=== PATIENT | male | born 1970 | race Caucasian/White ===

== ENCOUNTER 2023-12-02 21:22 | Emergency (ER) | payer SELFPAY ==
[2023-12-02 21:25] VITALS: BP 128/89; PULSE 85; TEMP 36.9; O2SAT 94; BMI 29.8
--- NOTE | 2023-12-02 21:54 | CT_ITS ---
The [address] [address] Patient Name: FARTUN BLOOM MRN: [id number] date: 1970 Sex: M Assigned Patient Location: ER Current Patient Location: ER Accession/Order Number: [id number] Exam Date: 12/02/2023 22:28 Report Date: 12/02/2023 23:52 At the request of: ALBERTO MARKER Procedure: CT abdomen pelvis w con EXAM: CT abdomen pelvis w con HISTORY: left inguinal abscess R/O fourniers gangrene COMPARISON: CT ABD/PELV W CON Date 11/24/2021 TECHNIQUE: Multiple axial images of the abdomen and pelvis are obtained following administration of IV contrast material. Coronal and sagittal reformatted sequences are submitted for review. FINDINGS: The lung bases appear clear. Heart size is normal. Mild diffuse low-attenuation of the liver is seen, which is a nonspecific finding, but which can be seen with mild diffuse fatty infiltration. Contracted but otherwise unremarkable gallbladder is seen. The spleen, pancreas and bilateral adrenal glands appear unremarkable. Bilateral kidneys demonstrate normal size, contrast enhancement. There is no evidence for hydronephrosis bilaterally. Distended but otherwise unremarkable urinary bladder is seen. Nonobstructive bowel pattern is seen. Normal-appearing appendix is visualized. No significant bowel wall thickening is seen. No significant free fluid or abnormal fluid collection is seen in the abdomen and pelvis. The vascular structures and should normal caliber and contrast enhancement. Very small fat-containing bilateral inguinal hernia is seen. No significant soft tissue gas is seen in the bilateral inguinal region.The abdominal wall and visualized soft tissues otherwise appear unremarkable. No destructive osseous lesion is seen. CT/CT abdomen pelvis w con IMPRESSION: No evidence for acute abnormality. Very small fat-containing bilateral inguinal hernia is seen. No significant soft tissue gas is seen in the bilateral inguinal region. Likely mild diffuse fatty infiltration of the liver. Normal-appearing appendix is visualized. Electronically authenticated by: ZULMA ANDERSON Date: 12/02/2023 23:52
[2023-12-02 22:21] LABS: Basophils Percent Auto 0.4 % (0.2-2.0); Eosinophils Absolute Auto 0.2 10^3/uL (0.0-0.7); Eosinophils Percent Auto 1.6 % (0.9-7.0); Hematocrit 43.9 % (42.0-54.0); Hemoglobin 14.9 g/dL (14.0-18.0); Immature Granulocytes Abs Auto 0.02 10^3/uL (0.00-0.03); Immature Granulocytes Pct Auto 0.2 % (0.0-0.5); Lymphocytes Absolute Auto 2.9 10^3/uL (1.2-3.8); Lymphocytes Percent Auto 29.1 % (20.5-60.0); Mean Corpuscular HGB Conc 33.9 g/dL (29.9-35.2); Mean Corpuscular Hemoglobin 32.7 pg (25.9-34.0); Mean Corpuscular Volume 96.3 fL (80.0-94.0); Mean Platelet Volume 9.6 fL (9.5-13.5); Monocytes Absolute Auto 0.6 10^3/uL (0.3-0.8); Monocytes Percent Auto 6.3 % (1.7-12.0); Neutrophils Absolute Auto 6.2 10^3/uL (1.4-6.5); Neutrophils Percent Auto 62.4 % (43.0-75.0); Platelet Count 262 10^3/uL (150-450); Red Blood Count 4.56 10^6/uL (4.70-6.10); Red Cell Distribution Width 12.8 % (11.0-15.0); White Blood Count 9.9 10^3/uL (4.0-11.0)
--- NOTE | 2023-12-02 22:22 | ED_ITS ---
HPI - Skin/Abscess/Foreign Bdy General Chief complaint: Skin/Abscess/Foreign Body Stated complaint: ABCESS -INNER THIGH Time Seen by Provider: 12/02/23 21:37 Source: patient Mode of arrival: walk-in Limitations: no limitations History of Present Illness HPI narrative: This 53-year-old male presents for evaluation of a draining abscess in the left inguinal area. The patient states he was sent to [facility] a year ago because he had an abscess in this area. He had surgery and since then he has not had any problems until approximately 2 days ago when he felt some discomfort in that area and thought he was chafed because he was at work and was sweating. He then smelled some foul-smelling substance and felt drainage down his left leg and realized that it was an abscess that had opened up in this area. He is not diabetic. He has not had a fever. He denies any pain at this time but did have pain earlier this week when the area was swollen before it opened up and drained. Related Data Home Medications ?Medication ?Instructions ?Recorded ?Confirmed No Known Home Medications 12/02/23 12/02/23 Allergies Allergy/AdvReac Type Severity Reaction Status Date / Time No Known Drug Allergies Allergy Verified 12/02/23 21:25 Review of Systems ROS Status of ROS 10 or more systems reviewed and unremark able except as noted in history and below Exam Narrative Exam Narrative: Vital signs and Nursing Notes reviewed: Patient is afebrile with normal pulse, normal blood pressure, he is not hypoxic with pulse ox of 94% on room air General: Awake, alert, oriented, nontoxic male, no acute distress, lying comfortably on the stretcher HEENT: Normocephalic atraumatic, mucous membranes are moist and pink, eyes are clear, normal conjunctiva, vision is grossly intact Chest: Lungs are clear to auscultation with good air entry, there is no wheezing rhonchi or rales appreciated no accessory muscle use, patient is speaking in complete sentences-no chest wall tenderness to palpation CVS: Regular rate and rhythm S1-S2, no murmurs rubs or gallops, pulses are brisk and equal bilaterally ABD: Soft, nondistended, nontender, no rebound guarding or rigidity, bowel sounds are normal, no pulsatile masses appreciated : There is an open area, approximately 1 cm, in the left inguinal area with an approx 3 cm area of induration at the lower portion of the area, no drainage was expressed with pressure appled. Extremities: Moving all extremities, no lower extremity tenderness or swelling noted, negative Homans' sign, pulses are brisk and equal bilaterally Skin: Normal in appearance without rash,pallor, petechiae or purpura Neuro: No focal deficits Constitutional Vital Signs, click to edit/add: Last Vital Signs Temp 98.4 F 12/02/23 21:25 Pulse 85 12/02/23 21:25 Resp 18 12/02/23 21:25 BP 128/89 12/02/23 21:25 Pulse Ox 94 L 12/02/23 21:25 O2 Del Method Room Air 12/02/23 21:25 Course Vital Signs Vital signs: Vital Signs Temperature 98.4 F 12/02/23 21:25 Pulse Rate 85 12/02/23 21:25 Respiratory Rate 18 12/02/23 21:25 Blood Pressure 128/89 12/02/23 21:25 Pulse Oximetry 94 L 12/02/23 21:25 Oxygen Delivery Method Room Air 12/02/23 21:25 Temperature 98.4 F 12/02/23 21:25 Pulse Rate 85 12/02/23 21:25 Respiratory Rate 18 12/02/23 21:25 Blood Pressure 128/89 12/02/23 21:25 Pulse Oximetry 94 L 12/02/23 21:25 Oxygen Delivery Method Room Air 12/02/23 21:25 MDM - Skin/Abscess/Foreign Bdy MDM Narrative Medical decision making narrative: This 53-year-old male who is otherwise healthy and had an I&D of a left inguinal abscess in [place] approximately 1 year ago presents for evaluation of recurrent abscess in the left inguinal canal area. The patient states the symptoms started several days ago. He thought he was chafing because he had some discomfort in his left inguinal area and then smelled something foul and realized that it was from the area where he formally had his incision and drainage of the abscess. He apparently had an abscess that recurred and was draining. He has not had a fever. He is not diabetic. There is no appreciable involvement of the perineum, scrotum or rectum. He has an approximately 3 cm area of induration just below an open area that is not currently draining however he states when it is draining now it is clear. I did not probe this area or irritated. He denies the need for anything for pain. He was medicated with 3 g of IV Unasyn and routine labs were ordered. He has a normal white count hemoglobin. Lactic acid is normal. Electrolytes are normal. CT scan of the abdomen and pelvis was reviewed by radiology I does not show any sign of necrotizing fasciitis or active abscess in this area. It does show bilateral inguinal hernias. The results of the CT scan was discussed with the patient he was given a copy. He will be discharged home with prescription for Augmentin to use for the next 10 days. I encouraged him to use warm compresses to keep the open area open and to help the area organize and drain. He is in agreement with this plan. He declined the need for any pain medication. He will be referred to outpatient general surgery as needed for the inguinal hernias and if the abscess should reaccumulate for further evaluation and treatment. Medical Records Medical records narrative: [place] [address] CT Scan Report Signed Patient: FARTUN BLOOM MR#: [id number] : 1970 Acct:[id number] Age/Sex: 53 / M ADM Date: 12/02/23 Loc: ER Attending Dr: Ordering Physician: Rocio Adrian Date of Service: 12/02/23 Procedure(s): CT abdomen pelvis w con Accession Number(s): [id number] cc: SAHRANATALI [facility] [place] [id number] Patient Name: FARTUN BLOOM MRN: [id number] date: 1970 Sex: M Assigned Patient Location: ER Current Patient Location: ER Accession/Order Number: [id number] Exam Date: 12/02/2023 22:28 Report Date: 12/02/2023 23:52 At the request of: ROCIO ADRIAN Procedure: CT abdomen pelvis w con EXAM: CT abdomen pelvis w con HISTORY: left inguinal abscess R/O fourniers gangrene COMPARISON: CT ABD/PELV W CON Date 11/24/2021 TECHNIQUE: Multiple axial images of the abdomen and pelvis are obtained following administration of IV contrast material. Coronal and sagittal reformatted sequences are submitted for review. FINDINGS: The lung bases appear clear. Heart size is normal. Mild diffuse low-attenuation of the liver is seen, which is a nonspecific finding, but which can be seen with mild diffuse fatty infiltration. Contracted but otherwise unremarkable gallbladder is seen. The spleen, pancreas and bilateral adrenal glands appear unremarkable. Bilateral kidneys demonstrate normal size, contrast enhancement. There is no evidence for hydronephrosis bilaterally. Distended but otherwise unremarkable urinary bladder is seen. Nonobstructive bowel pattern is seen. Normal-appearing appendix is visualized. No significant bowel wall thickening is seen. No significant free fluid or abnormal fluid collection is seen in the abdomen and pelvis. The vascular structures and should normal caliber and contrast enhancement. Very small fat-containing bilateral inguinal hernia is seen. No significant soft tissue gas is seen in the bilateral inguinal region.The abdominal wall and visualized soft tissues otherwise appear unremarkable. No destructive osseous lesion is seen. CT/CT abdomen pelvis w con IMPRESSION: No evidence for acute abnormality. Very small fat-containing bilateral inguinal hernia is seen. No significant soft tissue gas is seen in the bilateral inguinal region. Likely mild diffuse fatty infiltration of the liver. Normal-appearing appendix is visualized. Electronically authenticated by: ZULMA ANDERSON Date: 12/02/2023 23:52 Lab Data Labs: Lab Results 12/02/23 Range/Units 22:10 WBC 9.9 (4.0-11.0) 10^3/uL RBC 4.56 L (4.70-6.10) 10^6/uL Hgb 14.9 (14.0-18.0) g/dL Hct 43.9 (42.0-54.0) % MCV 96.3 H (80.0-94.0) fL MCH 32.7 (25.9-34.0) pg MCHC 33.9 (29.9-35.2) g/dL RDW 12.8 (11.0-15.0) % Plt Count 262 (150-450) 10^3/uL MPV 9.6 (9.5-13.5) fL Neut % (Auto) 62.4 (43.0-75.0) % Lymph % (Auto) 29.1 (20.5-60.0) % [place] % (Auto) 6.3 (1.7-12.0) % Eos % (Auto) 1.6 (0.9-7.0) % Baso % (Auto) 0.4 (0.2-2.0) % Neut # (Auto) 6.2 (1.4-6.5) 10^3/uL Lymph # (Auto) 2.9 (1.2-3.8) 10^3/uL [place] # (Auto) 0.6 (0.3-0.8) 10^3/uL Eos # (Auto) 0.2 (0.0-0.7) 10^3/uL Baso # (Auto) 0.0 (0.0-0.1) 10^3/uL Abs Immat Gran (auto) 0.02 (0.00-0.03) 10^3/uL Imm/Tot Granulo (auto) 0.2 (0.0-0.5) % Sodium 137 (136-145) mmol/L Potassium 3.3 L (3.5-5.1) mmol/L Chloride 102 (98-107) mmol/L Carbon Dioxide 27.8 (21.0-32.0) mmol/L Anion Gap 10.5 BUN 10.0 (7.0-18.0) mg/dL Creatinine 1.10 (0.70-1.30) mg/dL Est GFR ( Amer) >60 (>=60) Est GFR (Non-Af Amer) >60 (>=60) BUN/Creatinine Ratio 9.1 Glucose 97 (74-106) mg/dL Lactate 1.5 (0.4-2.0) mmol/L Calcium 8.4 L (8.5-10.1) mg/dL Total Bilirubin 0.5 (0.2-1.0) mg/dL AST 18 (15-37) U/L ALT 20 (16-63) U/L Alkaline Phosphatase 82 (46-116) U/L Total Protein 7.3 (6.4-8.2) g/dL Albumin 3.0 L (3.4-5.0) g/dL Globulin 4.3 g/dL Albumin/Globulin Ratio 0.7 Discharge Plan Discharge Stand Alone Forms: Portal Instructions Chief Complaint: Skin/Abscess/Foreign Body Clinical Impression: Abscess of groin, left Patient Disposition: Home, Self-Care Time of Disposition Decision: 00:15 Condition: Good Prescriptions / Home Meds: No Action No Known Home Medications Print Language: Tanzanian Instructions: Abscess (ED), Abscess Follow-up (ED) Additional Instructions: Use antibiotics as directed and warm compresses to the area to help the abscess continue to drain. Return to the emergency department for worsening symptoms, fever or any concerns. Referrals: NATALI BOCANEGRA [Primary Care Provider] - 1 week Zachariah Navas MD [Physician] - 1 week
[2023-12-02 22:38] LABS: Alanine Aminotransferase 20 U/L (16-63); Albumin Globulin Ratio 0.7; Alkaline Phosphatase 82 U/L (46-116); Anion Gap 10.5; Aspartate Amino Transferase 18 U/L (15-37); BUN Creatinine Ratio 9.1; Bilirubin Total 0.5 mg/dL (0.2-1.0); Calcium 8.4 mg/dL (8.5-10.1); Carbon Dioxide 27.8 mmol/L (21.0-32.0); Chloride 102 mmol/L (98-107); Estimated GFR (African America >60 (>=60); Estimated GFR (Non-African Ame >60 (>=60); Globulin 4.3 g/dL; Glucose 97 mg/dL (74-106); Potassium 3.3 mmol/L (3.5-5.1); Sodium 137 mmol/L (136-145); Total Protein 7.3 g/dL (6.4-8.2)
[2023-12-02 22:40] LABS: Lactate/Lactic Acid 1.5 mmol/L (0.4-2.0)
[2023-12-02] MEDS: 0.9 % SODIUM CHLORIDE 1,000 ML 1000 ML IV (22:55)
[2023-12-02] MEDS: AMPICILLIN SODIUM/SULBACTAM NA 3 GM in 0.9 % SODIUM CHLORIDE 100 ML IV (22:55)
== END 2023-12-03 00:38 | disposition home or self-care (01) ==
PROVIDERS: Emergency Provider Emergency Medicine; PCP Family Medicine
DX: L02.214 Cutaneous abscess of groin (principal)
CPT/HCPCS: 36415; 74177; 80053; 83605; 85025; 87040; 96374; 99285; J0295; Q9967

== ENCOUNTER 2024-01-20 11:29 | Observation (INO) | payer SELFPAY ==
[2024-01-20] VITALS (14 sets, daily range): BP systolic 139–164; BP diastolic 91–99; PULSE 87–100; TEMP 37.2–37.8; O2SAT 93–99; BMI 29.8; BMI 31.4
--- NOTE | 2024-01-20 11:43 | CT_ITS ---
[address] [address] Patient Name: FARTUN BLOOM MRN: [id number] date: 1970 Sex: M Assigned Patient Location: ER Current Patient Location: Accession/Order Number: [id number] Exam Date: 01/20/2024 12:20 Report Date: 01/20/2024 12:56 At the request of: DAR GUTIERREZ Procedure: CT abdomen pelvis w con EXAMINATION: CT abdomen pelvis w con HISTORY: Pain, hematemesis, fever COMPARISON: CT abdomen pelvis 12/02/2023, 11/24/2021, 11/17/2021 TECHNIQUE: Axial, Coronal, and Sagittal images were obtained without and/or with IV contrast as indicated by examination type. Dose reduction techniques were achieved by using automated exposure control and/or adjustment of mA and/or kV according to patient size and/or use of iterative reconstruction technique. FINDINGS: LUNG BASES: No visible pulmonary or pleural disease. 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 No enlargement, atrophy, suspicious density, or significant focal lesion. BILIARY: No dilatation or calcification. PANCREAS: Edema/inflammatory changes within the fat inferior and anterior to the distal tail of the pancreas. No lesion, fluid collection, or abnormal duct dilatation. SPLEEN: No enlargement or focal lesion. ADRENALS: No mass or enlargement. KIDNEYS: No mass, obstruction, or calcification. BOWEL/MESENTERY: Mild inflammatory changes within the fat adjacent to and medial to the splenic flexure of the colon. Nondistended colon within this region without convincing inflammatory wall thickening. Unremarkable small bowel and stomach. AORTA/VASCULAR: No aneurysm or dissection. RETROPERITONEUM: No mass or adenopathy. LYMPH NODES: No adenopathy. URINARY BLADDER: No visible focal wall thickening, lesion, or calculus. PELVIC ORGANS: No visible mass. Pelvic organs appropriate for patient age. ABDOMINAL WALL: No mass or hernia. BONES: No bony lesion or fracture. OTHER: Negative. CT/CT abdomen pelvis w con IMPRESSION: 1. Suspect mild acute pancreatitis involving the tail the pancreas. Colitis involving the splenic flexure of the colon is felt less likely. Electronically authenticated by: PASCUAL TRISTAN Date: 01/20/2024 12:56
--- NOTE | 2024-01-20 11:44 | ED_ITS ---
HPI HPI - General Adult General Chief complaint: Nausea/Vomiting/Diarrhea Stated complaint: VOMITING BLOOD, WEAK Time Seen by Provider: 01/20/24 11:38 Source: patient Mode of arrival: walk-in Limitations: no limitations History of Present Illness HPI narrative: 53-year-old male presents to the emergency department for vomiting blood. He states beginning yesterday he was nauseous and he vomited. He did not see any blood yesterday but when he vomited today he saw dark red blood. No blood in his stools or black tarry color. He complains of some upper abdominal pain and he was noted to have a temperature of 100 degrees at triage. He smokes he drinks bourbon every day. Related Data Home Medications ?Medication ?Instructions ?Recorded ?Confirmed No Known Home Medications 12/02/23 12/02/23 Allergies Allergy/AdvReac Type Severity Reaction Status Date / Time No Known Drug Allergies Allergy Verified 12/02/23 21:25 Opioid HPI Opioid Management Most Recent Opioid Data: No Data to Display Review of Systems ROS Narrative A ten point review of systems is negative except as noted above. PFSH PFSH Social History Little interest or pleasure in doing things: not at all Feeling down, depressed, or hopeless: not at all Exam Narrative Exam Narrative: Nurses note and vital signs reviewed and patient is not hypoxic. General: The patient appears well and in no apparent distress. Patient is resting comfortably on cart. Skin: Warm, dry, no pallor noted. There is no rash noted. Head: Normocephalic, atraumatic Eye: Normal conjunctiva, no drainage Ears, Nose, Mouth, and Throat: oral mucosa is moist. Nares patent. Cardiovascular: Regular Rate and Rhythm Respiratory: Patient is in no distress, no accessory muscle use, lungs are clear to auscultation, no wheezing, rales or rhonchi GI: Normal bowel sounds, minimal tenderness to palpation only in the epigastric area, no masses appreciated. No rebound, guarding, or rigidity noted. Musculoskeletal: The patient has no evidence of calf tenderness, no pitting edema, symmetrical pulses noted bilaterally Neurological: A&O, normal speech Psychiatric: Cooperative Constitutional Vital Signs, click to edit/add: Last Vital Signs Temp 100.0 F 01/20/24 11:35 Pulse 100 H 01/20/24 11:35 Resp 18 01/20/24 11:35 BP 164/99 H 01/20/24 11:35 Pulse Ox 99 01/20/24 11:58 O2 Del Method Room Air 01/20/24 11:58 Course Vital Signs Vital signs: Vital Signs Temperature 100.0 F 01/20/24 11:35 Pulse Rate 100 H 01/20/24 11:35 Respiratory Rate 18 01/20/24 11:35 Blood Pressure 164/99 H 01/20/24 11:35 Pulse Oximetry 96 01/20/24 11:35 Oxygen Delivery Method Room Air 01/20/24 11:35 Temperature 100.0 F 01/20/24 11:35 Pulse Rate 100 H 01/20/24 11:35 Respiratory Rate 18 01/20/24 11:35 Blood Pressure 164/99 H 01/20/24 11:35 Pulse Oximetry 99 01/20/24 11:58 Oxygen Delivery Method Room Air 01/20/24 11:58 Medical Decision Making MDM Narrative Medical decision making narrative: WBC is 15,000 and he has a temperature of [address] scan per radiologist suggested the possibility pancreatitis but his amylase is normal and his lipase is just above the upper limit of normal. Colitis is also suggested on the CAT scan and this better fits the clinical picture at this point. He was given IV Protonix and IV Cipro and Flagyl and he is being admitted. Hemoglobin is 17.2. Findings are discussed thoroughly with the patient and his family. Differential Diagnosis Differential Diagnosis: Pancreatitis, duodenitis, colitis, gastric ulcer Lab Data Lab results reviewed: Yes I reviewed the patient's lab results Labs: Lab Results 01/20/24 Range/Units 11:41 WBC 15.8 H (4.0-11.0) 10^3/uL RBC 5.11 (4.70-6.10) 10^6/uL Hgb 17.2 (14.0-18.0) g/dL Hct 47.4 (42.0-54.0) % MCV 92.8 (80.0-94.0) fL MCH 33.7 (25.9-34.0) pg MCHC 36.3 H (29.9-35.2) g/dL RDW 13.1 (11.0-15.0) % Plt Count 187 (150-450) 10^3/uL MPV 9.9 (9.5-13.5) fL Neut % (Auto) 76.3 H (43.0-75.0) % Lymph % (Auto) 16.8 L (20.5-60.0) % [place] % (Auto) 5.8 (1.7-12.0) % Eos % (Auto) 0.3 L (0.9-7.0) % Baso % (Auto) 0.4 (0.2-2.0) % Neut # (Auto) 12.1 H (1.4-6.5) 10^3/uL Lymph # (Auto) 2.7 (1.2-3.8) 10^3/uL [place] # (Auto) 0.9 H (0.3-0.8) 10^3/uL Eos # (Auto) 0.0 (0.0-0.7) 10^3/uL Baso # (Auto) 0.1 (0.0-0.1) 10^3/uL Abs Immat Gran (auto) 0.06 H (0.00-0.03) 10^3/uL Imm/Tot Granulo (auto) 0.4 (0.0-0.5) % PT 12.7 H (9.0-11.6) sec INR 1.22 APTT 28.8 (22.3-36.2) sec Sodium 131 L (136-145) mmol/L Potassium 3.7 (3.5-5.1) mmol/L Chloride 96 L (98-107) mmol/L Carbon Dioxide 25.9 (21.0-32.0) mmol/L Anion Gap 12.8 BUN 12.0 (7.0-18.0) mg/dL Creatinine 1.01 (0.70-1.30) mg/dL Est GFR ( Amer) >60 (>=60) Est GFR (Non-Af Amer) >60 (>=60) BUN/Creatinine Ratio 11.9 Glucose 136 H (74-106) mg/dL Calcium 8.3 L (8.5-10.1) mg/dL Total Bilirubin 1.6 H (0.2-1.0) mg/dL Direct Bilirubin 0.4 H (0.0-0.2) mg/dL AST 71 H (15-37) U/L ALT 87 H (16-63) U/L Alkaline Phosphatase 106 (46-116) U/L Total Protein 7.8 (6.4-8.2) g/dL Albumin 2.9 L (3.4-5.0) g/dL Globulin 4.9 g/dL Albumin/Globulin Ratio 0.6 Amylase 40 (25-115) U/L Lipase 90.0 H (16.0-77.0) U/L Imaging Data CT scan - abdomen: Radiologist's impression: ITS Impressions Abdomen/Pelvis CT 01/20/24 11:43 IMPRESSION: 1. Suspect mild acute pancreatitis involving the tail the pancreas. Colitis involving the splenic flexure of the colon is felt less likely. Electronically authenticated by: PASCUAL TRISTAN Date: 01/20/2024 12:56 Discharge Plan Discharge Chief Complaint: Nausea/Vomiting/Diarrhea Clinical Impression: Colitis, Abdominal pain, Leukocytosis Patient Disposition: Admitted As Inpatient Time of Disposition Decision: 14:04 Condition: Fair
[2024-01-20 11:51] LABS: Basophils Absolute Auto 0.1 10^3/uL (0.0-0.1); Basophils Percent Auto 0.4 % (0.2-2.0); Eosinophils Percent Auto 0.3 % (0.9-7.0); Hematocrit 47.4 % (42.0-54.0); Hemoglobin 17.2 g/dL (14.0-18.0); Immature Granulocytes Abs Auto 0.06 10^3/uL (0.00-0.03); Immature Granulocytes Pct Auto 0.4 % (0.0-0.5); Lymphocytes Absolute Auto 2.7 10^3/uL (1.2-3.8); Lymphocytes Percent Auto 16.8 % (20.5-60.0); Mean Corpuscular HGB Conc 36.3 g/dL (29.9-35.2); Mean Corpuscular Hemoglobin 33.7 pg (25.9-34.0); Mean Corpuscular Volume 92.8 fL (80.0-94.0); Mean Platelet Volume 9.9 fL (9.5-13.5); Monocytes Absolute Auto 0.9 10^3/uL (0.3-0.8); Monocytes Percent Auto 5.8 % (1.7-12.0); Neutrophils Absolute Auto 12.1 10^3/uL (1.4-6.5); Neutrophils Percent Auto 76.3 % (43.0-75.0); Platelet Count 187 10^3/uL (150-450); Red Blood Count 5.11 10^6/uL (4.70-6.10); Red Cell Distribution Width 13.1 % (11.0-15.0); White Blood Count 15.8 10^3/uL (4.0-11.0)
[2024-01-20] MEDS: 0.9 % SODIUM CHLORIDE 1,000 ML 200 ML IV (11:52)
--- OUTSIDE RECORDS SUMMARY | 2024-01-20 11:59 | XMS_ITS | CCD ---
Author Organization [facility] Inform ion Partnership [facility] Care Team Providers Care Negative Retoucher Name Role Phone Provider, None Unavailable Unavailable Hunter, Chris R. Unavailable Unavailable Sanders, Chris R. Unavailable Unavailable Provider, None Unavailable Unavailable Hunter, Chris R. Unavailable Unavailable Hunter, Chris R. Unavailable Unavailable Unavailable Primary Care Provider UnavailDO Sandro Fraser Primary Care Provider [phone] DO Marce Roblero Emergency Provider MD Amrit Orozco Admit Provider MD Amrit Orozco Attending Provider [phone] DO Bruno Bocanegra Primary Care Provider [phone] PIYUSH Golden Other Provider Unavailable PIYUSH Mathews Other Provider Unavailable PIYUSH Aguilera Other Provider Unavailable PIYUSH Hauser Other Provider Unavailable PIYUSH Rolon Other Provider Unavailable PIYUSH Saenz Other Provider Unavailable MD Reza Calderon Other Provider MD Gen Johnson Other Provider KARMEN Christy Other Provider [phone] DO Shikha Ramirez Other Provider MD Moshe Tello Other Provider DO Aubrey Adams Other Provider MD Jonathan Rosado Other Provider MD Cristina Thurman Other Provider Desean ANP-BC Tanisha Other Provider MD Wiley Mathur Other Provider MD Randal Ballesteros Other Provider MD Monisha Mcgregor Other Provider MD Carlos Vilchis Other Provider DO Chin Downing Other Provider [phone] MD Vince Jauregui Other Provider MD Cornel Villanueva Other Provider MD Chi Bernabe Other Provider MAKENZIE Young Other Provider [phone] MD Timothy Monreal Other Provider MD Devyn Arreola Other Provider MD Jyothi Dowling Other Provider MD Lacho Taveras Other Provider DO Saige Desir Other Provider Al MD Bipin Pickering Other Provider DO Nagi Schmitz Other Provider DO Hema Gastelum Other Provider KARMEN Yan Other Provider DO Gonzalo Vanessa Other Provider [phone] MD Jarett Jurado Other Provider KARMEN Duarte Other Provider PIYUSH Dumont Other Provider Unavailable CORINNE OGDEN Attending Unavailable KUN, DR PASCUAL Ramos Consulting Unavailable HOUSE, DR HURST Primary Care Unavailable PAY, DR JONES Admitting Unavailable PAY, DR JONES Attending Unavailable PAY, DR JONES Consulting Unavailable SNEHA, JOSE J Attending Unavailable SNEHA, JOSE J Consulting Unavailable SNEHA, JOSE J Admitting Unavailable HOUSE, DR HURST Primary Care Unavailable ISABELLE LEÓN Consulting Unavailable HOUSE, DR HURST Primary Care Unavailable DIAB, YOLY Admitting Unavailable SAID, BINOR Consulting Unavailable DIAB, YOLY Attending Unavailable YADI GOLDMAN Consulting Unavailable KAT, YOLY Consulting Unavailable LITZY POST Consulting Unavailable SAHRA, DR HURST Primary Care Unavailable LITZY POST Admitting Unavailable LITZY POST Attending Unavailable PAY, DR JONES Admitting Unavailable HOUSE, DR HURST Primary Care Unavailable KUN, DR PASCUAL Ramos Consulting Unavailable PAY, DR JONES Attending Unavailable PAY, DR JONES Consulting Unavailable JOO HUGHES Consulting Unavailable Sahra, Bruno Primary Care Unavailable Ernesto, Amrit Admitting Unavailable Areli Golden Consulting Unavailable Mak Orozcomi Attending Unavailable Effie Mathews Consulting Unavailable Nakita Aguilera Consulting Unavailable Candi Hauser Consulting Unavailable Donna Rolon Consulting Unavailable Ashlee Saenz Consulting Unavailable Reza Calderon Consulting Unavailable Gen Johnson Consulting Unavailable Roselyn Christy Consulting Unavailable Shikha Ramirez Consulting Unavailable Moshe Tello Consulting Unavailable Aubrey Adams Consulting UnavailJonathan Mejia Consulting Unavailable Cristina Thurman Consulting Unavailable Tanisha Anton Consulting Unavailable Wiley Mathur Consulting Unavailable Randal Ballesteros Consulting Unavailable Monisha Mcgregor Consulting Unavailable Carlos Vilchis Consulting Unavailable Chin Downing Consulting Unavailable Vince Jauregui Consulting Unavailable Cornel Villanueva Consulting Unavailable Chi Bernabe Consulting Unavailable Marce Young Consulting Unavailable DoTimothy newsome Consulting Unavailab Devyn Jacobs Consulting Unavailable JoseyJyothi min Consulting Unavailable Lacho Taveras Consulting Unavailable Saige Desir Consulting Unavailable Bipin Hernandez Consulting Unavailab Nagi Rogers Consulting Unavailable Hema Gastelum Consulting Unavailable Obika Tricia Consulting Unavailable Gonzalo Vanessa Consulting Unavailable DaromaAlessandro ramosayivone Monique Consulting Unavailable Leatha Duarte Consulting Unavailable Tita Dumont Consulting Unavailable Marce Roblero Attending Unavailable Marce Roblero Admitting Unavailable Sandro Mckeon Primary Care Unavailable Allergies Allergy Classification Reported Allergen(s) Allergy Type Date of Onset Reaction(s) Facility (1 source) No Known Medication Allergies; Translations: [No Known Medication Allergies] Propensity to adverse reactions to drug (disorder) [facility] Repository Medications Current Medications Medication Drug Class(es) Dates Sig (Normalized) Sig (Original) amLODIPine 10 mg oral tablet (1 source) Dihydropyridine Calcium Channel Holden Start: 03-08-2022 take 10 mg by mouth once daily Amlodipine Active 10 MG PO Daily March 08, 2022 12:00am cholecalciferol 0.125 mg oral capsule (1 source) Vitamin D Start: 03-08-2022 take 125 ug by mouth once daily Cholecalciferol (Vitamin D3) Active 125 MCG PO Daily March 08, 2022 12:00am citalopram 10 mg oral tablet (1 source) Serotonin Reuptake Inhibitor Start: 03-09-2022 take 10 mg by mouth once daily in the morning Citalopram Active 10 MG PO Every morning March 09, 2022 12:00am 24 hr nicotine 0.875 mg/hr transdermal system (1 source) Cholinergic Nicotinic Agonist Start: 03-09-2022 Nicotine Active 1 EACH TRANSDERML Daily March 09, 2022 12:00am propranolol hydrochloride 10 mg oral tablet (1 source) beta-Adrenergic Holden Start: 03-09-2022 take 10 mg by mouth twice daily Propranolol Active 10 MG PO Twice daily 60 March 09, 2022 12:00am Problems Active Problems Problem Classification Problem Date Documented Da te Episodic/Chronic Alcohol-related disorders (1 source) Alcohol dependence, uncomplicated; Translations: [ALCOHOL DEPENDENCE UNCOMPLICATED] Onset: 03-10-2022 Chronic Anxiety disorders (4 sources) Mixed anxiety and depressive disorder; Translations: [Anxiety disorder, unspecified] Onset: 03-06-2022 03-07-2022 Chronic Essential hypertension (4 sources) Hypertensive disorder; Translations: [Essential (primary) hypertension] Onset: 03-06-2022 03-08-2022 Chronic Mood disorders (1 source) Major depressive disorder, single episode, unspecified; Translations: [Major depressive disorder, single episode, unspecified] Onset: 03-06-2022 Chronic Mood disorders (1 source) Mood disorders; Translations: [Depression, unspecified] Onset: 03-06-2022 Nausea and vomiting (4 sources) Nausea with vomiting, unspecified; Translations: [Vomiting, unspecified] Onset: 11-24-2021 Episodic Nonspecific chest pain (4 sources) Chest pain, unspecified; Translations: [Other chest pain] Onset: 05-21-2022 Episodic Nutritional deficiencies (3 sources) Vitamin D deficiency; Translations: [Vitamin D deficiency, unspecified] Onset: 03-06-2022 03-08-2022 Chronic Other aftercare (1 source) Other 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 (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; 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] Onset: 05-25-2022 Episodic Other lower respiratory disease (1 source) Shortness of breath; Translations: [SHORTNESS OF BREATH] Onset: 03-10-2022 Episodic Other screening for suspected conditions (not mental disorders or infectious disease) (2 sources) Patient encounter status; Translations: [Encounter for screening for other disorder] Onset: 03-10-2022 Episodic Residual codes; unclassified (1 source) Restlessness and agitation; Translations: [RESTLESSNESS AND AGITATION] Onset: 03-10-2022 Chronic Spondylosis; intervertebral disc disorders; other back problems (1 source) Dorsalgia, unspecified; Translations: [DORSALGIA UNSPECIFIED] Onset: 05-25-2022 Episodic Substance-related disorders (1 source) Nicotine dependence, cigarettes, uncomplicated; Translations: [NICOTINE DEPEND CIGARETTES UNCOMP] Onset: 05-25-2022 Chronic Unclassified (1 source) CONTACT W/AND (SUSP) EXPOS COVID-19; Translations: [CONTACT W/AND (SUSP) EXPOS COVID-19] Onset: 03-10-2022 Past or Other Problems Problem Classification Problem Date Documented Da te Episodic/Chronic Inflammatory conditions of male genital organs (2 sources) Inflammatory disorders of scrotum; Translations: [Scrotal wall abscess] Onset: 11-18-2021 Episodic Intestinal infection (1 source) Viral intestinal infection, unspecified; Translations: [VIRAL INTESTINAL INFECTION UNSPEC] Onset: 11-26-2021 Episodic Other connective tissue disease (3 sources) Pain in left lower leg; Translations: [PAIN IN LEFT LOWER LEG] Onset: 07-26-2021 Episodic Other male genital disorders (5 sources) Scrotal pain; Translations: [Scrotal pain] Onset: 11-17-2021 Episodic Other male genital disorders (1 source) Torsion of testis, unspecified; Translations: [TORSION OF TESTIS UNSPECIFIED] Onset: 11-24-2021 Episodic Other nervous system disorders (1 source) Paresthesia of skin; Translations: [Paresthesia of skin] Onset: 03-02-2022 Episodic Other skin disorders (1 source) Personal history of diseases of the skin and subcutaneous tissue; Translations: [History of abscess of skin and subcutaneous tissue] Onset: 11-18-2021 Episodic Skin and subcutaneous tissue infections (1 source) Local infection of the skin and subcutaneous tissue, unspecified; Translations: [LOCAL INFECT SKIN SUBQ TISSUE UNS] Onset: 08-04-2021 Episodic Results Test Name Value Interpretation Reference Range Facility CARDIAC SHEA ADMITon 023 CK [Catalytic activity/Vol] 104 U/L Normal 39-308 [facility] Comment on above: Performed By: #### B NOISE ABATEMENT ENGINEER, LIPA, HSTROPN, CMP #### [facility] [address] [place] [address] Dr. Alesia Argueta CK.MB [Mass/Vol] ng/mL Normal <=3.60 [facility] Comment on above: Performed By: #### B NOISE ABATEMENT ENGINEER, LIPA, HSTROPN, CMP #### [facility] [address] [place] [address] Dr. Alesia Argueta HSTROP 5.8 pg/mL Normal 4.0-76.1 [facility] Comment on above: Result Comment: CUT- OFF POINTS HAVE BEEN ESTABLISHED BASED ON THE FOURTH UNIVERSAL DEFINITIONS OF MYOCARDIAL INFARCTION. THE UPPER REFERENCE LIMIT (URL) OF TROPONIN, DEFINED THE 99TH PERCENTILE OF cTnI DISTRIBUTION IN A REFERENCE POPULATION, HAS BEEN CONFIRMED THE DECISION THRESHOLD FOR AR DIAGNOSIS. Performed By: #### B NOISE ABATEMENT ENGINEER, LIPA, HSTROPN, CMP #### [facility] [address] [place] [address] Dr. Alesia Argueta HAWK 43 ng/mL Normal 16-96 [facility] Comment on above: Performed By: #### B NOISE ABATEMENT ENGINEER, LIPA, HSTROPN, CMP #### [facility] [address] [place] [address] Dr. Alesia Argueta CBC AUTO DIFFon 05-21-2022 BASO # 0.1 103/ul Normal 0.0-0.1 [facility] Comment on above: Performed By: #### B NOISE ABATEMENT ENGINEER, LIPA, HSTROPN, CMP #### [facility] [address] [place] [address] Dr. Alesia Argueta Basophils/100 WBC (Bld) 0.6 % Normal 0.2-2.0 [facility] Comment on above: Performed By: #### B NOISE ABATEMENT ENGINEER, LIPA, HSTROPN, CMP #### [facility] [address] [place] [address] Dr. Alesia Argueta EO # 0.2 103/ul Normal 0.0-0.7 [facility] Comment on above: Performed By: #### B NOISE ABATEMENT ENGINEER, LIPA, HSTROPN, CMP #### [facility] [address] [place] [address] Dr. Alesia Argueta Eosinophils/100 WBC (Bld) 2.8 % Normal 0.9-7.0 [facility] Comment on above: Performed By: #### B NOISE ABATEMENT ENGINEER, LIPA, HSTROPN, CMP #### [facility] [address] [place] [address] Dr. Alesia Argueta Erythrocyte distribution width (RBC) [Ratio] 13.2 % Normal 11.0-15.0 [facility] Comment on above: Performed By: #### B NOISE ABATEMENT ENGINEER, LIPA, HSTROPN, CMP #### [facility] [address] [place] [address] Dr. Alesia Argueta Hematocrit (Bld) [Volume fraction] 53.6 % Normal 42.0-54.0 [facility] Comment on above: Performed By: #### B NOISE ABATEMENT ENGINEER, LIPA, HSTROPN, CMP #### [facility] [address] [place] [address] Dr. Alesia Argueta Hemoglobin (Bld) [Mass/Vol] 16.7 g/dL Normal 14.0-18.0 [facility] Comment on above: Performed By: #### B NOISE ABATEMENT ENGINEER, LIPA, HSTROPN, CMP #### [facility] [address] [place] [address] Dr. Alesia Argueta IG # 0.02 10e3/ul Normal 0.00-0.03 [facility] Comment on above: Performed By: #### B NOISE ABATEMENT ENGINEER, LIPA, HSTROPN, CMP #### [facility] [address] [place] [address] Dr. Alesia Argueta IG % 0.3 % Normal 0.0-0.5 [facility] Comment on above: Performed By: #### B NOISE ABATEMENT ENGINEER, LIPA, HSTROPN, CMP #### [facility] [address] [place] [address] Dr. Alesia Argueta LYMPH # 3.4 103/ul Normal 1.2-3.8 [facility] Comment on above: Performed By: #### B NOISE ABATEMENT ENGINEER, LIPA, HSTROPN, CMP #### [facility] [address] [place] [address] Dr. Alesia Argueta Lymphocytes/100 WBC (Bld) 44.5 % Normal 20.5-60.0 [facility] Comment on above: Performed By: #### B NOISE ABATEMENT ENGINEER, LIPA, HSTROPN, CMP #### [facility] [address] [place] [address] Dr. Alesia Argueta MANUAL DIFF REQ NO Normal [facility] Comment on above: Performed By: #### B NOISE ABATEMENT ENGINEER, LIPA, HSTROPN, CMP #### [facility] [address] [place] [address] Dr. Alesia Argueta MCH (RBC) [Entitic mass] 30.8 pg Normal 25.9-34.0 [facility] Comment on above: Performed By: #### B NOISE ABATEMENT ENGINEER, LIPA, HSTROPN, CMP #### [facility] [address] [place] [address] Dr. Alesia Argueta MCHC (RBC) [Mass/Vol] 31.2 g/dL Normal 29.9-35.2 [facility] Comment on above: Performed By: #### B NOISE ABATEMENT ENGINEER, LIPA, HSTROPN, CMP #### [facility] [address] [place] [address] Dr. Alesia Argueta MCV (RBC) [Entitic vol] 98.9 fL Critically high 80.0-94.0 [facility] Comment on above: Performed By: #### B NOISE ABATEMENT ENGINEER, LIPA, HSTROPN, CMP #### [facility] [address] [place] [address] Dr. Alesia Argueta MONO # 0.6 103/ul Normal 0.3-0.8 [facility] Comment on above: Performed By: #### B NOISE ABATEMENT ENGINEER, LIPA, HSTROPN, CMP #### [facility] [address] [place] [address] Dr. Alesia Argueta Monocytes/100 WBC (Bld) 7.2 % Normal 1.7-12.0 [facility] Comment on above: Performed By: #### B NOISE ABATEMENT ENGINEER, LIPA, HSTROPN, CMP #### [facility] [address] [place] [address] Dr. Alesia Argueta NEUT # 3.4 103/ul Normal 1.4-6.5 [facility] Comment on above: Performed By: #### B NOISE ABATEMENT ENGINEER, LIPA, HSTROPN, CMP #### [facility] [address] [place] [address] Dr. Alesia Argueta Neutrophils/100 WBC (Bld) 44.6 % Normal 43.0-75.0 [facility] Comment on above: Performed By: #### B NOISE ABATEMENT ENGINEER, LIPA, HSTROPN, CMP #### [facility] [address] [place] [address] Dr. Alesia Argueta Platelet mean volume (Bld) [Entitic vol] 9.8 fL Normal 9.5-13.5 [facility] Comment on above: Performed By: #### B NOISE ABATEMENT ENGINEER, LIPA, HSTROPN, CMP #### [facility] [address] [place] [address] Dr. Alesia Argueta PLT 297 103/ul Normal 150-450 [facility] Comment on above: Performed By: #### B NOISE ABATEMENT ENGINEER, LIPA, HSTROPN, CMP #### [facility] [address] [place] [address] Dr. Alesia Argueta RBC 5.42 106/ul Normal 4.70-6.10 [facility] Comment on above: Performed By: #### B NOISE ABATEMENT ENGINEER, LIPA, HSTROPN, CMP #### [facility] [address] [place] [address] Dr. Alesia Argueta WBC 7.7 103/ul Normal 4.0-11.0 [facility] Comment on above: Performed By: #### B NOISE ABATEMENT ENGINEER, LIPA, HSTROPN, CMP #### [facility] [address] [place] [address] Dr. Alesia Argueta PROF 14(COMP METB)on 023 Albumin [Mass/Vol] 3.6 g/dL Normal 3.4-5.0 [facility] Comment on above: Performed By: #### B NOISE ABATEMENT ENGINEER, LIPA, HSTROPN, CMP #### [facility] [address] [place] [address] Dr. Alesia Argueta Albumin/Globulin [Mass ratio] 0.9 {ratio} Normal [facility] Comment on above: Performed By: #### B NOISE ABATEMENT ENGINEER, LIPA, HSTROPN, CMP #### [facility] [address] [place] [address] Dr. Alesia Argueta ALP [Catalytic activity/Vol] 78 U/L Normal 46-116 [facility] Comment on above: Performed By: #### B NOISE ABATEMENT ENGINEER, LIPA, HSTROPN, CMP #### [facility] [address] [place] [address] Dr. Alesia Argueta ALT [Catalytic activity/Vol] 28 U/L Normal 16-63 [facility] Comment on above: Performed By: #### B NOISE ABATEMENT ENGINEER, LIPA, HSTROPN, CMP #### [facility] [address] [place] [address] Dr. Alesia Argueta Anion gap [Moles/Vol] 11.8 mmol/L Normal [facility] Comment on above: Performed By: #### B NOISE ABATEMENT ENGINEER, LIPA, HSTROPN, CMP #### [facility] [address] [place] [address] Dr. Alesia Argueta AST [Catalytic activity/Vol] 19 U/L Normal 15-37 [facility] Comment on above: Performed By: #### B NOISE ABATEMENT ENGINEER, LIPA, HSTROPN, CMP #### [facility] [address] [place] [address] Dr. Alesia Argueta Bilirubin [Mass/Vol] 0.2 mg/dL Normal 0.2-1.0 [facility] Comment on above: Performed By: #### B NOISE ABATEMENT ENGINEER, LIPA, HSTROPN, CMP #### [facility] [address] [address] [address] Alesia Argueta Calcium [Mass/Vol] 8.9 mg/dL Normal 8.5-10.1 [facility] Comment on above: Performed By: #### B NOISE ABATEMENT ENGINEER, LIPA, HSTROPN, CMP #### [facility] [address] [place] [address] Dr. Alesia Argueta Chloride [Moles/Vol] 103 mmol/L Normal 98-107 [facility] Comment on above: Performed By: #### B NOISE ABATEMENT ENGINEER, LIPA, HSTROPN, CMP #### [facility] [address] [place] [address] Dr. Alesia Argueta CO2 [Moles/Vol] 29.1 mmol/L Normal 21.0-32.0 [facility] Comment on above: Performed By: #### B NOISE ABATEMENT ENGINEER, LIPA, HSTROPN, CMP #### [facility] [address] [address] [address] Alesia Argueta Creatinine [Mass/Vol] 0.87 mg/dL Normal 0.70-1.30 [facility] Comment on above: Performed By: #### B NOISE ABATEMENT ENGINEER, LIPA, HSTROPN, CMP #### [facility] [address] [place] [address] Dr. Alesia Argueta EGFR-AF SPANISH >60 Normal >=60 [facility] Comment on above: Performed By: #### B NOISE ABATEMENT ENGINEER, LIPA, HSTROPN, CMP #### [facility] [address] [address] [address] Alesia Argueta EGFR-NON AF SPANISH >60 Normal >=60 [facility] Comment on above: Performed By: #### B NOISE ABATEMENT ENGINEER, LIPA, HSTROPN, CMP #### [facility] [address] [address] [address] Alesia Argueta Globulin (S) [Mass/Vol] 4.2 g/dL Normal [facility] Comment on above: Performed By: #### B NOISE ABATEMENT ENGINEER, LIPA, HSTROPN, CMP #### [facility] [address] [place] [address] Dr. Alesia Argueta Glucose [Mass/Vol] 103 mg/dL Normal 74-106 [facility] Comment on above: Performed By: #### B NOISE ABATEMENT ENGINEER, LIPA, HSTROPN, CMP #### [facility] [address] [place] [address] Dr. Alesia Argueta Potassium [Moles/Vol] 3.9 mmol/L Normal 3.5-5.1 [facility] Comment on above: Performed By: #### B NOISE ABATEMENT ENGINEER, LIPA, HSTROPN, CMP #### [facility] [address] [place] [address] Dr. Alesia Argueta Protein [Mass/Vol] 7.8 g/dL Normal 6.4-8.2 [facility] Comment on above: Performed By: #### B NOISE ABATEMENT ENGINEER, LIPA, HSTROPN, CMP #### [facility] [address] [place] [address] Dr. Alesia Argueta Sodium [Moles/Vol] 140 mmol/L Normal 136-145 [facility] Comment on above: Performed By: #### B NOISE ABATEMENT ENGINEER, LIPA, HSTROPN, CMP #### [facility] [address] [place] [address] Dr. Alesia Argueta Urea nitrogen [Mass/Vol] 10.0 mg/dL Normal 7.0-18.0 [facility] Comment on above: Performed By: #### B NOISE ABATEMENT ENGINEER, LIPA, HSTROPN, CMP #### [facility] [address] [place] [address] Dr. Alesia Argueta Urea nitrogen/Creatinine [Mass ratio] 11.5 mg/mg Normal [facility] Comment on above: Performed By: #### B NOISE ABATEMENT ENGINEER, LIPA, HSTROPN, CMP #### [facility] [address] [place] [address] Dr. Alesia Argueta TROPONIN, HIGH SENSITIVITYon 05-21-2022 HSTROP 6.9 pg/mL Normal 4.0-76.1 [facility] Comment on above: Result Comment: CUT- OFF POINTS HAVE BEEN ESTABLISHED BASED ON THE FOURTH UNIVERSAL DEFINITIONS OF MYOCARDIAL INFARCTION. THE UPPER REFERENCE LIMIT (URL) OF TROPONIN, DEFINED THE 99TH PERCENTILE OF cTnI DISTRIBUTION IN A REFERENCE POPULATION, HAS BEEN CONFIRMED THE DECISION THRESHOLD FOR AR DIAGNOSIS. Performed By: #### B NOISE ABATEMENT ENGINEER, LIPA, HSTROPN, CMP #### [facility] [address] [place], [place] [address] Dr. Alesia Argueta XR CHEST 1 Von 05-21-2022 XR CHEST 1 V EXAM: XR CHEST 1 V 3:47 AM EST [id number] CLINICAL STATEMENT: CHEST PAIN, UNSPECIFIED COMPARISON: 07/02/2011 TECHNIQUE: Single AP radiograph of the chest is submitted. FINDINGS: There is no acute airspace disease. The cardiac silhouette is normal. The costophrenic recesses are sharp. No pneumothorax. The bony elements are unremarkable. IMPRESSION: No acute cardiopulmonary process. FOLLOW-UP: Follow-up as clinically indicated. Electronically authenticated by: JAMARI CLARK Date: 2022-05-21 04:[address] [facility] XR TSPINE 2 VIEWSon 05-21-19 23 XR TSPINE 2 VIEWS EXAM: XR TSPINE 2 EWS HISTORY: Backache COMPARISON: Chest x-ray performed 07/06/2017. TECHNIQUE: AP, lateral and swimmer's views of the thoracic spine are obtained. FINDINGS: The thoracic vertebral body heights are normally maintained as well as alignment. No acute fracture or dislocation. No significant scoliotic curvature. Pedicles are normally preserved. Intervertebral disc spaces are normally preserved. No anterior spurring of the thoracic spine is present. Remaining visualized osseous structures appear grossly intact. IMPRESSION: No acute fracture or dislocation. Electronically authenticated by: YADI GOLDMAN Date: 2022-05-21 06:[address] [facility] Cholesterol [Mass/volume] in Serum or PlasmaOrdered By: Amrit Orozco on 03-07-2022 Cholesterol [Mass/Vol] 160 mg/dL 140-200 [facility] Comment on above: Chol less than 200 m g/dl low riskChol 201-239 mg/dl borderline riskChol 240 mg/dl and greater high risk Cholesterol in LDL Calc [Mas s/Vol]Ordered By: Amrit Orozco on 03-07-2022 Cholesterol in LDL [Mass/Vol] 77 mg/dL 0-100 [facility] Comment on above: LDL ATP III CLASSIFI CATIONLDL less than 100 mg/dL OptimalLDL 100-129 mg/dL Near or above optimalLDL 130-159 mg/dL Borderline highLDL 160-189 mg/dL HighLDL greater than 189 mg/dL Very high Cholesterol in VLDL Calc [Ma ss/Vol]Ordered By: Amrit Ernesto on 03-07-2022 Cholesterol in VLDL [Mass/Vol] 29 mg/dL [facility] Lipid Panelon 03-07-2022 Cholesterol [Mass/Vol] 160 mg/dL Normal 140-200 [facility] Comment on above: Result Comment: Chol less than 200 mg/dl low risk Chol 201-239 mg/dl borderline risk Chol 240 mg/dl and greater high risk Performed By: #### V [id number], TSH3 wRFLX, LIPID #### [facility] [address] [place] [address] [place] Cholesterol in HDL [Mass/Vol] 53 mg/dL Normal 29-71 [facility] Comment on above: Result Comment: HDL CHOL ATP-III CLASSIFICATION Cardiovascular Risk HDL > or equal to 60 mg/dL LOW HDL < 40 mg/dL HIGH Performed By: #### V [id number], TSH3 wRFLX, LIPID #### [facility] [address] [place] [address] [place] Cholesterol.total/Ch olesterol in HDL [Mass ratio] 3.0 {ratio} Normal <5.0 [facility] Comment on above: Performed By: #### V [id number], TSH3 wRFLX, LIPID #### [facility] [address] [place] [address] [place] LDL Cholesterol,Calculat ed 77 mg/dL Normal 0-100 [facility] Comment on above: Result Comment: LDL ATP III CLASSIFICATION LDL less than 100 mg/dL Optimal LDL 100-129 mg/dL Near or above optimal LDL 130-159 mg/dL Borderline high LDL 160-189 mg/dL High LDL greater than 189 mg/dL Very high Performed By: #### V [id number], TSH3 wRFLX, LIPID #### [facility] [address] [place] [address] [place] Triglyceride w/Reflex 148 mg/dL Normal 35-149 [facility] Comment on above: Result Comment: TRIG ATP III CLASSIFICATION TRIG less than 150 mg/dL Normal TRIG 150-199 mg/dL Borderline high TRIG 200-500 mg/dL High TRIG greater than 500 mg/dL Very high Standard traceable to the Center for Disease Conrtrol and Prevention (CDC) test method. Performed By: #### V [id number], TSH3 wRFLX, LIPID #### [facility] [address] [place] [id number] [place] VLDL CHOLESTEROL 29 mg/dL Normal [facility] Comment on above: Performed By: #### V [id number], TSH3 wRFLX, LIPID #### [facility] [address] No Panel InformationOrdered By: Amrit Orozco on 03-07-2022 25-Hydroxy Vitamin D Total 12.6 ng/mL 30-100 [facility] Comment on above: VITAMIN D STATUS 25( [place])VITAMIN D RANGE (ng/mL) Deficient <20 Insufficient 20 to <30Sufficient 30 to 100Reference: Marcus MF,Juan NC, Dagmar FALL, et al. Evaluation,treatment, and prevention of vitamin D deficiency; an Endocrine Society clinical practice guideline. JCEM. 2010; 96(7):1911-30. Serum or plasma high density lipoprotein (HDL) cholesterol measurementOrdered By: Amrit Orozco on 03-07-2022 Cholesterol in HDL [Mass/Vol] 53 mg/dL 29-71 [facility] Comment on above: HDL CHOL ATP-III CLA SSIFICATION Cardiovascular RiskHDL > or equal to 60 mg/dL LOWHDL < 40 mg/dL HIGH Serum or plasma total choles terol/high density lipoprotein (HDL) cholesterol mass ratOrdered By: Amrit Orozco on 03-07-2022 Cholesterol.total/Ch olesterol in HDL [Mass ratio] 3.0 {ratio} <5.0 [facility] TSH DL <= 0.005 mIU/L QnOrde red By: Amrit Orozco on 03-07-2022 TSH Qn 1.05 m[IU]/L 0.45-5.33 [facility] Thyroid Stim Hormone w/Rflxo n 03-07-2022 Thyroid Stim Hormone w/Rflx 1.05 u[iU]/mL Normal 0.45-5.33 [facility] Comment on above: Performed By: #### V [id number], TSH3 wRFLX, LIPID #### [facility] [address] [place] [id number] [facility] Triglyceride [Mass/volume] i n Serum or PlasmaOrdered By: Amrit Orozco on 03-07-2022 Triglyceride [Mass/Vol] 148 mg/dL 35-149 [facility] Comment on above: TRIG ATP III CLASSIF ICATIONTRIG less than 150 mg/dL NormalTRIG 150-199 mg/dL Borderline highTRIG 200-500 mg/dL High TRIG greater than 500 mg/dL Very highStandard traceable to the Center for Disease Conrtrol and Prevention (CDC) test method. Vitamin D 25 Hydroxy Totalon 03-07-2022 Vitamin D 25 Hydroxy Total 12.6 ng/mL Low 30-100 [facility] Comment on above: Result Comment: DILEEP MIN D STATUS 25([place])VITAMIN D RANGE (ng/mL) Deficient <20 Insufficient 20 to <30 Sufficient 30 to 100 Reference: Marcus MF,Juan NC, Dagmar FALL, et al. Evaluation,treatment, and prevention of vitamin D deficiency; an Endocrine Society clinical practice guideline. JCEM. 2010; 96(7):1911-30. PERFORMED BY: [facility] [address] [place] [address] PATHOLOGIST PHTHALIC ACID PURIFIER TOM VALDES M.D. Performed By: #### V [id number], TSH3 wRFLX, LIPID #### [facility] [address] [place] [id number] [facility] ACETAMINOPHENon 03-06-2022 Acetaminophen [Mass/Vol] ug/mL Critically low 10.0-30.0 [facility] Comment on above: Performed By: #### B NOISE ABATEMENT ENGINEER, LIPA, HSTROPN, CMP #### [facility] [address] [place] [address] Dr. Alesia Argueta BNPon 03-06-2022 Natriuretic peptide B (Bld) [Mass/Vol] 37.0 pg/mL Normal <=900.0 [facility] Comment on above: Performed By: #### B NOISE ABATEMENT ENGINEER, LIPA, HSTROPN, CMP #### [facility] [address] [place] [address] Dr. Alesia Argueta CBC AUTO DIFFon 03-06-2022 BASO # 0.0 103/ul Normal 0.0-0.1 [facility] Comment on above: Performed By: #### B NOISE ABATEMENT ENGINEER, LIPA, HSTROPN, CMP #### [facility] [address] [place] [address] Dr. Alesia Argueta Basophils/100 WBC (Bld) 0.3 % Normal 0.2-2.0 [facility] Comment on above: Performed By: #### B NOISE ABATEMENT ENGINEER, LIPA, HSTROPN, CMP #### [facility] [address] [place] [address] Dr. Alesia Argueta EO # 0.1 103/ul Normal 0.0-0.7 [facility] Comment on above: Performed By: #### B NOISE ABATEMENT ENGINEER, LIPA, HSTROPN, CMP #### [facility] [address] [place] [address] Dr. Alesia Argueta Eosinophils/100 WBC (Bld) 1.2 % Normal 0.9-7.0 [facility] Comment on above: Performed By: #### B NOISE ABATEMENT ENGINEER, LIPA, HSTROPN, CMP #### [facility] [address] [place] [address] Dr. Alesia Argueta Erythrocyte distribution width (RBC) [Ratio] 12.9 % Normal 11.0-15.0 [facility] Comment on above: Performed By: #### B NOISE ABATEMENT ENGINEER, LIPA, HSTROPN, CMP #### [facility] [address] [place] [address] Dr. Alesia Argueta Hematocrit (Bld) [Volume fraction] 48.9 % Normal 42.0-54.0 [facility] Comment on above: Performed By: #### B NOISE ABATEMENT ENGINEER, LIPA, HSTROPN, CMP #### [facility] [address] [place] [address] Dr. Alesia Argueta Hemoglobin (Bld) [Mass/Vol] 17.0 g/dL Normal 14.0-18.0 [facility] Comment on above: Performed By: #### B NOISE ABATEMENT ENGINEER, LIPA, HSTROPN, CMP #### [facility] [address] [place] [address] Dr. Alesia Argueta IG # 0.02 10e3/ul Normal 0.00-0.03 [facility] Comment on above: Performed By: #### B NOISE ABATEMENT ENGINEER, LIPA, HSTROPN, CMP #### [facility] [address] [place] [address] Dr. Alesia Argueta IG % 0.2 % Normal 0.0-0.5 [facility] Comment on above: Performed By: #### B NOISE ABATEMENT ENGINEER, LIPA, HSTROPN, CMP #### [facility] [address] [place] [address] Dr. Alesia Argueta LYMPH # 2.0 103/ul Normal 1.2-3.8 [facility] Comment on above: Performed By: #### B NOISE ABATEMENT ENGINEER, LIPA, HSTROPN, CMP #### [facility] [address] [place] [address] Dr. Alesia Argueta Lymphocytes/100 WBC (Bld) 22.0 % Normal 20.5-60.0 [facility] Comment on above: Performed By: #### B NOISE ABATEMENT ENGINEER, LIPA, HSTROPN, CMP #### [facility] [address] [place] [address] Dr. Alesia Argueta MANUAL DIFF REQ NO Normal [facility] Comment on above: Performed By: #### B NOISE ABATEMENT ENGINEER, LIPA, HSTROPN, CMP #### [facility] [address] [place] [address] Dr. Alesia Argueta MCH (RBC) [Entitic mass] 31.8 pg Normal 25.9-34.0 [facility] Comment on above: Performed By: #### B NOISE ABATEMENT ENGINEER, LIPA, HSTROPN, CMP #### [facility] [address] [place] [address] Dr. Alesia Argueta MCHC (RBC) [Mass/Vol] 34.8 g/dL Normal 29.9-35.2 [facility] Comment on above: Performed By: #### B NOISE ABATEMENT ENGINEER, LIPA, HSTROPN, CMP #### [facility] [address] [place] [address] Dr. Alesia Argueta MCV (RBC) [Entitic vol] 91.6 fL Normal 80.0-94.0 [facility] Comment on above: Performed By: #### B NOISE ABATEMENT ENGINEER, LIPA, HSTROPN, CMP #### [facility] [address] [place] [address] Dr. Alesia Argueta MONO # 0.5 103/ul Normal 0.3-0.8 [facility] Comment on above: Performed By: #### B NOISE ABATEMENT ENGINEER, LIPA, HSTROPN, CMP #### [facility] [address] [place] [address] Dr. Alesia Argueta Monocytes/100 WBC (Bld) 5.9 % Normal 1.7-12.0 [facility] Comment on above: Performed By: #### B NOISE ABATEMENT ENGINEER, LIPA, HSTROPN, CMP #### [facility] [address] [place] [address] Dr. Alesia Argueta NEUT # 6.3 103/ul Normal 1.4-6.5 [facility] Comment on above: Performed By: #### B NOISE ABATEMENT ENGINEER, LIPA, HSTROPN, CMP #### [facility] [address] [place] [address] Dr. Alesia Argueta Neutrophils/100 WBC (Bld) 70.4 % Normal 43.0-75.0 [facility] Comment on above: Performed By: #### B NOISE ABATEMENT ENGINEER, LIPA, HSTROPN, CMP #### [facility] [address] [place] [address] Dr. Alesia Argueta Platelet mean volume (Bld) [Entitic vol] 10.0 fL Normal 9.5-13.5 [facility] Comment on above: Performed By: #### B NOISE ABATEMENT ENGINEER, LIPA, HSTROPN, CMP #### [facility] [address] [place], [place] [address] Dr. Alesia Argueta PLT 268 103/ul Normal 150-450 [facility] Comment on above: Performed By: #### B NOISE ABATEMENT ENGINEER, LIPA, HSTROPN, CMP #### [facility] [address] [place] [address] [address] Alesia Argueta RBC 5.34 106/ul Normal 4.70-6.10 [facility] Comment on above: Performed By: #### B NOISE ABATEMENT ENGINEER, LIPA, HSTROPN, CMP #### [facility] [address] [place], [place] [address] Dr. Alesia Argueta WBC 9.0 103/ul Normal 4.0-11.0 [facility] Comment on above: Performed By: #### B NOISE ABATEMENT ENGINEER, LIPA, HSTROPN, CMP #### [facility] [address] [place] [address] [address] Alesia Argueta CTA CHEST WO W CONon 022 CTA CHEST WO W CON EXAMINATION: CTA JOHN ST WO W CON HISTORY: CHEST PAIN, UNSPECIFIED ; acute chest pain, cough, dyspnea, elevated d-dimer COMPARISON: No relevant comparison available. TECHNIQUE: Multi-planar CT images were created with IV contrast. Axial, Coronal, and Sagittal images. Dose reduction techniques were achieved by using automated exposure control and/or adjustment of mA and/or kV according to patient size and/or use of iterative reconstruction technique. 3-D reconstruction was performed on a separate workstation. FINDINGS: VASCULATURE: No pulmonary embolism or abnormal opacity. LUNGS: No visible pulmonary disease. PLEURA: No mass, effusion, or pneumothorax. TAMIKA: No mass or adenopathy. MEDIASTINUM: No mass or adenopathy. CARDIAC: No enlargement, pericardial effusion, or pericardial thickening. AORTA: No aneurysm or dissection. CHEST WALL: No mass or axillary adenopathy. BONES: No bone lesion or fracture. LIMITED ABDOMEN: Fatty infiltration of liver. Limited images of the upper abdomen. OTHER: Negative. IMPRESSION: 1. No pulmonary embolism. 2. No pulmonary infiltrates or suspicious findings to account for patient's symptoms. Electronically authenticated by: PASCUAL TRISTAN Date: 2022-03-06 14:38 Normal [facility] Covid-19 PCR (CVDTBH)on 02-24 SARS-CoV-2 (COVID-19) RNA RICKI+probe Ql (Unsp spec) Not detected Normal NOT DETECTED [facility] Comment on above: Result Comment: When diagnostic testing is negative, the possibility of a false negative should be considered in the context of a patient's recent exposures and the presence of clinical signs and symptoms consistent with SARS-CoV-2. This test is not yet approved or cleared by the [place] FDA. When there are no FDA-approved or cleared tests available, and other criteria are met, FDA can make tests available under an emergency access mechanism called an Emergency Use Authorization (EUA). The EUA for this test is supported by the Design Editor of Health and Human Service's declaration that circumstances exist to justify the emergency use of in vitro diagnostics for the detection and/or diagnosis of the virus that causes COVID-19. This EUA will remain in effect for the duration of the COVID-19 declaration justifying emergency of IVDs, unless it is terminated or revoked by the FDA (after which the test may no longer be used). Performed By: #### C VDTBH #### [facility] [address] [place] [address] Dr. Alesia Argueta D-DIMERon 03-06-2022 D-DIMER 0.69 mg/L FEU Critically high <=0.59 [facility] Comment on above: Performed By: #### D DIM #### [facility] [address] [place] [address] Dr. Alesia Argueta D-DIMER COMMENTS SEE BELOW Normal [facility] Comment on above: Result Comment: Incr eases in D-Dimer concentration observed with thromboembolic events can be variable due to localization, size, and age of the thrombus. Therefore, a thromboembolic event cannot be diagnosed with certainty on the basis of the reference range. D-Dimers may also be elevated for a variety of disorders including: advanced age, , coronary disease, cancer, liver disease, infection, inflammation, hematoma, DIC, trauma, post-surgery, diabetes, thrombolytic or anticoagulant therapy, stress, and generalized hospitalization. Performed By: #### D DIM #### [facility] [address] [place] [address] Dr. Alesia Argueta DRUG SCREEN RAPID (URINE)on 03-06-2022 AMP Negative Normal NEGATIVE [facility] Comment on above: Performed By: #### E RUR, DRUGRPD #### [facility] [address] [place] [address] Dr. Alesia Argueta BAR Negative Normal NEGATIVE [facility] Comment on above: Performed By: #### E RUR, DRUGRPD #### [facility] [address] [place] [address] Dr. Alesia Argueta BUP Negative Normal NEGATIVE [facility] Comment on above: Performed By: #### E RUR, DRUGRPD #### [facility] [address] [place] [address] Dr. Alesia Argueta BZO Negative Normal NEGATIVE [facility] Comment on above: Performed By: #### E RUR, DRUGRPD #### [facility] [address] [place] [address] Dr. Alesia Argueta LILIANA Negative Normal NEGATIVE [facility] Comment on above: Performed By: #### E RUR, DRUGRPD #### [facility] [address] [place] [address] Dr. Alesia Argueta CUT-OFFS SEE BELOW Normal [facility] Comment on above: Result Comment: AMP (Amphetamine): 500ng/mL, BAR (Barbituates): 200 ng/mL, BZO (Benzodiazepines): 150 ng/mL, BUP (Buprenorphine): 10 ng/mL, LILIANA (Cocaine): 150 ng/mL, mAMP (Methamphetamine): 500 ng/mL, MTD (Methadone): 200 ng/mL, OPI (Opiates): 100 ng/mL, OXY (Oxycodone): 100 ng/mL, PCP (Phencyclidine): 25 ng/mL, PPX (Propoxyphene): 300 ng/mL, THC (Cannabinoids): 50 ng/mL, TCA (Trycyclic Antidepressants): 300 ng/mL Performed By: #### E RUR, DRUGRPD #### [facility] [address] [place] [address] Dr. Alesia Argueta DRUG CUT HEADER DRUG CLASS TEST SYST EM CUT-OFF CONCENTRATIONS ARE FOLLOWS: Normal [facility] Comment on above: Performed By: #### E RUR, DRUGRPD #### [facility] [address] [place] [address] Dr. Alesia Argueta mAMP Negative Normal NEGATIVE [facility] Comment on above: Performed By: #### E RUR, DRUGRPD #### [facility] [address] [place] [address] Dr. Alesia Argueta MTD Negative Normal NEGATIVE [facility] Comment on above: Performed By: #### E RUR, DRUGRPD #### [facility] [address] [place] [address] Dr. Alesia Argueta OPI Negative Normal NEGATIVE [facility] Comment on above: Performed By: #### E RUR, DRUGRPD #### [facility] [address] [place] [address] Dr. Alesia Argueta OXY Negative Normal NEGATIVE [facility] Comment on above: Performed By: #### E RUR, DRUGRPD #### [facility] [address] [place] [address] Dr. Alesia Argueta PCP Negative Normal NEGATIVE [facility] Comment on above: Performed By: #### E RUR, DRUGRPD #### [facility] [address] [place] [address] Dr. Alesia Argueta PPX Negative Normal NEGATIVE [facility] Comment on above: Performed By: #### E RUR, DRUGRPD #### [facility] [address] [place] [address] Dr. Alesia Argueta TCA Negative Normal NEGATIVE [facility] Comment on above: Performed By: #### E RUR, DRUGRPD #### [facility] [address] [place] [address] Dr. Alesia Argueta THC Negative Normal NEGATIVE [facility] Comment on above: Performed By: #### E RUR, DRUGRPD #### [facility] [address] [place] [address] Dr. Alesia Argueta ER URINE PROFILEon 2 Bilirubin Ql (U) Negative Normal NEGATIVE [facility] Comment on above: Performed By: #### E RUR, DRUGRPD #### [facility] [address] [place] [address] Dr. Alesia Argueta Clarity (U) CLEAR Normal CLEAR [facility] Comment on above: Performed By: #### E RUR, DRUGRPD #### [facility] [address] [place] [address] Dr. Alesia Argueta Color (U) LT. YELLOW Normal YELLOW [facility] Comment on above: Performed By: #### E RUR, DRUGRPD #### [facility] [address] [place] [address] Dr. Alesia Argueta ERUAHD A micrscopic examina tion will be performed if indicated. Normal [facility] Comment on above: Performed By: #### E RUR, DRUGRPD #### [facility] [address] [place] [address] Dr. Alesia Argueta Glucose Ql (U) Negative Normal NEGATIVE [facility] Comment on above: Performed By: #### E RUR, DRUGRPD #### [facility] [address] [place] [address] Dr. Alesia Argueta Hemoglobin Ql (U) Negative Normal NEGATIVE [facility] Comment on above: Performed By: #### E RUR, DRUGRPD #### [facility] [address] [place] [address] Dr. Alesia Argueta Ketones Ql (U) Negative Normal NEGATIVE [facility] Comment on above: Performed By: #### E RUR, DRUGRPD #### [facility] [address] [place] [address] Dr. Alesia Argueta LEUKOCYTES Negative Normal NEGATIVE [facility] Comment on above: Performed By: #### E RUR, DRUGRPD #### [facility] [address] [place] [address] Dr. lAesia Argueta Nitrite Ql (U) Negative Normal NEGATIVE [facility] Comment on above: Performed By: #### E RUR, DRUGRPD #### [facility] [address] [place] [address] Dr. Alesia Argueta pH (U) 7.0 [pH] Normal 5-9 [facility] Comment on above: Performed By: #### Prudence MCDONALD DRUGRPD #### [facility] [address] [place] [address] Dr. Alesia Argueta SPEC GRAVITY 1.010 Normal 1.005-<=1. 025 [facility] Comment on above: Performed By: #### Prudence MCDONALD DRUGRPD #### [facility] [address] [place] [address] Dr. Alesia Argueta UA PROTEIN Negative Normal NEGATIVE/ TRACE [facility] Comment on above: Performed By: #### Prudence MCDONALD DRUGRPD #### [facility] [address] [place] [address] Dr. Alesia Argueta UR MICRO IND NOT INDICATED Normal [facility] Comment on above: Performed By: #### Prudence MCDONALD DRUGRPD #### [facility] [address] [place] [address] Dr. Alesia Argueta Urobilinogen Qn (U) 0.2 {Cole'U}/dL Normal 0.2 - 1. 0 [facility] Comment on above: Performed By: #### Prudence MCDONALD DRUGRPD #### [facility] [address] [place] [address] Dr. Alesia Argueta ETHANOL (BLD ALC)on 03-06-20 22 ALC NOTE NOTE: 80 mg/dl is th e legal limit for a blood alcohol level Normal [facility] Comment on above: Performed By: #### E TH #### [facility] [address] [place] [address] Dr. Alesia Argueta Ethanol [Mass/Vol] mg/dL Normal [facility] Comment on above: Performed By: #### E TH #### [facility] [address] [place] [address] Dr. Alesia Argueta LIPASEon 03-06-2022 Lipase [Catalytic activity/Vol] 210.0 U/L Normal 73.0-393.0 [facility] Comment on above: Performed By: #### B NOISE ABATEMENT ENGINEER, LIPA, HSTROPN, CMP #### [facility] [address] [place] [address] Dr. Alesia Argueta PROF 14(COMP METB)on 022 Albumin [Mass/Vol] 3.6 g/dL Normal 3.4-5.0 [facility] Comment on above: Performed By: #### B NOISE ABATEMENT ENGINEER, LIPA, HSTROPN, CMP #### [facility] [address] [place] [address] Dr. Alesia Argueta Albumin/Globulin [Mass ratio] 0.8 {ratio} Normal [facility] Comment on above: Performed By: #### B NOISE ABATEMENT ENGINEER, LIPA, HSTROPN, CMP #### [facility] [address] [place] [address] Dr. Alesia Argueta ALP [Catalytic activity/Vol] 87 U/L Normal 46-116 [facility] Comment on above: Performed By: #### B NOISE ABATEMENT ENGINEER, LIPA, HSTROPN, CMP #### [facility] [address] [place] [address] Dr. Alesia Argueta ALT [Catalytic activity/Vol] 19 U/L Normal 16-63 [facility] Comment on above: Performed By: #### B NOISE ABATEMENT ENGINEER, LIPA, HSTROPN, CMP #### [facility] [address] [place] [address] Dr. Alesia Argueta Anion gap [Moles/Vol] 8.6 mmol/L Normal [facility] Comment on above: Performed By: #### B NOISE ABATEMENT ENGINEER, LIPA, HSTROPN, CMP #### [facility] [address] [place] [address] Dr. Alesia Argueta AST [Catalytic activity/Vol] 19 U/L Normal 15-37 [facility] Comment on above: Performed By: #### B NOISE ABATEMENT ENGINEER, LIPA, HSTROPN, CMP #### [facility] [address] [place] [address] Dr. Alesia Argueta Bilirubin [Mass/Vol] 0.8 mg/dL Normal 0.2-1.0 [facility] Comment on above: Performed By: #### B NOISE ABATEMENT ENGINEER, LIPA, HSTROPN, CMP #### [facility] [address] [place] [address] Dr. Alesia Argueta Calcium [Mass/Vol] 9.0 mg/dL Normal 8.5-10.1 [facility] Comment on above: Performed By: #### B NOISE ABATEMENT ENGINEER, LIPA, HSTROPN, CMP #### [facility] [address] [place] [address] Dr. Alesia Argueta Chloride [Moles/Vol] 100 mmol/L Normal 98-107 [facility] Comment on above: Performed By: #### B NOISE ABATEMENT ENGINEER, LIPA, HSTROPN, CMP #### [facility] [address] [place] [address] Dr. Alesia Argueta CO2 [Moles/Vol] 29.9 mmol/L Normal 21.0-32.0 [facility] Comment on above: Performed By: #### B NOISE ABATEMENT ENGINEER, LIPA, HSTROPN, CMP #### [facility] [address] [place] [address] Dr. Alesia Argueta Creatinine [Mass/Vol] 1.00 mg/dL Normal 0.70-1.30 [facility] Comment on above: Performed By: #### B NOISE ABATEMENT ENGINEER, LIPA, HSTROPN, CMP #### [facility] [address] [place] [address] Dr. Alesia Argueta EGFR-AF SPANISH >60 Normal >=60 [facility] Comment on above: Performed By: #### B NOISE ABATEMENT ENGINEER, LIPA, HSTROPN, CMP #### [facility] [address] [place] [address] Dr. Alesia Argueta EGFR-NON AF SPANISH >60 Normal >=60 [facility] Comment on above: Performed By: #### B NOISE ABATEMENT ENGINEER, LIPA, HSTROPN, CMP #### [facility] [address] [place] [address] Dr. Alesia Argueta Globulin (S) [Mass/Vol] 4.3 g/dL Normal [facility] Comment on above: Performed By: #### B NOISE ABATEMENT ENGINEER, LIPA, HSTROPN, CMP #### [facility] [address] [place] [address] Dr. Alesia Argueta Glucose [Mass/Vol] 116 mg/dL Critically high 74-106 [facility] Comment on above: Performed By: #### B NOISE ABATEMENT ENGINEER, LIPA, HSTROPN, CMP #### [facility] [address] [place] [address] Dr. Alesia Argueta Potassium [Moles/Vol] 3.5 mmol/L Normal 3.5-5.1 [facility] Comment on above: Performed By: #### B NOISE ABATEMENT ENGINEER, LIPA, HSTROPN, CMP #### [facility] [address] [place] [address] Dr. Alesia Argueta Protein [Mass/Vol] 7.9 g/dL Normal 6.4-8.2 [facility] Comment on above: Performed By: #### B NOISE ABATEMENT ENGINEER, LIPA, HSTROPN, CMP #### [facility] [address] [place] [address] Dr. Alesia Argueta Sodium [Moles/Vol] 135 mmol/L Critically low 136-145 [facility] Comment on above: Performed By: #### B NOISE ABATEMENT ENGINEER, LIPA, HSTROPN, CMP #### [facility] [address] [place] [address] Dr. Alesia Argueta Urea nitrogen [Mass/Vol] 9.0 mg/dL Normal 7.0-18.0 [facility] Comment on above: Performed By: #### B NOISE ABATEMENT ENGINEER, LIPA, HSTROPN, CMP #### [facility] [address] [place] [address] Dr. Alesia Argueta Urea nitrogen/Creatinine [Mass ratio] 9.0 mg/mg Normal [facility] Comment on above: Performed By: #### B NOISE ABATEMENT ENGINEER, LIPA, HSTROPN, CMP #### [facility] [address] [place] [address] Dr. Alesia Argueta SALICYLATEon 03-06-2022 SALICYLATE <2.8 Normal <=19.9 [facility] Comment on above: Performed By: #### B NOISE ABATEMENT ENGINEER, LIPA, HSTROPN, CMP #### [facility] [address] [place] [address] Dr. Alesia Argueta TROPONIN, HIGH SENSITIVITYon 03-06-2022 HSTROP 8.4 pg/mL Normal 4.0-76.1 [facility] Comment on above: Result Comment: CUT- OFF POINTS HAVE BEEN ESTABLISHED BASED ON THE FOURTH UNIVERSAL DEFINITIONS OF MYOCARDIAL INFARCTION. THE UPPER REFERENCE LIMIT (URL) OF TROPONIN, DEFINED THE 99TH PERCENTILE OF cTnI DISTRIBUTION IN A REFERENCE POPULATION, HAS BEEN CONFIRMED THE DECISION THRESHOLD FOR AR DIAGNOSIS. Performed By: #### B NOISE ABATEMENT ENGINEER, LIPA, HSTROPN, CMP #### [facility] [address] [place] [address] [address] Alesia Argueta ECG 12 lead ECGon 03-02-2022 ECG 12 [place] [address] Electrocardiograph Report Signed Patient: Fartun Elliott JR MR#: [id number] : 1970 Acct:[id number] Age/Sex: 52 / M ADM Date: 03/02/22 Loc: ER Room: Type: [facility] ER Attending Dr: Ordering Provider: MAREK JEFFRIES Date of Service: 03/02/2211/14/1232 ECG/ECG 12 lead ECG: Chest Pain Copies to: Test Reason : Blood Pressure : 157/102 mmHG Vent. Rate : 081 BPM Atrial Rate : 081 BPM P-R Int : 138 ms QRS Dur : 088 ms QT Int : 394 ms P-R-T Axes : 037 024 000 degrees QTc Int : 457 ms Normal sinus rhythm Cannot rule out Anterior infarct , age undetermined Abnormal ECG No previous ECGs available Confirmed by MARCE ROBLERO DO ([id number]) on 03/03/2022 12:08:24 AM Referred By: Electronically Signed By:MARCE ROBLERO DO Transcribed By: MUS Signed By Marce Roblero DO 000 Normal [facility] XR chest 2V*on 03-02-2022 XR chest 2V* [place] [id number] XRay Report Signed Patient: Fartun Elliott JR MR#: [id number] : 1970 Acct:[id number] Age/Sex: 52 / M ADM Date: 03/02/22 Loc: ER Room: Type: PRE ER Attending Dr: Copies to: MAREK JEFFRIES Ordering Provider: MAREK JEFFRIES Date of Service: 03/02/22 XR/XR chest 2V*: Chest Pain PA AND LATERAL CHEST: CLINICAL HISTORY: Chest heaviness, hand numbness and tingling and anxiety. COMPARISON: 10/18/2011 There is no focal parenchymal consolidation, effusion or pneumothorax. The cardiac, hilar and mediastinal silhouettes are within normal limits. There is no vascular congestion. The visualized bony thorax is intact. Mild endplate spurring is seen. XR/XR chest 2V* IMPRESSION: NO ACUTE CARDIOPULMONARY ABNORMALITY. Impression dictated by: Mony Rolon M.D.03/02/2022 12:50 PM Dictation Location: [place] [address] Transcribed By: [facility] 03/02/22 1250 Dictated By: Mony Rolon MD 03/02/22 1242 Signed By: 03/02/[address] [facility] [address] ABD/PELV W CONon 11-26-19 CT ABD/PELV W CON EXAMINATION: CT ABD/ PELV W CON HISTORY: NAUSEA WITH VOMITING, UNSPECIFIED COMPARISON: The patient had previous abdominal and pelvic CT performed 7 days ago TECHNIQUE: Images of the abdomen and pelvis obtained with IV contrast. Dose reduction techniques were achieved by using automated exposure control and/or adjustment of mA and/or kV according to patient size and/or use of iterative reconstruction technique. FINDINGS: Lung bases are clear. No pleural or pericardial fluid. There is no evidence of adrenal mass or adenopathy. No obstructive uropathy. Liver is severely fatty infiltrated. Portal vein is patent. Aortic atherosclerosis without aneurysm. There is no bowel obstruction or inflammation. No evidence of pneumatosis or pneumoperitoneum. Normal appendix. No pelvic adenopathy or ascites. No significant inguinal hernia. The fluid collection documented on last weeks study is not identified on today's exam although the scan does not extend through the scrotum. IMPRESSION: 1. No acute abnormality. 2. Please note that the fluid collection documented in the scrotum on last weeks study is not covered on today's imaging. There is no inguinal adenopathy. 3. Severe fatty liver. Electronically authenticated by: ISABELLE LEÓN Date: 2021-11-25 00:10 Normal [facility] AMYLASEon 11-24-2021 Amylase [Catalytic activity/Vol] 38 U/L Normal 25-115 [facility] Comment on above: Performed By: #### B NOISE ABATEMENT ENGINEER, LIPA, HSTROPN, CMP #### [facility] [address] [place] [address] Dr. Alesia Argueta CARDIAC SHEA ADMITon 022 CK [Catalytic activity/Vol] 141 U/L Normal 39-308 [facility] Comment on above: Performed By: #### B NOISE ABATEMENT ENGINEER, LIPA, HSTROPN, CMP #### [facility] [address] [place] [address] Dr. Alesia Argueta CK.MB [Mass/Vol] 0.50 ng/mL Normal <=3.60 [facility] Comment on above: Performed By: #### B NOISE ABATEMENT ENGINEER, LIPA, HSTROPN, CMP #### [facility] [address] [place] [address] Dr. Alesia Argueta HSTROP 6.4 pg/mL Normal 4.0-76.1 [facility] Comment on above: Result Comment: CUT- OFF POINTS HAVE BEEN ESTABLISHED BASED ON THE FOURTH UNIVERSAL DEFINITIONS OF MYOCARDIAL INFARCTION. THE UPPER REFERENCE LIMIT (URL) OF TROPONIN, DEFINED THE 99TH PERCENTILE OF cTnI DISTRIBUTION IN A REFERENCE POPULATION, HAS BEEN CONFIRMED THE DECISION THRESHOLD FOR AR DIAGNOSIS. Performed By: #### B NOISE ABATEMENT ENGINEER, LIPA, HSTROPN, CMP #### [facility] [address] [place] [address] Dr. Alesia Argueta HAWK 56 ng/mL Normal 16-96 [facility] Comment on above: Performed By: #### B NOISE ABATEMENT ENGINEER, LIPA, HSTROPN, CMP #### [facility] [address] [place] [address] Dr. Alesia Argueta CBC W MANUAL DIFFon 11-25-19 22 ATYPICAL LYMPH # Normal [facility] Comment on above: Performed By: #### C BCMAN #### [facility] [address] [place] [address] Dr. Alesia Argueta ATYPICAL LYMPH % Normal [facility] Comment on above: Performed By: #### C BCMAN #### [facility] [address] [place] [address] Dr. Alesia Argueta BAND # Normal 0.0-0.3 [facility] Comment on above: Performed By: #### C BCMAN #### [facility] [address] [place] [address] Dr. Alesia Argueta BAND % Normal 0-5 [facility] Comment on above: Performed By: #### C BCMAN #### [facility] [address] [place] [address] Dr. Alesia Argueta BASOM # 0.00 103/ul Normal 0.00-0.10 [facility] Comment on above: Performed By: #### C BCMAN #### [facility] [address] [place] [address] Dr. Alesia Argueta BASOM % 0.0 % Critically low 0.2-2.0 [facility] Comment on above: Performed By: #### C BCRANJITH #### [facility] [address] [place] [address] Dr. Alesia Argueta BLAST # Normal [facility] Comment on above: Performed By: #### C BCMAN #### [facility] [address] [place] [address] Dr. Alesia Argueta BLAST % Normal [facility] Comment on above: Performed By: #### C BCRANJITH #### [facility] [address] [place] [address] Dr. Alesia Argueta CORRECTED WBC Normal 4.0-11.0 [facility] Comment on above: Performed By: #### C BCMAN #### [facility] [address] [place] [address] Dr. Alesia Argueta EOS # 0.13 103/ul Normal 0.00-0.70 [facility] Comment on above: Performed By: #### C BCMAN #### [facility] [address] [place] [address] Dr. Alesia Argueta EOS% 1.0 % Normal 0.9-7.0 [facility] Comment on above: Performed By: #### C KT #### [facility] [address] [address] [address] Alesia Argueta HCT 52.7 % Normal 42.0-54.0 [facility] Comment on above: Performed By: #### C KT #### [facility] [address] [address] [address] Alesia Argueta HGB 18.0 g/dl Normal 14.0-18.0 [facility] Comment on above: Performed By: #### C KT #### [facility] [address] [address] [address] Alesia Argueta LYMPHM # 0.38 103/ul Critically low 1.20-3.80 [facility] Comment on above: Performed By: #### C KT #### [facility] [address] [place] [address] Dr. Alesia Argueta LYMPHM% 3.0 % Critically low 20.5-60.0 [facility] Comment on above: Performed By: #### C KT #### [facility] [address] [place] [address] Dr. Alesia Argueta MCH 31.5 pg Normal 25.9-34.0 [facility] Comment on above: Performed By: #### C KT #### [facility] [address] [place] [address] Dr. Alesia Argueta MCHC 34.2 g/dl Normal 29.9-35.2 [facility] Comment on above: Performed By: #### C KT #### [facility] [address] [place] [address] Dr. Alesia Argueta MCV 92.1 fL Normal 80.0-94.0 [facility] Comment on above: Performed By: #### C BCRANJITH #### [facility] [address] [place] [address] Dr. Alesia Argueta METAMYELOCYTE # Normal [facility] Comment on above: Performed By: #### C KT #### [facility] [address] [place] [address] Dr. Alesia Argueta METAMYELOCYTE % Normal [facility] Comment on above: Performed By: #### C BCMAN #### [facility] [address] [address] [address] Alesia Argueta MONOM# 0.38 103/ul Normal 0.30-0.80 [facility] Comment on above: Performed By: #### C BCMAN #### [facility] [address] [address] [address] Alesia Argueta MONOM% 3.0 % Normal 1.7-12.0 [facility] Comment on above: Performed By: #### C BCMAN #### [facility] [address] [address] [address] Alesia Argueta MPV 9.1 fL Critically low 9.5-13.5 [facility] Comment on above: Performed By: #### C BCMAN #### [facility] [address] [place] [address] Dr. Alesia Argueta MYELOCYTE # Normal [facility] Comment on above: Performed By: #### C BCRANJITH #### [facility] [address] [place] [address] Dr. Alesia Argueta MYELOCYTE % Normal [facility] Comment on above: Performed By: #### C BCMAN #### [facility] [address] [place] [address] Dr. Alesia Argueta NRBC Normal [facility] Comment on above: Performed By: #### C BCRANJITH #### [facility] [address] [place] [address] Dr. Alesia Argueta PLT 290 103/ul Normal 150-450 [facility] Comment on above: Performed By: #### C BCMAN #### [facility] [address] [address] [address] Alesia Argueta RBC 5.72 106/ul Normal 4.70-6.10 [facility] Comment on above: Performed By: #### C BCMAN #### [facility] [address] [address] [address] Alesia Argueta RDW 14.5 % Normal 11.0-15.0 [facility] Comment on above: Performed By: #### C KT #### [facility] [address] [address] [address] Alesia Argueta SEG # 11.72 103/ul Critically high 1.40-6.50 [facility] Comment on above: Performed By: #### C KT #### [facility] [address] [place] [address] Dr. Alesia Argueta SEG % 93.0 % Critically high 43.0-75.0 [facility] Comment on above: Performed By: #### C KT #### [facility] [address] [place] [address] Dr. Alesia Argueta WBC 12.6 103/ul Critically high 4.0-11.0 [facility] Comment on above: Performed By: #### C KT #### [facility] [address] [place] [address] Dr. Alesia Argueta LIPASEon 11-24-2021 Lipase [Catalytic activity/Vol] 160.0 U/L Normal 73.0-393.0 [facility] Comment on above: Performed By: #### B NOISE ABATEMENT ENGINEER, LIPA, HSTROPN, CMP #### [facility] [address] [place] [address] Dr. Alesia Argueta PROF 14(COMP METB)on 022 Albumin [Mass/Vol] 3.3 g/dL Critically low 3.4-5.0 [facility] Comment on above: Performed By: #### B NOISE ABATEMENT ENGINEER, LIPA, HSTROPN, CMP #### [facility] [address] [place] [address] Dr. Alesia Argueta Albumin/Globulin [Mass ratio] 0.8 {ratio} Normal [facility] Comment on above: Performed By: #### B NOISE ABATEMENT ENGINEER, LIPA, HSTROPN, CMP #### [facility] [address] [place] [address] Dr. Alesia Argueta ALP [Catalytic activity/Vol] 85 U/L Normal 46-116 [facility] Comment on above: Performed By: #### B NOISE ABATEMENT ENGINEER, LIPA, HSTROPN, CMP #### [facility] [address] [place] [address] Dr. Alesia Argueta ALT [Catalytic activity/Vol] 24 U/L Normal 16-63 [facility] Comment on above: Performed By: #### B NOISE ABATEMENT ENGINEER, LIPA, HSTROPN, CMP #### [facility] [address] [place] [address] Dr. Alesia Argueta Anion gap [Moles/Vol] 13.8 mmol/L Normal [facility] Comment on above: Performed By: #### B NOISE ABATEMENT ENGINEER, LIPA, HSTROPN, CMP #### [facility] [address] [place] [address] Dr. Alesia Argueta AST [Catalytic activity/Vol] 29 U/L Normal 15-37 [facility] Comment on above: Performed By: #### B NOISE ABATEMENT ENGINEER, LIPA, HSTROPN, CMP #### [facility] [address] [place] [address] Dr. Alesia Argueta Bilirubin [Mass/Vol] 0.9 mg/dL Normal 0.2-1.0 [facility] Comment on above: Performed By: #### B NOISE ABATEMENT ENGINEER, LIPA, HSTROPN, CMP #### [facility] [address] [place] [address] Dr. Alesia Argueta Calcium [Mass/Vol] 8.6 mg/dL Normal 8.5-10.1 [facility] Comment on above: Performed By: #### B NOISE ABATEMENT ENGINEER, LIPA, HSTROPN, CMP #### [facility] [address] [place] [address] Dr. Alesia Argueta Chloride [Moles/Vol] 103 mmol/L Normal 98-107 [facility] Comment on above: Performed By: #### B NOISE ABATEMENT ENGINEER, LIPA, HSTROPN, CMP #### [facility] [address] [place] [address] Dr. Alesia Argueta CO2 [Moles/Vol] 28.1 mmol/L Normal 21.0-32.0 [facility] Comment on above: Performed By: #### B NOISE ABATEMENT ENGINEER, LIPA, HSTROPN, CMP #### [facility] [address] [place] [address] Dr. Alesia Argueta Creatinine [Mass/Vol] 0.96 mg/dL Normal 0.70-1.30 [facility] Comment on above: Performed By: #### B NOISE ABATEMENT ENGINEER, LIPA, HSTROPN, CMP #### [facility] [address] [place] [address] Dr. Alesia Argueta EGFR-AF SPANISH >60 Normal >=60 [facility] Comment on above: Performed By: #### B NOISE ABATEMENT ENGINEER, LIPA, HSTROPN, CMP #### [facility] [address] [place] [address] Dr. Alesia Argueta EGFR-NON AF SPANISH >60 Normal >=60 [facility] Comment on above: Performed By: #### B NOISE ABATEMENT ENGINEER, LIPA, HSTROPN, CMP #### [facility] [address] [place] [address] Dr. Alesia Argueta Globulin (S) [Mass/Vol] 4.1 g/dL Normal [facility] Comment on above: Performed By: #### B NOISE ABATEMENT ENGINEER, LIPA, HSTROPN, CMP #### [facility] [address] [place] [address] Dr. Alesia Argueta Glucose [Mass/Vol] 115 mg/dL Critically high 74-106 [facility] Comment on above: Performed By: #### B NOISE ABATEMENT ENGINEER, LIPA, HSTROPN, CMP #### [facility] [address] [place] [address] Dr. Alesia Argueta Potassium [Moles/Vol] 3.9 mmol/L Normal 3.5-5.1 [facility] Comment on above: Performed By: #### B NOISE ABATEMENT ENGINEER, LIPA, HSTROPN, CMP #### [facility] [address] [place] [address] Dr. Alesia Argueta Protein [Mass/Vol] 7.4 g/dL Normal 6.4-8.2 [facility] Comment on above: Performed By: #### B NOISE ABATEMENT ENGINEER, LIPA, HSTROPN, CMP #### [facility] [address] [place] [address] Dr. Alesia Argueta Sodium [Moles/Vol] 141 mmol/L Normal 136-145 [facility] Comment on above: Performed By: #### B NOISE ABATEMENT ENGINEER, AMMY MARQUEZTROPN, CMP #### [facility] [address] [place] [address] Dr. Alesia rAgueta Urea nitrogen [Mass/Vol] 11.0 mg/dL Normal 7.0-18.0 [facility] Comment on above: Performed By: #### B NOISE ABATEMENT ENGINEER, LIPA HSTROPN, CMP #### [facility] [address] [address] [address] Alesia Argueta Urea nitrogen/Creatinine [Mass ratio] 11.5 mg/mg Normal [facility] Comment on above: Performed By: #### B NOISE ABATEMENT ENGINEER, DEWEYA HSTROPN, CMP #### [facility] [address] [place] [address] Dr. Alesia Arugeta Bacteria Wnd Culton 11-19-19 22 Bacteria identified Cx Nom (Wound) ORGANISM ID: 1 One colony Corynebacterium species No further workup GRAM STAIN: Moderate Gram positive cocci Few Gram negative bacilli Few Polymorphonuclear leukocytes Abnormal [facility] Comment on above: Performed By: #### 6 [id number] #### [facility] CLIA [id number] [address] [place] [address] [place] CONSULTon 11-18-2021 CONSULT HNO ID: [id number] Author: Chin Benedict MD Service: Urology Author Type: Resident Type: Consults Filed: 11/18/2021 8:00 AM Note Text: UROLOGY SERVICE CONSULT NOTE PATIENT NAME: Fartun Elliott JR ASSESSMENT AND PLAN 51 M with no significant past medical history presents with history physical and imaging consistent with scrotal abscess. ? We will proceed with incision and drainage of scrotal abscess ? Okay for discharge home following incision and drainage 7-day course of Augmentin Discussed with chief resident on-call and Dr. Ar CHAPARRO Fartun Elliott JR is a 51 year old male with no significant past medical history presents with 4-day history of scrotal/perineal pain. He reports pain is steadily increased over this period. He denies dysuria, urgency, frequency, fever, chills. He reports he had a similar set of symptoms around a week ago which spontaneously ruptured and drained. No such drainage has occurred now. He was evaluated in outside hospital where CT was performed which did not demonstrate any gas in the perineum but did show a 4 cm abscess. WBC 14.4. Glucose 99. No fevers. He remained hemodynamically stable and was transported ED to ED in order to facilitate evaluation by urology. Currently he is resting comfortably, feels symptomatically improved after the dose of IV antibiotics given at the other hospital. He continues with pain in the perineum without additional symptoms. No personal history of diabetes. Labs reportedly normal at the outside hospital. No past medical history on file. No past surgical history on file. No family history on file. Social History Tobacco Use - Smoking status: Not on file - Smokeless tobacco: Not on file Substance Use Topics - Alcohol use: Not on file - Drug use: Not on file MEDICATIONS: Prior to Admission Medications: No prescriptions on file. No current facility-administered medications for this encounter. ALLERGIES: Patient has no known allergies. REVIEW OF SYSTEMS: GEN: (-)Fevers, weight loss CV: No chest pain PULM: No cough or difficulty breathing GI: (-)diarrhea or constipation : See HPI PHYSICAL EXAM: BP 173/98 Pulse 64 Temp 36.6 ?C (97.8 ?F) (Oral) Resp 16 SpO2 95% Gen: No apparent distress, well-nourished Pulmonary: Clear to auscultation bilaterally, symmetric and equal chest rise, unlabored breathing on room air. Cardiac: Regular rate and rhythm Abdomen: Soft, non-distended, non-tender in all quadrants. : MALE EXAM: No scrotal lesions, cysts, rashes. Epididymis AND testes: normal size, position, 4cm centimeter area of palpable fluctuance in the left inferior scrotum/superior perineum without crepitus. Sinus in left groin without edema or active drainage Urethra AND meatus: normal size AND position w/o lesion or discharge Penis: circumcised, w/o plaques, lesions, masses, or deformities. Extremities: no lower extremity edema IMAGING: Ultrasound 11/18/2021 11/18/2021 ?4:06 AM - Radiology, Oru In Impression IMPRESSION: 4.8 cm left scrotal abscess, stable from 11/17/2021 ultrasound. Normal sonographic appearance of the testes. ?Normal arterial and venous flow within both testes. Chin Benedict MD Urology PGY 3 [phone] Normal [facility] ED NOTEon 11-18-2021 ED NOTE HNO ID: [id number] Author: Daja Sabillon RN Service: Emergency Medicine Author Type: Registered Nurse Type: ED Notes Filed: 11/18/2021 4:09 AM Note Text: Holding off on labwork d/t pt having same labs drawn earlier today, MD Hyde notified of results Normal [facility] ED PROV NOTEon 11-18-2021 ED PROV NOTE HNO ID: [id number] Author: Sharath Samayoa MD Service: Emergency Medicine Author Type: Physician Type: ED Provider Notes Filed: 11/20/2021 12:51 AM Note Text: ED Provider Note Patient Name: Fartun Elliott JR : 1970 SERVICE DATE: 11/17/21 History Patient presents with: Abscess: Pt with L groin abscess. Seen at OSH and worked up. Sent here for specialty consult d/t extensive abscess. IV ATB given at OSH HPI Patient is a 51 year old Male with no reported past medical history presenting with left sided scrotal pain, swelling, and redness that started 2 days ago. Patient states he was seen at outside hospital where he underwent an ultrasound that showed evidence of a possible scrotal abscess. States there is small wound at the site of the abscess that has been draining purulent fluid. Denies history of scrotal abscesses in the past. Endorses mild dull scrotal pain. Denies recent fevers, chills, chest pain, shortness of breath, nausea, vomiting, diarrhea, dysuria, hematuria, or leg swelling. Denies past medical or surgical history Denies significant alcohol or illicit drug use ALLERGIES No Known Allergies Review of Systems Constitutional: Negative for chills and fever. HENT: Negative for ear pain, rhinorrhea and sore throat. Eyes: Negative for pain and visual disturbance. Respiratory: Negative for cough, chest tightness and shortness of breath. Cardiovascular: Negative for chest pain, palpitations and leg swelling. Gastrointestinal: Negative for abdominal pain, blood in stool, constipation, diarrhea, nausea and vomiting. Genitourinary: Positive for scrotal swelling and testicular pain. Negative for dysuria and hematuria. Musculoskeletal: Negative for arthralgias and myalgias. Skin: Negative for rash. Neurological: Negative for dizziness, weakness, light-headedness, numbness and headaches. Psychiatric/Behavioral: Negative for confusion. Physical Exam Vitals [11/17/21 2352] BP Pulse Temp Temp src Resp SpO2 Weight Height 148/95 68 36.7 ?C (98 ?F) Oral 14 97 % -- -- Physical Exam Vitals and nursing note reviewed. Constitutional: General: He is not in acute distress. Appearance: Normal appearance. He is not ill-appearing. HENT: Head: Normocephalic and atraumatic. Nose: Nose normal. No rhinorrhea. Mouth/Throat: Mouth: Mucous membranes are moist. Pharynx: Oropharynx is clear. No oropharyngeal exudate or posterior oropharyngeal erythema. Eyes: General: No scleral icterus. Right eye: No discharge. Left eye: No discharge. Extraocular Movements: Extraocular movements intact. Conjunctiva/sclera: Conjunctivae normal. Pupils: Pupils are equal, round, and reactive to light. Cardiovascular: Rate and Rhythm: Normal rate and regular rhythm. Pulses: Normal pulses. Heart sounds: Normal heart sounds. No murmur heard. No friction rub. No gallop. Pulmonary: Effort: Pulmonary effort is normal. No respiratory distress. Breath sounds: Normal breath sounds. No stridor. No wheezing, rhonchi or rales. Chest: Chest wall: No tenderness. Abdominal: General: Abdomen is flat. There is no distension. Palpations: Abdomen is soft. There is no mass. Tenderness: There is no abdominal tenderness. There is no guarding or rebound. Genitourinary: Penis: Normal. Comments: 4 x 4 cm area of fluctuance and erythema left perineal region involving scrotum, TTP present Musculoskeletal: Cervical back: Normal range of motion and neck supple. Right lower leg: No edema. Left lower leg: No edema. Skin: General: Skin is warm and dry. Capillary Refill: Capillary refill takes less than 2 seconds. Findings: No erythema, lesion or rash. Neurological: General: No focal deficit present. Mental Status: He is alert and oriented to person, place, and time. Mental status is at baseline. Diagnostic Testing ED Labs Ordered and Reviewed - No data to display Procedures ED Course / Clinical Impression ED Course as of 11/18/21 0835 Jean Hyde's Documentation Tue Nov 18, 2021 0414 US SCROTUM AND CONTENTS 4.8 cm left scrotal abscess, stable from 11/17/2021 ultrasound. Normal sonographic appearance of the testes. ?Normal arterial and venous flow within both testes. Clinical Impressions as of 11/18/21 0835 Scrotal wall abscess Scrotal pain History of abscess of skin and subcutaneous tissue - States had prior scrotal abscesses MDM / Disposition / Plan MDM Patient is a 51 year old Male with PMHx per above presenting with concern for scrotal abscess. Per chart review, patient seen at [facility] where he underwent an ultrasound that showed evidence of a scrotal abscess yesterday. Labs including CBC and BMP obtained at outside hospital notable for leukocytosis with white blood cell count of 14, otherwise unremarkable. In the ED today, vitals were within normal limits. Ultrasound here showed a 4.8 cm left sc (more content not included)... Normal [facility] US DOPPLER COMPLETEon 2021 US DOPPLER COMPLETE * * *Final Report* * * DATE OF EXAM: Nov 18 2021 3:39AM [facility]33 - US DOPPLER COMPLETE / PROCEDURE REASON: Scrotal mass or lump (Ped 0-18y) * * * * Physician Interpretation * * * * EXAMINATION: SCROTAL ULTRASOUND WITH DOPPLER IMAGING CLINICAL HISTORY: Left scrotal abscess TECHNIQUE: Sonography of the scrotal contents with color flow and spectral Doppler imaging of the testicular vasculature was performed. Images were obtained and stored in a permanent archive. M: US_2 COMPARISON: Outside CT abdomen/pelvis and scrotal ultrasound 11/17/2021 RESULT: RIGHT SCROTUM: Right testis: 4.6 x 4.6 x 3.3 cm. Homogeneous with no calcifications or mass. Normal intratesticular arterial and venous flow with normal spectral waveforms. Epididymis: Normal. Vascular flow on Color Doppler is symmetric to the contralateral side. Hydrocele: physiologic fluid present Varicocele: absent LEFT SCROTUM: Left testis: 3.9 x 2.5 x 3.5 cm. Homogeneous with no calcifications or mass. Normal intratesticular arterial and venous flow with normal spectral waveforms. Epididymis: Normal. Vascular flow on Color Doppler is symmetric to the contralateral side. Hydrocele: small present Varicocele: absent Other: In the left lateral scrotum, there is a 4.8 x 2.5 x 4.5 cm collection with internal debris. No internal Doppler flow. Mild surrounding vascularity. Generalized scrotal edema. IMPRESSION: 4.8 cm left scrotal abscess, stable from 11/17/2021 ultrasound. Normal sonographic appearance of the testes. Normal arterial and venous flow within both testes. M[employer]: [employer] Transcribe Date/Time: Nov 18 2021 3:40A Dictated by : DARLING JOSE, DO This examination was interpreted and the report reviewed and electronically signed by: VICKIE ISRAEL MD on Nov 18 2021 4:04AM EST [id number] Normal [facility] US SCROTUM AND CONTENTSon US SCROTUM AND CONTENTS * * *Final Report* * * DATE OF EXAM: Nov 18 2021 3:39AM [facility] [place] [facility] [place] SCROTUM AND CONTENTS / PROCEDURE REASON: Scrotal mass or lump * * * * Physician Interpretation * * * * EXAMINATION: SCROTAL ULTRASOUND WITH DOPPLER IMAGING CLINICAL HISTORY: Left scrotal abscess TECHNIQUE: Sonography of the scrotal contents with color flow and spectral Doppler imaging of the testicular vasculature was performed. Images were obtained and stored in a permanent archive. M: US_2 COMPARISON: Outside CT abdomen/pelvis and scrotal ultrasound 11/17/2021 RESULT: RIGHT SCROTUM: Right testis: 4.6 x 4.6 x 3.3 cm. Homogeneous with no calcifications or mass. Normal intratesticular arterial and venous flow with normal spectral waveforms. Epididymis: Normal. Vascular flow on Color Doppler is symmetric to the contralateral side. Hydrocele: physiologic fluid present Varicocele: absent LEFT SCROTUM: Left testis: 3.9 x 2.5 x 3.5 cm. Homogeneous with no calcifications or mass. Normal intratesticular arterial and venous flow with normal spectral waveforms. Epididymis: Normal. Vascular flow on Color Doppler is symmetric to the contralateral side. Hydrocele: small present Varicocele: absent Other: In the left lateral scrotum, there is a 4.8 x 2.5 x 4.5 cm collection with internal debris. No internal Doppler flow. Mild surrounding vascularity. Generalized scrotal edema. IMPRESSION: 4.8 cm left scrotal abscess, stable from 11/17/2021 ultrasound. Normal sonographic appearance of the testes. Normal arterial and venous flow within both testes. [employer]: RAS Transcribe Date/Time: Nov 18 2021 3:40A Dictated by : DARLING JOSE DO This examination was interpreted and the report reviewed and electronically signed by: VICKIE ISRAEL MD on Nov 18 2021 4:04AM EST [id number] Normal [facility] CBC AUTO DIFFon 11-17-2021 BASO # 0.0 103/ul Normal 0.0-0.1 [facility] Comment on above: Performed By: #### B NOISE ABATEMENT ENGINEER, LIPA, HSTROPN, CMP #### [facility] [address] [place] [address] Dr. Alesia Argueta Basophils/100 WBC (Bld) 0.3 % Normal 0.2-2.0 [facility] Comment on above: Performed By: #### B NOISE ABATEMENT ENGINEER, LIPA, HSTROPN, CMP #### [facility] [address] [place] [address] Dr. Alesia Argueta EO # 0.1 103/ul Normal 0.0-0.7 [facility] Comment on above: Performed By: #### B NOISE ABATEMENT ENGINEER, LIPA, HSTROPN, CMP #### [facility] [address] [address] [address] Alesia Argueta Eosinophils/100 WBC (Bld) 1.0 % Normal 0.9-7.0 [facility] Comment on above: Performed By: #### B NOISE ABATEMENT ENGINEER, LIPA, HSTROPN, CMP #### [facility] [address] [place] [address] Dr. Alesia Argueta Erythrocyte distribution width (RBC) [Ratio] 13.3 % Normal 11.0-15.0 [facility] Comment on above: Performed By: #### B NOISE ABATEMENT ENGINEER, LIPA, HSTROPN, CMP #### [facility] [address] [place] [address] Dr. Alesia Argueta Hematocrit (Bld) [Volume fraction] 48.4 % Normal 42.0-54.0 [facility] Comment on above: Performed By: #### B NOISE ABATEMENT ENGINEER, LIPA, HSTROPN, CMP #### [facility] [address] [place] [address] Dr. Alesia Argueta Hemoglobin (Bld) [Mass/Vol] 16.8 g/dL Normal 14.0-18.0 [facility] Comment on above: Performed By: #### B NOISE ABATEMENT ENGINEER, LIPA, HSTROPN, CMP #### [facility] [address] [place] [address] Dr. Alesia Argueta IG # 0.04 10e3/ul Critically high 0.00-0.03 [facility] Comment on above: Performed By: #### B NOISE ABATEMENT ENGINEER, LIPA, HSTROPN, CMP #### [facility] [address] [place] [address] Dr. Alesia Argueta IG % 0.3 % Normal 0.0-0.5 [facility] Comment on above: Performed By: #### B NOISE ABATEMENT ENGINEER, LIPA, HSTROPN, CMP #### [facility] [address] [place] [address] Dr. Alesia Argueta LYMPH # 2.5 103/ul Normal 1.2-3.8 [facility] Comment on above: Performed By: #### B NOISE ABATEMENT ENGINEER, LIPA, HSTROPN, CMP #### [facility] [address] [place] [address] Dr. Alesia Argueta Lymphocytes/100 WBC (Bld) 17.7 % Critically low 20.5-60.0 [facility] Comment on above: Performed By: #### B NOISE ABATEMENT ENGINEER, LIPA, HSTROPN, CMP #### [facility] [address] [place] [address] Dr. Alesia Argueta MANUAL DIFF REQ NO Normal [facility] Comment on above: Performed By: #### B NOISE ABATEMENT ENGINEER, LIPA, HSTROPN, CMP #### [facility] [address] [place] [address] Dr. Alesia Argueta MCH (RBC) [Entitic mass] 31.2 pg Normal 25.9-34.0 [facility] Comment on above: Performed By: #### B NOISE ABATEMENT ENGINEER, LIPA, HSTROPN, CMP #### [facility] [address] [place] [address] Dr. Alesia Argueta MCHC (RBC) [Mass/Vol] 34.7 g/dL Normal 29.9-35.2 [facility] Comment on above: Performed By: #### B NOISE ABATEMENT ENGINEER, LIPA, HSTROPN, CMP #### [facility] [address] [place] [address] Dr. Alesia Argueta MCV (RBC) [Entitic vol] 90.0 fL Normal 80.0-94.0 [facility] Comment on above: Performed By: #### B NOISE ABATEMENT ENGINEER, LIPA, HSTROPN, CMP #### [facility] [address] [place] [address] Dr. Alesia Argueta MONO # 0.9 103/ul Critically high 0.3-0.8 [facility] Comment on above: Performed By: #### B NOISE ABATEMENT ENGINEER, LIPA, HSTROPN, CMP #### [facility] [address] [place] [address] Dr. Alesia Argueta Monocytes/100 WBC (Bld) 6.5 % Normal 1.7-12.0 [facility] Comment on above: Performed By: #### B NOISE ABATEMENT ENGINEER, LIPA, HSTROPN, CMP #### [facility] [address] [place] [address] Dr. Alesia Argueta NEUT # 10.7 103/ul Critically high 1.4-6.5 [facility] Comment on above: Performed By: #### B NOISE ABATEMENT ENGINEER, LIPA, HSTROPN, CMP #### [facility] [address] [place] [address] Dr. Alesia Argueta Neutrophils/100 WBC (Bld) 74.2 % Normal 43.0-75.0 [facility] Comment on above: Performed By: #### B NOISE ABATEMENT ENGINEER, LIPA, HSTROPN, CMP #### [facility] [address] [address] [address] Alesia Argueta Platelet mean volume (Bld) [Entitic vol] 10.0 fL Normal 9.5-13.5 [facility] Comment on above: Performed By: #### B NOISE ABATEMENT ENGINEER, LIPA, HSTROPN, CMP #### [facility] [address] [place] [address] Dr. Alesia Argueta PLT 261 103/ul Normal 150-450 [facility] Comment on above: Performed By: #### B NOISE ABATEMENT ENGINEER, LIPA, HSTROPN, CMP #### [facility] [address] [place] [address] Dr. Alesia Argueta RBC 5.38 106/ul Normal 4.70-6.10 [facility] Comment on above: Performed By: #### B NOISE ABATEMENT ENGINEER, LIPA, HSTROPN, CMP #### [facility] [address] [place] [address] Dr. Alesia Argueta WBC 14.4 103/ul Critically high 4.0-11.0 [facility] Comment on above: Performed By: #### B NOISE ABATEMENT ENGINEER, LIPA, HSTROPN, CMP #### [facility] [address] [place] [address] ABD/PELV W CONon 11-18-19 CT ABD/PELV W CON EXAMINATION: CT ABD/ PELV W CON HISTORY: UNSPECIFIED ABDOMINAL PAIN ; left groin abscess COMPARISON: Ultrasound scrotum 11/17/2021 TECHNIQUE: Axial, Coronal, and Sagittal images were created with IV contrast. Dose reduction techniques were achieved by using automated exposure control and/or adjustment of mA and/or kV according to patient size and/or use of iterative reconstruction technique. FINDINGS: LUNG BASES: No visible pulmonary or pleural disease. LIVER: Fatty infiltration. No enlargement, atrophy, suspicious density, or significant focal lesion. BILIARY: No dilatation or calcification. PANCREAS: No lesion, fluid collection, or abnormal duct dilatation. SPLEEN: No enlargement or focal lesion. ADRENALS: No mass or enlargement. KIDNEYS: No mass, obstruction, or calcification. BOWEL/MESENTERY: No visible mass, obstruction, or bowel wall thickening. AORTA/VASCULAR: No aneurysm or dissection. RETROPERITONEUM: No mass or adenopathy. LYMPH NODES: Asymmetric slightly prominent left pelvic lymph node, 1.9 cm. URINARY BLADDER: No visible focal wall thickening, lesion, or calculus. PELVIC ORGANS: No visible mass. Pelvic organs appropriate for patient age. ABDOMINAL WALL: Oval slightly thick-walled heterogeneous 6.2 x 4.4 x 2.8 cm fluid collection within the subcutaneous fat of the left perineum posterior to the left hemiscrotum with surrounding inflammatory changes. No free air or extension into the deeper fat or musculature. Marked thickening of the skin of the visible portion of the left hemiscrotum. BONES: No bony lesion or fracture. OTHER: Negative. IMPRESSION: 1. Asymmetric, slightly prominent left pelvic lymph node, likely reactive secondary to the scrotal findings. 2. Prominent fluid collection with surrounding inflammatory changes within the left perineum posterior to the scrotum suspected to represent an abscess. No extension into the deeper fat or adjacent musculature. Inflammatory changes extend into the left scrotal sac. Electronically authenticated by: PASCUAL TRISTAN Date: 2021-11-17 18:14 Normal [facility] CULTURE BLOODon 11-17-2021 Microscopic examination of blood, culture Culture Observations: NO GROWTH AT [address] [facility] Comment on above: Performed By: #### B NOISE ABATEMENT ENGINEER, LIPA, HSTROPN, CMP #### [facility] [address] [address] [address] Alesia Argueta Microscopic examination of blood, culture Culture Observations: NO GROWTH AT 5 DAYS. Normal [facility] Comment on above: Performed By: #### B NOISE ABATEMENT ENGINEER, LIPA, HSTROPN, CMP #### [facility] [address] [address] [address] Alesia Argueta Covid-19 PCR ([facility])on 10-25 SARS-CoV-2 (COVID-19) RNA RICKI+probe Ql (Unsp spec) Not detected Normal NOT DETECTED [facility] Comment on above: Result Comment: When diagnostic testing is negative, the possibility of a false negative should be considered in the context of a patient's recent exposures and the presence of clinical signs and symptoms consistent with SARS-CoV-2. This test is not yet approved or cleared by the [place] FDA. When there are no FDA-approved or cleared tests available, and other criteria are met, FDA can make tests available under an emergency access mechanism called an Emergency Use Authorization (EUA). The EUA for this test is supported by the [place] of Health and Human Service's declaration that circumstances exist to justify the emergency use of in vitro diagnostics for the detection and/or diagnosis of the virus that causes COVID-19. This EUA will remain in effect for the duration of the COVID-19 declaration justifying emergency of IVDs, unless it is terminated or revoked by the FDA (after which the test may no longer be used). Performed By: #### B NOISE ABATEMENT ENGINEER, LIPA, HSTROPN, CMP #### [facility] [address] [place] [address] Dr. Alesia Argueta LACTATE/LACTIC ACIDon 2021 Lactate [Moles/Vol] 1.0 mmol/L Normal 0.4-1.9 [facility] Comment on above: Performed By: #### B NOISE ABATEMENT ENGINEER, LIPA, HSTROPN, CMP #### [facility] [address] [place] [address] Dr. Alesia Argueta PROF 14(COMP METB)on 022 Albumin [Mass/Vol] 3.4 g/dL Normal 3.4-5.0 [facility] Comment on above: Performed By: #### B NOISE ABATEMENT ENGINEER, LIPA, HSTROPN, CMP #### [facility] [address] [place] [address] Dr. Alesia Argueta Albumin/Globulin [Mass ratio] 0.7 {ratio} Normal [facility] Comment on above: Performed By: #### B NOISE ABATEMENT ENGINEER, LIPA, HSTROPN, CMP #### [facility] [address] [place] [address] Dr. Alesia Argueta ALP [Catalytic activity/Vol] 86 U/L Normal 46-116 [facility] Comment on above: Performed By: #### B NOISE ABATEMENT ENGINEER, LIPA, HSTROPN, CMP #### [facility] [address] [place] [address] Dr. Alesia Argueta ALT [Catalytic activity/Vol] 17 U/L Normal 16-63 [facility] Comment on above: Performed By: #### B NOISE ABATEMENT ENGINEER, LIPA, HSTROPN, CMP #### [facility] [address] [place] [address] Dr. Alesia Argueta Anion gap [Moles/Vol] 10.1 mmol/L Normal [facility] Comment on above: Performed By: #### B NOISE ABATEMENT ENGINEER, LIPA, HSTROPN, CMP #### [facility] [address] [place] [address] Dr. Alesia Argueta AST [Catalytic activity/Vol] 18 U/L Normal 15-37 [facility] Comment on above: Performed By: #### B NOISE ABATEMENT ENGINEER, LIPA, HSTROPN, CMP #### [facility] [address] [place] [address] Dr. Alesia Argueta Bilirubin [Mass/Vol] 1.3 mg/dL Critically high 0.2-1.0 [facility] Comment on above: Performed By: #### B NOISE ABATEMENT ENGINEER, LIPA, HSTROPN, CMP #### [facility] [address] [place] [address] Dr. Alesia Argueta Calcium [Mass/Vol] 9.2 mg/dL Normal 8.5-10.1 [facility] Comment on above: Performed By: #### B NOISE ABATEMENT ENGINEER, LIPA, HSTROPN, CMP #### [facility] [address] [place] [address] Dr. Alesia Argueta Chloride [Moles/Vol] 99 mmol/L Normal 98-107 [facility] Comment on above: Performed By: #### B NOISE ABATEMENT ENGINEER, LIPA, HSTROPN, CMP #### [facility] [address] [place] [address] Dr. Alesia Argueta CO2 [Moles/Vol] 29.0 mmol/L Normal 21.0-32.0 [facility] [facility] Comment on above: Performed By: #### B NOISE ABATEMENT ENGINEER, LIPA, HSTROPN, CMP #### [facility] [address] [place] [address] Dr. Alesia Argueta Creatinine [Mass/Vol] 1.07 mg/dL Normal 0.70-1.30 [facility] Comment on above: Performed By: #### B NOISE ABATEMENT ENGINEER, LIPA, HSTROPN, CMP #### [facility] [address] [address] [address] Alesia Argueta EGFR-AF SPANISH >60 Normal >=60 [facility] Comment on above: Performed By: #### B NOISE ABATEMENT ENGINEER, LIPA, HSTROPN, CMP #### [facility] [address] [address] [address] Alesia Argueta EGFR-NON AF SPANISH >60 Normal >=60 [facility] Comment on above: Performed By: #### B NOISE ABATEMENT ENGINEER, LIPA, HSTROPN, CMP #### [facility] [address] [place] [address] Dr. Alesia Argueta Globulin (S) [Mass/Vol] 4.8 g/dL Normal [facility] Comment on above: Performed By: #### B NOISE ABATEMENT ENGINEER, LIPA, HSTROPN, CMP #### [facility] [address] [address] [address] Alesia Argueta Glucose [Mass/Vol] 99 mg/dL Normal 74-106 [facility] Comment on above: Performed By: #### B NOISE ABATEMENT ENGINEER, LIPA, HSTROPN, CMP #### [facility] [address] [place] [address] Dr. Alesia Argueta Potassium [Moles/Vol] 3.1 mmol/L Critically low 3.5-5.1 [facility] Comment on above: Performed By: #### B NOISE ABATEMENT ENGINEER, LIPA, HSTROPN, CMP #### [facility] [address] [place] [address] Dr. Alesia Argueta Protein [Mass/Vol] 8.2 g/dL Normal 6.4-8.2 [facility] Comment on above: Performed By: #### B NOISE ABATEMENT ENGINEER, LIPA, HSTROPN, CMP #### [facility] [address] [place] [address] Dr. Alesia Argueta Sodium [Moles/Vol] 135 mmol/L Critically low 136-145 [facility] Comment on above: Performed By: #### B NOISE ABATEMENT ENGINEER, LIPA, HSTROPN, CMP #### [facility] [address] [address] [address] Alesia Argueta Urea nitrogen [Mass/Vol] 7.0 mg/dL Normal 7.0-18.0 [facility] Comment on above: Performed By: #### B NOISE ABATEMENT ENGINEER, LIPA, HSTROPN, CMP #### [facility] [address] [address] [address] Alesia Argueta Urea nitrogen/Creatinine [Mass ratio] 6.5 mg/mg Normal [facility] Comment on above: Performed By: #### B NOISE ABATEMENT ENGINEER, LIPA, HSTROPN, CMP #### [facility] [address] [address] [address] Alesia Argueta US SCROTUM W VASCULAR ORGANo n 11-17-2021 US SCROTUM W VASCULAR ORGAN EXAMINATION: US SCROTUM W VASCULAR ORGAN HISTORY: UNSPECIFIED ABDOMINAL PAIN ; left scrotal pain and swelling COMPARISON: No relevant comparison available. TECHNIQUE: High-resolution sonographic imaging of the scrotum and contents was performed. FINDINGS: RIGHT TESTICLE: Homogeneous echotexture. No visible mass. Color Doppler flow is present. Spectral Doppler demonstrates normal arterial waveform and flow, 4/2 cm/s (PSV/EDV), and normal venous wave flow averaging 1 cm/s. LEFT TESTICLE: Markedly heterogeneous soft tissue within the left hemiscrotum with no normal-shaped testicle or definable margins of the testicle. No appreciable blood flow within the soft tissue. RIGHT EPIDIDYMIS: Normal size and echogenicity. LEFT EPIDIDYMIS: Normal size and echogenicity. OTHER: Bilateral scrotal skin thickening, 7 mm. IMPRESSION: 1. Left hemiscrotum is filled with markedly heterogeneous avascular soft tissue with no definable testicle; possible subacute chronic torsion or remote trauma. The lack of significant surrounding hypervascularity weighs against active infection and torsion, but cannot be completely excluded. Lack of internal blood flow weighs against tumor. 2. Normal appearance of the right scrotal contents. 3. Bilateral scrotal skin thickening without significant hypervascularity to suggest infection. Electronically authenticated by: PASCUAL TRISTAN Date: 2021-11-17 17:[address] 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 However, the narrative phrase printed from the coding software may appear abbreviated, or result in slightly different terminology. 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 However, the narrative phrase printed from the coding software may appear abbreviated, or result in slightly different terminology. Coded By: Candi Pineda Date Saved: 07/07/2017 02:39 pm [facility] .Auto Diff 1on 07-06-2017 Auto Baso % 0.2 % Normal 0.2-2.0 [facility] Comment on above: Performed By: #### 7 [id number], [id number], [id number] ####[facility] (DEFAULT)[address] [place] [address] Auto [place] % 7 % Normal 1-12 [facility] Comment on above: Performed By: #### 7 [id number], [id number], [id number] ####[facility] (DEFAULT)[address] [place] [address] Auto Neut % 55 % Normal 44-88 [facility] Comment on above: Performed By: #### 7 839597, [id number], [id number] ####[facility] (DEFAULT)[address] [place] [address] Baso Abs# 0.0 x10 Normal 0.0-0.2 [facility] Comment on above: Performed By: #### 7 029319, [id number], [id number] ####[facility] (DEFAULT)[address] [place] [address] Eos Abs# 0.2 x10 Normal 0.0-0.4 [facility] Comment on above: Performed By: #### 7 [id number], [id number], [id number] ####[facility] (DEFAULT)[address] [place] [address] Eosinophils/100 leukocytes 2.3 % Normal 0.9-4.0 [facility] Comment on above: Performed By: #### 7 495675, [id number], [id number] ####[facility] (DEFAULT)[address] [place] [address] Lymphocytes 3.0 x10 High 1.3-2.9 [facility] Comment on above: Performed By: #### 7 732415, [id number], [id number] ####[facility] (DEFAULT)[address] [place] [address] Lymphocytes/100 leukocytes 36 % Normal 14-48 [facility] Comment on above: Performed By: #### 7 663191, [id number], [id number] ####[facility] (DEFAULT)[address] [place] [address] [place] Abs# 0.6 x10 Normal 0.0-0.8 [facility] Comment on above: Performed By: #### 7 910595, [id number], [id number] ####[facility] (DEFAULT)[address] [place] [address] Neut Abs# 4.6 x10 Normal 1.5-9.2 [facility] Comment on above: Performed By: #### 7 653105, [id number], [id number] ####[facility] (DEFAULT)[address] [place] [address] CBC w/ Auto Diffon 8 Erythrocyte distribution width Auto Ratio (RBC) 13.3 % Normal 11.5-15.0 [facility] Comment on above: Performed By: #### 7 400572, [id number], [id number] ####[facility] (DEFAULT)[address] [place] [address] Erythrocytes (RBC) 5.36 x10 High 3.70-5.30 [facility] Comment on above: Performed By: #### 7 870255, [id number], [id number] ####[facility] (DEFAULT)[address] [place] [address] Hematocrit (HCT) 48.9 % Normal 34.8-51.9 [facility] Comment on above: Performed By: #### 7 007312, 05395470, [id number] ####[facility] (DEFAULT)[address] [place] [address] Hemoglobin mass conc (Bld) 16.9 g/dL Normal 11.8-17.7 [facility] Comment on above: Performed By: #### 7 921820, [id number], [id number] ####[facility] (DEFAULT)[address] [place] [address] Man Diff? Auto Normal [facility] Comment on above: Performed By: #### 7 317528, [id number], [id number] ####[facility] (DEFAULT)[address] [place] [address] MCH 32 pg Normal 24-34 [facility] Comment on above: Performed By: #### 7 596904, 60163507, [id number] ####[facility] (DEFAULT)[address] [place] [address] MCHC mass conc (RBC) 35 g/dL Normal 26-37 [facility] Comment on above: Performed By: #### 7 930700, 92982325, [id number] ####[facility] (DEFAULT)[address] [place] [address] MCV 91 fL Normal 81-100 [facility] Comment on above: Performed By: #### 7 317586, 89707752, [id number] ####[facility] (DEFAULT)[address] [place] [address] Platelet mean volume (PMV) 9.7 fL Normal 6.3-10.2 [facility] Comment on above: Performed By: #### 7 016231, 58404296, [id number] ####[facility] (DEFAULT)[address] [place] [address] Platelets 248 x10 Normal 138-427 [facility] Comment on above: Performed By: #### 7 729116, 64821427, [id number] ####[facility] (DEFAULT)[address] [place] [address] WBC (Leukocytes) 8.4 x10 Invalid Interpretation Code [facility] Comment on above: Performed By: #### 7 230537, [id number], [id number] ####[facility] (DEFAULT)[address] [place] [address] CMP Standardon 07-06-2017 eGFR (non-black) mL/min/{1.73_m2} Invalid Interpretation Code [facility] Comment on above: Performed By: #### 7 725651, 11500031, [id number] ####[facility] (DEFAULT)[address] [place] [address] Result Comment: Solid Plasterer sierra Kidney disease could be indicated at eGFRs of less than 60 ml/min/1.73m2. Kidney Failure is indicated at less than 15 ml/min/1.73m2 Albumin 4.0 g/dL Normal 3.5-5.0 [facility] Comment on above: Performed By: #### 7 246629, 50816665, [id number] ####[facility] (DEFAULT)[address] [place] [address] Albumin/Globulin Ratio 1.1 {ratio} Low 1.4-2.6 [facility] Comment on above: Performed By: #### 7 751531, 98481235, [id number] ####[facility] (DEFAULT)[address] [place] [address] Alk Phos 68 IU/L Normal 32-91 [facility] Comment on above: Performed By: #### 7 744114, [id number], [id number] ####[facility] (DEFAULT)[address] [place] [address] ALT/SGPT 34.0 IU/L Normal 17.0-63.0 [facility] Comment on above: Performed By: #### 7 424538, 12300315, [id number] ####[facility] (DEFAULT)[address] [place] [address] Anion gap 10.0 mmol/L Normal 5.0-19.0 [facility] Comment on above: Performed By: #### 7 272194, 66592001, [id number] ####[facility] (DEFAULT)[address] [place] [address] AST/SGOT 24 IU/L Normal 15-41 [facility] Comment on above: Performed By: #### 7 797901, [id number], [id number] ####[facility] (DEFAULT)[address] [place] [address] Bili Total 0.8 mg/dL Normal 0.3-1.2 [facility] Comment on above: Performed By: #### 7 451540, 98030089, [id number] ####[facility] (DEFAULT)[address] [place] [address] BUN/Creatinine Ratio 13.0 mg/mg Normal 4.6-16.2 [facility] Comment on above: Performed By: #### 7 556612, 25838968, [id number] ####[facility] (DEFAULT)[address] [place] [address] Calcium 9.3 mg/dL Normal 8.9-10.3 [facility] Comment on above: Performed By: #### 7 677781, 53789858, [id number] ####[facility] (DEFAULT)[address] [place] [address] Chloride 101 mmol/L Normal 101-111 [facility] Comment on above: Performed By: #### 7 360961, 42654256, [id number] ####[facility] (DEFAULT)[address] [place] [address] CO2 29 mmol/L Normal 21-32 [facility] Comment on above: Performed By: #### 7 283240, 77382382, [id number] ####[facility] (DEFAULT)[address] [place] [address] Creatinine 0.97 mg/dL Normal 0.90-1.30 [facility] Comment on above: Performed By: #### 7 056488, 65090137, [id number] ####[facility] (DEFAULT)[address] [place] [address] Globulin 3.8 g/dL Normal 1.5-4.3 [facility] Comment on above: Performed By: #### 7 772701, 08375328, [id number] ####[facility] (DEFAULT)[address] [place] [address] Glucose mass conc 90.0 mg/dL Normal 74.0-118.0 [facility] Comment on above: Performed By: #### 7 367408, 49336571, [id number] ####[facility] (DEFAULT)[address] [place] [address] Osmolality 272 mOsm/L Invalid Interpretation Code [facility] Comment on above: Performed By: #### 7 941653, 03239753, [id number] ####[facility] (DEFAULT)[address] [place] [address] Potassium molar conc 4.2 mmol/L Normal 3.6-5.1 [facility] Comment on above: Performed By: #### 7 648572, 99505067, [id number] ####[facility] (DEFAULT)[address] [place] [address] Protein 7.8 g/dL Normal 6.5-8.1 [facility] Comment on above: Performed By: #### 7 709183, 49197788, [id number] ####[facility] (DEFAULT)[address] [place] [address] Sodium 136.0 mmol/L Normal 136.0-144. 0 [facility] Comment on above: Performed By: #### 7 223119, 58941534, [id number] ####[facility] (DEFAULT)[address] [place] [address] Urea nitrogen 13 mg/dL Normal 12-19 [facility] Comment on above: Performed By: #### 7 282052, 53656366, [id number] ####[facility] (DEFAULT)[address] [place] [address] CT Spine Lumbar w/o Contrast on 07-06-2017 CT Spine Lumbar w/o Contrast CT SPINE LUMBAR WITHOUT CONTRASTCLINICAL DATA: Lifted heavy objects yesterday, low back pain beginning thismorning. Dose reduction technique was utilized for this study.CT lumbar spine study was performed without the use of intravenous contrast.Multiple axial images were obtained. Reformatted coronal and sagittal imageswere obtained and reviewed. Vertebral body heights are grossly wellmaintained. There is mild disc space narrowing at T11-T12 and T12-L1.Minimal anterior spurring is noted at multiple levels. No definite acutefracture or dislocation is seen.At the partially visualized T10-T11 level there is no obvious focalabnormality.At T11-T12 there is no obvious focal abnormality.At T12-L1 there is diffuse disc bulging with area of asymmetric disc densityon the right compatible with disc protrusion or herniation impressing uponthe right anterior aspect of the thecal sac. There is mild spinal stenosis.At L1-L2 there is diffuse disc bulging. There is mild spinal stenosis.At L2-L3 there is generalized disc bulging. Spinal canal is within lowerlimits of normal for size.At L3-L4 there is generalized disc bulging. There are mild degenerative facetchanges bilaterally. Spinal canal is within lower limits of normal for size.There is mild neural foraminal narrowing bilaterally.At L4-L5 there is diffuse disc bulging with asymmetric bulging in the rightneural foramen. There are mild degenerative facet changes bilaterally.There is mild to moderate spinal stenosis. There is neural foraminalnarrowing bilaterally, moderate on the right and mild on the left.At L5-S1 there is generalized disc bulging. There are mild degenerativefacet changes bilaterally.No obvious focal soft tissue abnormalities seen within the bony spinal canal.Muscle and fascial planes are grossly intact. There is focal area of wallthickening and luminal narrowing seen in the sigmoid colon likely related tospasm, other possibility would be less likely. Follow-up as needed.IMPRESSION:1. CT LUMBAR SPINE STUDY FAILS TO DEMONSTRATE DEFINITE ACUTE FRACTURE ORDISLOCATION.2. DEGENERATIVE CHANGES AND DISC BULGING DESCRIBED. DISC PROTRUSION ORHERNIATION SUGGESTED AT T12-L1 ON THE RIGHT. SPINAL STENOSIS AND NEURALFORAMINAL NARROWING DESCRIBED.3. FOCAL AREA OF WALL THICKENING AND LUMINAL NARROWING SEEN IN THE SIGMOIDCOLON LIKELY RELATED TO SPASM, OTHER POSSIBILITY WOULD BE LESS LIKELY.FOLLOW-UP NEEDED.STEPHANIE Bowen #: [id number]: 07/06/2017T: 07/06/2017 Final Dictated by: Chidi Ray MD SDictated DT/TM: 07/06/17 12:38Signed (Electronic Signature): Chidi Ray MD 07/06/17 2:12 pmTechnologist: NATASHA ALEXANDRA [facility] ED Clinical Summaryon 2017 ED Clinical Summary [facility] - Emergency [address] [place], [place] [id number] ed Clinical SummaryPERSON INFORMATIONName: FARTUN ELLIOTT Jr Age: 47 Years Sex: MALEDOB: [birth year] MRN: Acct#:Visit Reason: Back pain; LOW BACK PAIN Arrival:07/06/17 09:54:00 Discharge: 07/06/17 12:20:00LOS: 000 02:26 Check In: 07/06/17 09:54:00 Checkout:07/06/17 12:20:00Address:[address] [address]QYB: Provider, NonePROVIDER INFORMATIONProvider Role Assigned UnassignedChris Carrizales ED PA 07/06/17 09:55:34Eden Gonzalez CERTIFIED MEDICAL AIDE Nurse 07/06/17 10:06:17VITALS INFORMATIONVital Sign Triage LatestTemperature TympanicTemperature Temporal ArteryPulse Rate 73 bpm 73 bpmO2 Sat 97 % 97 %Respiratory Rate 18 br/min 18 br/minBlood Pressure 148 mmHg/97 mmHg 148 mmHg/97 mmHgMEDICAL INFORMATIONMedications Given:Medication Dose Routeketorolac 30 mg IMAllergy Information:No Known Medication AllergiesPHYSICIAN DOCUMENTATIONDISCHARGE INFORMATION:Discharge Disposition: HomeDischarge Location: HomePATIENT EDUCATION INFORMATIONInstructions: Spinal Stenosis; Herniated Disk; Back Pain, AdultFollow-Up:With: Address: When:Steve Martínez [address] [facility], [address] [place], [phone] Business (2) Within 3 to 5 daysWith: Address: When:[address], [address] [place], [place] [id number] Business (1) Within 3 to 5 daysComments:Diagnosis is low back pain. Report having pain over the last 24 hours, with no history of injury, fevers or chills, her laboratory workup is overall negative for acute process, CT scan of the lower part of the thoracic spine and lumbar spine show evidence of spinal stenosis or severe arthritis, multilevel disc bulging, and suspect disc protrusion or herniation in the area of T12, and L1 more right sided. We treated you with medication to help with pain relief and your symptoms improved, start oral course of steroids today. We are giving you a prescription for pain medication and muscle relaxant, take this as prescribed, do not drink alcohol or drive while taking this medication. May want to take stool softener to prevent constipation while taking pain medication. May take mhrb-[id number] ibuprofen or Tylenol to supplement, may use tiger balm patches for topical pain relief. Follow-up with your primary care provider in the next 3-5 days for evaluation. Return to the emergency department for worsening symptoms or concerns, intractable nausea or vomiting, spiking fevers, any loss of bowel or bladder control, inability to ambulate any questions. On this discharge paperwork, also listed is an orthopedic surgeon who does do back surgery and evaluate for back pain, and disc protrusion. Follow-up with him in 3-5 days, if unable to get into your primary care provider.With: Address: When:None Provider Within 3 to 5 daysDIAGNOSIS:Acute lumbar back pain; Acute thoracic back pain; Herniation of intervertebral disc of lumbar spine; Herniation of intervertebral disc of thoracic spine without radiculopathy; Lumbar spinal stenosisComment: Normal [facility] ED Note - Otheron 07-06-2017 ED Note - Other [id number] [facility] ED Note - Physicianon 2017 ED Note - Physician Patient: JORDAN ELLIOTT : 47 years Sex: MALE : 70Associated Diagnoses: Lumbar spinal stenosis; Herniation of intervertebral disc of thoracic spine without radiculopathy; Herniation of intervertebral disc of lumbar spine; Acute thoracic back pain; Acute lumbar back painAuthor: Chris CarrizalesBasic InformationTime seen: Date & time 07/06/17 10:05:00.History source: Patient.Arrival mode: Private vehicle.History limitation: None.History of Present IllnessPatient is a 47-year-old male, with a history of anxiety, who presents to the emergency department with less than 24-hour history of severe lower back pain, seen in room 7. 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 He denies any history of trauma or fall, denies any history of fever or chills, hematuria dysuria, shortness breath, chest pain, nausea or vomiting, patient complains of pain with deep breathing. But is not short of breath. Denies any numbness tingling or weakness in upper or lower extremities, denies headache, denies any difficulty with bowel movements, or blood in his stool last bowel was yesterday.Review of SystemsConstitutional symptoms: No fever, no chills.Skin symptoms: No rash, no abrasions.Eye symptoms: No discharge, no diplopia, no blurred vision.Respiratory symptoms: No shortness of breath,Cardiovascular symptoms: No chest pain,Gastrointestinal symptoms: No abdominal pain, no nausea, no vomiting.Genitourinary symptoms: No dysuria, no hematuria.Musculoskeletal symptoms: Negative except as documented in HPI.Health StatusAllergies:Allergic Reactions (All)No Known Medication Allergies.Past Medical/ Family/ Social HistoryMedical history:No active or resolved past medical history items have been selected or recorded..Surgical history:No active procedure history items have been selected or recorded..Family history:No family history items have been selected or recorded..Social history:Social & Psychosocial HabitsNo Data Available.Problem list:Active Problems (1)Kidney stones.Physical Examination Vital SignsVital Signs07/06/17 09:58 EDT Temperature Temporal 36.8 DegC Peripheral Pulse Rate 73 bpm Respiratory Rate 18 br/min Systolic Blood Pressure 148 mmHg HI Diastolic Blood Pressure 97 mmHg HI SpO2 97 % Oxygen Therapy Room air.General: Alert, no acute distress.Skin: Warm, dry.Head: Normocephalic, atraumatic.Neck: Supple, trachea midline, Patient has no pain with palpation of the C-spine, pelvis range of motion.Eye: Extraocular movements are intact, normal conjunctiva.Cardiovascular: +S1, S2 Regular.Respiratory: Lungs are clear to auscultation, respirations are non-labored, breath sounds are equal.Gastrointestinal: Soft, Nontender, Non distended, Normal bowel sounds.Back: There is no pain with upper aspects of the thoracic spine, no pain in that rib area, there is no subcutaneous emphysema palpated throughout anterior posterior chest wall, there is pain that starts around T11-T12 region all the way to L5, pain seems out of proportion, any touching of the back in that area causes exquisite pain, patient has 5 out of 5 muscle strength, he has 1+ patellar, and 1+ ankle reflexes while having patient class fingers and countertraction hands.Neurological: Alert and oriented to person, place, time, and situation, No focal neurological deficit observed, normal sensory observed, normal motor observed, normal speech observed, normal coordination observed.Psychiatric: Cooperative.Medical Decision MakingDifferential Diagnosis: Back pain, lumbar strain, disc herniation, urinary tract infection, thoracic strain.Orders Launch OrdersLaboratory:Urinalysis with Culture, if indicated Standard (Order): Urine, Routine collect, 07/06/17 10:22 EDT, Nurse collectCMP Standard (Order): Blood, Stat collect, 07/06/17 10:22 EDT, Lab CollectCBC w/ Auto Diff (Order): Blood, Stat collect, 07/06/17 10:22 EDT, Lab CollectPharmacy:Toradol (Order): 30 mg, IM, OnceRadiology:CT Spine Lumbar w/o Contrast (Order): 07/06/17 10:22 EDT Stat, Low back pain, Allow Modification Per Radiologist, Transport Mode: Patient Bed, Patient with low back pain, from T11-L5, pain out of proportion, can barely touch patient's back, does not appear to be a malingerer, discitis?, Compression fracture?XR Chest 2 Views (Order): 07/06/17 10:22 EDT Stat, Pain with deep breathing, Allow Modification Per Radiologist, Transport Mode: Wheelchair, Launch OrdersPharmacy:potassium bicarbonate (Order): 25 mEq, PO, Once, Launch OrdersPharmacy:potassium bicarbonate (Discontinue): 25 mEq, 1 tab(s), PO, Once.Results review: Lab results : Lab Gyqhrtcpc45/13/18 10:27 EDT Sodium Level 136.0 mmol/L Potassium Level 4.2 mmol/L Chloride Level 101 mmol/L CO2 29 mmol/L Anion Gap 10.0 mmol/L Glucose Level 90.0 mg/dL BUN 13 mg/dL Creatinine Level 0.97 mg/dL BUN/Creat Ratio 13.0 eGFR AA >60 mL/min/1.73m2 NA eGFR Non AA >60 mL/min/1.73m2 NA Calcium Level 9.3 mg/dL Bili Total 0.8 mg/dL Alk Phos 68 IU/L AST/SGOT 24 IU/L ALT/SGPT 34.0 IU/L Protein Total 7.8 gm/dL Albumin Level 4.0 gm/dL Globulin 3.8 gm/dL A/G Ratio 1.1 LOW Osmolality 272 mOsm/L NA WBC 8.4 x103/mcL RBC 5.36 x106/mcL HI Hgb 16.9 gm/dL Hct 48.9 % MCV 91 fL MCH 32 pg MCHC 35 gm/dL RDW 13.3 % Platelet 248 x103/mcL MPV 9.7 fL Auto Neut % 55 % Auto Lymph % 36 % Auto [place] % 7 % Auto Eos % 2.3 % Auto Baso % 0.2 % Neut Abs# 4.6 x103/mcL Lymph Abs# 3.0 x103/mcL HI [place] Abs# 0.6 x103/mcL Eos Abs# 0.2 x103/mcL Baso Abs# 0.0 x103/mcL.Reexamination/ ReevaluationPatient 47-year-old male who presents to emergency department for evaluation of thoracic and lumbar pain without history of trauma or fall. 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 He has no history of recent illness, coughs or colds, he is not short of breath but states it hurts to take a deep breath in. More in the lower aspects of the thoracic and complete lumbar spine. Patient does not want any type of pain medication oral medication, however I did talk to about a injection of Toradol, and he agreed to that. With his history, we'll obtain some basic blood work and urinalysis, we'll also obtain a CT scan of the lumbar spine and a chest x-ray.Patient's blood work returned showing no evidence of acute process, his CT scan comes back showing no evidence of fracture dislocation of the lumbar spine, but there is multilevel disc bulging, and spinal stenosis, with suspected disc protrusion, or herniation T12-L1 on the right side, no evidence of discitis. 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 In regards to infectious etiology does not appear to have any correlation, normal laboratory workup, patient having no urinary symptoms, and at this time declined urinalysis. I reviewed CT scan information with him, I discussed about contacting neurosurgery for follow-up, patient states he rather see his primary care provider. The patient does not like to take medication but with the findings, we discussed utilizing opiate-based pain medication, muscle relaxant, and a course of steroids, patient declined Solu-Medrol injection at this time we'll provide him with a course of prednisone. We discussed about reasons return he did give verbal understanding agreement.OARRS report, last prescription 03/30/16, her lorazepam 0.5 mg, #30, no prescription since then.Impression and PlanDiagnosisLumbar spinal stenosis ([id number] M48.061, Discharge, Medical)Herniation of intervertebral disc of thoracic spine without radiculopathy ([id number]-UH M51.24, Discharge, Medical)Herniation of intervertebral disc of lumbar spine ([id number]-HZ M51.26, Discharge, Medical)Acute thoracic back pain ([id number]-[id number] M54.6, Discharge, Medical)Acute lumbar back pain ([id number]-QR M54.5, Discharge, Medical)PlanCondition: Improved, Stable.Disposition: Discharged: Time 07/06/17 12:03:00, to home.Prescriptions: Launch prescriptionsPharmacy:predniS ONE 20 mg oral tablet (Prescribe): 40 mg, 2 tab(s), PO, Daily, for 5 day(s), 10 tab(s), 0 Refill(s)[place] 5 mg-325 mg oral tablet (Prescribe): 1 tab(s), PO, TID, for 5 day(s), PRN: pain, 15 tab(s), 0 Refill(s)cyclobenzaprine 10 mg oral tablet (Prescribe): 10 mg, 1 tab(s), PO, TID, for 5 day(s), PRN: pain, 15 tab(s), 0 Refill(s).Patient was given the following educational materials: Back Pain, Adult, Herniated Disk, Spinal Stenosis, Spinal Stenosis, Herniated Disk, Back Pain, Adult, Spinal Stenosis, Herniated Disk, Back Pain, Adult.Follow up with: BRUNO BOCANEGRA Within 3 to 5 days Diagnosis is low back pain. Report having pain over the last 24 hours, with no history of injury, fevers or chills, her laboratory workup is overall negative for acute process, CT scan of the lower part of the thoracic spine and lumbar spine show evidence of spinal stenosis or severe arthritis, multilevel disc bulging, and suspect disc protrusion or herniation in the area of T12, and L1 more right sided. We treated you with medication to help with pain relief and your symptoms improved, start oral course of steroids today. We are giving you a prescription for pain medication and muscle relaxant, take this as prescribed, do not drink alcohol or drive while taking this medication. May want to take stool softener to prevent constipation while taking pain medication. May take kpey-wlw-aruqeqe ibuprofen or Tylenol to supplement, may use tiger balm patches for topical pain relief. Follow-up with your primary care provider in the next 3-5 days for evaluation. Return to the emergency department for worsening symptoms or concerns, intractable nausea or vomiting, spiking fevers, any loss of bowel or bladder control, inability to ambulate any questions. On this discharge paperwork, also listed is an orthopedic surgeon who does do back surgery and evaluate for back pain, and disc protrusion. Follow-up with him in 3-5 days, if unable to get into your primary care provider.; None Provider Within 3 to 5 days; Steve Martínez Within 3 to 5 days.Counseled: Patient, Friend, Regarding diagnosis, Regarding diagnostic results, Regarding treatment plan, Regarding prescription, Patient indicated understanding of instructions.AddendImelda contacted the patient at 1:18 PM, as there is no addendum to a CT scan, focal area of wall thickening and luminal narrowing in the sigmoid colon, likely spasm, other possibility not excluded, I discussed them there is always concern for malignancy, and that standard of care is colonoscopy at age 50, but with issues they may consider doing one earlier. Patient reports he does have a difficult time with bowel movements, years sometimes takes Motrin hour have a bowel movement, there is no blood there is no pain just seems that's how it is with him. I discussed them the importance of following up he agreed and thanked me for calling him.[Electronically Signed on: 07/06/2017 13:20 EDT] Chris Carrizales[Verified on: 07/06/2017 13:20 EDT] Chris Carrizales [facility] ED Patient Education Noteon 07-06-2017 ED Patient Education Note Education MaterialsOrthopedicsSpinal StenosisSpinal stenosis is an abnormal narrowing of the canals of your spine (vertebrae). CAUSESSpinal stenosis is caused by areas of bone pushing into the central canals of your vertebrae. This condition can be present at (congenital). It also may be caused by arthritic deterioration of your vertebrae (spinal degeneration).SYMPTOMS? Pain that is generally worse with activities, particularly standing and walking.? Numbness, tingling, hot or cold sensations, weakness, or weariness in your legs.? Frequent episodes of falling.? A foot-slapping gait that leads to muscle weakness.DIAGNOSISSpinal stenosis is diagnosed with the use of magnetic resonance imaging (MRI) or computed tomography (CT).TREATMENTInitial therapy for spinal stenosis focuses on the management of the pain and other symptoms associated with the condition. These therapies include:? Practicing postural changes to lessen pressure on your nerves.? Exercises to strengthen the core of your body.? Loss of excess body weight.? The use of nonsteroidal anti-inflammatory medicines to reduce swelling and inflammation in your nerves.When therapies to manage pain are not successful, surgery to treat spinal stenosis may be recommended. This surgery involves removing excess bone, which puts pressure on your nerve roots. During this surgery (laminectomy), the posterior ninoska arch (lamina) and excess bone around the facet joints are removed.This information is not intended to replace advice given to you by your health care provider. Make sure you discuss any questions you have with your health care provider.Document Released: 07/02/2004 Document Revised: 05/03/2015 Document Reviewed: 07/21/2013Elsevier Interactive Patient Education ? 2017 [employer].Herniated DiskA herniated disk, also called a ruptured disk or slipped disk, occurs when a disk in the spine bulges out too far. Between the bones in the spine (vertebrae), there are oval disks that are made of a soft, spongy center that is surrounded by a tough outer ring. The disks connect your vertebrae, help your spine move, and absorb shocks from your movement.When you have a herniated disk, the spongy center of the disk bulges out or breaks through the outer ring. It can press on a nerve between the vertebrae and cause pain. This can occur anywhere in the back or neck area, but the lower back is most commonly affected. What are the causes?This condition may be caused by:? Age-related wear and tear. The spongy centers of spinal disks tend to shrink and dry out with age, which makes them more likely to herniate.? Sudden injury, such as a strain or sprain.What increases the risk?Aging is the main risk factor for a herniated disk. Other risk factors include:? Being a man who is 30?50 years old.? Frequently doing activities that involve heavy lifting, bending, or twisting.? Frequently driving for long hours at a time.? Not getting enough exercise.? Being overweight.? Smoking.? Having a family history of back problems or herniated disks.? Being or giving .? Having poor nutrition.? Being tall.What are the signs or symptoms?Symptoms may vary depending on where your herniated disk is located.? A herniated disk in the lower back may cause sharp pain in:? Part of the arm, leg, hip, or buttocks.? The back of the lower leg (calf).? The lower back, spreading down through the leg into the foot (sciatica).? A herniated disk in the neck may cause dizziness and vertigo. It may also cause pain or weakness in:? The neck.? The shoulder blades.? Upper arm, forearm, or fingers.? You may also have muscle weakness. It may be difficult to:? Lift your leg or arm.? Stand on your toes.? Squeeze tightly with one of your hands.? Other symptoms may include:? Numbness or tingling in the affected areas of the hands, arms, feet, or legs.? Inability to control when you urinate or when you have bowel movements. This is a rare but serious sign of a severe herniated disk in the lower back.How is this diagnosed?This condition may be diagnosed based on:? Your symptoms.? Your medical history.? A physical exam. The exam may include:? Straight-leg test. You will lie on your back while your health care provider lifts your leg, keeping your knee straight. If you feel pain, you likely have a herniated disk.? Neurological tests. This includes checking for numbness, reflexes, muscle strength, and posture.? Imaging tests, such as:? X-rays.? MRI.? CT scan.? Electromyogram (EMG) to check the nerves that control muscles. This test may be used to determine which nerves are affected by your herniated disk.How is this treated?Treatment for this condition may include:? A short period of rest. This is usually the first treatment.? You may be on bed rest for up to 2 days, or you may be instructed to stay home and avoid physical activity.? If you have a herniated disk in your lower back, avoid sitting as much as possible. Sitting increases pressure on the disk.? Medicines. These may include:? NSAIDs to help reduce pain and swelling.? Muscle relaxants to prevent sudden tightening of the back muscles (back spasms).? Prescription pain medicines, if you have severe pain.? Steroid injections in the area of the herniated disk. This can help reduce pain and swelling.? Physical therapy to strengthen your back muscles.In many cases, symptoms go away with treatment over a period of days or weeks. You will most likely be free of symptoms after 3?4 months. If other treatments do not help to relieve your symptoms, you may need surgery.Follow these instructions at home:Medicines? Take wicr-cvb-czjflgo and prescription medicines only as told by your health care provider.? Do notdrive or use heavy machinery while taking prescription pain medicine.Activity? Rest as directed.? After your rest period:? Return to your normal activities and gradually begin exercising as told by your health care provider. Ask your health care provider what activities and exercises are safe for you.? Use good posture.? Avoid movements that cause pain.? Do notlift anything that is heavier than 10 lb (4.5 kg) until your health care provider says this is safe.? Do not sit or stand for long periods of time without changing positions.? Do notsit for long periods of time without getting up and moving around.? If physical therapy was prescribed, do exercises as instructed.? Aim to strengthen muscles in your back and abdomen with exercises like crunches, swimming, or walking.General instructions? Do notuse any products that contain nicotine or tobacco, such as cigarettes and e-cigarettes. These products can delay healing. If you need help quitting, ask your health care provider.? Do notwear high-heeled shoes.? Do notsleep on your belly.? If you are overweight, work with your health care provider to lose weight safely.? To prevent or treat constipation while you are taking prescription pain medicine, your health care provider may recommend that you:? Drink enough fluid to keep your urine clear or pale yellow.? Take hbfm-mnu-pbbjkjf or prescription medicines.? Eat foods that are high in fiber, such as fresh fruits and vegetables, whole grains, and beans.? Limit foods that are high in fat and processed sugars, such as fried and sweet foods.? Keep all follow-up visits as told by your health care provider. This is important.How is this prevented?? Maintain a healthy weight.? Try to avoid stressful situations.? Maintain physical fitness. Do at least 150 minutes of moderate-intensity exercise each week, such as brisk walking or water aerobics.? When lifting objects: ? Keep your feet at least shoulder-width apart and tighten your abdominal muscles.? Keep your spine neutral as you bend your knees and hips. It is important to lift using the strength of your legs, not your back. Do not lock your knees straight out.? Always ask for help to lift heavy or awkward objects.Contact a health care provider if:? You have back pain or neck pain that does not get better after 6 weeks.? You have severe pain in your back, neck, legs, or arms.? You develop numbness, tingling, or weakness in any part of your body.Get help right away if:? You cannot move your arms or legs.? You cannot control when you urinate or have bowel movements.? You feel dizzy or you faint.? You have shortness of breath.This information is not intended to replace advice given to you by your health care provider. Make sure you discuss any questions you have with your health care provider.Document Released: 04/09/2001 Document Revised: 12/07/2016 Document Reviewed: 12/07/2016[employer] Interactive Patient Education ? 2017 [employer].Back Pain, AdultBack pain is very common in adults.?The cause of back pain is rarely dangerous and the pain often gets better over time.?The cause of your back pain may not be known. Some common causes of back pain include: ? Strain of the muscles or ligaments supporting the spine.? Wear and tear (degeneration) of the spinal disks.? Arthritis.? Direct injury to the back.For many people, back pain may return. Since back pain is rarely dangerous, most people can learn to manage this condition on their own.Follow these instructions at home:Watch your back pain for any changes. The following actions may help to lessen any discomfort you are feeling:? Remain active. It is stressful on your back to sit or robotic machine tender production one place for long periods of time. Do not sit, drive, or robotic machine tender production one place for more than 30 minutes at a time. Take short walks on even surfaces as soon as you are able.?Try to increase the length of time you walk each day.? Exercise regularly as directed by your health care provider. Exercise helps your back heal faster. It also helps avoid future injury by keeping your muscles strong and flexible.? Do notstay in bed.?Resting more than 1?2 days can delay your recovery.? Pay attention to your body when you bend and lift. The most comfortable positions are those that put less stress on your recovering back. Always use proper lifting techniques, including:? Bending your knees.? Keeping the load close to your body.? Avoiding twisting.? Find a comfortable position to sleep. Use a firm mattress and lie on your side with your knees slightly bent. If you lie on your back, put a pillow under your knees.? Avoid feeling anxious or stressed.?Stress increases muscle tension and can worsen back pain.?It is important to recognize when you are anxious or stressed and learn ways to manage it, such as with exercise.? Take medicines only as directed by your health care provider. Cako-pun-irtuidd medicines to reduce pain and inflammation are often the most helpful.?Your health care provider may prescribe muscle relaxant drugs.?These medicines help dull your pain so you can more quickly return to your normal activities and healthy exercise.? Apply ice to the injured area:? Put ice in a plastic bag.? Place a towel between your skin and the bag.? Leave the ice on for 20 minutes, 2?3 times a day for the first 2?3 days. After that, ice and heat may be alternated to reduce pain and spasms.? Maintain a healthy weight. Excess weight puts extra stress on your back and makes it difficult to maintain good posture.Contact a health care provider if:? You have pain that is not relieved with rest or medicine.? You have increasing pain going down into the legs or buttocks.? You have pain that does not improve in one week.? You have night pain.? You lose weight.? You have a fever or chills.Get help right away if:? You develop new bowel or bladder control problems.? You have unusual weakness or numbness in your arms or legs.? You develop nausea or vomiting.? You develop abdominal pain.? You feel faint.This information is not intended to replace advice given to you by your health care provider. Make sure you discuss any questions you have with your health care provider.Document Released: 04/12/2006 Document Revised: 08/20/2016 Document Reviewed: 08/14/2014[employer] Interactive Patient Education ? 2017 [employer] Normal [facility] ED Patient Summaryon 018 ED Patient Summary [facility] - Emergency [id number] [place] [address] pATIENT DISCHARGE INSTRUCTIONSPatient InformationName: FARTUN ELLIOTT Jr Age: 47 YearsDate of : [birth year]MRN: [id number] For Visit: Back pain; LOW BACK PAINArrival Time: 07/06/17 09:54:00Phone: Primary Care Physician: Provider, NoneAttending Physician: Zoran Salazar MDComment:Visit Diagnosis:Diagnoses This Visit Acute lumbar back pain (M54.5) Acute thoracic back pain (M54.6) Back pain ([id number]) 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 Do not drive a car.? Do not operate machinery such as power tools, lawn mowers, drills, sewing machines, or stoves? Avoid alcoholic beverages and drugs for allergies, nerves, or sleep? Do not make important personal or business decisions or sign any legal documentsWith: Address: When:Steve Martínez [address] [place] [address], [address] [place], [phone] Business (2) Within 3 to 5 daysWith: Address: When:BRUNO [address], [facility] [address] [place], [place] [id number] Business (1) Within 3 to 5 daysComments:Diagnosis is low back pain. Report having pain over the last 24 hours, with no history of injury, fevers or chills, her laboratory workup is overall negative for acute process, CT scan of the lower part of the thoracic spine and lumbar spine show evidence of spinal stenosis or severe arthritis, multilevel disc bulging, and suspect disc protrusion or herniation in the area of T12, and L1 more right sided. We treated you with medication to help with pain relief and your symptoms improved, start oral course of steroids today. We are giving you a prescription for pain medication and muscle relaxant, take this as prescribed, do not drink alcohol or drive while taking this medication. May want to take stool softener to prevent constipation while taking pain medication. May take srke-bpr-dynplgz ibuprofen or Tylenol to supplement, may use tiger balm patches for topical pain relief. Follow-up with your primary care provider in the next 3-5 days for evaluation. Return to the emergency department for worsening symptoms or concerns, intractable nausea or vomiting, spiking fevers, any loss of bowel or bladder control, inability to ambulate any questions. On this discharge paperwork, also listed is an orthopedic surgeon who does do back surgery and evaluate for back pain, and disc protrusion. Follow-up with him in 3-5 days, if unable to get into your primary care provider.With: Address: When:None Provider Within 3 to 5 daysMedication Information:The exam and treatment you received today in the [facility] Emergency Department were for an urgent problem and are not intended as complete care. It is important for you to follow up with a doctor, nurse practitioner, or physician?s rehab assistant for ongoing care. If your symptoms become worse or you do not improve as expected and you are unable to reach your usual health care provider, you should return to the Emergency Department, we are available 24 hours a day.For those patients who have received Radiology results, the interpretation of your X-ray as given to you by our Emergency Department physician is only a preliminary report. The Radiologist will review your films and if there is a change in the diagnosis you will be notified by phone. Please make sure you have provided a working phone number so we can reach you if necessary.In the event that you had a lab culture while you were a patient in the Emergency Department, you will be notified by phone if there is a need to change your antibiotic. Please make sure you have provided a working phone number so we can reach you if necessary.[facility] Emergency Department has provided you with a complete list of medications post discharge. Please inform your forging machine operator/provider of your visit and for further instruction on these medications. Any specific questions regarding your chronic medications and dosages should be discussed with your primary care physician(s) and/or pharmacist. New MedicationsPrinted Prescriptionsacetaminophen-hy drocodone ([place] 5 mg-325 mg oral tablet) 1 tab(s) Oral 3 times a day as needed pain for 5 Days. Refills: 0.cyclobenzaprine (cyclobenzaprine 10 mg oral tablet) 1 tab(s) Oral 3 times a day as needed pain for 5 Days. Refills: 0.predniSONE (predniSONE 20 mg oral tablet) 2 tab(s) Oral every day for 5 Days. Refills: 0.Visit InformationAllergies:Substanc e Reaction Symptoms Type CommentsNo Known Medication Allergies DrugVital Signs: Vitals and Measurements this Visit (last charted value for your 07/06/2017 visit) Vital Signs This Visit Temperature Temporal: 36.8 DegC Peripheral Pulse Rate: 73 bpm Respiratory Rate: 18 br/min Systolic Blood Pressure: 148 mmHg Diastolic Blood Pressure: 97 mmHg SpO2: 97 % Oxygen Therapy: Room air Measurements This Visit Height/Length Dosin.880 cm Height/Length Estimated: 182.880 cm Weight Dosin.330 kg Weight Estimated: 104.330 kgProblems List:Problem Onset CommentsKidney stonesPatient EducationSpinal StenosisSpinal stenosis is an abnormal narrowing of the canals of your spine (vertebrae). CAUSESSpinal stenosis is caused by areas of bone pushing into the central canals of your vertebrae. This condition can be present at (congenital). It also may be caused by arthritic deterioration of your vertebrae (spinal degeneration).SYMPTOMS? Pain that is generally worse with activities, particularly standing and walking.? Numbness, tingling, hot or cold sensations, weakness, or weariness in your legs.? Frequent episodes of falling.? A foot-slapping gait that leads to muscle weakness.DIAGNOSISSpinal stenosis is diagnosed with the use of magnetic resonance imaging (MRI) or computed tomography (CT).TREATMENTInitial therapy for spinal stenosis focuses on the management of the pain and other symptoms associated with the condition. These therapies include:? Practicing postural changes to lessen pressure on your nerves.? Exercises to strengthen the core of your body.? Loss of excess body weight.? The use of nonsteroidal anti-inflammatory medicines to reduce swelling and inflammation in your nerves.When therapies to manage pain are not successful, surgery to treat spinal stenosis may be recommended. This surgery involves removing excess bone, which puts pressure on your nerve roots. During this surgery (laminectomy), the posterior ninoska arch (lamina) and excess bone around the facet joints are removed.This information is not intended to replace advice given to you by your health care provider. Make sure you discuss any questions you have with your health care provider.Document Released: 07/02/2004 Document Revised: 05/03/2015 Document Reviewed: 07/21/2013[employer] Interactive Patient Education ? 2017 [employer].Herniated DiskA herniated disk, also called a ruptured disk or slipped disk, occurs when a disk in the spine bulges out too far. Between the bones in the spine (vertebrae), there are oval disks that are made of a soft, spongy center that is surrounded by a tough outer ring. The disks connect your vertebrae, help your spine move, and absorb shocks from your movement.When you have a herniated disk, the spongy center of the disk bulges out or breaks through the outer ring. It can press on a nerve between the vertebrae and cause pain. This can occur anywhere in the back or neck area, but the lower back is most commonly affected. What are the causes?This condition may be caused by:? Age-related wear and tear. The spongy centers of spinal disks tend to shrink and dry out with age, which makes them more likely to herniate.? Sudden injury, such as a strain or sprain.What increases the risk?Aging is the main risk factor for a herniated disk. Other risk factors include:? Being a man who is 30?50 years old.? Frequently doing activities that involve heavy lifting, bending, or twisting.? Frequently driving for long hours at a time.? Not getting enough exercise.? Being overweight.? Smoking.? Having a family history of back problems or herniated disks.? Being or giving .? Having poor nutrition.? Being tall.What are the signs or symptoms?Symptoms may vary depending on where your herniated disk is located.? A herniated disk in the lower back may cause sharp pain in:? Part of the arm, leg, hip, or buttocks.? The back of the lower leg (calf).? The lower back, spreading down through the leg into the foot (sciatica).? A herniated disk in the neck may cause dizziness and vertigo. It may also cause pain or weakness in:? The neck.? The shoulder blades.? Upper arm, forearm, or fingers.? You may also have muscle weakness. It may be difficult to:? Lift your leg or arm.? Stand on your toes.? Squeeze tightly with one of your hands.? Other symptoms may include:? Numbness or tingling in the affected areas of the hands, arms, feet, or legs.? Inability to control when you urinate or when you have bowel movements. This is a rare but serious sign of a severe herniated disk in the lower back.How is this diagnosed?This condition may be diagnosed based on:? Your symptoms.? Your medical history.? A physical exam. The exam may include:? Straight-leg test. You will lie on your back while your health care provider lifts your leg, keeping your knee straight. If you feel pain, you likely have a herniated disk.? Neurological tests. This includes checking for numbness, reflexes, muscle strength, and posture.? Imaging tests, such as:? X-rays.? MRI.? CT scan.? Electromyogram (EMG) to check the nerves that control muscles. This test may be used to determine which nerves are affected by your herniated disk.How is this treated?Treatment for this condition may include:? A short period of rest. This is usually the first treatment.? You may be on bed rest for up to 2 days, or you may be instructed to stay home and avoid physical activity.? If you have a herniated disk in your lower back, avoid sitting as much as possible. Sitting increases pressure on the disk.? Medicines. These may include:? NSAIDs to help reduce pain and swelling.? Muscle relaxants to prevent sudden tightening of the back muscles (back spasms).? Prescription pain medicines, if you have severe pain.? Steroid injections in the area of the herniated disk. This can help reduce pain and swelling.? Physical therapy to strengthen your back muscles.In many cases, symptoms go away with treatment over a period of days or weeks. You will most likely be free of symptoms after 3?4 months. If other treatments do not help to relieve your symptoms, you may need surgery.Follow these instructions at home:Medicines? Take ultr-oma-xlhuyte and prescription medicines only as told by your health care provider.? Do notdrive or use heavy machinery while taking prescription pain medicine.Activity? Rest as directed.? After your rest period:? Return to your normal activities and gradually begin exercising as told by your health care provider. Ask your health care provider what activities and exercises are safe for you.? Use good posture.? Avoid movements that cause pain.? Do notlift anything that is heavier than 10 lb (4.5 kg) until your health care provider says this is safe.? Do not sit or stand for long periods of time without changing positions.? Do notsit for long periods of time without getting up and moving around.? If physical therapy was prescribed, do exercises as instructed.? Aim to strengthen muscles in your back and abdomen with exercises like crunches, swimming, or walking.General instructions? Do notuse any products that contain nicotine or tobacco, such as cigarettes and e-cigarettes. These products can delay healing. If you need help quitting, ask your health care provider.? Do notwear high-heeled shoes.? Do notsleep on your belly.? If you are overweight, work with your health care provider to lose weight safely.? To prevent or treat constipation while you are taking prescription pain medicine, your health care provider may recommend that you:? Drink enough fluid to keep your urine clear or pale yellow.? Take lzle-cxv-yzqzszh or prescription medicines.? Eat foods that are high in fiber, such as fresh fruits and vegetables, whole grains, and beans.? Limit foods that are high in fat and processed sugars, such as fried and sweet foods.? Keep all follow-up visits as told by your health care provider. This is important.How is this prevented?? Maintain a healthy weight.? Try to avoid stressful situations.? Maintain physical fitness. Do at least 150 minutes of moderate-intensity exercise each week, such as brisk walking or water aerobics.? When lifting objects: ? Keep your feet at least shoulder-width apart and tighten your abdominal muscles.? Keep your spine neutral as you bend your knees and hips. It is important to lift using the strength of your legs, not your back. Do not lock your knees straight out.? Always ask for help to lift heavy or awkward objects.Contact a health care provider if:? You have back pain or neck pain that does not get better after 6 weeks.? You have severe pain in your back, neck, legs, or arms.? You develop numbness, tingling, or weakness in any part of your body.Get help right away if:? You cannot move your arms or legs.? You cannot control when you urinate or have bowel movements.? You feel dizzy or you faint.? You have shortness of breath.This information is not intended to replace advice given to you by your health care provider. Make sure you discuss any questions you have with your health care provider.Document Released: 04/09/2001 Document Revised: 12/07/2016 Document Reviewed: 12/07/2016[employer] Interactive Patient Education ? 2017 [employer]Back Pain, AdultBack pain is very common in adults.?The cause of back pain is rarely dangerous and the pain often gets better over time.?The cause of your back pain may not be known. Some common causes of back pain include: ? Strain of the muscles or ligaments supporting the spine.? Wear and tear (degeneration) of the spinal disks.? Arthritis.? Direct injury to the back.For many people, back pain may return. Since back pain is rarely dangerous, most people can learn to manage this condition on their own.Follow these instructions at home:Watch your back pain for any changes. The following actions may help to lessen any discomfort you are feeling:? Remain active. It is stressful on your back to sit or robotic machine tender production one place for long periods of time. Do not sit, drive, or robotic machine tender production one place for more than 30 minutes at a time. Take short walks on even surfaces as soon as you are able.?Try to increase the length of time you walk each day.? Exercise regularly as directed by your health care provider. Exercise helps your back heal faster. It also helps avoid future injury by keeping your muscles strong and flexible.? Do notstay in bed.?Resting more than 1?2 days can delay your recovery.? Pay attention to your body when you bend and lift. The most comfortable positions are those that put less stress on your recovering back. Always use proper lifting techniques, including:? Bending your knees.? Keeping the load close to your body.? Avoiding twisting.? Find a comfortable position to sleep. Use a firm mattress and lie on your side with your knees slightly bent. If you lie on your back, put a pillow under your knees.? Avoid feeling anxious or stressed.?Stress increases muscle tension and can worsen back pain.?It is important to recognize when you are anxious or stressed and learn ways to manage it, such as with exercise.? Take medicines only as directed by your health care provider. Wakn-xbk-ieamuzg medicines to reduce pain and inflammation are often the most helpful.?Your health care provider may prescribe muscle relaxant drugs.?These medicines help dull your pain so you can more quickly return to your normal activities and healthy exercise.? Apply ice to the injured area:? Put ice in a plastic bag.? Place a towel between your skin and the bag.? Leave the ice on for 20 minutes, 2?3 times a day for the first 2?3 days. After that, ice and heat may be alternated to reduce pain and spasms.? Maintain a healthy weight. Excess weight puts extra stress on your back and makes it difficult to maintain good posture.Contact a health care provider if:? You have pain that is not relieved with rest or medicine.? You have increasing pain going down into the legs or buttocks.? You have pain that does not improve in one week.? You have night pain.? You lose weight.? You have a fever or chills.Get help right away if:? You develop new bowel or bladder control problems.? You have unusual weakness or numbness in your arms or legs.? You develop nausea or vomiting.? You develop abdominal pain.? You feel faint.This information is not intended to replace advice given to you by your health care provider. Make sure you discuss any questions you have with your health care provider.Document Released: 04/12/2006 Document Revised: 08/20/2016 Document Reviewed: 08/14/2014N[employer] Interactive Patient Education ? 2017 [employer]. Viruses or BacteriaWhat?s got you sick?Antibiotics only treat bacterial infections. Viral illnesses cannot be treated with antibiotics. When an antibiotic is not prescribed, ask your healthcare professional for tips on how to relieve symptoms and feel better. Usual CauseIllnessVirusesBacteria Antibiotic NeededCold/Runny Nose NOBronchitis/Chest Cold (in otherwise healthy children and adults) NOWhooping Cough YesFlu NOStrep Throat YesSore Throat (except strep) NOFluid in the middle ear (otitis media with effusion) NOUrinary Tract Infection YesAntibiotics Aren?t Always the Answerwww.cdc.gov/getsmart GET SMART Know When Antibiotics [place] Department of Health and Human ServicesSelect Medical [facility]health Rehabilitation Hospitalers for Disease Control and Prevention December 2013 [facility] Rad - Other Radiology Report on 07-06-2017 Rad - Other Radiology Report [id number] [facility] XR Chest 2 Viewson 8 XR Chest 2 Views CHEST TWO VIEWSCLINI MARYLU DATA: Difficulty breathing, chest pain, chronic smoking history.PA and lateral views of the chest were obtained. Heart and mediastinalcontours are unremarkable in appearance. No acute infiltrate orconsolidations are seen. Bony structures are grossly intact.IMPRESSION: NO ACUTE PROCESS SEEN IN THE CHEST.STEPHANIE Bowen #: [id number]: 07/06/2017T: 07/06/2017 Final Dictated by: Chidi Ray MD SDictated DT/TM: 07/06/17 12:42Signed (Electronic Signature): Chidi Ray MD 07/06/17 2:12 pmTechnologist: NATASHA ALEXANDRA [facility] Vital Signs Date Time Vital Sign Value Performing Clinician Faci lity 03-09-2022 14:41-0500 Body height 182.88 cm DO Sandro Mckeon Work Phone: [facility] 03-09-2022 09:00-0500 Body weight 105.6 kg DO Sandro Mckeon Work Phone: [facility] 03-09-2022 07:30-0500 Body temperature 97.8 [degF] DO Sandro Mckeon Work Phone: [facility] 03-09-2022 07:30-0500 Diastolic blood pressure 101 mm[Hg] DO Sandro Mckeon Work Phone: [facility] 03-09-2022 07:30-0500 Heart rate 51 /min DO Sandro Vaschak Work Phone: [facility] 03-09-2022 07:30-0500 Respiratory rate 18 /min DO Sandro Vaschak Work Phone: [facility] 03-09-2022 07:30-0500 SaO2% (BldA) [Mass fraction] 97 % DO Sandro Vaschak Work Phone: [facility] 03-09-2022 07:30-0500 Systolic blood pressure 143 mm[Hg] DO Sandro Vaschak Work Phone: [facility] 03-02-2022 12:16-0500 Heart rate 81 /min DO Sandro Vaschak Work Phone: [facility] 03-02-2022 12:13-0500 Body height 182.88 cm DO Sandro Vaschak Work Phone: [facility] 03-02-2022 12:13-0500 Body temperature 97.7 [degF] DO Sandro Vaschak Work Phone: [facility] 03-02-2022 12:13-0500 Body weight 107 kg DO Sandro Vaschak Work Phone: [facility] 03-02-2022 12:13-0500 Diastolic blood pressure 102 mm[Hg] DO Sandro Vaschak Work Phone: [facility] 03-02-2022 12:13-0500 Respiratory rate 20 /min DO Sandro Vaschak Work Phone: [facility] 03-02-2022 12:13-0500 SaO2% (BldA) [Mass fraction] 97 % DO Sandro Vaschak Work Phone: [facility] 03-02-2022 12:13-0500 Systolic blood pressure 157 mm[Hg] DO Sandro Vaschak Work Phone: [facility] Encounters Encounter Date Encounter Type Care Provider Facility Start: 05-21-2022 End: 05-21-[address] BRUNO BOCANEGRA Facility:[facility] Start: 03-06-2022 End: 03-09-2022 Evaluation and management of inpatient Bruno Bocanegra Facility:[facility] Start: 03-06-2022 End: 03-09-2022 Evaluation and management of inpatient DO Sandro Mckeon Work Phone: [facility] Start: 03-06-2022 End: 03-06-[address] PASCUAL TRISTAN Facility:[facility] Start: 03-02-2022 End: 03-02-2022 Emergency department patient visit Marce Monique Elliott Facility:[facility] Start: 03-02-2022 End: 03-02-2022 Emergency department patient visit DO Sandro Mckeon Work Phone: [facility] Start: 11-28-2021 ambulatory Juan R Briseno MD Work Phone: Urology Start: 11-24-2021 End: 11-25-2021 ambulatory JOSE J HOOVER Facility:[facility] Start: 11-18-2021 End: 11-18-2021 Emergency department patient visit CORINNE OGDEN Facility:[facility] Start: 11-17-2021 End: 11-17-[address] KAREN HOOD Facility:[facility] Start: 07-26-2021 End: 07-26-2021 ambulatory LITZY POST Facility:[facility] Start: 07-07-2017 End: 07-07-2017 Ambulatory None Provider Facility:[facility] Start: 07-06-2017 End: 07-07-2017 Emergency department patient visit None Provider Facility:[facility] Procedures Date Procedure Procedure Detail Performing Clinician Start: 03-02-2022 Plain chest X-ray DO Ange Mckeon Work Phone: Plan of Treatment Date Care Activity Detail Author Start: 03-09-2022 [facility] Start: 03-08-2022 Referral to clinical rewinder operator [facility] Start: 03-06-2022 Hospital admission [facility] Start: 03-02-2022 Blood chemistry [facility] Start: 03-02-2022 Brain natriuretic peptide measurement [facility] Start: 03-02-2022 [facility] Start: 12-25-2021 Influenza vaccination INFLUENZA (#1) [facility] Start: 02-03-2020 SHINGRIX VACCINE (1 of 2) SHINGRIX VACCINE (1 of 2) [facility] Start: 2015 COLOGUARD (FIT-DNA) COLOGUARD (FIT-DNA) [facility] Start: 2015 Colonoscopy COLONOSCOPY [facility] Start: 2015 COLORECTAL CANCER SCREENING COLORECTAL CANCER SCREENING [facility] Start: [address] COLONOGRAPHY [facility] Start: 2015 DIABETES SCREEN DIABETES SCREEN [facility] Start: 2015 FECAL OCCULT BLOOD FECAL OCCULT BLOOD [facility] Start: 2015 SIGMOIDOSCOPY SIGMOIDOSCOPY [facility] Start: 2005 LIPID SCREEN LIPID SCREEN [facility] Start: 1989 Urine microalbumin profile DTAP,TDAP,TD (1 - Tdap) [facility] Start: 02-03-1988 HEPATITIS C SCREENING HEPATITIS C SCREENING [facility] Start: 02-03-1988 HIV SCREENING HIV SCREENING [facility] Start: 1982 Adult depression screening assessment DEPRESSION SCREENING [facility] Start: 1970 COVID-19 VACCINE (#1) COVID-19 VACCINE (#1) [facility] Patient Education Depression, Ad ult (DC) High Blood Pressure (DC) [facility] DC Instructions [facility] Work Phone: Patient referral [facility] Work Phone: Payers Date Payer Category Payer Unknown [id number] 1970 Unknown [id number] 2.16.84 [id number] 1970 Unknown [id number] 2.16.84 [id number] 1970 Unknown [id number] 2.16.84 [id number] 1970 Unknown [id number] 2.16.84 [id number] 1970 Unknown [id number] 2.16.84 [id number] 1959 Self-pay 1959 Unknown [id number] Unknown [id number] 2.16.8 [id number] Unknown [id number] 2.16.8 [id number] Social History Date Type Detail Facility Tobacco smoking status [facility] Tobacco smoking consumption unknown [facility] Start: 1970 Sex Assigned At Not on file [facility] Start: 11-07-2021 End: 11-18-2021 Exposure to SARS-CoV-2 (event) Not sure [facility] Start: 03-02-2022 End: 03-08-2022 Tobacco smoking status ILIS Smoker (finding) [facility] Start: 1970 Sex Assigned At Male [facility] Goals Date Patient Goal Desired Activity /State Functional Status Date Assessment Result Facility 03-09-2022 Functional status [facility] Work Phone: Mental Status Date Assessment Result Facility 03-09-2022 Cognitive function Cognitive Sta tus Patient at [facility] Work Phone: Discharge summary 03-09-2022 Note Date & Type Note Facility 03-09-2022 Discharge summary Note Date/Time March 09, 2022 11:50am [facility] [address] [place] [address] Discharge Summary Signed Patient: Fartun Elliott JR MR# : [id number] : 1970 Acct:[id number] Age/Sex: 52 / M Adm Date: 2 Loc: 1S Room: [address] [place] [address]: Amrit Orozco MD Copies to: MD Bruno Crawley, DO~ Providers Date of Discharge: 03/09/22 Discharging Provider: Amrit Orozco Primary Care Provider: Bruno Bocanegra Consults: 03/08/22 07:24 Consult to Adult Hospitalist Routine Discharge Diagnosis (1) Anxiety and depression: Final Diagnosis Final Discharge Diagnosis: Generalized anxiety disorder Summary Hospital Course Hospital course: According to admission note: Mr. Elliott is a 52 year old male who presented forcrippling anxiety and daily panic attacks.? Patient reports that he was drinkingdouble shots of whiskey multiple times a week to self medicate .? Patient reports that he began to feel helpless and was unable to keep going like he was.? Patient stated that he was having a hard time working, difficulty sleeping, and low self-esteem.? Patient reports that his PCP Dr. Cho started Celexa a couple weeks ago but he has not noticed a difference in his anxiety.? Patient notes that he was previously on Wellbutrin, and Ativan.? Patient states that he was recently and is caring for his 16-year-old daughter.? Patient states that when he has a panic attack he feels as though he is having a stroke .? Patient reports he has had a DUI in the past.? Patient reports he hopes to have his medications adjusted so that he can get back to a more stablelife . Past psych history: Denies Past hospitalizations: Denies Past suicide attempts: Denies Family psych history: Unknown Previous medications: Ativan, Wellbutrin ? Alcohol and drug use: Alcohol, several times per week ? Living: Own home, with daughter Employment: Employed, but struggles maintaining employment Patient was continued on Celexa. Propanolol was added to help with his blood pressure and anxiety. He tolerated the medication without any problems and did not report any side effects. He had gradual improvement in his anxiety. Did not have any anxiety attacks during his hospitalization. He was linear and organized. Did not appear manic, depressed or psychotic. On the day of discharge he reported he was doing good. He felt comfortable discharge plan home and stated that he would follow-up with outpatient services. He is lookingforward and taking care of his daughter. Time spent discussing smoking cessation with patient: 3 to 10 minutes Condition Condition at Discharge: Stable Status at Discharge Cognitive/behavioral status at discharge: Mental Status Exam: Appearance: grossly normal Mental Status: mental status grossly normal Mood: Euthymic mood Affect: Normal affect Speech and Movement: speech and movement normal and speech clear Attitude: cooperative Thought Process: normal Thought Content: Denied hallucinations, no homicidality and no suicidality Insight: Good Judgment: Good Functional status at discharge: independent ambulation Overall status at discharge: patient is back to baseline Time Spent with Patient Time spent providing/coordinating discharge services (# min): 30 Exam Physical Exam Vital Signs: Temp Pulse Resp BP Pulse Ox O2 Del Method 97.8 F 51 L 18 143/101 H 97 Room Air 03/09/22 07:30 03/09/22 07:30 03/09/22 07:30 03/09/22 07:30 03/09/22 07:30 03/09/22 07:30 Discharge Plan Discharge Plan Patient Disposition: Home Activity: No Activity Restriction Diet: Regular Additional Instructions: Regular diet No activity restrictions Instructions: Depression, Adult (DC), High Blood Pressure (DC), [facility] [place] Instructions Stand Alone Forms: Work/School Release Form Prescriptions: New amlodipine 10 mg Tablet 10 mg PO DAILY Qty: 30 0RF cholecalciferol (vitamin D3) 125 mcg (5,000 unit) Capsule 125 mcg PO DAILY Qty: 30 0RF citalopram 10 mg Tablet 10 mg PO QAM Qty: 0 0RF propranolol 10 mg Tablet 10 mg PO BID 30 Days Qty: 60 0RF nicotine 21 mg/24 hr Patch 24 Hour 1 ea transdermal DAILY Qty: 30 0RF Follow Up: Replaced By [facility] [Outside] [facility] [Outside] - 03/10/22 8:00 am ( sales team manager: Wednesday03/10/22 a employment evaluator/case manager will call you between 8am-12pm. Intake: Wednesday03/17/22 at 10:30am. Please bring a copy of your photo ID, insurance card, and proof of household income.? Psychiatry: Wednesday03/24/22 at 8:20am with TRICE Bauman. ) Bruno Bocanegra, [Primary Care Provider] - (An attempt was made to contact your provider to schedule an appt but the office is closed today. Please call your provider as soon as possible to set up a follow up appt for high blood pressure. ) Documented By: Amrit Orozco MD 03/09/22 1150 Signed By: <Electronically signed by Amrit Orozco MD> 03/09/22 3421 [facility] Work Phone: History and physical note 03-08-2022 Note Date & Type Note Facility 03-08-2022 History and physical note Note Date/Time March 07, 2022 10:18am [facility] [address] [place] [address] Psychiatry H&P Signed Patient: Fartun Elliott JR MR# : [id number] : 1970 Acct:[id number] Age/Sex: 52 / M Adm Date: 2 Loc: Room: 3H9835-7 Type: ADM IN Attending Dr: Amrit Orozco MD Copies to: MD Bruno Crawley SpringbrookDO Jayleen, MECHANICAL DOOR REPAIRER~ Date of Service: 03/07/2022 HPI History of Present Illness History of present illness: Mr. Elliott is a 52 year old male who presented for crippling anxiety and daily panic attacks. Patient reports that he was drinking double shots of whiskey multiple times a week to self medicate . Patient reports that he began to feelhelpless and was unable to keep going like he was. Patient stated that he was having a hard time working, difficulty sleeping, and low self-esteem. Patient reports that his PCP Dr. Cho started Celexa a couple weeks ago but he has notnoticed a difference in his anxiety. Patient notes that he was previously on Wellbutrin, and Ativan. Patient states that he was recently and is caring for his 16-year-old daughter. Patient states that when he has a panic attack he feels as though he is having a stroke . Patient reports he has had aDUI in the past. Patient reports he hopes to have his medications adjusted so that he can get back to a more stable life . Past psych history: Denies Past hospitalizations: Denies Past suicide attempts: Denies Family psych history: Unknown Previous medications: Ativan, Wellbutrin Alcohol and drug use: Alcohol, several times per week Living: Own home, with daughter Employment: Employed, but struggles maintaining employment Constitutional: Denies chills and Denies fever(s) Eyes: Denies change in vision ENT: Denies abnormal hearing Cardiovascular: Denies chest pain Respiratory: Denies chest congestion and Denies cough Gastrointestinal: Denies change in bowel habits Genitourinary: Denies dysuria Musculoskeletal: Denies atrophy and Denies myalgias Integumentary/Breasts: Denies dry skin Neurologic: Denies abnormal gait and Denies abnormal movements Psychiatric: Reports depression Const: cooperative Nutritional Appearance: average body habitus Orientation: alert, awake and oriented x3 HEENT: Head normal to inspection, hearing grossly normal bilaterally, external nose normal, face symmetric Eyes: appearance normal, both eyes and all related structures, sclerae normal Neck: normal visual inspection and full ROM Resp: normal respiratory effort, able to speak in complete sentences and symmetric chest movement Cardio: regular rate GI: normal to inspection and non-distended : deferred Skin: no rashes or lesions noted Neuro: CNII: Visual foley intact, CNIII,IV,: EOM intact, no nystagmus. Pupilsequal, round, reactive to light and accommodation, CNV: Sensation intact to light touch, CNVII: Raises eyebrows, smile/frown, puff out cheeks symmetrically, CNVIII: Hearing intact bilaterally, CNIX,X: Voice normal, soft palate elevation normal, symmetrical, CNXI: Shoulder shrug strong, equal bilaterally, CNXII: Tongue protrusion midline, movement symmetrical. Extrem: normal to inspection and full ROM Mental Status Exam: Appearance: grossly normal Mental Status: mental status grossly normal Mood: dysthymic mood Affect: Full affect Speech and Movement: speech and movement normal and speech clear Attitude: cooperative Thought Process: normal Thought Content: Denies hallucinations, no homicidality and suicidality Insight: fair Judgment: fair PMFSH Vaccinated for COVID-19?: No Medical History No pertinent past medical history Surgical History No pertinent past surgical history Family History Other No significant family history Social History Smoking Status: Current every day smoker Tobacco Type: cigarettes Substance Use Type: Alcohol Meds Medications and Allergies Allergies No Known Allergies Allergy (Verified 03/02/22 12:17) Home Medications amlodipine 10 mg tablet 10 mg PO DAILY #30 tabs 03/08/22 [Rx] cholecalciferol (vitamin D3) 125 mcg (5,000 unit) capsule 125 mcg PO DAILY #30 caps 03/08/22 [Rx] Exam Physical Exam Vital Signs: Temp Pulse Resp BP Pulse Ox O2 Del Method 97.6 F 68 16 159/102 H 97 Room Air 03/07/22 07:30 03/07/22 07:30 03/07/22 07:30 03/07/22 07:30 03/07/22 07:30 03/07/22 07:30 Assessment/Plan (1) Anxiety and depression: Code(s): F41.9 - Anxiety disorder, unspecified; F32.A - Depression, unspecified Status: Acute Plan Patient reports crippling anxiety Continue citalopram 10 mg daily for depression and anxiety Start hydroxyzine 50 mg p.o. every 6 hours as needed anxiety Continue to monitor mental status Encourage group participation and medication compliance Risk benefits alternatives explained I reviewed the relevant history and was available to discuss the plan of care with the Nurse Practitioner. I confirm the Nurse Practitioner's documentation as written. Documented By: Jayleen Novoa APRN 03/07/22 10 12 Signed By: <Electronically signed by KARMEN Novoa> 03/07/22 1018 <Electronically signed by Amrit Orozco MD> 03/08/22 6789 [facility] Work Phone: Progress note 03-08-2022 Note Date & Type Note Facility 03-08-2022 Progress note Note Date/Time March 08, 2022 11:23am [facility] [address] [place] [address] Psychiatry Progress Note Signed Patient: Fartun Elliott JR MR# : [id number] : 1970 Acct:[id number] Age/Sex: 52 / M Adm Date: 2 Loc: Room: [address] [place] [address] Type : ADM IN Attending Dr: Amrit Orozco MD Copies to: ~ Date of Service: 03/08/2022 Subjective Subjective Narrative: Mr. Elliott reports that he is doing okay today. Patient states that he does have increased anxiety but believes that is from his hypertension. Patient states that he is not experiencing suicidal ideation or homicidal ideation. Patient states that most of his symptoms are caused from his hypertension. Patient states that he would like help with his anxiety and high blood pressure. Mental Status Exam: Appearance: grossly normal Mental Status: mental status grossly normal Mood: dysthymic mood Affect: Dysphoric affect Speech and Movement: speech and movement normal and speech clear Attitude: cooperative Thought Process: normal Thought Content: Denies hallucinations, no homicidality and suicidality Insight: fair Judgment: fair Exam Physical Exam Vital Signs: Temp Pulse Resp BP Pulse Ox O2 Del Method 97.8 F 50 L 16 149/93 H 94 L Room Air 03/08/22 07:30 03/08/22 07:30 03/08/22 07:30 03/08/22 07:30 03/08/22 07:30 03/08/22 07:30 Objective Labs Labs: Abnormal Labs 03/07/22 06:10 25-OH Vitamin D Total 12.6 L Assessment/Plan Assessment/Plan (1) Anxiety and depression: Code(s): F41.9 - Anxiety disorder, unspecified; F32.A - Depression, unspecified Status: Acute Plan Consult hospitalist for hypertension Start propranolol 10 mg twice daily for anxiety Continue Celexa 10 mg daily for depression and anxiety Once hypertension and anxiety under control may consider discharge Continue to monitor mental status Encourage group participation and medication compliance Risk benefits alternatives explained I reviewed the relevant history and was available to discuss the plan of care with the Nurse Practitioner. I confirm the Nurse Practitioner's documentation aswritten. Documented By: Jayleen Novoa APRN 03/08/22 11 20 Signed By: <Electronically signed by KARMEN Novoa> 03/08/22 1123 <Electronically signed by Amrit Orozco MD> 03/08/22 1929 [facility] Work Phone: Clinical Note 11-28-2021 Note Date & Type Note Facility 11-28-2021 Note Patient Outreach (UR OLMN) FARTUN ELLIOTT JR ([id number]) 1970 M Date Time Provider Department 11/28/21 JUAN R BRISENO During your visit today, we recorded the following information about you: Allergies As of Date: 11/28/2021 (No Known Allergies) Date Reviewed: 11/17/2021 Reviewed by: Rocio Sotelo RN - Fully Assessed Visit Diagnosis:Screening for genitourinary condition [Z13.89] Problem List As Of Date: 11/28/2021 (None) Encounter Status:Closed by [employer], [employer] on 12/01/21 [facility] Progress note 11-28-2021 Note Date & Type Note Facility 11-28-2021 Note HNO ID: [id number] Author: Juan R Briseno MD Service: ? Author Type: Fellow Type: Progress Notes Filed: 04/21/2022 9:41 AM Note Text: [facility] PATIENT INFO: Fartun Elliott JR REFERRING M.D.: CHIN BENEDICT PCP: No primary care provider on file. Chief Complaint: scrotal abscess HPI: The pt is a 51 year old male with scrotal abscess s/p IANDD on 11/18/2021. US of scrotum Nov 18 2021 4.8 cm left scrotal abscess, stable from 11/17/2021 ultrasound. Normal sonographic appearance of the testes. Normal arterial and venous flow within both testes. Past Medical History: No past medical history on file. Past Surgical History: No past surgical history on file. Allergies: ALLERGIES No Known Allergies Medications: No current outpatient medications on file. No current facility-administered medications for this visit. Family History: No family history on file. Social History: Social History Occupational History Not on file Tobacco Use Smoking status: Not on file Smokeless tobacco: Not on file Substance and Sexual Activity Alcohol use: Not on file Drug use: Not on file Sexual activity: Not on file Review of Systems GENERAL:No weight loss, malaise or fevers SKIN:Negative for lesions, rash, and itching. NEUROLOGIC:Negative for focal numbness or weakness CARDIOVASCULAR: Negative for chest pain, leg swelling or palpitations. RESPIRATORY: Negative for cough, wheezing or shortness of breath. GASTROINTESTINAL: Negative for abdominal discomfort, blood in stools or black stools or change in bowel habits GENITOURINARY: No history of dysuria, frequency or incontinence MUSCULOSKELETAL: Negative for joint pain or swelling, back pain or muscle pain. ENDOCRINE: Negative for cold or heat intolerance, goiter, polyuria, polydipsia. Physical Exam There were no vitals taken for this visit. Temperature Max: @TMAXREFRESH(24)@ Intake/Output None General appearance: Well appearing, alert, in no acute distress. Skin: Skin with no suspicious rashes or lesions HEENT:Sclera anicteric. Cardiac: Regular rate AND rhythm , with no murmurs Respiratory: Nonlabored respirations on room air. Lungs clear to auscultation bilaterally GI: Abdomen soft, nontender, nondistended. : Musculoskeletal: Muscular strength grossly intact Neuro: Sensation grossly intact. No focal neurological deficits. Extremities: Extremities normal. No deformities, edema, or skin discoloration. Peripheral pulses: Normal Labs: No results found for: CREAT No results found for: HB, HCT, WBC, PLT No results found for: PSA URINE POC No results found for this basename: uglucpoc,ubilipoc,uketonpoc,usgpoc,uhbpoc ,uphpoc,upropoc,uuropoc,unitpoc,uw bcpoc,ucolpoc,uclarpoc No results found for: UPH, SPGR, UGLUC, UBILI, UKET, UHB, UPROT, UROBILINOGEN, NITRITES, UWBC Imaging: Assessment: Recommendation: Time spent for patient: I spent a total of ____ minutes on the date of the service which included . The impression as well as the plan, as outlined, were extensively discussed with the patient who voiced understanding. All questions were answered to their stated satisfaction. My final recommendations will be communicated back to the requesting physician by way of shared Medical record or letter to requesting physician via [place] mail. SIGNATURE: Juan R Briseno MD PATIENT NAME: Fartun Elliott JR DATE: November 28, 2021 TIME: 9:01 AM This note is incomplete and was administratively closed. [facility] Procedure note 11-18-2021 Note Date & Type Note Facility 11-18-2021 Note HNO ID: [id number] Author: Madeline Joyner MD Service: Urology Author Type: Physician Type: Procedures Filed: 11/18/2021 6:32 PM Note Text: BEDSIDE PROCEDURE NOTE INCISION AND DRAINAGE Date/Start Time: 11/18/2021 5:03 AM Performed by: Chin Benedict MD Authorized by: Madeline Joyner MD This procedure has been performed in part by a resident/fellow under attending's direction Informed Consent Consent Obtained: Written [place] Protocol A moment to CARE was completed. SIGN IN Personnel directly involved with the procedure wore the appropriate PPE. Special Equipment: N/A Patient/Surrogate Stated/Verified: Patient name, Date of , Relevant allergies and Intended procedure TIME OUT Intended patient and procedure match the source document(s). Consent documented and matches the intended procedure. Relevant labs, photos, and/or imaging studies have been reviewed. Correct side/site marked and visible. Medications required for procedure verified. Fire risk assessed and interventions discussed. No implant(s) inserted. Pre-procedure Details: The area was prepped with povidone Iodine (Betadine) and allowed to dry. A sterile partial body drape was applied following the usual aseptic technique. Medications: Local Anesthesia (see MAR): Lidocaine 1% Anxiolysis (see MAR): Midazolam Procedure Details: Number of Locations: 1 Location 1: Indication: Abscess Approach: Open Body area: Anogenital Location Details: Scrotal wall Scalpel Size: 11 Incision Type: Single straight Incision Depth: Dermal Complexity: Simple Drainage: Purulent, green and lopez Drainage Amount: Moderate Drainage Device: None Packin/2 in iodoform gauze Post-procedure Details: Patient tolerated the procedure well with no immediate complications Estimated Blood Loss: Scant Specimens Sent: bacterial culture SIGN OUT All specimen containers correctly labeled. All instruments, equipment, possible retained foreign bodies accounted for. SIGNATURE: Chin Benedict MD PATIENT NAME: Fartun Elliott JR DATE: November 18, 2021 TIME: 8:03 AM [facility] STAFF PHYSICIAN NOTE OF PERSONAL INVOLVEMENT IN CARE I have reviewed the procedure note obtained and documented by the resident. I was not present for the procedure but did direct the resident to perform the procedure based on the provided history and exam. Discharged with wound packing, teaching for wound packing and will follow up with department. Empiric abx and to follow wound culture for directed abx. Madeline Joyner MD Associate Staff - Urology November 18, 2021 [facility] Evaluation note Note Date & Type Note Facility Evaluation note Diagnosis Screening for genitourinary condition Screening for other and unspecified genitourinary condition documented in this encounter [facility] Evaluation note Note Date & Type Note Facility Evaluation note No assessment information availa ble [facility] Work Phone: Evaluation note Note Date & Type Note Facility Evaluation note Diagnosis Onset Date Anxiety and depression acute Hypertension acute Vitamin D deficiency acute [facility] Work Phone: Hospital Discharge instructions Note Date & Type Note Facility Hospital Discharge instructions Additional Instructions Regular diet No activity restrictions [facility] Work Phone: Summary Purpose Family History No Family History Records Found Relationship Condition Age at Onset Recorded Date/T jamila Not Specified No pertinent family history Unknown Advance Directives No Advanced Directives Records Found Advance Directive Response Recorded Date/ Time Advance Directives No March 02, 2022 2:09pm Chief Complaint and Reason for Visit Chief Complaint tingle in hands Chief Complaint tingle in hands Major depressive disorder Reason for Visit Anxiety and depressi on Hypertension Vitamin D deficiency Additional Source Comments (unrecognized sect ion and content) No Status Records FoundNo Status Records FoundNo Status Records FoundNo Status Records Found INFORMATION SOURCE (unrecogn ized section and content) DATE CREATED AUTHOR 10/15/2017 [facility] DATE CREATED AUTHOR AUTHOR'S ORGANIZ ATION 04/21/2022 [facility] DATE CREATED AUTHOR AUTHOR'S ORGANIZ ATION 05/25/2022 [facility] DATE CREATED AUTHOR AUTHOR'S ORGANIZ ATION 01/12/2023 [facility] Source Comments (unrecognize d section and content) In the event this informatio n is protected by the Federal Confidentiality of Alcohol and Drug Abuse Patient Records regulations: The Federal rules restrict any use of the information to criminally investigate or prosecute any alcohol or drug abuse patient.[facility] Care Teams (unrecognized sec tion and content) Team Status: Inactive Member Role Status Dates Sandro Mckeon , DO Primary Care Provider Active Marce Roblero , DO Emergency Provider Active Team Status: Active Member Role Status Dates Sandro Mckeon , DO Primary Care Provider Active Team Status: Inactive Member Role Status Dates Amrit Orozco MD Admit Provider, Attending Provider Active Bruno Bocanegra , DO Primary Care Provider Active Areli Golden , [place] Other Provider Active Effie Mathews , [place] Other Provider Active Nakita Aguilera , [place] Other Provider Active Candi Hauser , [place] Other Provider Active Donna Rolon RN Other Provider Active Ashlee Saenz RN Other Provider Active Reza Calderon MD Other Provider Active Gen Johnson MD Other Provider Active Roselyn Christy MECHANICAL DOOR REPAIRER Other Provider Active Shikha Ramirez , DO Other Provider Active Moshe Tello MD Other Provider Active Aubrey Adams , DO Other Provider Active Jonathan Rosado MD Other Provider Active Cristina Thurman MD Other Provider Active Tanisha Anton , ANP-BC Other Provider Active Wiley Mathur MD Other Provider Active Randal Ballesteros MD Other Provider Active Monisha Mcgregor MD Other Provider Active Carlos Vilchis MD Other Provider Active Chin Downing , DO Other Provider Active Vince Jauregui MD Other Provider Active Cornel Villanueva MD Other Provider Active Chi Bernabe MD Other Provider Active Marce Young , NOISE ABATEMENT ENGINEER-C Other Provider Active Timothy Monrael MD Other Provider Active Devyn Arreola MD Other Provider Active Jyothi Dowling MD Other Provider Active Lacho Taveras MD Other Provider Active Saige Desir , DO Other Provider Active Bipin Nava MD Other Provider Active Nagi Schmitz , DO Other Provider Active Hema Gastelum , DO Other Provider Active Tricia Yan MECHANICAL DOOR REPAIRER Other Provider Active Gonzalo Vanessa , DO Other Provider Active Jarett Jurado MD Other Provider Active Leatha Duarte APRN Other Provider Active Tita Dumont RN Other Provider Active Team Status: Active Member Role Status Dates Bruno Springbrook , DO Primary Care Provider Active Goals (unrecognized section and content) Goals may be documented in a n alternate section FOR RECORDS PERTAINING TO PATIENTS WHO ARE OR HAVE BEEN ENROLLED IN A CHEMICAL DEPENDENCY/SUBSTANCEABUSE PROGRAM, SOME INFORMATION MAY BE OMITTED. This clinical summary was aggregated from multiple sources. Caution should be exercised in using it in the provision of clinical care. This summary normalizes information from multiple sources, and as a consequence, information in this document may materially change the coding, format and clinical context of patient data. In addition, data may be omitted in some cases. CLINICAL DECISIONS SHOULD BE BASED ON THE PRIMARY CLINICAL RECORDS. [employer] [facility]. provides no warranty or guarantee of the accuracy or completeness of information in this document.
[2024-01-20] MEDS: ONDANSETRON PF 4 MG/2 ML VIAL IV (12:05)
[2024-01-20 12:07] LABS: Anion Gap 12.8; BUN Creatinine Ratio 11.9; Calcium 8.3 mg/dL (8.5-10.1); Carbon Dioxide 25.9 mmol/L (21.0-32.0); Chloride 96 mmol/L (98-107); Estimated GFR (African America >60 (>=60); Estimated GFR (Non-African Ame >60 (>=60); Sodium 131 mmol/L (136-145)
[2024-01-20 12:08] LABS: INR 1.22; Partial Thromboplastin Time 28.8 sec (22.3-36.2); Prothrombin Time 12.7 sec (9.0-11.6)
[2024-01-20 12:10] LABS: Albumin Globulin Ratio 0.6; Albumin Level 2.9 g/dL (3.4-5.0); Alkaline Phosphatase 106 U/L (46-116); Amylase 40 U/L (25-115); Bilirubin Direct 0.4 mg/dL (0.0-0.2); Bilirubin Total 1.6 mg/dL (0.2-1.0); Globulin 4.9 g/dL
[2024-01-20 12:21] LABS: Glucose 136 mg/dL (74-106); Potassium 3.7 mmol/L (3.5-5.1)
[2024-01-20 12:23] LABS: Alanine Aminotransferase 87 U/L (16-63); Aspartate Amino Transferase 71 U/L (15-37); Total Protein 7.8 g/dL (6.4-8.2)
[2024-01-20] MEDS: PANTOPRAZOLE SODIUM 40 MG VIAL IV ×2 (14:00→21:15)
[2024-01-20] MEDS: METRONIDAZOLE/SODIUM CHLORIDE 500 MG/100 ML PREMIX 100 MG IV (14:09)
[2024-01-20] MEDS: CIPROFLOXACIN IN 5 % DEXTROSE 400 MG/200 ML PREMIX 200 MG IV (15:09)
--- OUTSIDE RECORDS SUMMARY | 2024-01-20 15:41 | XMS_ITS | CCD ---
Author Organization [facility] Inform ion Partnership [facility] Care Team Providers Care Tractor Operator Helper Name Role Phone Provider, None Unavailable Unavailable Hunter, Chris R. Unavailable Unavailable [place], Chris R. Unavailable Unavailable Provider, None Unavailable Unavailable Hunter, Chris R. Unavailable Unavailable Hunter, Chris R. Unavailable Unavailable Unavailable Primary Care Provider UnavailDO Sandro Fraser Primary Care Provider [phone] DO Marce Roblero Emergency Provider MD Amrit Orozco Admit Provider MD Amrit Orozco Attending Provider DO Bruno Bocanegra Primary Care Provider [phone] PIYUSH Golden Other Provider Unavailable PIYUSH Mathews Other Provider Unavailable PIYUSH Aguilera Other Provider Unavailable PIYUSH Hauser Other Provider Unavailable PIYUSH Rolon Other Provider Unavailable PIYUSH Saenz Other Provider Unavailable MD Reza Calderon Other Provider MD Gen Johnson Other Provider KARMEN Christy Other Provider DO Shikha Ramirez Other Provider MD Moshe Tello Other Provider DO Aubrey Adams Other Provider MD Jonathan Rosado Other Provider MD Cristina Thurman Other Provider Desean ANP-BC Tanisha Other Provider MD Wiley Mathur Other Provider MD Randal Ballesteros Other Provider MD Monisha Mcgregor Other Provider MD Carlos Vilchis Other Provider DO Chin Downing Other Provider MD Vince Jauregui Other Provider MD Cornel Villanueva Other Provider MD Chi Bernabe Other Provider MAKENZIE Young Other Provider MD Timothy Monreal Other Provider MD Devyn Arreola Other Provider MD Jyothi Dowling Other Provider MD Lacho Taveras Other Provider DO Saige Desir Other Provider Al MD Bipin Pickering Other Provider DO Nagi Schmitz Other Provider DO Hema Gastelum Other Provider KARMEN Yan Other Provider DO Gonzalo Vanessa Other Provider MD Jarett Jurado Other Provider [phone] KARMEN Duarte Other Provider [phone] PIYUSH Dumont Other Provider Unavailable CORINNE OGDEN [...] Consulting Unavailable Roselyn Christy Consulting Unavailable Shikha Rmairez Consulting Unavailable Moshe Tello Consulting Unavailable Aubrey [...] Propensity to adverse reactions to drug (disorder) [facility] Medications Current Medications Medication Drug Class(es) [...] 03-08-2022 Chronic Other aftercare (1 source) Other senior care (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; Translations: [OTH SUPERINTENDENT QUARRY CURRENT DRUG THERAPY] Onset: 05-25-2022 Episodic Other [...] CK [Catalytic activity/Vol] 104 U/L Normal 39-308 [facility] Comment on above: Performed By: #### B TALENT ACQUISITION OPERATIONS MANAGER, LIPA, HSTROPN, CMP #### [facility] [address] [place] [address] Dr. Aelsia Argueta CK.MB [Mass/Vol] ng/mL Normal <=3.60 [facility] Comment on above: Performed By: #### B TALENT ACQUISITION OPERATIONS MANAGER, LIPA, HSTROPN, CMP #### [facility] [address] [place] [address] Dr. Alesia Argueta HSTROP 5.8 pg/mL Normal 4.0-76.1 [facility] Comment on above: Result Comment: CUT- OFF POINTS HAVE BEEN ESTABLISHED BASED ON THE FOURTH UNIVERSAL DEFINITIONS OF MYOCARDIAL INFARCTION. THE UPPER REFERENCE LIMIT (URL) OF TROPONIN, DEFINED THE 99TH PERCENTILE OF cTnI DISTRIBUTION IN A REFERENCE POPULATION, HAS BEEN CONFIRMED THE DECISION THRESHOLD FOR LA DIAGNOSIS. Performed By: #### B TALENT ACQUISITION OPERATIONS MANAGER, LIPA, HSTROPN, CMP #### [facility] [address] [place] [address] Dr. Alesia Argueta HAWK 43 ng/mL Normal 16-96 [facility] Comment on above: Performed By: #### B TALENT ACQUISITION OPERATIONS MANAGER, LIPA, HSTROPN, CMP #### [facility] [address] [place] [address] Dr. Alesia Argueta CBC AUTO DIFFon 05-21-2022 BASO # 0.1 103/ul Normal 0.0-0.1 [facility] Comment on above: Performed By: #### B TALENT ACQUISITION OPERATIONS MANAGER, LIPA, HSTROPN, CMP #### [facility] [address] [place] [address] Dr. Alesia Argueta Basophils/100 WBC (Bld) 0.6 % Normal 0.2-2.0 [facility] Comment on above: Performed By: #### B TALENT ACQUISITION OPERATIONS MANAGER, LIPA, HSTROPN, CMP #### [facility] [address] [place] [address] Dr. Alesia Argueta EO # 0.2 103/ul Normal 0.0-0.7 [facility] Comment on above: Performed By: #### B TALENT ACQUISITION OPERATIONS MANAGER, LIPA, HSTROPN, CMP #### [facility] [address] [place] [address] Dr. Alesia Argueta Eosinophils/100 WBC (Bld) 2.8 % Normal 0.9-7.0 [facility] Comment on above: Performed By: #### B TALENT ACQUISITION OPERATIONS MANAGER, LIPA, HSTROPN, CMP #### [facility] [address] [place] [address] Dr. Alesia Argueta Erythrocyte distribution width (RBC) [Ratio] 13.2 % Normal 11.0-15.0 [facility] Comment on above: Performed By: #### B TALENT ACQUISITION OPERATIONS MANAGER, LIPA, HSTROPN, CMP #### [facility] [address] [place] [address] Dr. Alesia Argueta Hematocrit (Bld) [Volume fraction] 53.6 % Normal 42.0-54.0 [facility] Comment on above: Performed By: #### B TALENT ACQUISITION OPERATIONS MANAGER, LIPA, HSTROPN, CMP #### [facility] [address] [place] [address] Dr. Alesia Argueta Hemoglobin (Bld) [Mass/Vol] 16.7 g/dL Normal 14.0-18.0 [facility] Comment on above: Performed By: #### B TALENT ACQUISITION OPERATIONS MANAGER, LIPA, HSTROPN, CMP #### [facility] [address] [place] [address] Dr. Alesia Argueta IG # 0.02 10e3/ul Normal 0.00-0.03 [facility] Comment on above: Performed By: #### B TALENT ACQUISITION OPERATIONS MANAGER, LIPA, HSTROPN, CMP #### [facility] [address] [place] [address] Dr. Alesia Argueta IG % 0.3 % Normal 0.0-0.5 [facility] Comment on above: Performed By: #### B TALENT ACQUISITION OPERATIONS MANAGER, LIPA, HSTROPN, CMP #### [facility] [address] [place] [address] Dr. Alesia Argueta LYMPH # 3.4 103/ul Normal 1.2-3.8 [facility] Comment on above: Performed By: #### B TALENT ACQUISITION OPERATIONS MANAGER, LIPA, HSTROPN, CMP #### [facility] [address] [place] [address] Dr. Alesia Argueta Lymphocytes/100 WBC (Bld) 44.5 % Normal 20.5-60.0 [facility] Comment on above: Performed By: #### B TALENT ACQUISITION OPERATIONS MANAGER, LIPA, HSTROPN, CMP #### [facility] [address] [place] [address] Dr. Alesia Argueta MANUAL DIFF REQ NO Normal [facility] Comment on above: Performed By: #### B TALENT ACQUISITION OPERATIONS MANAGER, LIPA, HSTROPN, CMP #### [facility] [address] [place] [address] Dr. Alesia Argueta MCH (RBC) [Entitic mass] 30.8 pg Normal 25.9-34.0 [facility] Comment on above: Performed By: #### B TALENT ACQUISITION OPERATIONS MANAGER, LIPA, HSTROPN, CMP #### [facility] [address] [place] [address] Dr. Alesia Argueta MCHC (RBC) [Mass/Vol] 31.2 g/dL Normal 29.9-35.2 [facility] Comment on above: Performed By: #### B TALENT ACQUISITION OPERATIONS MANAGER, LIPA, HSTROPN, CMP #### [facility] [address] [place] [address] Dr. Alesia Argueta MCV (RBC) [Entitic vol] 98.9 fL Critically high 80.0-94.0 [facility] Comment on above: Performed By: #### B TALENT ACQUISITION OPERATIONS MANAGER, LIPA, HSTROPN, CMP #### [facility] [address] [place] [address] Dr. Alesia Argueta MONO # 0.6 103/ul Normal 0.3-0.8 [facility] Comment on above: Performed By: #### B TALENT ACQUISITION OPERATIONS MANAGER, LIPA, HSTROPN, CMP #### [facility] [address] [place] [address] Dr. Alesia Argueta Monocytes/100 WBC (Bld) 7.2 % Normal 1.7-12.0 [facility] Comment on above: Performed By: #### B TALENT ACQUISITION OPERATIONS MANAGER, LIPA, HSTROPN, CMP #### [facility] [address] [place] [address] Dr. Alesia Argueta NEUT # 3.4 103/ul Normal 1.4-6.5 [facility] Comment on above: Performed By: #### B TALENT ACQUISITION OPERATIONS MANAGER, LIPA, HSTROPN, CMP #### [facility] [address] [place] [address] Dr. Alesia Argueta Neutrophils/100 WBC (Bld) 44.6 % Normal 43.0-75.0 [facility] Comment on above: Performed By: #### B TALENT ACQUISITION OPERATIONS MANAGER, LIPA, HSTROPN, CMP #### [facility] [address] [place] [address] Dr. Alesia Argueta Platelet mean volume (Bld) [Entitic vol] 9.8 fL Normal 9.5-13.5 [facility] Comment on above: Performed By: #### B TALENT ACQUISITION OPERATIONS MANAGER, LIPA, HSTROPN, CMP #### [facility] [address] [place] [address] Dr. Alesia Argueta PLT 297 103/ul Normal 150-450 [facility] Comment on above: Performed By: #### B TALENT ACQUISITION OPERATIONS MANAGER, LIPA, HSTROPN, CMP #### [facility] [address] [place] [address] Dr. Alesia Argueta RBC 5.42 106/ul Normal 4.70-6.10 [facility] Comment on above: Performed By: #### B TALENT ACQUISITION OPERATIONS MANAGER, LIPA, HSTROPN, CMP #### [facility] [address] [place] [address] Dr. Alesia Argueta WBC 7.7 103/ul Normal 4.0-11.0 [facility] Comment on above: Performed By: #### B TALENT ACQUISITION OPERATIONS MANAGER, LIPA, HSTROPN, CMP #### [facility] [address] [place] [address] Dr. Alesia Argueta PROF 14(COMP METB)on 023 Albumin [Mass/Vol] 3.6 g/dL Normal 3.4-5.0 [facility] Comment on above: Performed By: #### B TALENT ACQUISITION OPERATIONS MANAGER, LIPA, HSTROPN, CMP #### [facility] [address] [place] [address] Dr. Alesia Argueta Albumin/Globulin [Mass ratio] 0.9 {ratio} Normal [facility] Comment on above: Performed By: #### B TALENT ACQUISITION OPERATIONS MANAGER, LIPA, HSTROPN, CMP #### [facility] [address] [place] [address] Dr. Alesia Argueta ALP [Catalytic activity/Vol] 78 U/L Normal 46-116 [facility] Comment on above: Performed By: #### B TALENT ACQUISITION OPERATIONS MANAGER, LIPA, HSTROPN, CMP #### [facility] [address] [place] [address] Dr. Alesia Argueta ALT [Catalytic activity/Vol] 28 U/L Normal 16-63 [facility] Comment on above: Performed By: #### B TALENT ACQUISITION OPERATIONS MANAGER, LIPA, HSTROPN, CMP #### [facility] [address] [place] [address] Dr. Alesia Argueta Anion gap [Moles/Vol] 11.8 mmol/L Normal [facility] Comment on above: Performed By: #### B TALENT ACQUISITION OPERATIONS MANAGER, LIPA, HSTROPN, CMP #### [facility] [address] [place] [address] Dr. Alesia Argueta AST [Catalytic activity/Vol] 19 U/L Normal 15-37 [facility] Comment on above: Performed By: #### B TALENT ACQUISITION OPERATIONS MANAGER, LIPA, HSTROPN, CMP #### [facility] [address] [place] [address] Dr. Alesia Argueta Bilirubin [Mass/Vol] 0.2 mg/dL Normal 0.2-1.0 [facility] Comment on above: Performed By: #### B TALENT ACQUISITION OPERATIONS MANAGER, LIPA, HSTROPN, CMP #### [facility] [address] [address] [address] Alesia Argueta Calcium [Mass/Vol] 8.9 mg/dL Normal 8.5-10.1 [facility] Comment on above: Performed By: #### B TALENT ACQUISITION OPERATIONS MANAGER, LIPA, HSTROPN, CMP #### [facility] [address] [place] [address] Dr. Alesia Argueta Chloride [Moles/Vol] 103 mmol/L Normal 98-107 [facility] Comment on above: Performed By: #### B TALENT ACQUISITION OPERATIONS MANAGER, LIPA, HSTROPN, CMP #### [facility] [address] [place] [address] Dr. Alesia Argueta CO2 [Moles/Vol] 29.1 mmol/L Normal 21.0-32.0 [facility] Comment on above: Performed By: #### B TALENT ACQUISITION OPERATIONS MANAGER, LIPA, HSTROPN, CMP #### [facility] [address] [address] [address] Alesia Argueta Creatinine [Mass/Vol] 0.87 mg/dL Normal 0.70-1.30 [facility] Comment on above: Performed By: #### B TALENT ACQUISITION OPERATIONS MANAGER, LIPA, HSTROPN, CMP #### [facility] [address] [place] [address] Dr. Alesia Argueta EGFR-AF BARBADIAN >60 Normal >=60 [facility] Comment on above: Performed By: #### B TALENT ACQUISITION OPERATIONS MANAGER, LIPA, HSTROPN, CMP #### [facility] [address] [address] [address] Alesia Argueta EGFR-NON AF BAR[place]IAN >60 Normal >=60 [facility] Comment on above: Performed By: #### B TALENT ACQUISITION OPERATIONS MANAGER, LIPA, HSTROPN, CMP #### [facility] [address] [address] [address] Alesia Argueta Globulin (S) [Mass/Vol] 4.2 g/dL Normal [facility] Comment on above: Performed By: #### B TALENT ACQUISITION OPERATIONS MANAGER, LIPA, HSTROPN, CMP #### [facility] [address] [place] [address] Dr. Alesia Argueta Glucose [Mass/Vol] 103 mg/dL Normal 74-106 [facility] Comment on above: Performed By: #### B TALENT ACQUISITION OPERATIONS MANAGER, LIPA, HSTROPN, CMP #### [facility] [address] [place] [address] Dr. Alesia Argueta Potassium [Moles/Vol] 3.9 mmol/L Normal 3.5-5.1 [facility] Comment on above: Performed By: #### B TALENT ACQUISITION OPERATIONS MANAGER, LIPA, HSTROPN, CMP #### [facility] [address] [place] [address] Dr. Alesia Argueta Protein [Mass/Vol] 7.8 g/dL Normal 6.4-8.2 [facility] Comment on above: Performed By: #### B TALENT ACQUISITION OPERATIONS MANAGER, LIPA, HSTROPN, CMP #### [facility] [address] [place] [address] Dr. Alesia Argueta Sodium [Moles/Vol] 140 mmol/L Normal 136-145 [facility] Comment on above: Performed By: #### B TALENT ACQUISITION OPERATIONS MANAGER, LIPA, HSTROPN, CMP #### [facility] [address] [place] [address] Dr. Alesia Argueta Urea nitrogen [Mass/Vol] 10.0 mg/dL Normal 7.0-18.0 [facility] Comment on above: Performed By: #### B TALENT ACQUISITION OPERATIONS MANAGER, LIPA, HSTROPN, CMP #### [facility] [address] [place] [address] Dr. Alesia Argueta Urea nitrogen/Creatinine [Mass ratio] 11.5 mg/mg Normal [facility] Comment on above: Performed By: #### B TALENT ACQUISITION OPERATIONS MANAGER, LIPA, HSTROPN, CMP #### [facility] [address] [place] [address] Dr. Alesia Argueta TROPONIN, HIGH SENSITIVITYon 05-21-2022 HSTROP 6.9 pg/mL Normal 4.0-76.1 [facility] Comment on above: Result Comment: CUT- OFF POINTS HAVE BEEN ESTABLISHED BASED ON THE FOURTH UNIVERSAL DEFINITIONS OF MYOCARDIAL INFARCTION. THE UPPER REFERENCE LIMIT (URL) OF TROPONIN, DEFINED THE 99TH PERCENTILE OF cTnI DISTRIBUTION IN A REFERENCE POPULATION, HAS BEEN CONFIRMED THE DECISION THRESHOLD FOR LA DIAGNOSIS. Performed By: #### B TALENT ACQUISITION OPERATIONS MANAGER, LIPA, HSTROPN, CMP #### [facility] [address] [place], [place] [address] Dr. Alesia Argueta XR CHEST 1 Von [...] by: JAMARI CLARK Date: 2022-05-21 04:40 Normal [facility] XR TSPINE 2 VIEWSon 05-21-19 23 [...] by: YADI GOLDMAN Date: 2022-05-21 06:23 Normal [facility] Cholesterol [Mass/volume] in Serum or PlasmaOrdered By: Amrit Orozco on 03-07-2022 Cholesterol [Mass/Vol] 160 mg/dL 140-200 [facility] Comment on above: Chol less than 200 m g/dl low riskChol 201-239 mg/dl borderline riskChol 240 mg/dl and greater high risk Cholesterol in LDL Calc [Mas s/Vol]Ordered By: Amrit Orozco on 03-07-2022 Cholesterol in LDL [Mass/Vol] 77 mg/dL 0-100 [facility] Comment on above: LDL ATP III CLASSIFI CATIONLDL less than 100 mg/dL OptimalLDL 100-129 mg/dL Near or above optimalLDL 130-159 mg/dL Borderline highLDL 160-189 mg/dL HighLDL greater than 189 mg/dL Very high Cholesterol in VLDL Calc [Ma ss/Vol]Ordered By: Amrit Ernesto on 03-07-2022 Cholesterol in VLDL [Mass/Vol] 29 mg/dL [facility] Lipid Panelon 03-07-2022 Cholesterol [Mass/Vol] 160 mg/dL Normal 140-200 [facility] Comment on above: Result Comment: Chol less than 200 mg/dl low risk Chol 201-239 mg/dl borderline risk Chol 240 mg/dl and greater high risk Performed By: #### V [id number], TSH3 wRFLX, LIPID #### [facility] [address] [place] [address] [place] Cholesterol in HDL [Mass/Vol] 53 mg/dL Normal 29-71 [facility] Comment on above: Result Comment: HDL CHOL ATP-III CLASSIFICATION Cardiovascular Risk HDL > or equal to 60 mg/dL LOW HDL < 40 mg/dL HIGH Performed By: #### V [id number], TSH3 wRFLX, LIPID #### [facility] [address] [place] [address] [place] Cholesterol.total/Ch olesterol in HDL [Mass ratio] 3.0 {ratio} Normal <5.0 [facility] Comment on above: Performed By: #### V [id number], TSH3 wRFLX, LIPID #### [facility] [address] [place] [address] [place] LDL Cholesterol,Calculat ed 77 mg/dL Normal 0-100 [facility] Comment on above: Result Comment: LDL ATP III CLASSIFICATION LDL less than 100 mg/dL Optimal LDL 100-129 mg/dL Near or above optimal LDL 130-159 mg/dL Borderline high LDL 160-189 mg/dL High LDL greater than 189 mg/dL Very high Performed By: #### V [id number], TSH3 wRFLX, LIPID #### [facility] [address] [place] [address] [place] Triglyceride w/Reflex 148 mg/dL Normal 35-149 [facility] Comment on above: Result Comment: TRIG ATP III CLASSIFICATION TRIG less than 150 mg/dL Normal TRIG 150-199 mg/dL Borderline high TRIG 200-500 mg/dL High TRIG greater than 500 mg/dL Very high Standard traceable to the Center for Disease Conrtrol and Prevention (CDC) test method. Performed By: #### V [id number], TSH3 wRFLX, LIPID #### [facility] [address] [place] [id number] [place] VLDL CHOLESTEROL 29 mg/dL Normal [facility] Comment on above: Performed By: #### V [id number], TSH3 wRFLX, LIPID #### [facility] [address] No Panel InformationOrdered By: Amrit Orozco on 03-07-2022 25-Hydroxy Vitamin D Total 12.6 ng/mL 30-100 [facility] Comment on above: VITAMIN D STATUS [...] Cholesterol in HDL [Mass/Vol] 53 mg/dL 29-71 [facility] Comment on above: HDL CHOL ATP-III CLA SSIFICATION Cardiovascular RiskHDL > or equal to 60 mg/dL LOWHDL < 40 mg/dL HIGH Serum or plasma total choles terol/high density lipoprotein (HDL) cholesterol mass ratOrdered By: Amrit Orozco on 03-07-2022 Cholesterol.total/Ch olesterol in HDL [Mass ratio] 3.0 {ratio} <5.0 [facility] TSH DL <= 0.005 mIU/L QnOrde red By: Amrit Orozco on 03-07-2022 TSH Qn 1.05 m[IU]/L 0.45-5.33 [facility] Thyroid Stim Hormone w/Rflxo n 03-07-2022 Thyroid Stim Hormone w/Rflx 1.05 u[iU]/mL Normal 0.45-5.33 [facility] Comment on above: Performed By: #### V [id number], TSH3 wRFLX, LIPID #### [facility] [address] [id number] [facility] Triglyceride [Mass/volume] i n Serum or PlasmaOrdered By: Amrit Orozco on 03-07-2022 Triglyceride [Mass/Vol] 148 mg/dL 35-149 [facility] Comment on above: TRIG ATP III CLASSIF ICATIONTRIG less than 150 mg/dL NormalTRIG 150-199 mg/dL Borderline highTRIG 200-500 mg/dL High TRIG greater than 500 mg/dL Very highStandard traceable to the Center for Disease Conrtrol and Prevention (CDC) test method. Vitamin D 25 Hydroxy Totalon 03-07-2022 Vitamin D 25 Hydroxy Total 12.6 ng/mL Low 30-100 [facility] Comment on above: Result Comment: DILEEP MIN D STATUS 25(OH)VITAMIN D RANGE (ng/mL) Deficient <20 Insufficient 20 to <30 Sufficient 30 to 100 Reference: Macrus MF,Juan NC, Dagmar FALL, et al. Evaluation,treatment, and prevention of vitamin D deficiency; an Endocrine Society clinical practice guideline. JCEM. 2010; 96(7):1911-30. PERFORMED BY: [facility] [address] [place] [address] PATHOLOGIST BUILDING SURVEYOR TOM VALDES M.D. Performed By: #### V [id number], TSH3 wRFLX, LIPID #### [facility] [address] [id number] [facility] ACETAMINOPHENon 03-06-2022 Acetaminophen [Mass/Vol] ug/mL Critically low 10.0-30.0 [facility] Comment on above: Performed By: #### B TALENT ACQUISITION OPERATIONS MANAGER, LIPA, HSTROPN, CMP #### [facility] [address] [place] [address] Dr. Alesia Argueta BNPon 03-06-2022 Natriuretic peptide B (Bld) [Mass/Vol] 37.0 pg/mL Normal <=900.0 [facility] Comment on above: Performed By: #### B TALENT ACQUISITION OPERATIONS MANAGER, LIPA, HSTROPN, CMP #### [facility] [address] [place] [address] Dr. Alesia Argueta CBC AUTO DIFFon 03-06-2022 BASO # 0.0 103/ul Normal 0.0-0.1 [facility] Comment on above: Performed By: #### B TALENT ACQUISITION OPERATIONS MANAGER, LIPA, HSTROPN, CMP #### [facility] [address] [place] [address] Dr. Alesia Argueta Basophils/100 WBC (Bld) 0.3 % Normal 0.2-2.0 [facility] Comment on above: Performed By: #### B TALENT ACQUISITION OPERATIONS MANAGER, LIPA, HSTROPN, CMP #### [facility] [address] [place] [address] Dr. Alesia Argueta EO # 0.1 103/ul Normal 0.0-0.7 [facility] Comment on above: Performed By: #### B TALENT ACQUISITION OPERATIONS MANAGER, LIPA, HSTROPN, CMP #### [facility] [address] [place] [address] Dr. Alesia Argueta Eosinophils/100 WBC (Bld) 1.2 % Normal 0.9-7.0 [facility] Comment on above: Performed By: #### B TALENT ACQUISITION OPERATIONS MANAGER, LIPA, HSTROPN, CMP #### [facility] [address] [place] [address] Dr. Alesia Argueta Erythrocyte distribution width (RBC) [Ratio] 12.9 % Normal 11.0-15.0 [facility] Comment on above: Performed By: #### B TALENT ACQUISITION OPERATIONS MANAGER, LIPA, HSTROPN, CMP #### [facility] [address] [place] [address] Dr. Alesia Argueta Hematocrit (Bld) [Volume fraction] 48.9 % Normal 42.0-54.0 [facility] Comment on above: Performed By: #### B TALENT ACQUISITION OPERATIONS MANAGER, LIPA, HSTROPN, CMP #### [facility] [address] [place] [address] Dr. Alesia Argueta Hemoglobin (Bld) [Mass/Vol] 17.0 g/dL Normal 14.0-18.0 [facility] Comment on above: Performed By: #### B TALENT ACQUISITION OPERATIONS MANAGER, LIPA, HSTROPN, CMP #### [facility] [address] [place] [address] Dr. Alesia Argueta IG # 0.02 10e3/ul Normal 0.00-0.03 [facility] Comment on above: Performed By: #### B TALENT ACQUISITION OPERATIONS MANAGER, LIPA, HSTROPN, CMP #### [facility] [address] [place] [address] Dr. Alesia Argutea IG % 0.2 % Normal 0.0-0.5 [facility] Comment on above: Performed By: #### B TALENT ACQUISITION OPERATIONS MANAGER, LIPA, HSTROPN, CMP #### [facility] [address] [place] [address] Dr. Alesia Argueta LYMPH # 2.0 103/ul Normal 1.2-3.8 [facility] Comment on above: Performed By: #### B TALENT ACQUISITION OPERATIONS MANAGER, LIPA, HSTROPN, CMP #### [facility] [address] [place] [address] Dr. Alesia Argueta Lymphocytes/100 WBC (Bld) 22.0 % Normal 20.5-60.0 [facility] Comment on above: Performed By: #### B TALENT ACQUISITION OPERATIONS MANAGER, LIPA, HSTROPN, CMP #### [facility] [address] [place] [address] Dr. Alesia Argueta MANUAL DIFF REQ NO Normal [facility] Comment on above: Performed By: #### B TALENT ACQUISITION OPERATIONS MANAGER, LIPA, HSTROPN, CMP #### [facility] [address] [place] [address] Dr. Alesia Argueta MCH (RBC) [Entitic mass] 31.8 pg Normal 25.9-34.0 [facility] Comment on above: Performed By: #### B TALENT ACQUISITION OPERATIONS MANAGER, LIPA, HSTROPN, CMP #### [facility] [address] [place] [address] Dr. Alesia Argueta MCHC (RBC) [Mass/Vol] 34.8 g/dL Normal 29.9-35.2 [facility] Comment on above: Performed By: #### B TALENT ACQUISITION OPERATIONS MANAGER, LIPA, HSTROPN, CMP #### [facility] [address] [place] [address] Dr. Alesia Argueta MCV (RBC) [Entitic vol] 91.6 fL Normal 80.0-94.0 [facility] Comment on above: Performed By: #### B TALENT ACQUISITION OPERATIONS MANAGER, LIPA, HSTROPN, CMP #### [facility] [address] [place] [address] Dr. Alesia Argueta MONO # 0.5 103/ul Normal 0.3-0.8 [facility] Comment on above: Performed By: #### B TALENT ACQUISITION OPERATIONS MANAGER, LIPA, HSTROPN, CMP #### [facility] [address] [place] [address] Dr. Alesia Argueta Monocytes/100 WBC (Bld) 5.9 % Normal 1.7-12.0 [facility] Comment on above: Performed By: #### B TALENT ACQUISITION OPERATIONS MANAGER, LIPA, HSTROPN, CMP #### [facility] [address] [place] [address] Dr. Alesia Argueta NEUT # 6.3 103/ul Normal 1.4-6.5 [facility] Comment on above: Performed By: #### B TALENT ACQUISITION OPERATIONS MANAGER, LIPA, HSTROPN, CMP #### [facility] [address] [place] [address] Dr. Alesia Argueta Neutrophils/100 WBC (Bld) 70.4 % Normal 43.0-75.0 [facility] Comment on above: Performed By: #### B TALENT ACQUISITION OPERATIONS MANAGER, LIPA, HSTROPN, CMP #### [facility] [address] [place] [address] Dr. Alesia Argueta Platelet mean volume (Bld) [Entitic vol] 10.0 fL Normal 9.5-13.5 [facility] Comment on above: Performed By: #### B TALENT ACQUISITION OPERATIONS MANAGER, LIPA, HSTROPN, CMP #### [facility] [address] [place], [place] [address] Dr. Alesia Argueta PLT 268 103/ul Normal 150-450 [facility] Comment on above: Performed By: #### B TALENT ACQUISITION OPERATIONS MANAGER, LIPA, HSTROPN, CMP #### [facility] [address] [address] [address] Alesia Argueta RBC 5.34 106/ul Normal 4.70-6.10 [facility] Comment on above: Performed By: #### B TALENT ACQUISITION OPERATIONS MANAGER, LIPA, HSTROPN, CMP #### [facility] [address] [place], [place] [address] Dr. Alesia Argueta WBC 9.0 103/ul Normal 4.0-11.0 [facility] Comment on above: Performed By: #### B TALENT ACQUISITION OPERATIONS MANAGER, LIPA, HSTROPN, CMP #### [facility] [address] [place] [address] [address] Alesia Argueta CTA CHEST WO W [...] PASCUAL TRISTAN Date: 2022-03-06 14:38 Normal [facility] Covid-19 PCR (CVDTBH)on 02-24 SARS-CoV-2 (COVID-19) RNA RICKI+probe Ql (Unsp spec) Not detected Normal NOT DETECTED [facility] Comment on above: Result Comment: When diagnostic [...] for this test is supported by the Labeling Strategist of Health and Human Service's declaration that [...] used). Performed By: #### C VDTBH #### [facility] [address] [place] [address] Dr. Alesia Argueta D-DIMERon 03-06-2022 D-DIMER 0.69 mg/L FEU Critically high <=0.59 [facility] Comment on above: Performed By: #### D DIM #### [facility] [address] [place] [address] Dr. Alesia Argueta D-DIMER COMMENTS SEE BELOW Normal [facility] Comment on above: Result Comment: Incr eases [...] hospitalization. Performed By: #### D DIM #### [facility] [address] [place] [address] Dr. Alesia Argueta DRUG SCREEN RAPID (URINE)on 03-06-2022 AMP Negative Normal NEGATIVE [facility] Comment on above: Performed By: #### E RUR, DRUGRPD #### [facility] [address] [place] [address] Dr. Alesia Argueta BAR Negative Normal NEGATIVE [facility] Comment on above: Performed By: #### E RUR, DRUGRPD #### [facility] [address] [place] [address] Dr. Alesia Argueta BUP Negative Normal NEGATIVE [facility] Comment on above: Performed By: #### E RUR, DRUGRPD #### [facility] [address] [place] [address] Dr. Alesia Argueta BZO Negative Normal NEGATIVE [facility] Comment on above: Performed By: #### E RUR, DRUGRPD #### [facility] [address] [place] [address] Dr. Alesia Argueta LILIANA Negative Normal NEGATIVE [facility] Comment on above: Performed By: #### E RUR, DRUGRPD #### [facility] [address] [place] [address] Dr. Alesia Argueta CUT-OFFS SEE BELOW Normal [facility] Comment on above: Result Comment: AMP (Amphetamine): [...] Performed By: #### E RUR, DRUGRPD #### [facility] [address] [place] [address] Dr. Alesia Argueta DRUG CUT HEADER DRUG CLASS TEST SYST EM CUT-OFF CONCENTRATIONS ARE FOLLOWS: Normal [facility] Comment on above: Performed By: #### E RUR, DRUGRPD #### [facility] [address] [place] [address] Dr. Alesia Argueta mAMP Negative Normal NEGATIVE [facility] Comment on above: Performed By: #### E RUR, DRUGRPD #### [facility] [address] [place] [address] Dr. Alesia Argueta MTD Negative Normal NEGATIVE [facility] Comment on above: Performed By: #### E RUR, DRUGRPD #### [facility] [address] [place] [address] Dr. Aleisa Argueta OPI Negative Normal NEGATIVE [facility] Comment on above: Performed By: #### E RUR, DRUGRPD #### [facility] [address] [place] [address] Dr. Alesia Argueta OXY Negative Normal NEGATIVE [facility] Comment on above: Performed By: #### E RUR, DRUGRPD #### [facility] [address] [place] [address] Dr. Alesia Argueta PCP Negative Normal NEGATIVE [facility] Comment on above: Performed By: #### E RUR, DRUGRPD #### [facility] [address] [place] [address] Dr. Alesia Argueta PPX Negative Normal NEGATIVE [facility] Comment on above: Performed By: #### E RUR, DRUGRPD #### [facility] [address] [place] [address] Dr. Alesia Argueta TCA Negative Normal NEGATIVE [facility] Comment on above: Performed By: #### E RUR, DRUGRPD #### [facility] [address] [place] [address] Dr. Alesia Argueta THC Negative Normal NEGATIVE [facility] Comment on above: Performed By: #### E RUR, DRUGRPD #### [facility] [address] [place] [address] Dr. Alesia Argueta ER URINE PROFILEon 2 Bilirubin Ql (U) Negative Normal NEGATIVE [facility] Comment on above: Performed By: #### E RUR, DRUGRPD #### [facility] [address] [place] [address] Dr. Alesia Argueta Clarity (U) CLEAR Normal CLEAR [facility] Comment on above: Performed By: #### E RUR, DRUGRPD #### [facility] [address] [place] [address] Dr. Alesia Argueta Color (U) LT. YELLOW Normal YELLOW [facility] Comment on above: Performed By: #### E RUR, DRUGRPD #### [facility] [address] [place] [address] Dr. Alesia Argueta ERUAHD A micrscopic examina tion will be performed if indicated. Normal [facility] Comment on above: Performed By: #### E RUR, DRUGRPD #### [facility] [address] [place] [address] Dr. Alesia Argueta Glucose Ql (U) Negative Normal NEGATIVE [facility] Comment on above: Performed By: #### E RUR, DRUGRPD #### [facility] [address] [place] [address] Dr. Alesia Argueta Hemoglobin Ql (U) Negative Normal NEGATIVE [facility] Comment on above: Performed By: #### E RUR, DRUGRPD #### [facility] [address] [place] [address] Dr. Alesia Argueta Ketones Ql (U) Negative Normal NEGATIVE [facility] Comment on above: Performed By: #### E RUR, DRUGRPD #### [facility] [address] [place] [address] Dr. Alesia Argueta LEUKOCYTES Negative Normal NEGATIVE [facility] Comment on above: Performed By: #### E RUR, DRUGRPD #### [facility] [address] [place] [address] Dr. Alesia Argueta Nitrite Ql (U) Negative Normal NEGATIVE [facility] Comment on above: Performed By: #### E RUR, DRUGRPD #### [facility] [address] [place] [address] Dr. Alesia Argueta pH (U) 7.0 [pH] Normal 5-9 [facility] Comment on above: Performed By: #### Prudence MCDONALD DRUGRPD #### [facility] [address] [place] [address] Dr. Alesia Argueta SPEC GRAVITY 1.010 Normal 1.005-<=1. 025 [facility] Comment on above: Performed By: #### Prudence MCDONALD DRUGRPD #### [facility] [address] [place] [address] Dr. Alesia Argueta UA PROTEIN Negative Normal NEGATIVE/ TRACE [facility] Comment on above: Performed By: #### Prudence MCDONALD DRUGRPD #### [facility] [address] [place] [address] Dr. Alesia Argueta UR MICRO IND NOT INDICATED Normal [facility] Comment on above: Performed By: #### Prudence MCDONALD DRUGRPD #### [facility] [address] [place] [address] Dr. Alesia Argueta Urobilinogen Qn (U) 0.2 {Cole'U}/dL Normal 0.2 - 1. 0 [facility] Comment on above: Performed By: #### Prudence MCDONALD DRUGRPD #### [facility] [address] [place] [address] Dr. Alesia Argueta ETHANOL (BLD ALC)on 03-06-20 22 ALC NOTE NOTE: 80 mg/dl is th e legal limit for a blood alcohol level Normal [facility] Comment on above: Performed By: #### E TH #### [facility] [address] [place] [address] Dr. Alesia Argueta Ethanol [Mass/Vol] mg/dL Normal [facility] Comment on above: Performed By: #### E TH #### [facility] [address] [place] [address] Dr. Alesia Argueta LIPASEon 03-06-2022 Lipase [Catalytic activity/Vol] 210.0 U/L Normal 73.0-393.0 [facility] Comment on above: Performed By: #### B TALENT ACQUISITION OPERATIONS MANAGER, LIPA, HSTROPN, CMP #### [facility] [address] [place] [address] Dr. Alesia Argueta PROF 14(COMP METB)on 022 Albumin [Mass/Vol] 3.6 g/dL Normal 3.4-5.0 [facility] Comment on above: Performed By: #### B TALENT ACQUISITION OPERATIONS MANAGER, LIPA, HSTROPN, CMP #### [facility] [address] [place] [address] Dr. Alesia Argueta Albumin/Globulin [Mass ratio] 0.8 {ratio} Normal [facility] Comment on above: Performed By: #### B TALENT ACQUISITION OPERATIONS MANAGER, LIPA, HSTROPN, CMP #### [facility] [address] [place] [address] Dr. Alesia Argueta ALP [Catalytic activity/Vol] 87 U/L Normal 46-116 [facility] Comment on above: Performed By: #### B TALENT ACQUISITION OPERATIONS MANAGER, LIPA, HSTROPN, CMP #### [facility] [address] [place] [address] Dr. Alesia Argueta ALT [Catalytic activity/Vol] 19 U/L Normal 16-63 [facility] Comment on above: Performed By: #### B TALENT ACQUISITION OPERATIONS MANAGER, LIPA, HSTROPN, CMP #### [facility] [address] [place] [address] Dr. Alesia Argueta Anion gap [Moles/Vol] 8.6 mmol/L Normal [facility] Comment on above: Performed By: #### B TALENT ACQUISITION OPERATIONS MANAGER, LIPA, HSTROPN, CMP #### [facility] [address] [place] [address] Dr. Alesia Argueta AST [Catalytic activity/Vol] 19 U/L Normal 15-37 [facility] Comment on above: Performed By: #### B TALENT ACQUISITION OPERATIONS MANAGER, LIPA, HSTROPN, CMP #### [facility] [address] [place] [address] Dr. Alesia Argueta Bilirubin [Mass/Vol] 0.8 mg/dL Normal 0.2-1.0 [facility] Comment on above: Performed By: #### B TALENT ACQUISITION OPERATIONS MANAGER, LIPA, HSTROPN, CMP #### [facility] [address] [place] [address] Dr. Alesia Argueta Calcium [Mass/Vol] 9.0 mg/dL Normal 8.5-10.1 [facility] Comment on above: Performed By: #### B TALENT ACQUISITION OPERATIONS MANAGER, LIPA, HSTROPN, CMP #### [facility] [address] [place] [address] Dr. Alesia Argueta Chloride [Moles/Vol] 100 mmol/L Normal 98-107 [facility] Comment on above: Performed By: #### B TALENT ACQUISITION OPERATIONS MANAGER, LIPA, HSTROPN, CMP #### [facility] [address] [place] [address] Dr. Alesia Argueta CO2 [Moles/Vol] 29.9 mmol/L Normal 21.0-32.0 [facility] Comment on above: Performed By: #### B TALENT ACQUISITION OPERATIONS MANAGER, LIPA, HSTROPN, CMP #### [facility] [address] [place] [address] Dr. Alesia Argueta Creatinine [Mass/Vol] 1.00 mg/dL Normal 0.70-1.30 [facility] Comment on above: Performed By: #### B TALENT ACQUISITION OPERATIONS MANAGER, LIPA, HSTROPN, CMP #### [facility] [address] [place] [address] Dr. Alesia Argueta EGFR-AF BARBADIAN >60 Normal >=60 [facility] Comment on above: Performed By: #### B TALENT ACQUISITION OPERATIONS MANAGER, LIPA, HSTROPN, CMP #### [facility] [address] [place] [address] Dr. Alesia Argueta EGFR-NON AF BAR[place]IAN >60 Normal >=60 [facility] Comment on above: Performed By: #### B TALENT ACQUISITION OPERATIONS MANAGER, LIPA, HSTROPN, CMP #### [facility] [address] [place] [address] Dr. Alesia Argueta Globulin (S) [Mass/Vol] 4.3 g/dL Normal [facility] Comment on above: Performed By: #### B TALENT ACQUISITION OPERATIONS MANAGER, LIPA, HSTROPN, CMP #### [facility] [address] [place] [address] Dr. Alesia Argueta Glucose [Mass/Vol] 116 mg/dL Critically high 74-106 T [facility] Comment on above: Performed By: #### B TALENT ACQUISITION OPERATIONS MANAGER, LIPA, HSTROPN, CMP #### [facility] [address] [place] [address] Dr. Alesia Argueta Potassium [Moles/Vol] 3.5 mmol/L Normal 3.5-5.1 [facility] Comment on above: Performed By: #### B TALENT ACQUISITION OPERATIONS MANAGER, LIPA, HSTROPN, CMP #### [facility] [address] [place] [address] Dr. Alesia Argueta Protein [Mass/Vol] 7.9 g/dL Normal 6.4-8.2 [facility] Comment on above: Performed By: #### B TALENT ACQUISITION OPERATIONS MANAGER, LIPA, HSTROPN, CMP #### [facility] [address] [place] [address] Dr. Alesia Argueta Sodium [Moles/Vol] 135 mmol/L Critically low 136-145 Th [facility] Comment on above: Performed By: #### B TALENT ACQUISITION OPERATIONS MANAGER, LIPA, HSTROPN, CMP #### [facility] [address] [place] [address] Dr. Alesia Argueta Urea nitrogen [Mass/Vol] 9.0 mg/dL Normal 7.0-18.0 [facility] Comment on above: Performed By: #### B TALENT ACQUISITION OPERATIONS MANAGER, LIPA, HSTROPN, CMP #### [facility] [address] [place] [address] Dr. Alesia Argueta Urea nitrogen/Creatinine [Mass ratio] 9.0 mg/mg Normal [facility] Comment on above: Performed By: #### B TALENT ACQUISITION OPERATIONS MANAGER, LIPA, HSTROPN, CMP #### [facility] [address] [place] [address] Dr. Alesia Argueta SALICYLATEon 03-06-2022 SALICYLATE <2.8 Normal <=19.9 [facility] Comment on above: Performed By: #### B TALENT ACQUISITION OPERATIONS MANAGER, LIPA, HSTROPN, CMP #### [facility] [address] [place] [address] Dr. Alesia Argueta TROPONIN, HIGH SENSITIVITYon 03-06-2022 HSTROP 8.4 pg/mL Normal 4.0-76.1 [facility] Comment on above: Result Comment: CUT- OFF POINTS HAVE BEEN ESTABLISHED BASED ON THE FOURTH UNIVERSAL DEFINITIONS OF MYOCARDIAL INFARCTION. THE UPPER REFERENCE LIMIT (URL) OF TROPONIN, DEFINED THE 99TH PERCENTILE OF cTnI DISTRIBUTION IN A REFERENCE POPULATION, HAS BEEN CONFIRMED THE DECISION THRESHOLD FOR LA DIAGNOSIS. Performed By: #### B TALENT ACQUISITION OPERATIONS MANAGER, LIPA, HSTROPN, CMP #### [facility] [address] [address] [address] Alesia Argueta ECG 12 lead ECGon 03-02-2022 ECG 12 [place] [address] Electrocardiograph Report Signed Patient: Fartun Elliott JR MR#: [id number] : 1970 Acct:[id number] Age/Sex: 52 / M ADM Date: 03/02/22 Loc: ER Room: Type: [facility] ER Attending Dr: Ordering Provider: MAREK JEFFRIES [...] Signed By Marce Roblero DO 000 Normal [facility] XR chest 2V*on 03-02-2022 XR chest 2V* [place] [id number] XRay Report Signed Patient: Fartun Elliott JR MR#: [id number] : 1970 Acct:[id number] Age/Sex: 52 / M ADM Date: 03/02/22 [...] Mony Rolon M.D.03/02/2022 12:50 PM Dictation Location: [place] [address] Transcribed By: [facility] 03/02/22 1250 Dictated By: Mony Rolon MD 03/02/22 1242 Signed By: 03/02/22 [address] [facility] [address] ABD/PELV W CONon 11-26-19 CT [...] ISABELLE LEÓN Date: 2021-11-25 00:10 Normal [facility] AMYLASEon 11-24-2021 Amylase [Catalytic activity/Vol] 38 U/L Normal 25-115 [facility] Comment on above: Performed By: #### B TALENT ACQUISITION OPERATIONS MANAGER, LIPA, HSTROPN, CMP #### [facility] [address] [place] [address] Dr. Alesia Argueta CARDIAC SHEA ADMITon 022 CK [Catalytic activity/Vol] 141 U/L Normal 39-308 [facility] Comment on above: Performed By: #### B TALENT ACQUISITION OPERATIONS MANAGER, LIPA, HSTROPN, CMP #### [facility] [address] [place] [address] Dr. Alesia Argueta CK.MB [Mass/Vol] 0.50 ng/mL Normal <=3.60 [facility] Comment on above: Performed By: #### B TALENT ACQUISITION OPERATIONS MANAGER, LIPA, HSTROPN, CMP #### [facility] [address] [place] [address] Dr. Alesia Argueta HSTROP 6.4 pg/mL Normal 4.0-76.1 [facility] Comment on above: Result Comment: CUT- OFF POINTS HAVE BEEN ESTABLISHED BASED ON THE FOURTH UNIVERSAL DEFINITIONS OF MYOCARDIAL INFARCTION. THE UPPER REFERENCE LIMIT (URL) OF TROPONIN, DEFINED THE 99TH PERCENTILE OF cTnI DISTRIBUTION IN A REFERENCE POPULATION, HAS BEEN CONFIRMED THE DECISION THRESHOLD FOR LA DIAGNOSIS. Performed By: #### B TALENT ACQUISITION OPERATIONS MANAGER, LIPA, HSTROPN, CMP #### [facility] [address] [place] [address] Dr. Alesia Argueta HAWK 56 ng/mL Normal 16-96 [facility] Comment on above: Performed By: #### B TALENT ACQUISITION OPERATIONS MANAGER, LIPA, HSTROPN, CMP #### [facility] [address] [place] [address] Dr. Alesia Argueta CBC W MANUAL DIFFon 11-25-19 22 ATYPICAL LYMPH # Normal [facility] Comment on above: Performed By: #### C BCMAN #### [facility] [address] [place] [address] Dr. Alesia Argueta ATYPICAL LYMPH % Normal [facility] Comment on above: Performed By: #### C BCMAN #### [facility] [address] [place] [address] Dr. Alesia Argueta BAND # Normal 0.0-0.3 [facility] Comment on above: Performed By: #### C BCMAN #### [facility] [address] [place] [address] Dr. Alesia Argueta BAND % Normal 0-5 [facility] Comment on above: Performed By: #### C BCMAN #### [facility] [address] [place] [address] Dr. Alesia Argueta BASOM # 0.00 103/ul Normal 0.00-0.10 [facility] Comment on above: Performed By: #### C BCMAN #### [facility] [address] [place] [address] Dr. Alesia Argueta BASOM % 0.0 % Critically low 0.2-2.0 [facility] Comment on above: Performed By: #### C BCRANJITH #### [facility] [address] [place] [address] Dr. Alesia Argueta BLAST # Normal [facility] Comment on above: Performed By: #### C BCMAN #### [facility] [address] [place] [address] Dr. Alesia Argueta BLAST % Normal [facility] Comment on above: Performed By: #### C BCRANJITH #### [facility] [address] [place] [address] Dr. Alesia Argueta CORRECTED WBC Normal 4.0-11.0 [facility] Comment on above: Performed By: #### C BCMAN #### [facility] [address] [place] [address] Dr. Alesia Argueta EOS # 0.13 103/ul Normal 0.00-0.70 [facility] Comment on above: Performed By: #### C BCMAN #### [facility] [address] [place] [address] Dr. Alesia Argueta EOS% 1.0 % Normal 0.9-7.0 [facility] Comment on above: Performed By: #### C KT #### [facility] [address] [place] [address] [address] Alesia Argueta HCT 52.7 % Normal 42.0-54.0 [facility] Comment on above: Performed By: #### C KT #### [facility] [address] [place] [address] [address] Alesia Argueta HGB 18.0 g/dl Normal 14.0-18.0 [facility] Comment on above: Performed By: #### C KT #### [facility] [address] [place] [address] [address] Alesia Argueta LYMPHM # 0.38 103/ul Critically low 1.20-3.80 [facility] Comment on above: Performed By: #### C KT #### [facility] [address] [place] [address] Dr. Alesia Argueta LYMPHM% 3.0 % Critically low 20.5-60.0 [facility] Comment on above: Performed By: #### C KT #### [facility] [address] [place] [address] Dr. Alesia Argueta MCH 31.5 pg Normal 25.9-34.0 [facility] Comment on above: Performed By: #### C KT #### [facility] [address] [place] [address] Dr. Alesia Argueta MCHC 34.2 g/dl Normal 29.9-35.2 [facility] Comment on above: Performed By: #### C KT #### [facility] [address] [place] [address] Dr. Alesia Argueta MCV 92.1 fL Normal 80.0-94.0 [facility] Comment on above: Performed By: #### C BCRANJITH #### [facility] [address] [place] [address] Dr. Alesia Argueta METAMYELOCYTE # Normal [facility] Comment on above: Performed By: #### C KT #### [facility] [address] [place] [address] Dr. Alesia Argueta METAMYELOCYTE % Normal [facility] Comment on above: Performed By: #### C BCMAN #### [facility] [address] [address] [address] Alesia Argueta MONOM# 0.38 103/ul Normal 0.30-0.80 [facility] Comment on above: Performed By: #### C BCMAN #### [facility] [address] [address] [address] Alesia Argueta MONOM% 3.0 % Normal 1.7-12.0 [facility] Comment on above: Performed By: #### C BCMAN #### [facility] [address] [address] [address] Alesia Argueta MPV 9.1 fL Critically low 9.5-13.5 [facility] Comment on above: Performed By: #### C BCMAN #### [facility] [address] [place] [address] Dr. Alesia Argueta MYELOCYTE # Normal [facility] Comment on above: Performed By: #### C BCRANJITH #### [facility] [address] [place] [address] Dr. Alesia Argueta MYELOCYTE % Normal [facility] Comment on above: Performed By: #### C BCMAN #### [facility] [address] [place] [address] Dr. Alesia Argueta NRBC Normal [facility] Comment on above: Performed By: #### C BCRANJITH #### [facility] [address] [place] [address] Dr. Alesia Argueta PLT 290 103/ul Normal 150-450 [facility] Comment on above: Performed By: #### C BCMAN #### [facility] [address] [address] [address] Alesia Argueta RBC 5.72 106/ul Normal 4.70-6.10 [facility] Comment on above: Performed By: #### C BCMAN #### [facility] [address] [address] [address] Alesia Argueta RDW 14.5 % Normal 11.0-15.0 [facility] Comment on above: Performed By: #### C KT #### [facility] [address] [address] [address] Alesia Argueta SEG # 11.72 103/ul Critically high 1.40-6.50 [facility] Comment on above: Performed By: #### C KT #### [facility] [address] [place] [address] Dr. Alesia Argueta SEG % 93.0 % Critically high 43.0-75.0 [facility] Comment on above: Performed By: #### C KT #### [facility] [address] [place] [address] Dr. Alesia Argueta WBC 12.6 103/ul Critically high 4.0-11.0 [facility] Comment on above: Performed By: #### C KT #### [facility] [address] [place] [address] Dr. Alesia Argueta LIPASEon 11-24-2021 Lipase [Catalytic activity/Vol] 160.0 U/L Normal 73.0-393.0 [facility] Comment on above: Performed By: #### B TALENT ACQUISITION OPERATIONS MANAGER, LIPA, HSTROPN, CMP #### [facility] [address] [place] [address] Dr. Alesia Argueta PROF 14(COMP METB)on 022 Albumin [Mass/Vol] 3.3 g/dL Critically low 3.4-5.0 [facility] Comment on above: Performed By: #### B TALENT ACQUISITION OPERATIONS MANAGER, LIPA, HSTROPN, CMP #### [facility] [address] [place] [address] Dr. Alesia Argueta Albumin/Globulin [Mass ratio] 0.8 {ratio} Normal [facility] Comment on above: Performed By: #### B TALENT ACQUISITION OPERATIONS MANAGER, LIPA, HSTROPN, CMP #### [facility] [address] [place] [address] Dr. Alesia Argueta ALP [Catalytic activity/Vol] 85 U/L Normal 46-116 [facility] Comment on above: Performed By: #### B TALENT ACQUISITION OPERATIONS MANAGER, LIPA, HSTROPN, CMP #### [facility] [address] [place] [address] Dr. Alesia Argueta ALT [Catalytic activity/Vol] 24 U/L Normal 16-63 [facility] Comment on above: Performed By: #### B TALENT ACQUISITION OPERATIONS MANAGER, LIPA, HSTROPN, CMP #### [facility] [address] [place] [address] Dr. Alesia Argueta Anion gap [Moles/Vol] 13.8 mmol/L Normal [facility] Comment on above: Performed By: #### B TALENT ACQUISITION OPERATIONS MANAGER, LIPA, HSTROPN, CMP #### [facility] [address] [place] [address] Dr. Alesia Argueta AST [Catalytic activity/Vol] 29 U/L Normal 15-37 [facility] Comment on above: Performed By: #### B TALENT ACQUISITION OPERATIONS MANAGER, LIPA, HSTROPN, CMP #### [facility] [address] [place] [address] Dr. Alesia Argueta Bilirubin [Mass/Vol] 0.9 mg/dL Normal 0.2-1.0 [facility] Comment on above: Performed By: #### B TALENT ACQUISITION OPERATIONS MANAGER, LIPA, HSTROPN, CMP #### [facility] [address] [place] [address] Dr. Alesia Argueta Calcium [Mass/Vol] 8.6 mg/dL Normal 8.5-10.1 [facility] Comment on above: Performed By: #### B TALENT ACQUISITION OPERATIONS MANAGER, LIPA, HSTROPN, CMP #### [facility] [address] [place] [address] Dr. Alesia Argueta Chloride [Moles/Vol] 103 mmol/L Normal 98-107 [facility] Comment on above: Performed By: #### B TALENT ACQUISITION OPERATIONS MANAGER, LIPA, HSTROPN, CMP #### [facility] [address] [place] [address] Dr. Alesia Argueta CO2 [Moles/Vol] 28.1 mmol/L Normal 21.0-32.0 [facility] Comment on above: Performed By: #### B TALENT ACQUISITION OPERATIONS MANAGER, LIPA, HSTROPN, CMP #### [facility] [address] [place] [address] Dr. Alesia Argueta Creatinine [Mass/Vol] 0.96 mg/dL Normal 0.70-1.30 [facility] Comment on above: Performed By: #### B TALENT ACQUISITION OPERATIONS MANAGER, LIPA, HSTROPN, CMP #### [facility] [address] [place] [address] Dr. Alesia Argueta EGFR-AF BAR[place]IAN >60 Normal >=60 [facility] Comment on above: Performed By: #### B TALENT ACQUISITION OPERATIONS MANAGER, LIPA, HSTROPN, CMP #### [facility] [address] [place] [address] Dr. Alesia Argueta EGFR-NON AF [place]IAN >60 Normal >=60 [facility] Comment on above: Performed By: #### B TALENT ACQUISITION OPERATIONS MANAGER, LIPA, HSTROPN, CMP #### [facility] [address] [place] [address] Dr. Alesia Argueta Globulin (S) [Mass/Vol] 4.1 g/dL Normal [facility] Comment on above: Performed By: #### B TALENT ACQUISITION OPERATIONS MANAGER, LIPA, HSTROPN, CMP #### [facility] [address] [place] [address] Dr. Alesia Argueta Glucose [Mass/Vol] 115 mg/dL Critically high 74-106 T [facility] Comment on above: Performed By: #### B TALENT ACQUISITION OPERATIONS MANAGER, LIPA, HSTROPN, CMP #### [facility] [address] [place] [address] Dr. Alesia Argueta Potassium [Moles/Vol] 3.9 mmol/L Normal 3.5-5.1 [facility] Comment on above: Performed By: #### B TALENT ACQUISITION OPERATIONS MANAGER, LIPA, HSTROPN, CMP #### [facility] [address] [place] [address] Dr. Alesia Argueta Protein [Mass/Vol] 7.4 g/dL Normal 6.4-8.2 [facility] Comment on above: Performed By: #### B TALENT ACQUISITION OPERATIONS MANAGER, LIPA, HSTROPN, CMP #### [facility] [address] [place] [address] Dr. Alesia Argueta Sodium [Moles/Vol] 141 mmol/L Normal 136-145 [facility] Comment on above: Performed By: #### B TALENT ACQUISITION OPERATIONS MANAGER, AMMY MARQUEZTROPN, CMP #### [facility] [address] [place] [address] Dr. Alesia Argueta Urea nitrogen [Mass/Vol] 11.0 mg/dL Normal 7.0-18.0 [facility] Comment on above: Performed By: #### B TALENT ACQUISITION OPERATIONS MANAGER, LIPA HSTROPN, CMP #### [facility] [address] [address] [address] Alesia Argueta Urea nitrogen/Creatinine [Mass ratio] 11.5 mg/mg Normal [facility] Comment on above: Performed By: #### B TALENT ACQUISITION OPERATIONS MANAGER, DEWEYA HSTROPN, CMP #### [facility] [address] [place] [address] Dr. Alesia Argueta Bacteria Wnd Culton 11-19-19 22 Bacteria identified Cx Nom (Wound) ORGANISM ID: 1 One colony Corynebacterium species No further workup GRAM STAIN: Moderate Gram positive cocci Few Gram negative bacilli Few Polymorphonuclear leukocytes Abnormal [facility] Comment on above: Performed By: #### 6 [id number] #### [facility] CLIA [id number] [address] [place] [address] [place] CONSULTon 11-18-2021 CONSULT HNO ID: [id number] Author: Chin Benedict MD Service: Urology Author [...] testes. Chin Benedict MD Urology PGY 3 [id number] Normal [facility] ED NOTEon 11-18-2021 ED NOTE HNO ID: [id number] Author: Daja Sabillon RN Service: Emergency Medicine Author Type: Registered Nurse Type: ED Notes Filed: 11/18/2021 4:09 AM Note Text: Holding off on labwork d/t pt having same labs drawn earlier today, MD Hyde notified of results Normal [facility] ED PROV NOTEon 11-18-2021 ED PROV NOTE HNO ID: [id number] Author: Sharath Samayoa MD Service: Emergency Medicine [...] abscess. Per chart review, patient seen at [facility] where he underwent an ultrasound that showed evidence of a scrotal abscess yesterday. Labs including CBC and BMP obtained at outside hospital notable for leukocytosis with white blood cell count of 14, otherwise unremarkable. In the ED today, vitals were within normal limits. Ultrasound here showed a 4.8 cm left sc (more content not included)... Normal [facility] US DOPPLER COMPLETEon 2021 US DOPPLER COMPLETE * * *Final Report* * * DATE OF EXAM: Nov 18 2021 3:39AM INU 1033 - US DOPPLER COMPLETE / PROCEDURE [...] arterial and venous flow within both testes. 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 Die Maker Apprentice: RAS Transcribe Date/Time: Nov 18 2021 3:40A Dictated by : DARLING JOSE DO This examination was interpreted and the report reviewed and electronically signed by: VICKIE ISRAEL MD on Nov 18 2021 4:04AM EST [id number] Normal [facility] CBC AUTO DIFFon 11-17-2021 BASO # 0.0 103/ul Normal 0.0-0.1 [facility] Comment on above: Performed By: #### B TALENT ACQUISITION OPERATIONS MANAGER, LIPA, HSTROPN, CMP #### [facility] [address] [place] [address] Dr. Alesia Argueta Basophils/100 WBC (Bld) 0.3 % Normal 0.2-2.0 [facility] Comment on above: Performed By: #### B TALENT ACQUISITION OPERATIONS MANAGER, LIPA, HSTROPN, CMP #### [facility] [address] [place] [address] Dr. Alesia Argueta EO # 0.1 103/ul Normal 0.0-0.7 [facility] Comment on above: Performed By: #### B TALENT ACQUISITION OPERATIONS MANAGER, LIPA, HSTROPN, CMP #### [facility] [address] [address] [address] Alesia Argueta Eosinophils/100 WBC (Bld) 1.0 % Normal 0.9-7.0 [facility] Comment on above: Performed By: #### B TALENT ACQUISITION OPERATIONS MANAGER, LIPA, HSTROPN, CMP #### [facility] [address] [place] [address] Dr. Alesia Argueta Erythrocyte distribution width (RBC) [Ratio] 13.3 % Normal 11.0-15.0 [facility] Comment on above: Performed By: #### B TALENT ACQUISITION OPERATIONS MANAGER, LIPA, HSTROPN, CMP #### [facility] [address] [place] [address] Dr. Alesia Argueta Hematocrit (Bld) [Volume fraction] 48.4 % Normal 42.0-54.0 [facility] Comment on above: Performed By: #### B TALENT ACQUISITION OPERATIONS MANAGER, LIPA, HSTROPN, CMP #### [facility] [address] [place] [address] Dr. Alesia Argueta Hemoglobin (Bld) [Mass/Vol] 16.8 g/dL Normal 14.0-18.0 [facility] Comment on above: Performed By: #### B TALENT ACQUISITION OPERATIONS MANAGER, LIPA, HSTROPN, CMP #### [facility] [address] [place] [address] Dr. Alesia Argueta IG # 0.04 10e3/ul Critically high 0.00-0.03 [facility] Comment on above: Performed By: #### B TALENT ACQUISITION OPERATIONS MANAGER, LIPA, HSTROPN, CMP #### [facility] [address] [place] [address] Dr. Alesia Argueta IG % 0.3 % Normal 0.0-0.5 [facility] Comment on above: Performed By: #### B TALENT ACQUISITION OPERATIONS MANAGER, LIPA, HSTROPN, CMP #### [facility] [address] [place] [address] Dr. Alesia Argueta LYMPH # 2.5 103/ul Normal 1.2-3.8 [facility] Comment on above: Performed By: #### B TALENT ACQUISITION OPERATIONS MANAGER, LIPA, HSTROPN, CMP #### [facility] [address] [place] [address] Dr. Alesia Argueta Lymphocytes/100 WBC (Bld) 17.7 % Critically low 20.5-60.0 [facility] Comment on above: Performed By: #### B TALENT ACQUISITION OPERATIONS MANAGER, LIPA, HSTROPN, CMP #### [facility] [address] [place] [address] Dr. Alesia Argueta MANUAL DIFF REQ NO Normal [facility] Comment on above: Performed By: #### B TALENT ACQUISITION OPERATIONS MANAGER, LIPA, HSTROPN, CMP #### [facility] [address] [place] [address] Dr. Alesia Argueta MCH (RBC) [Entitic mass] 31.2 pg Normal 25.9-34.0 [facility] Comment on above: Performed By: #### B TALENT ACQUISITION OPERATIONS MANAGER, LIPA, HSTROPN, CMP #### [facility] [address] [place] [address] Dr. Alesia Argueta MCHC (RBC) [Mass/Vol] 34.7 g/dL Normal 29.9-35.2 [facility] Comment on above: Performed By: #### B TALENT ACQUISITION OPERATIONS MANAGER, LIPA, HSTROPN, CMP #### [facility] [address] [place] [address] Dr. Alesia Argueta MCV (RBC) [Entitic vol] 90.0 fL Normal 80.0-94.0 [facility] Comment on above: Performed By: #### B TALENT ACQUISITION OPERATIONS MANAGER, LIPA, HSTROPN, CMP #### [facility] [address] [place] [address] Dr. Alesia Argueta MONO # 0.9 103/ul Critically high 0.3-0.8 [facility] Comment on above: Performed By: #### B TALENT ACQUISITION OPERATIONS MANAGER, LIPA, HSTROPN, CMP #### [facility] [address] [place] [address] Dr. Alesia Argueta Monocytes/100 WBC (Bld) 6.5 % Normal 1.7-12.0 [facility] Comment on above: Performed By: #### B TALENT ACQUISITION OPERATIONS MANAGER, LIPA, HSTROPN, CMP #### [facility] [address] [place] [address] Dr. Alesia Argueta NEUT # 10.7 103/ul Critically high 1.4-6.5 [facility] Comment on above: Performed By: #### B TALENT ACQUISITION OPERATIONS MANAGER, LIPA, HSTROPN, CMP #### [facility] [address] [place] [address] Dr. Alesia Argueta Neutrophils/100 WBC (Bld) 74.2 % Normal 43.0-75.0 [facility] Comment on above: Performed By: #### B TALENT ACQUISITION OPERATIONS MANAGER, LIPA, HSTROPN, CMP #### [facility] [address] [address] [address] Alesia Argueta Platelet mean volume (Bld) [Entitic vol] 10.0 fL Normal 9.5-13.5 [facility] Comment on above: Performed By: #### B TALENT ACQUISITION OPERATIONS MANAGER, LIPA, HSTROPN, CMP #### [facility] [address] [place] [address] Dr. Alesia Argueta PLT 261 103/ul Normal 150-450 [facility] Comment on above: Performed By: #### B TALENT ACQUISITION OPERATIONS MANAGER, LIPA, HSTROPN, CMP #### [facility] [address] [place] [address] Dr. Alesia Argueta RBC 5.38 106/ul Normal 4.70-6.10 [facility] Comment on above: Performed By: #### B TALENT ACQUISITION OPERATIONS MANAGER, LIPA, HSTROPN, CMP #### [facility] [address] [place] [address] Dr. Alesia Argueta WBC 14.4 103/ul Critically high 4.0-11.0 [facility] Comment on above: Performed By: #### B TALENT ACQUISITION OPERATIONS MANAGER, LIPA, HSTROPN, CMP #### [facility] [address] [place] [address] ABD/PELV W CONon [...] PASCUAL TRISTAN Date: 2021-11-17 18:14 Normal [facility] CULTURE BLOODon 11-17-2021 Microscopic examination of blood, culture Culture Observations: NO GROWTH AT 5 DAYS. Normal [facility] Comment on above: Performed By: #### B TALENT ACQUISITION OPERATIONS MANAGER, LIPA, HSTROPN, CMP #### [facility] [address] [address] [address] Alesia Argueta Microscopic examination of blood, culture Culture Observations: NO GROWTH AT 5 DAYS. Normal [facility] Comment on above: Performed By: #### B TALENT ACQUISITION OPERATIONS MANAGER, LIPA, HSTROPN, CMP #### [facility] [address] [address] [address] Alesia Argueta Covid-19 PCR ([facility])on 10-25 SARS-CoV-2 (COVID-19) RNA RICKI+probe Ql (Unsp spec) Not detected Normal NOT DETECTED [facility] Comment on above: Result Comment: When diagnostic [...] for this test is supported by the [place] of [employer] and [employer] Service's declaration that [...] longer be used). Performed By: #### B TALENT ACQUISITION OPERATIONS MANAGER, LIPA, HSTROPN, CMP #### [facility] [address] [place] [address] Dr. Alesia Argueta LACTATE/LACTIC ACIDon 2021 Lactate [Moles/Vol] 1.0 mmol/L Normal 0.4-1.9 [facility] Comment on above: Performed By: #### B TALENT ACQUISITION OPERATIONS MANAGER, LIPA, HSTROPN, CMP #### [facility] [address] [place] [address] Dr. Alesia Argueta PROF 14(COMP METB)on 022 Albumin [Mass/Vol] 3.4 g/dL Normal 3.4-5.0 [facility] Comment on above: Performed By: #### B TALENT ACQUISITION OPERATIONS MANAGER, LIPA, HSTROPN, CMP #### [facility] [address] [place] [address] Dr. Alesia Argueta Albumin/Globulin [Mass ratio] 0.7 {ratio} Normal [facility] Comment on above: Performed By: #### B TALENT ACQUISITION OPERATIONS MANAGER, LIPA, HSTROPN, CMP #### [facility] [address] [place] [address] Dr. Alesia Argueta ALP [Catalytic activity/Vol] 86 U/L Normal 46-116 [facility] Comment on above: Performed By: #### B TALENT ACQUISITION OPERATIONS MANAGER, LIPA, HSTROPN, CMP #### [facility] [address] [place] [address] Dr. Alesia Argueta ALT [Catalytic activity/Vol] 17 U/L Normal 16-63 [facility] Comment on above: Performed By: #### B TALENT ACQUISITION OPERATIONS MANAGER, LIPA, HSTROPN, CMP #### [facility] [address] [place] [address] Dr. Alesia Argueta Anion gap [Moles/Vol] 10.1 mmol/L Normal [facility] Comment on above: Performed By: #### B TALENT ACQUISITION OPERATIONS MANAGER, LIPA, HSTROPN, CMP #### [facility] [address] [place] [address] Dr. Alesia Argueta AST [Catalytic activity/Vol] 18 U/L Normal 15-37 [facility] Comment on above: Performed By: #### B TALENT ACQUISITION OPERATIONS MANAGER, LIPA, HSTROPN, CMP #### [facility] [address] [place] [address] Dr. Alesia Argueta Bilirubin [Mass/Vol] 1.3 mg/dL Critically high 0.2-1.0 [facility] Comment on above: Performed By: #### B TALENT ACQUISITION OPERATIONS MANAGER, LIPA, HSTROPN, CMP #### [facility] [address] [place] [address] Dr. Alesia Argueta Calcium [Mass/Vol] 9.2 mg/dL Normal 8.5-10.1 [facility] Comment on above: Performed By: #### B TALENT ACQUISITION OPERATIONS MANAGER, LIPA, HSTROPN, CMP #### [facility] [address] [place] [address] Dr. Alesia Argueta Chloride [Moles/Vol] 99 mmol/L Normal 98-107 [facility] Comment on above: Performed By: #### B TALENT ACQUISITION OPERATIONS MANAGER, LIPA, HSTROPN, CMP #### [facility] [address] [place] [address] Dr. Alesia Argueta CO2 [Moles/Vol] 29.0 mmol/L Normal 21.0-32.0 [facility] Comment on above: Performed By: #### B TALENT ACQUISITION OPERATIONS MANAGER, LIPA, HSTROPN, CMP #### [facility] [address] [place] [address] Dr. Alesia Argueta Creatinine [Mass/Vol] 1.07 mg/dL Normal 0.70-1.30 [facility] Comment on above: Performed By: #### B TALENT ACQUISITION OPERATIONS MANAGER, LIPA, HSTROPN, CMP #### [facility] [address] [address] [address] Alesia Argueta EGFR-AF BAR[place]IAN >60 Normal >=60 [facility] Comment on above: Performed By: #### B TALENT ACQUISITION OPERATIONS MANAGER, LIPA, HSTROPN, CMP #### [facility] [address] [address] [address] Alesia Argueta EGFR-NON AF [place]IAN >60 Normal >=60 [facility] Comment on above: Performed By: #### B TALENT ACQUISITION OPERATIONS MANAGER, LIPA, HSTROPN, CMP #### [facility] [address] [place] [address] Dr. Alesia Argueta Globulin (S) [Mass/Vol] 4.8 g/dL Normal [facility] Comment on above: Performed By: #### B TALENT ACQUISITION OPERATIONS MANAGER, LIPA, HSTROPN, CMP #### [facility] [address] [address] [address] Alesia Argueta Glucose [Mass/Vol] 99 mg/dL Normal 74-106 [facility] Comment on above: Performed By: #### B TALENT ACQUISITION OPERATIONS MANAGER, LIPA, HSTROPN, CMP #### [facility] [address] [place] [address] Dr. Alesia Argueta Potassium [Moles/Vol] 3.1 mmol/L Critically low 3.5-5.1 [facility] Comment on above: Performed By: #### B TALENT ACQUISITION OPERATIONS MANAGER, LIPA, HSTROPN, CMP #### [facility] [address] [place] [address] Dr. Alesia Argueta Protein [Mass/Vol] 8.2 g/dL Normal 6.4-8.2 [facility] Comment on above: Performed By: #### B TALENT ACQUISITION OPERATIONS MANAGER, LIPA, HSTROPN, CMP #### [facility] [address] [place] [address] Dr. Alesia Argueta Sodium [Moles/Vol] 135 mmol/L Critically low 136-145 Th [facility] Comment on above: Performed By: #### B TALENT ACQUISITION OPERATIONS MANAGER, LIPA, HSTROPN, CMP #### [facility] [address] [address] [address] Alesia Argueta Urea nitrogen [Mass/Vol] 7.0 mg/dL Normal 7.0-18.0 [facility] Comment on above: Performed By: #### B TALENT ACQUISITION OPERATIONS MANAGER, LIPA, HSTROPN, CMP #### [facility] [address] [address] [address] Alesia Argueta Urea nitrogen/Creatinine [Mass ratio] 6.5 mg/mg Normal [facility] Comment on above: Performed By: #### B TALENT ACQUISITION OPERATIONS MANAGER, LIPA, HSTROPN, CMP #### [facility] [address] [address] [address] Alesia Argueta US SCROTUM W VASCULAR [...] by: PASCUAL TRISTAN Date: 2021-11-17 17:45 Normal [facility] Coding Summaryon 07-07-2017 Coding Summary CODING DATE: 018 [facility] STATUS: PAYOR: Self Pay ADMIT DX: REASON [...] Candi Pineda Date Saved: 07/07/2017 02:[address] [facility] Coding Summary CODING DATE: 018 [facility] STATUS: Home PAYOR: Self Pay APC DESCRIPTION [...] Candi Pineda Date Saved: 07/07/2017 02:[address] [facility] .Auto Diff 1on 07-06-2017 Auto Baso % 0.2 % Normal 0.2-2.0 [facility] Comment on above: Performed By: #### 7 [id number], [id number], [id number] ####[facility] (DEFAULT)[address] [place] [address] Auto Nolan % 7 % Normal 1-12 [facility] Comment on above: Performed By: #### 7 [id number], [id number], [id number] ####[facility] (DEFAULT)[address] [place] [address] Auto Neut % 55 % Normal 44-88 [facility] Comment on above: Performed By: #### 7 670379, [id number], [id number] ####[facility] (DEFAULT)[address] [place] [address] Baso Abs# 0.0 x10 Normal 0.0-0.2 [facility] Comment on above: Performed By: #### 7 596079, [id number], [id number] ####[facility] (DEFAULT)[address] [place] [address] Eos Abs# 0.2 x10 Normal 0.0-0.4 [facility] Comment on above: Performed By: #### 7 757306, [id number], [id number] ####[facility] (DEFAULT)[address] [place] [address] Eosinophils/100 leukocytes 2.3 % Normal 0.9-4.0 [facility] Comment on above: Performed By: #### 7 012965, [id number], [id number] ####[facility] (DEFAULT)[address] [place] [address] Lymphocytes 3.0 x10 High 1.3-2.9 [facility] Comment on above: Performed By: #### 7 729875, [id number], [id number] ####[facility] (DEFAULT)[address] [place] [address] Lymphocytes/100 leukocytes 36 % Normal 14-48 [facility] Comment on above: Performed By: #### 7 245408, [id number], [id number] ####[facility] (DEFAULT)[address] [place] [address] Nolan Abs# 0.6 x10 Normal 0.0-0.8 [facility] Comment on above: Performed By: #### 7 693198, [id number], [id number] ####[facility] (DEFAULT)[address] [place] [address] Neut Abs# 4.6 x10 Normal 1.5-9.2 [facility] Comment on above: Performed By: #### 7 775504, [id number], [id number] ####[facility] (DEFAULT)[address] [place] [address] CBC w/ Auto Diffon 8 Erythrocyte distribution width Auto Ratio (RBC) 13.3 % Normal 11.5-15.0 [facility] Comment on above: Performed By: #### 7 858501, [id number], [id number] ####[facility] (DEFAULT)[address] [place] [address] Erythrocytes (RBC) 5.36 x10 High 3.70-5.30 [facility] Comment on above: Performed By: #### 7 566822, [id number], [id number] ####[facility] (DEFAULT)[address] [place] [address] Hematocrit (HCT) 48.9 % Normal 34.8-51.9 [facility] Comment on above: Performed By: #### 7 387194, [id number], [id number] ####[facility] (DEFAULT)[address] [place] [address] Hemoglobin mass conc (Bld) 16.9 g/dL Normal 11.8-17.7 [facility] Comment on above: Performed By: #### 7 202013, [id number], [id number] ####[facility] (DEFAULT)[address] [place] [address] Man Diff? Auto Normal [facility] Comment on above: Performed By: #### 7 052468, [id number], [id number] ####[facility] (DEFAULT)[address] [place] [address] MCH 32 pg Normal 24-34 [facility] Comment on above: Performed By: #### 7 734145, [id number], [id number] ####[facility] (DEFAULT)[address] [place] [address] MCHC mass conc (RBC) 35 g/dL Normal 26-37 [facility] Comment on above: Performed By: #### 7 830073, [id number], [id number] ####[facility] (DEFAULT)[address] [place] [address] MCV 91 fL Normal 81-100 [facility] Comment on above: Performed By: #### 7 657814, [id number], [id number] ####[facility] (DEFAULT)[address] [place] [address] Platelet mean volume (PMV) 9.7 fL Normal 6.3-10.2 [facility] Comment on above: Performed By: #### 7 143339, [id number], [id number] ####[facility] (DEFAULT)[address] [place] [address] Platelets 248 x10 Normal 138-427 [facility] Comment on above: Performed By: #### 7 283797, 24395741, [id number] ####[facility] (DEFAULT)[address] [place] [address] WBC (Leukocytes) 8.4 x10 Invalid Interpretation Code [facility] Comment on above: Performed By: #### 7 846423, [id number], [id number] ####[facility] (DEFAULT)[address] [place] [address] CMP Standardon 07-06-2017 eGFR (non-black) mL/min/{1.73_m2} Invalid Interpretation Code [facility] Comment on above: Performed By: #### 7 134344, [id number], [id number] ####[facility] (DEFAULT)[address] [place] [address] Result Comment: Leather Roller sierra Kidney disease could be indicated at eGFRs of less than 60 ml/min/1.73m2. Kidney Failure is indicated at less than 15 ml/min/1.73m2 Albumin 4.0 g/dL Normal 3.5-5.0 [facility] Comment on above: Performed By: #### 7 515614, [id number], [id number] ####[facility] (DEFAULT)[address] [place] [address] Albumin/Globulin Ratio 1.1 {ratio} Low 1.4-2.6 [facility] Comment on above: Performed By: #### 7 122776, [id number], [id number] ####[facility] (DEFAULT)[address] [place] [address] Alk Phos 68 IU/L Normal 32-91 [facility] Comment on above: Performed By: #### 7 112981, [id number], [id number] ####[facility] (DEFAULT)[address] [place] [address] ALT/SGPT 34.0 IU/L Normal 17.0-63.0 [facility] Comment on above: Performed By: #### 7 934581, 26597516, [id number] ####[facility] (DEFAULT)[address] [place] [address] Anion gap 10.0 mmol/L Normal 5.0-19.0 [facility] Comment on above: Performed By: #### 7 674534, [id number], [id number] ####[facility] (DEFAULT)[address] [place] [address] AST/SGOT 24 IU/L Normal 15-41 [facility] Comment on above: Performed By: #### 7 931474, [id number], [id number] ####[facility] (DEFAULT)[address] [place] [address] Bili Total 0.8 mg/dL Normal 0.3-1.2 [facility] Comment on above: Performed By: #### 7 241710, 97412118, [id number] ####[facility] (DEFAULT)[address] [place] [address] BUN/Creatinine Ratio 13.0 mg/mg Normal 4.6-16.2 [facility] Comment on above: Performed By: #### 7 600043, [id number], [id number] ####[facility] (DEFAULT)[address] [place] [address] Calcium 9.3 mg/dL Normal 8.9-10.3 [facility] Comment on above: Performed By: #### 7 717427, 46641093, [id number] ####[facility] (DEFAULT)[address] [place] [address] Chloride 101 mmol/L Normal 101-111 [facility] Comment on above: Performed By: #### 7 282901, 23226555, [id number] ####[facility] (DEFAULT)[address] [place] [address] CO2 29 mmol/L Normal 21-32 [facility] Comment on above: Performed By: #### 7 983928, 73515066, [id number] ####[facility] (DEFAULT)[address] [place] [address] Creatinine 0.97 mg/dL Normal 0.90-1.30 [facility] Comment on above: Performed By: #### 7 668102, 23596034, [id number] ####[facility] (DEFAULT)[address] [place] [address] Globulin 3.8 g/dL Normal 1.5-4.3 [facility] Comment on above: Performed By: #### 7 351410, 38268305, [id number] ####[facility] (DEFAULT)[address] [place] [address] Glucose mass conc 90.0 mg/dL Normal 74.0-118.0 [facility] Comment on above: Performed By: #### 7 503270, [id number], [id number] ####[facility] (DEFAULT)[address] [place] [address] Osmolality 272 mOsm/L Invalid Interpretation Code [facility] Comment on above: Performed By: #### 7 118070, [id number], [id number] ####[facility] (DEFAULT)[address] [place] [address] Potassium molar conc 4.2 mmol/L Normal 3.6-5.1 [facility] Comment on above: Performed By: #### 7 799129, 73186166, [id number] ####[facility] (DEFAULT)[address] [place] [address] Protein 7.8 g/dL Normal 6.5-8.1 [facility] Comment on above: Performed By: #### 7 373725, [id number], [id number] ####[facility] (DEFAULT)[address] [place] [address] Sodium 136.0 mmol/L Normal 136.0-144. 0 [facility] Comment on above: Performed By: #### 7 922345, 38475504, [id number] ####[facility] (DEFAULT)[address] [place] [address] Urea nitrogen 13 mg/dL Normal 12-19 [facility] Comment on above: Performed By: #### 7 559094, 40296431, [id number] ####[facility] (DEFAULT)[address] [place] [address] CT Spine Lumbar w/o Contrast on 07-06-2017 [...] WOULD BE LESS LIKELY.FOLLOW-UP NEEDED.STEPHANIE Bowen #: [id number]: 07/06/2017T: 07/06/2017 Final Dictated by: Chidi Ray MD SDictated DT/TM: 07/06/17 12:38Signed (Electronic Signature): Chidi Ray MD 07/06/17 2:12 pmTechnologist: NATASHA ALEXANDRA [facility] ED Clinical Summaryon 2017 ED Clinical Summary [facility] [address] [place], [place] [address] ed Clinical SummaryPERSON INFORMATIONName: FARTUN ELLIOTT Jr Age: 47 Years Sex: MALEDOB: [birth year] MRN: Acct#:Visit Reason: Back pain; LOW BACK PAIN Arrival:07/06/17 09:54:00 Discharge: 07/06/17 12:20:00LOS: 000 02:26 Check In: 07/06/17 09:54:00 Checkout:07/06/17 12:20:00Address:[address] [address]DTR: Provider, NonePROVIDER INFORMATIONProvider Role Assigned UnassignedChris Carrizales ED PA 07/06/17 09:55:34Eden Gonzalez [employer] Nurse 07/06/17 10:06:17VITALS INFORMATIONVital Sign Triage LatestTemperature TympanicTemperature Temporal ArteryPulse Rate 73 bpm 73 bpmO2 Sat 97 % 97 %Respiratory Rate 18 br/min 18 br/minBlood Pressure 148 mmHg/97 mmHg 148 mmHg/97 mmHgMEDICAL INFORMATIONMedications Given:Medication Dose Routeketorolac 30 mg IMAllergy Information:No Known Medication AllergiesPHYSICIAN DOCUMENTATIONDISCHARGE INFORMATION:Discharge Disposition: HomeDischarge Location: HomePATIENT EDUCATION INFORMATIONInstructions: Spinal Stenosis; Herniated Disk; Back Pain, AdultFollow-Up:With: Address: When:Steve Martínez [address] [facility], [address] [place], [phone] Business (2) Within 3 to 5 daysWith: Address: When:[address], [address] [place], [place] [phone] Business (1) Within 3 to 5 daysComments:Diagnosis [...] constipation while taking pain medication. May take uthg-fzr-ooeomdf ibuprofen or Tylenol to supplement, may use [...] spine without radiculopathy; Lumbar spinal stenosisComment: Normal [facility] ED Note - Otheron 07-06-2017 ED Note - Other [id number]#1.00OTGTIFF 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 May take mata-gkt-ysgitdm ibuprofen or Tylenol to supplement, may use [...] Carrizales[Verified on: 07/06/2017 13:20 EDT] Chris Carrizales [facility] ED Patient Education Noteon 07-06-2017 ED [...] Reviewed: 07/21/2013Elsevier Interactive Patient Education ? 2017 [employer].Herniated DiskA herniated disk, also called a ruptured [...] need surgery.Follow these instructions at home:Medicines? Take oxle-jxh-drgxmfi and prescription medicines only as told by [...] your urine clear or pale yellow.? Take cjpp-qeg-kdznznv or prescription medicines.? Eat foods that are [...] Reviewed: 12/07/2016Karel Interactive Patient Education ? 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 Do not sit, drive, or advertising clerk one place for more than 30 minutes [...] as directed by your health care provider. Byzq-kky-ddsrgjj medicines to reduce pain and inflammation are [...] Reviewed: 08/14/2014Karel Interactive Patient Education ? 2017 [employer] Normal [facility] ED Patient Summaryon 018 ED Patient Summary [facility] [address] [place] [address] pATIENT DISCHARGE INSTRUCTIONSPatient InformationName: FARTUN ELLIOTT Jr Age: 47 YearsDate of : [birth year]MRN: [id number] Visit: Back pain; LOW BACK PAINArrival Time: 07/06/17 09:54:00Phone: Primary Care Physician: Provider, NoneAttending Physician: Zoran Salazar MDComment:Visit Diagnosis:Diagnoses This Visit Acute lumbar back pain (M54.5) Acute thoracic back pain (M54.6) Back pain ([id number]) Herniation of intervertebral disc of lumbar spine [...] sign any legal documentsWith: Address: When:Steve Martínez [address] [place] [address], [address] [place], [phone] Business (2) Within 3 to 5 daysWith: Address: When:BRUNO [address], [facility] [place], [place] [phone] Business (1) Within 3 to 5 daysComments:Diagnosis [...] constipation while taking pain medication. May take djum-jsp-qsqhipr ibuprofen or Tylenol to supplement, may use [...] and treatment you received today in the [facility] Emergency Department were for an urgent problem and are not intended as complete care. It is important for you to follow up with a doctor, nurse practitioner, or physician?s assistant teacher for ongoing care. If your symptoms become [...] number so we can reach you if necessary.[facility] has provided you with a complete list of medications post discharge. Please inform your medical scribe/provider of your visit and for further instruction on these medications. Any specific questions regarding your chronic medications and dosages should be discussed with your primary care physician(s) and/or pharmacist. New MedicationsPrinted Prescriptionsacetaminophen-hy drocodone (Sanger 5 mg-325 mg oral tablet) 1 tab(s) [...] Reviewed: 07/21/2013Nathanevier Interactive Patient Education ? 2017 [employer].Herniated DiskA herniated disk, also called a ruptured [...] need surgery.Follow these instructions at home:Medicines? Take ieus-vnh-istbjwb and prescription medicines only as told by [...] your urine clear or pale yellow.? Take cvua-vik-ircmlfw or prescription medicines.? Eat foods that are [...] Reviewed: 12/07/2016Karel Interactive Patient Education ? 2017 [employer]Back Pain, AdultBack pain is very common [...] stressful on your back to sit or advertising clerk one place for long periods of time. Do not sit, drive, or advertising clerk one place for more than 30 minutes [...] as directed by your health care provider. Qbko-fqw-zunosyh medicines to reduce pain and inflammation are [...] Reviewed: 08/14/2014Nathanevtrever Interactive Patient Education ? 2017 [employer]. Viruses or BacteriaWhat?s got you sick?Antibiotics only [...] Antibiotics Michelle.S. Department of Health and Human ServicesAdena Fayette Medical Centerers for Disease Control and Prevention December 2013 [facility] Rad - Other Radiology Report on 07-06-2017 Rad - Other Radiology Report [id number]#1.00OTGTIFF [facility] XR Chest 2 Viewson 8 XR Chest 2 Views CHEST TWO VIEWSCLINI MARYLU DATA: Difficulty breathing, chest pain, chronic smoking history.PA and lateral views of the chest were obtained. Heart and mediastinalcontours are unremarkable in appearance. No acute infiltrate orconsolidations are seen. Bony structures are grossly intact.IMPRESSION: NO ACUTE PROCESS SEEN IN THE CHEST.STEPHANIE Bowen #: [id number]: 07/06/2017T: 07/06/2017 Final Dictated by: Chidi Ray MD SDictated DT/TM: 07/06/17 12:42Signed (Electronic Signature): Chidi Ray MD 07/06/17 2:12 pmTechnologist: NATASHA ALEXANDRA [facility] Vital Signs Date Time Vital Sign Value Performing Clinician Faci lity 03-09-2022 14:41-0500 Body height 182.88 cm DO Sandro Mckeon Work Phone: [facility] 03-09-2022 09:00-0500 Body weight 105.6 kg DO Sandro Mckeon Work Phone: [facility] 03-09-2022 07:30-0500 Body temperature 97.8 [degF] DO Sandro Mckeon Work Phone: [facility] 03-09-2022 07:30-0500 Diastolic blood pressure 101 mm[Hg] DO Sandro Mckeon Work Phone: [facility] 03-09-2022 07:30-0500 Heart rate 51 /min DO Sandro Vaschak Work Phone: [facility] 03-09-2022 07:30-0500 Respiratory rate 18 /min DO Sandro Vaschak Work Phone: [facility] 03-09-2022 07:30-0500 SaO2% (BldA) [Mass fraction] 97 % DO Sandro Vaschak Work Phone: [facility] 03-09-2022 07:30-0500 Systolic blood pressure 143 mm[Hg] DO Sandro Vaschak Work Phone: [facility] 03-02-2022 12:16-0500 Heart rate 81 /min DO Sandro Vaschak Work Phone: [facility] 03-02-2022 12:13-0500 Body height 182.88 cm DO Sandro Vaschak Work Phone: [facility] 03-02-2022 12:13-0500 Body temperature 97.7 [degF] DO Sandro Vaschak Work Phone: [facility] 03-02-2022 12:13-0500 Body weight 107 kg DO Sandro Vaschak Work Phone: [facility] 03-02-2022 12:13-0500 Diastolic blood pressure 102 mm[Hg] DO Sandro Vaschak Work Phone: [facility] 03-02-2022 12:13-0500 Respiratory rate 20 /min DO Sandro Vaschak Work Phone: [facility] 03-02-2022 12:13-0500 SaO2% (BldA) [Mass fraction] 97 % DO Sandro Vaschak Work Phone: [facility] 03-02-2022 12:13-0500 Systolic blood pressure 157 mm[Hg] DO Sandro Vaschak Work Phone: [facility] Encounters Encounter Date Encounter Type Care Provider Facility Start: 05-21-2022 End: 05-21-[address] BRUNO BOCANEGRA Facility:[facility] Start: 03-06-2022 End: 03-09-2022 Evaluation and management of inpatient Bruno Bocanegra Facility:[facility] Start: 03-06-2022 End: 03-09-2022 Evaluation and management of inpatient DO Sandro Mckeon Work Phone: [facility] Start: 03-06-2022 End: 03-06-[address] PASCUAL TRISTAN Facility:[facility] Start: 03-02-2022 End: 03-02-2022 Emergency department patient visit Marce Monique Elliott Facility:[facility] Start: 03-02-2022 End: 03-02-2022 Emergency department patient visit DO Sandro Mckeon Work Phone: [facility] Start: 11-28-2021 ambulatory Juan R Briseno MD Work Phone: Urology Start: 11-24-2021 End: 11-25-2021 ambulatory JOSE J HOOVER Facility:[facility] Start: 11-18-2021 End: 11-18-2021 Emergency department patient visit CORINNE OGDEN Facility:[facility] Start: 11-17-2021 End: 11-17-[address] KAREN HOOD Facility:[facility] Start: 07-26-2021 End: 07-26-2021 ambulatory LITZY POST Facility:[facility] Start: 07-07-2017 End: 07-07-2017 Ambulatory None Provider Facility:[facility] Start: 07-06-2017 End: 07-07-2017 Emergency department patient visit None Provider Facility:[facility] Procedures Date Procedure Procedure Detail Performing Clinician Start: 03-02-2022 Plain chest X-ray DO Ange Mckeon Work Phone: Plan of Treatment Date Care Activity Detail Author Start: 03-09-2022 [facility] Start: 03-08-2022 Referral to clinical sql server architect [facility] Start: 03-06-2022 Hospital admission [facility] Start: 03-02-2022 Blood chemistry [facility] Start: 03-02-2022 Brain natriuretic peptide measurement [facility] Start: 03-02-2022 [facility] Start: 12-25-2021 Influenza vaccination INFLUENZA (#1) [facility] Start: 02-03-2020 SHINGRIX VACCINE (1 of 2) SHINGRIX VACCINE (1 of 2) [facility] Start: 2015 COLOGUARD (FIT-DNA) COLOGUARD (FIT-DNA) [facility] Start: 2015 Colonoscopy COLONOSCOPY [facility] Start: 2015 COLORECTAL CANCER SCREENING COLORECTAL CANCER SCREENING [facility] Start: [address] COLONOGRAPHY [facility] Start: 2015 DIABETES SCREEN DIABETES SCREEN [facility] Start: 2015 FECAL OCCULT BLOOD FECAL OCCULT BLOOD [facility] Start: 2015 SIGMOIDOSCOPY SIGMOIDOSCOPY [facility] Start: 2005 LIPID SCREEN LIPID SCREEN [facility] Start: 1989 Urine microalbumin profile DTAP,TDAP,TD (1 - Tdap) [facility] Start: 02-03-1988 HEPATITIS C SCREENING HEPATITIS C SCREENING [facility] Start: 02-03-1988 HIV SCREENING HIV SCREENING [facility] Start: 1982 Adult depression screening assessment DEPRESSION SCREENING [facility] Start: 1970 COVID-19 VACCINE (#1) COVID-19 VACCINE (#1) [facility] Patient Education Depression, Ad ult (DC) High Blood Pressure (DC) [facility] DC Instructions [facility] Work Phone: Patient referral [facility] Work Phone: Payers Date Payer Category Payer Unknown [id number] 1970 Unknown [id number] 2.16.84 [id number] 1970 Unknown [id number] 2.16.84 [id number] 1970 Unknown [id number] 2.16.84 [id number] 1970 Unknown [id number] 2.16.84 [id number] 1970 Unknown [id number] 2.16.84 [id number] 1959 Self-pay 1959 Unknown [id number] Unknown [id number] 2.16.8 [id number] Unknown [id number] 2.16.8 [id number] Social History Date Type Detail Facility Tobacco smoking status [facility] Tobacco smoking consumption unknown [facility] Start: 1970 Sex Assigned At Not on file [facility] Start: 11-07-2021 End: 11-18-2021 Exposure to SARS-CoV-2 (event) Not sure [facility] Start: 03-02-2022 End: 03-08-2022 Tobacco smoking status NVIS Smoker (finding) [facility] Start: 1970 Sex Assigned At Male F [facility] Goals Date Patient Goal Desired Activity /State Functional Status Date Assessment Result Facility 03-09-2022 Functional status Patient at Baseline [facility] Work Phone: Mental Status Date Assessment Result Facility 03-09-2022 Cognitive function Cognitive Sta tus Patient at Baseline [facility] Work Phone: Discharge summary 03-09-2022 Note Date & Type Note Facility 03-09-2022 Discharge summary Note Date/Time March 09, 2022 11:50am [facility] [address] [place] [address] Discharge Summary Signed Patient: Fartun Elliott JR MR# : [id number] : 1970 Acct:[id number] Age/Sex: 52 / M Adm Date: 2 Loc: 1S Room: [address] [place] [address]: Amrit Orozco MD Copies to: MD Bruno Crawley, DO~ Providers Date of Discharge: 03/09/22 Discharging Provider: Amrit Orozco Primary Care Provider: Bruno Bocanerga Consults: 03/08/22 07:24 Consult to Adult Hospitalist [...] Depression, Adult (DC), High Blood Pressure (DC), [facility] DC Instructions Stand Alone Forms: Work/School [...] transdermal DAILY Qty: 30 0RF Follow Up: [facility] Counseling Hotline [Outside] [facility] [Outside] - 03/10/22 8:00 am ( performing arts road manager: Wednesday03/10/22 a caser shoe parts will call you between 8am-12pm. Intake: Wednesday03/17/22 [...] <Electronically signed by Amrit Orozco MD> 03/09/22 [facility] Work Phone: History and physical note 03-08-2022 Note Date & Type Note Facility 03-08-2022 History and physical note Note Date/Time March 07, 2022 10:18am [facility] [address] [place] [address] Psychiatry H&P Signed Patient: Fartun Elliott JR MR# : [id number] : 1970 Acct:[id number] Age/Sex: 52 / M Adm Date: 2 Loc: Room: 9D9729-7 Type: ADM IN Attending Dr: Amrit Orozco MD Copies to: MD Bruno Crawley [place] Jayleen, DEVELOPMENT DISABILITY SPECIALIST~ Date of Service: 03/07/2022 HPI History of [...] <Electronically signed by Amrit Orozco MD> 03/08/22 [facility] Work Phone: Progress note 03-08-2022 Note Date & Type Note Facility 03-08-2022 Progress note Note Date/Time March 08, 2022 11:23am [facility] [address] [place] [address] Psychiatry Progress Note Signed Patient: Fartun Elliott JR MR# : [id number] : 1970 Acct:[id number] Age/Sex: 52 / M Adm Date: 2 Loc: Room: [address] [place] [address] Type : ADM IN Attending Dr: Amrit [...] signed by Amrit Orozco MD> 03/08/22 1929 [facility] Work Phone: Clinical Note 11-28-2021 Note Date & Type Note Facility 11-28-2021 Note Patient Outreach (UR OLMN) FARTUN ELLIOTT JR ([id number]) 1970 M Date Time Provider Department 11/28/21 JUAN R BRISENO During your visit today, we recorded the following information about you: Allergies As of Date: 11/28/2021 (No Known Allergies) Date Reviewed: 11/17/2021 Reviewed by: Rocio Sotelo RN - Fully Assessed Visit Diagnosis:Screening for genitourinary condition [Z13.89] Problem List As Of Date: 11/28/2021 (None) Encounter Status:Closed by Noitav[place], [employer] on 12/01/21 [facility] Progress note 11-28-2021 Note Date & Type Note Facility 11-28-2021 Note HNO ID: [id number] Author: Juan R Briseno MD Service: ? Author Type: Fellow Type: Progress Notes Filed: 04/21/2022 9:41 AM Note Text: [facility] PATIENT INFO: [...] note is incomplete and was administratively closed. [facility] Procedure note 11-18-2021 Note Date & Type Note Facility 11-18-2021 Note HNO ID: [id number] Author: Madeline Joyner MD Service: Urology Author Type: Physician Type: Procedures Filed: 11/18/2021 6:32 PM Note Text: BEDSIDE PROCEDURE NOTE INCISION AND DRAINAGE Date/Start Time: 11/18/2021 5:03 AM Performed by: Chin Benedict MD Authorized by: Madeline Joyner MD This procedure has been performed in part by a resident/fellow under attending's direction Informed Consent Consent Obtained: Written Lesage Protocol A moment to CARE was completed. [...] DATE: November 18, 2021 TIME: 8:03 AM [facility] STAFF PHYSICIAN NOTE OF PERSONAL INVOLVEMENT IN [...] Associate Staff - Urology November 18, 2021 [facility] Evaluation note Note Date & Type Note Facility Evaluation note Diagnosis Screening for genitourinary condition Screening for other and unspecified genitourinary condition documented in this encounter [facility] Evaluation note Note Date & Type Note Facility Evaluation note No assessment information availa ble [facility] Work Phone: Evaluation note Note Date & Type Note Facility Evaluation note Diagnosis Onset Date Anxiety and depression acute Hypertension acute Vitamin D deficiency acute [facility] Work Phone: Hospital Discharge instructions Note Date & Type Note Facility Hospital Discharge instructions Additional Instructions Regular diet No activity restrictions [facility] Work Phone: Summary Purpose Family History No [...] section and content) DATE CREATED AUTHOR 10/15/[address] [facility] DATE CREATED AUTHOR AUTHOR'S ORGANIZ ATION 04/21/2022 [facility] DATE CREATED AUTHOR AUTHOR'S ORGANIZ ATION 05/25/[address] [facility] DATE CREATED AUTHOR AUTHOR'S ORGANIZ ATION 01/12/2023 [facility] Source Comments (unrecognize d section and content) In the event this informatio n is protected by the Federal Confidentiality of Alcohol and Drug Abuse Patient Records regulations: The Federal rules restrict any use of the information to criminally investigate or prosecute any alcohol or drug abuse patient.[facility] Care Teams (unrecognized sec tion and content) [...] Johnson MD Other Provider Active Roselyn Christy DEVELOPMENT DISABILITY SPECIALIST Other Provider Active Shikha Ramirez , DO Other Provider Active Moseh Tello MD Other Provider Active Aubrey Adams [...] MD Other Provider Active Marce Young , TALENT ACQUISITION OPERATIONS MANAGER-C Other Provider Active Timothy Monreal MD Other Provider Active Devyn Arreola MD Other Provider Active Jyothi Dowling MD Other Provider Active Lacho Taveras MD Other Provider Active Saige Desir , DO Other Provider Active Bipin Nava MD Other Provider Active Nagi Schmitz , DO Other Provider Active Hema Gastelum , DO Other Provider Active Tricia Yan DEVELOPMENT DISABILITY SPECIALIST Other Provider Active Gonzalo Vanessa , DO Other Provider Active Jarett Jurado MD Other Provider Active Leatha Duarte APRN Other Provider Active Tita Dumont RN Other Provider Active Team Status: Active Member Role Status Dates Bruno [place] , DO Primary Care Provider Active Goals [...] BE BASED ON THE PRIMARY CLINICAL RECORDS. [employer] [facility]. provides no warranty or guarantee of the accuracy or completeness of information in this document.
--- NOTE | 2024-01-20 15:46 | PM.HP ---
HPI H&P: HPI History of Present Illness Chief complaint: VOMITING BLOOD, WEAK COLITIS Narrative: 53-year-old male with no past medical history presented to ER with nausea, vomiting and left-sided abdominal pain ongoing for 1 day. She denies eating anything unusual. Patient has been unable to keep anything down because of vomiting. Earlier in the morning, he noticed bright red blood with vomit. He has no prior history of hematemesis. He has no prior history of EGD and or colonoscopy. Patient does not use aspirin, NSAIDs or any anticoagulation. Workup in ED revealed acute colitis versus pancreatitis on CT scan. Given that he has normal lipase and his pain is left-sided not epigastric, he seems more likely that the underlying etiology of his presenting illness is acute colitis. Patient started on IV fluids, IV Levaquin and Flagyl. Supportive care, pain control, nausea control. Started on full liquid diet for now. Once his nausea, pain improves, we will advance his diet as tolerated. Patient is a heavy alcohol user and drinks 2 doubles of burbon daily along with 5-6 beers. He was counseled on acohol use, risks associated with excessive alcohol use. His last drink was 1 day prior and he is not showing any signs or symptoms of alcohol withdrawal Opioid HPI Opioid Management Most Recent Pain and Opioid Data: Last Pain Scale 0 01/21/24 10:02 Last Pain Assessment 01/21/24 10:02 Last MAR Pain Assessment 01/21/24 01:41 Last ORT Total Score 6 01/20/24 15:31 Last ORT Risk Category Moderate Risk 01/20/24 15:31 Review of Systems ROS Status of ROS 10 or more systems reviewed and unremarkable except as noted in history and below [facility] Medical History (Updated 01/21/24 @ 10:21 by Shaikh Roseanna MD) Cyst, dermoid, leg ?D36.7 - Benign neoplasm of other specified sites (ICD-10) Obesity ?E66.9 - Obesity, unspecified (ICD-10) Family History (Updated 01/20/24 @ 15:55 by Tomasa Marvin LPN) Father Family history of hypertension Social History (Updated 01/21/24 @ 10:17 by Shaikh Roseanna MD) Within the past year, how often did you have a drink containing alcohol: 4 or more times a week Within the past year, how many standard drinks containing alcohol did you have on a typical day: 5 or 6 Within the past year, how often did you have six or more drinks on one occasion: monthly Total score: 6 Score interpretation: A score of 4 or more indicates drinking is likely to affect patient's safety. Smoking status: Current every day smoker Second hand tobacco smoke exposure: No Non-prescribed substance use: denies use Known occupational exposures/hazards: No Highest level of school completed/degree received: high school graduate Are you now , , , , never or living with a partner: living with partner In a typical week, how many times do you talk on the telephone with family, friends, or neighbors: 3 or more times per week How often do you get together with friends or relatives: 3 or more times per week How often do you attend lutheran or denominational services: never Do you belong to any clubs or organizations such as lutheran groups unions, [employer] or athletic groups, or school groups: no Total score: 2 Score interpretation: A score of greater than or equal to 2 indicates the lowest level of social isolation. Little interest or pleasure in doing things: not at all Feeling down, depressed, or hopeless: not at all Feel stressed/tense/nervous/anxious/difficulty sleeping: not at all Due to disability, difficulty making decisions: No Do you think of yourself as: straight/heterosexual Gender Identity: male Meds Home Medications and Allergies Home Medications ?Medication ?Instructions ?Recorded ?Confirmed ?Type No Known Home Medications 12/02/23 12/02/23 History Allergies Allergy/AdvReac Type Severity Reaction Status Date / Time No Known Drug Allergies Allergy Verified 12/02/23 21:25 Exam Constitutional Vital Signs, click to edit/add: Last Vital Signs Temp 100.0 F 01/20/24 11:35 Pulse 100 H 01/20/24 11:35 Resp 18 01/20/24 11:35 BP 139/97 H 01/20/24 14:08 Pulse Ox 96 01/20/24 15:32 O2 Del Method Room Air 01/20/24 15:32 Documenting provider has reviewed patient's vital signs: yes Common normals: no apparent distress and oriented x3 General appearance: cooperative Respiratory Common normals: normal respiratory effort and clear to auscultation bilaterally Effort & inspection: able to speak in complete sentences Auscultation: clear to auscultation bilaterally Cardio Common normals: regular rate, S1 normal heart sound and S2 normal heart sound Rate: regular rate Heart sounds: S1 normal and S2 normal GI Common normals: Normal to inspection, nondistended, normoactive bowel sounds present, soft to palpation and no hepatosplenomegaly Palpation: soft, tender Details: LLQ and LUQ and no hepatosplenomegaly Extremity Common normals: no clubbing, cyanosis or edema Neuro Common normals: oriented x3, moves all extremities and no focal motor deficits Psych Common normals: mental status grossly normal, denies hallucinations, denies homicidal ideation and denies suicidal ideation Results Labs Labs: Short CBC 01/20/24 Range/Units 11:41 WBC 15.8 H (4.0-11.0) 10^3/uL Hgb 17.2 (14.0-18.0) g/dL Hct 47.4 (42.0-54.0) % Plt Count 187 (150-450) 10^3/uL BMP 01/20/24 11:41 Sodium 131 L Potassium 3.7 Chloride 96 L Carbon Dioxide 25.9 BUN 12.0 Creatinine 1.01 Glucose 136 H Calcium 8.3 L Liver Function 01/20/24 Range/Units 11:41 Total Bilirubin 1.6 H (0.2-1.0) mg/dL Direct Bilirubin 0.4 H (0.0-0.2) mg/dL AST 71 H (15-37) U/L ALT 87 H (16-63) U/L Alkaline Phosphatase 106 (46-116) U/L Albumin 2.9 L (3.4-5.0) g/dL Assessment and Plan Assessment and Plan (1) Hematemesis with nausea: Assessment and Plan: likely from excessive vomiting. Monitor H&H. Started on IV protonix. Zofran as needed. (2) Abdominal pain: Assessment and Plan: Left sided abdominal pain with nausea/vomiting likely sec to colitis. C/w supportive measures, IVF, pain control, anti emetics. Qualifiers: Abdominal location: left lower quadrant Qualified Code(s): R10.32 - Left lower quadrant pain (3) Leukocytosis: Assessment and Plan: likely due to dehydration/colitis. On IV abx. C/w IVF. Qualifiers: Leukocytosis type: leukemoid reaction Qualified Code(s): D72.823 - Leukemoid reaction (4) Colitis: Assessment and Plan: left sided colitis clinically and based on CT scan On IV levaquin/flagyl. Advance diet as tolerated. C/w Pain control, nausea control and IVF. Suspected pancreatitis on CT - but normal lipase, no epigastric pain. No pancreatitis clinically. (5) Alcohol abuse: Assessment and Plan: Counseled and educated on alcohol use. Monitor for alcohol withdrawal (6) Obesity: Assessment and Plan: Discussed diet/lifestyle measures. Qualifiers: Obesity type: due to excess calories Obesity classification: adult class 1 (BMI 30 - 34.9) Serious obesity comorbidity presence: without serious comorbidity Body mass index: BMI 31.0-31.9 Qualified Code(s): E66.09 - Other obesity due to excess calories; Z68.31 - Body mass index [BMI] 31.0-31.9, adult
[2024-01-20 16:24] LABS: Influenza Virus A Antigen Negative; Influenza Virus B Antigen Negative; Internal Control Within Normal Limits
[2024-01-20 16:25] LABS: Internal Control Within Normal Limits; SARS-CoV-2 Ag NEGATIVE (NEGATIVE)
[2024-01-20] MEDS: OXYCODONE HCL 5 MG TABLET PO ×2 (16:30→21:16)
[2024-01-20] MEDS: LACTATED RINGER'S SOLUTION 1,000 ML 125 ML IV (16:42)
[2024-01-20 20:06] LABS: Hematocrit 46.2 % (42.0-54.0); Hemoglobin 16.5 g/dL (14.0-18.0)
[2024-01-20] MEDS: MORPHINE SULFATE 2 MG/ML SYRINGE IV (20:11)
[2024-01-20] MEDS: LEVOFLOXACIN IN DEXTROSE 5 % 750 MG/150 ML PREMIX 100 MG IV (21:15)
[2024-01-20] MEDS: METRONIDAZOLE 250 MG TABLET 500 MG PO (21:16)
[2024-01-21] VITALS (10 sets, daily range): BP systolic 142–158; BP diastolic 81–97; PULSE 71–80; TEMP 36.8–36.9; O2SAT 71–100
[2024-01-21] MEDS: LACTATED RINGER'S SOLUTION 1,000 ML 125 ML IV (00:16)
[2024-01-21] MEDS: MORPHINE SULFATE 2 MG/ML SYRINGE IV (00:17)
[2024-01-21] MEDS: METRONIDAZOLE 250 MG TABLET 500 MG PO (05:15)
[2024-01-21 05:57] LABS: Basophils Percent Auto 0.4 % (0.2-2.0); Eosinophils Absolute Auto 0.1 10^3/uL (0.0-0.7); Eosinophils Percent Auto 1.2 % (0.9-7.0); Hematocrit 44.7 % (42.0-54.0); Hemoglobin 15.4 g/dL (14.0-18.0); Immature Granulocytes Abs Auto 0.03 10^3/uL (0.00-0.03); Immature Granulocytes Pct Auto 0.3 % (0.0-0.5); Lymphocytes Absolute Auto 2.3 10^3/uL (1.2-3.8); Lymphocytes Percent Auto 22.1 % (20.5-60.0); Mean Corpuscular HGB Conc 34.5 g/dL (29.9-35.2); Mean Corpuscular Volume 95.9 fL (80.0-94.0); Mean Platelet Volume 10.3 fL (9.5-13.5); Monocytes Absolute Auto 0.8 10^3/uL (0.3-0.8); Monocytes Percent Auto 7.4 % (1.7-12.0); Neutrophils Absolute Auto 7.1 10^3/uL (1.4-6.5); Neutrophils Percent Auto 68.6 % (43.0-75.0); Platelet Count 154 10^3/uL (150-450); Red Blood Count 4.66 10^6/uL (4.70-6.10); Red Cell Distribution Width 13.2 % (11.0-15.0); White Blood Count 10.3 10^3/uL (4.0-11.0)
[2024-01-21 06:14] LABS: Alanine Aminotransferase 53 U/L (16-63); Albumin Globulin Ratio 0.6; Albumin Level 2.5 g/dL (3.4-5.0); Alkaline Phosphatase 94 U/L (46-116); Aspartate Amino Transferase 56 U/L (15-37); BUN Creatinine Ratio 6.9; Bilirubin Total 2.8 mg/dL (0.2-1.0); Calcium 8.1 mg/dL (8.5-10.1); Carbon Dioxide 23.4 mmol/L (21.0-32.0); Chloride 96 mmol/L (98-107); Estimated GFR (African America >60 (>=60); Estimated GFR (Non-African Ame >60 (>=60); Globulin 4.1 g/dL; Glucose 110 mg/dL (74-106); Potassium 3.4 mmol/L (3.5-5.1); Sodium 133 mmol/L (136-145); Total Protein 6.6 g/dL (6.4-8.2)
--- OUTSIDE RECORDS SUMMARY | 2024-01-21 07:07 | XMS_ITS | CCD ---
Author Organization [facility] Inform ion Partnership [facility] Care Team Providers Care Inspector Experimental Assembly Name Role Phone Provider, None Unavailable Unavailable Hunter, Chris R. Unavailable Unavailable [place], Chris R. Unavailable Unavailable Provider, None Unavailable Unavailable Hunter, Chris R. Unavailable Unavailable Hunter, Chris R. Unavailable Unavailable Unavailable Primary Care Provider UnavailDO Sandro Fraser Primary Care Provider DO Marce Roblero Emergency Provider MD Amrit Orozco Admit Provider [phone] MD Amrit Orozco Attending Provider [phone] DO Bruno Bocanegra Primary Care Provider PIYUSH Golden Other Provider Unavailable PIYUSH Mathews [...] Other Provider MD Jarett Jurado Other Provider KARMEN Durate Other Provider [phone] PIYUSH Dumont Other Provider Unavailable CORINNE OGDEN [...] Desir Consulting Unavailable Bipin Hernandez Consulting Unavailab Ngai Rogers Consulting Unavailable Hema Gastelum Consulting Unavailable Obika Tricia Consulting Unavailable Gonzalo Vanessa Consulting Unavailable DaromaAlessandro ramosayivone oMnique Consulting Unavailable Leatha Duarte Consulting Unavailable Tita Dumont Consulting Unavailable Marce Roblero Attending Unavailable Marce Roblero Admitting Unavailable Sandro Mckeon Primary Care Unavailable Allergies Allergy Classification Reported Allergen(s) Allergy Type Date of Onset Reaction(s) Facility (1 source) No Known Medication Allergies; Translations: [No Known Medication Allergies] Propensity to adverse reactions to drug (disorder) [facility] Repository Medications Current Medications Medication Drug [...] 03-08-2022 Chronic Other aftercare (1 source) [facility] [place] [facility] (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; 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 Alesia Argueta CK.MB [Mass/Vol] ng/mL Normal <=3.60 [facility] Comment on above: Performed By: #### B SECURITY SOLUTIONS ARCHITECT, LIPA, HSTROPN, CMP #### [facility] [place] [facility] [address] [place] [address] Dr. Alesia Argueta HSTROP 5.8 pg/mL Normal 4.0-76.1 [facility] Comment on above: Result Comment: CUT- OFF POINTS HAVE BEEN ESTABLISHED BASED ON THE FOURTH UNIVERSAL DEFINITIONS OF MYOCARDIAL INFARCTION. THE UPPER REFERENCE LIMIT (URL) OF TROPONIN, DEFINED THE 99TH PERCENTILE OF cTnI DISTRIBUTION IN A REFERENCE POPULATION, HAS BEEN CONFIRMED THE DECISION THRESHOLD FOR [place] DIAGNOSIS. Performed By: #### B SECURITY SOLUTIONS ARCHITECT, LIPA, HSTROPN, CMP #### [facility] [place] [facility] [address] [place] [address] Dr. Alesia Argueta HAWK 43 ng/mL Normal 16-96 [facility] [place] [facility] Comment on above: Performed By: #### B SECURITY SOLUTIONS ARCHITECT, LIPA, HSTROPN, CMP #### [facility] [place] [facility] [address] [place] [address] Dr. Alesia Argueta CBC AUTO DIFFon 05-21-2022 BASO # 0.1 103/ul Normal 0.0-0.1 [facility] Comment on above: Performed By: #### B SECURITY SOLUTIONS ARCHITECT, LIPA, HSTROPN, CMP #### [facility] [place] [facility] [address] [place] [address] Dr. Alesia Argueta Basophils/100 WBC (Bld) 0.6 % Normal 0.2-2.0 [facility] [place] [facility] Comment on above: Performed By: #### B SECURITY SOLUTIONS ARCHITECT, LIPA, HSTROPN, CMP #### [facility] [place] [facility] [address] [place] [address] Dr. Alesia Argueta EO # 0.2 103/ul Normal 0.0-0.7 [facility] [place] [facility] Comment on above: Performed By: #### B SECURITY SOLUTIONS ARCHITECT, LIPA, HSTROPN, CMP #### [facility] [place] [facility] [address] [place] [address] Dr. Alesia Argueta Eosinophils/100 WBC (Bld) 2.8 % Normal 0.9-7.0 [facility] [place] [facility] Comment on above: Performed By: #### B SECURITY SOLUTIONS ARCHITECT, LIPA, HSTROPN, CMP #### [facility] [place] [facility] [address] [place] [address] Dr. Alesia Argueta Erythrocyte distribution width (RBC) [Ratio] 13.2 % Normal 11.0-15.0 [facility] [place] [facility] Comment on above: Performed By: #### B SECURITY SOLUTIONS ARCHITECT, LIPA, HSTROPN, CMP #### [facility] [place] [facility] [address] [place] [address] Dr. Alesia Argueta Hematocrit (Bld) [Volume fraction] 53.6 % Normal 42.0-54.0 [facility] [place] [facility] Comment on above: Performed By: #### B SECURITY SOLUTIONS ARCHITECT, LIPA, HSTROPN, CMP #### [facility] [place] [facility] [address] [place] [address] Dr. Alesia Argueta Hemoglobin (Bld) [Mass/Vol] 16.7 g/dL Normal 14.0-18.0 [facility] [place] [facility] Comment on above: Performed By: #### B SECURITY SOLUTIONS ARCHITECT, LIPA, HSTROPN, CMP #### [facility] [place] [facility] [address] [place] [address] Dr. Alesia Argueta IG # 0.02 10e3/ul Normal 0.00-0.03 [facility] [place] [facility] Comment on above: Performed By: #### B SECURITY SOLUTIONS ARCHITECT, LIPA, HSTROPN, CMP #### [facility] [place] [facility] [address] [place] [address] Dr. Alesia Argueta IG % 0.3 % Normal 0.0-0.5 [facility] Comment on above: Performed By: #### B SECURITY SOLUTIONS ARCHITECT, LIPA, HSTROPN, CMP #### [facility] [place] [facility] [address] [place] [address] Dr. Alesia Argueta LYMPH # 3.4 103/ul Normal 1.2-3.8 [facility] [place] [facility] Comment on above: Performed By: #### B SECURITY SOLUTIONS ARCHITECT, LIPA, HSTROPN, CMP #### [facility] [place] [facility] [address] [place] [address] Dr. Alesia Argueta Lymphocytes/100 WBC (Bld) 44.5 % Normal 20.5-60.0 [facility] Comment on above: Performed By: #### B SECURITY SOLUTIONS ARCHITECT, LIPA, HSTROPN, CMP #### [facility] [place] [facility] [address] [place] [address] Dr. Alesia Argueta MANUAL DIFF REQ NO Normal [facility] [place] [facility] Comment on above: Performed By: #### B SECURITY SOLUTIONS ARCHITECT, LIPA, HSTROPN, CMP #### [facility] [place] [facility] [address] [place] [address] Dr. Alesia Argueta MCH (RBC) [Entitic mass] 30.8 pg Normal 25.9-34.0 [facility] Comment on above: Performed By: #### B SECURITY SOLUTIONS ARCHITECT, LIPA, HSTROPN, CMP #### [facility] [place] [facility] [address] [place] [address] Dr. Alesia Argueta MCHC (RBC) [Mass/Vol] 31.2 g/dL Normal 29.9-35.2 [facility] [place] [facility] Comment on above: Performed By: #### B SECURITY SOLUTIONS ARCHITECT, LIPA, HSTROPN, CMP #### [facility] [place] [facility] [address] [place] [address] Dr. Alesia Argueta MCV (RBC) [Entitic vol] 98.9 fL Critically high 80.0-94.0 [facility] Comment on above: Performed By: #### B SECURITY SOLUTIONS ARCHITECT, LIPA, HSTROPN, CMP #### [facility] [place] [facility] [address] [place] [address] Dr. Alesia Argueta MONO # 0.6 103/ul Normal 0.3-0.8 [facility] [place] [facility] Comment on above: Performed By: #### B SECURITY SOLUTIONS ARCHITECT, LIPA, HSTROPN, CMP #### [facility] [place] [facility] [address] [place] [address] Dr. Alesia Argueta Monocytes/100 WBC (Bld) 7.2 % Normal 1.7-12.0 [facility] [place] [facility] Comment on above: Performed By: #### B SECURITY SOLUTIONS ARCHITECT, LIPA, HSTROPN, CMP #### [facility] [place] [facility] [address] [place] [address] Dr. Alesia Argueta NEUT # 3.4 103/ul Normal 1.4-6.5 [facility] [place] [facility] Comment on above: Performed By: #### B SECURITY SOLUTIONS ARCHITECT, LIPA, HSTROPN, CMP #### [facility] [place] [facility] [address] [place] [address] Dr. Alesia Argueta Neutrophils/100 WBC (Bld) 44.6 % Normal 43.0-75.0 [facility] [place] [facility] Comment on above: Performed By: #### B SECURITY SOLUTIONS ARCHITECT, LIPA, HSTROPN, CMP #### [facility] [place] [facility] [address] [place] [address] Dr. Alesia Argueta Platelet mean volume (Bld) [Entitic vol] 9.8 fL Normal 9.5-13.5 [facility] [place] [facility] Comment on above: Performed By: #### B SECURITY SOLUTIONS ARCHITECT, LIPA, HSTROPN, CMP #### [facility] [place] [facility] [address] [place] [address] Dr. Alesia Argueta PLT 297 103/ul Normal 150-450 [facility] [place] [facility] Comment on above: Performed By: #### B SECURITY SOLUTIONS ARCHITECT, LIPA, HSTROPN, CMP #### [facility] [place] [facility] [address] [place] [address] Dr. Alesia Argueta RBC 5.42 106/ul Normal 4.70-6.10 [facility] [place] [facility] Comment on above: Performed By: #### B SECURITY SOLUTIONS ARCHITECT, LIPA, HSTROPN, CMP #### [facility] [place] [facility] [address] [place] [address] Dr. Alesia Argueta WBC 7.7 103/ul Normal 4.0-11.0 [facility] Comment on above: Performed By: #### B SECURITY SOLUTIONS ARCHITECT, LIPA, HSTROPN, CMP #### [facility] [place] [facility] [address] [place] [address] Dr. Alesia Argueta PROF 14(COMP METB)on 023 Albumin [Mass/Vol] 3.6 g/dL Normal 3.4-5.0 [facility] Comment on above: Performed By: #### B SECURITY SOLUTIONS ARCHITECT, LIPA, HSTROPN, CMP #### [facility] [place] [facility] [address] [place] [address] Dr. Alesia Argueta Albumin/Globulin [Mass ratio] 0.9 {ratio} Normal [facility] Comment on above: Performed By: #### B SECURITY SOLUTIONS ARCHITECT, LIPA, HSTROPN, CMP #### [facility] [place] [facility] [address] [place] [address] Dr. Alesia Argueta ALP [Catalytic activity/Vol] 78 U/L Normal 46-116 [facility] Comment on above: Performed By: #### B SECURITY SOLUTIONS ARCHITECT, LIPA, HSTROPN, CMP #### [facility] [place] [facility] [address] [place] [address] Dr. Alesia Argueta ALT [Catalytic activity/Vol] 28 U/L Normal 16-63 [facility] Comment on above: Performed By: #### B SECURITY SOLUTIONS ARCHITECT, LIPA, HSTROPN, CMP #### [facility] [place] [facility] [address] [place] [address] Dr. Alesia Argueta Anion gap [Moles/Vol] 11.8 mmol/L Normal [facility] Comment on above: Performed By: #### B SECURITY SOLUTIONS ARCHITECT, LIPA, HSTROPN, CMP #### [facility] [place] [facility] [address] [place] [address] Dr. Alesia Argueta AST [Catalytic activity/Vol] 19 U/L Normal 15-37 [facility] Comment on above: Performed By: #### B SECURITY SOLUTIONS ARCHITECT, LIPA, HSTROPN, CMP #### [facility] [place] [facility] [address] [place] [address] Dr. Alesia Argueta Bilirubin [Mass/Vol] 0.2 mg/dL Normal 0.2-1.0 [facility] [place] [facility] Comment on above: Performed By: #### B SECURITY SOLUTIONS ARCHITECT, LIPA, HSTROPN, CMP #### [facility] [place] [facility] [address] [address] [address] Alesia Argueta Calcium [Mass/Vol] 8.9 mg/dL Normal 8.5-10.1 [facility] [place] [facility] Comment on above: Performed By: #### B SECURITY SOLUTIONS ARCHITECT, LIPA, HSTROPN, CMP #### [facility] [place] [facility] [address] [place] [address] Dr. Alesia Argueta Chloride [Moles/Vol] 103 mmol/L Normal 98-107 [facility] [place] [facility] Comment on above: Performed By: #### B SECURITY SOLUTIONS ARCHITECT, LIPA, HSTROPN, CMP #### [facility] [place] [facility] [address] [place] [address] Dr. Alesia Argueta CO2 [Moles/Vol] 29.1 mmol/L Normal 21.0-32.0 [facility] [place] [facility] Comment on above: Performed By: #### B SECURITY SOLUTIONS ARCHITECT, LIPA, HSTROPN, CMP #### [facility] [place] [facility] [address] [address] [address] Alesia Argueta Creatinine [Mass/Vol] 0.87 mg/dL Normal 0.70-1.30 [facility] [place] [facility] Comment on above: Performed By: #### B SECURITY SOLUTIONS ARCHITECT, LIPA, HSTROPN, CMP #### [facility] [place] [facility] [address] [place] [address] Dr. Alesia Argueta EGFR-AF [place] >60 Normal >=60 [facility] [place] [facility] Comment on above: Performed By: #### B SECURITY SOLUTIONS ARCHITECT, LIPA, HSTROPN, CMP #### [facility] [place] [facility] [address] [address] [address] Alesia Argueta EGFR-NON AF [place] >60 Normal >=60 [facility] Comment on above: Performed By: #### B SECURITY SOLUTIONS ARCHITECT, LIPA, HSTROPN, CMP #### [facility] [place] [facility] [address] [address] [address] Alesia Argueta Globulin (S) [Mass/Vol] 4.2 g/dL Normal [facility] Comment on above: Performed By: #### B SECURITY SOLUTIONS ARCHITECT, LIPA, HSTROPN, CMP #### [facility] [place] [facility] [address] [place] [address] Dr. Alesia Argueta Glucose [Mass/Vol] 103 mg/dL Normal 74-106 [facility] [place] [facility] Comment on above: Performed By: #### B SECURITY SOLUTIONS ARCHITECT, LIPA, HSTROPN, CMP #### [facility] [place] [facility] [address] [place] [address] Dr. Alesia Argueta Potassium [Moles/Vol] 3.9 mmol/L Normal 3.5-5.1 [facility] [place] [facility] Comment on above: Performed By: #### B SECURITY SOLUTIONS ARCHITECT, LIPA, HSTROPN, CMP #### [facility] [place] [facility] [address] [place] [address] Dr. Alesia Argueta Protein [Mass/Vol] 7.8 g/dL Normal 6.4-8.2 [facility] Comment on above: Performed By: #### B SECURITY SOLUTIONS ARCHITECT, LIPA, HSTROPN, CMP #### [facility] [address] [place] [address] Dr. Alesia Argueta Sodium [Moles/Vol] 140 mmol/L Normal 136-145 [facility] Comment on above: Performed By: #### B SECURITY SOLUTIONS ARCHITECT, LIPA, HSTROPN, CMP #### [facility] [address] [place] [address] Dr. Alesia Argueta Urea nitrogen [Mass/Vol] 10.0 mg/dL Normal 7.0-18.0 [facility] Comment on above: Performed By: #### B SECURITY SOLUTIONS ARCHITECT, LIPA, HSTROPN, CMP #### [facility] [place] [facility] [address] [place] [address] Dr. Alesia Argueta Urea nitrogen/Creatinine [Mass ratio] 11.5 mg/mg Normal [facility] Comment on above: Performed By: #### B SECURITY SOLUTIONS ARCHITECT, LIPA, HSTROPN, CMP #### [facility] [address] [place] [address] Dr. Alesia Argueta TROPONIN, HIGH SENSITIVITYon 05-21-2022 HSTROP 6.9 pg/mL Normal 4.0-76.1 [facility] Comment on above: Result Comment: CUT- OFF POINTS HAVE BEEN ESTABLISHED BASED ON THE FOURTH UNIVERSAL DEFINITIONS OF MYOCARDIAL INFARCTION. THE UPPER REFERENCE LIMIT (URL) OF TROPONIN, DEFINED THE 99TH PERCENTILE OF cTnI DISTRIBUTION IN A REFERENCE POPULATION, HAS BEEN CONFIRMED THE DECISION THRESHOLD FOR [place] DIAGNOSIS. Performed By: #### B SECURITY SOLUTIONS ARCHITECT, LIPA, HSTROPN, CMP #### [facility] [address] [place], [place] [address] Dr. Alesia Argueta XR CHEST 1 Von [...] by: JAMARI CLARK Date: 2022-05-21 04:40 Normal [facility] XR TSPINE 2 VIEWSon 05-21-19 23 XR [...] by: YADI GOLDMAN Date: 2022-05-21 06:23 Normal [facility] Cholesterol [Mass/volume] in Serum or PlasmaOrdered By: Amrit Orozco on 03-07-2022 Cholesterol [Mass/Vol] 160 mg/dL 140-200 [facility] Comment on above: Chol less than 200 m g/dl low riskChol 201-239 mg/dl borderline riskChol 240 mg/dl and greater high risk Cholesterol in LDL Calc [Mas s/Vol]Ordered By: Amrit Orozco on 03-07-2022 Cholesterol in LDL [Mass/Vol] 77 mg/dL 0-100 [facility] Comment on above: LDL ATP III CLASSIFI CATIONLDL less than 100 mg/dL OptimalLDL 100-129 mg/dL Near or above optimalLDL 130-159 mg/dL Borderline highLDL 160-189 mg/dL HighLDL greater than 189 mg/dL Very high Cholesterol in VLDL Calc [Ma ss/Vol]Ordered By: Amrit Ernesto on 03-07-2022 Cholesterol in VLDL [Mass/Vol] 29 mg/dL [facility] Lipid Panelon 03-07-2022 Cholesterol [Mass/Vol] 160 mg/dL Normal 140-200 [facility] Comment on above: Result Comment: Chol less than 200 mg/dl low risk Chol 201-239 mg/dl borderline risk Chol 240 mg/dl and greater high risk Performed By: #### V [id number], TSH3 wRFLX, LIPID #### [facility] [address] [place] [address] [place] Cholesterol in HDL [Mass/Vol] 53 mg/dL Normal 29-71 [facility] Comment on above: Result Comment: HDL CHOL ATP-III CLASSIFICATION Cardiovascular Risk HDL > or equal to 60 mg/dL LOW HDL < 40 mg/dL HIGH Performed By: #### V [id number], TSH3 wRFLX, LIPID #### [facility] [address] [place] [address] [place] Cholesterol.total/Ch olesterol in HDL [Mass ratio] 3.0 {ratio} Normal <5.0 [facility] Comment on above: Performed By: #### V [id number], TSH3 wRFLX, LIPID #### [facility] [address] [place] [address] [place] LDL Cholesterol,Calculat ed 77 mg/dL Normal 0-100 [facility] Comment on above: Result Comment: LDL ATP III CLASSIFICATION LDL less than 100 mg/dL Optimal LDL 100-129 mg/dL Near or above optimal LDL 130-159 mg/dL Borderline high LDL 160-189 mg/dL High LDL greater than 189 mg/dL Very high Performed By: #### V [id number], TSH3 wRFLX, LIPID #### [facility] [address] [place] [address] [place] Triglyceride w/Reflex 148 mg/dL Normal 35-149 [facility] Comment on above: Result Comment: TRIG ATP III CLASSIFICATION TRIG less than 150 mg/dL Normal TRIG 150-199 mg/dL Borderline high TRIG 200-500 mg/dL High TRIG greater than 500 mg/dL Very high Standard traceable to the Center for Disease Conrtrol and Prevention (CDC) test method. Performed By: #### V [id number], TSH3 wRFLX, LIPID #### [facility] [address] [place] [id number] [place] VLDL CHOLESTEROL 29 mg/dL Normal [facility] Comment on above: Performed By: #### V [id number], TSH3 wRFLX, LIPID #### [facility] [address] No Panel InformationOrdered By: Amrit Orozco on 03-07-2022 25-Hydroxy Vitamin D Total 12.6 ng/mL 30-100 [facility] Comment on above: VITAMIN D STATUS 25( [...] Cholesterol in HDL [Mass/Vol] 53 mg/dL 29-71 [facility] Comment on above: HDL CHOL ATP-III CLA SSIFICATION Cardiovascular RiskHDL > or equal to 60 mg/dL LOWHDL < 40 mg/dL HIGH Serum or plasma total choles terol/high density lipoprotein (HDL) cholesterol mass ratOrdered By: Amrit Orozco on 03-07-2022 Cholesterol.total/Ch olesterol in HDL [Mass ratio] 3.0 {ratio} <5.0 [facility] TSH DL <= 0.005 mIU/L QnOrde red By: Amrit Orozco on 03-07-2022 TSH Qn 1.05 m[IU]/L 0.45-5.33 [facility] Thyroid Stim Hormone w/Rflxo n 03-07-2022 Thyroid Stim Hormone w/Rflx 1.05 u[iU]/mL Normal 0.45-5.33 [facility] Comment on above: Performed By: #### V [id number], TSH3 wRFLX, LIPID #### [facility] [address] [place] [id number] [facility] Triglyceride [Mass/volume] i n Serum or PlasmaOrdered By: Amrit Orozco on 03-07-2022 Triglyceride [Mass/Vol] 148 mg/dL 35-149 [facility] Comment on above: TRIG ATP III CLASSIF ICATIONTRIG less than 150 mg/dL NormalTRIG 150-199 mg/dL Borderline highTRIG 200-500 mg/dL High TRIG greater than 500 mg/dL Very highStandard traceable to the Center for Disease Conrtrol and Prevention (CDC) test method. Vitamin D 25 Hydroxy Totalon 03-07-2022 Vitamin D 25 Hydroxy Total 12.6 ng/mL Low 30-100 [facility] Comment on above: Result Comment: DILEEP MIN D STATUS 25(OH)VITAMIN D RANGE (ng/mL) Deficient <20 Insufficient 20 to <30 Sufficient 30 to 100 Reference: Marcus MF,Juan NC, Dagmar FALL, et al. Evaluation,treatment, and prevention of vitamin D deficiency; an Endocrine Society clinical practice guideline. JCEM. 2010; 96(7):1911-30. PERFORMED BY: [facility] [address] [place] [address] PATHOLOGIST WELDING MACHINE OPERATOR HELPER ARC TOM VALDES M.D. Performed By: #### V [id number], TSH3 wRFLX, LIPID #### [facility] [address] [place] [id number] [facility] ACETAMINOPHENon 03-06-2022 Acetaminophen [Mass/Vol] ug/mL Critically low 10.0-30.0 [facility] Comment on above: Performed By: #### B SECURITY SOLUTIONS ARCHITECT, LIPA, HSTROPN, CMP #### [facility] [address] [place] [address] Dr. Alesia Argueta BNPon 03-06-2022 Natriuretic peptide B (Bld) [Mass/Vol] 37.0 pg/mL Normal <=900.0 [facility] Comment on above: Performed By: #### B SECURITY SOLUTIONS ARCHITECT, LIPA, HSTROPN, CMP #### [facility] [place] [facility] [address] [place] [address] Dr. Alesia Argueta CBC AUTO DIFFon 03-06-2022 BASO # 0.0 103/ul Normal 0.0-0.1 [facility] Comment on above: Performed By: #### B SECURITY SOLUTIONS ARCHITECT, LIPA, HSTROPN, CMP #### [facility] [place] [facility] [address] [place] [address] Dr. Alesia Argueta Basophils/100 WBC (Bld) 0.3 % Normal 0.2-2.0 [facility] Comment on above: Performed By: #### B SECURITY SOLUTIONS ARCHITECT, LIPA, HSTROPN, CMP #### [facility] [place] [facility] [address] [place] [address] Dr. Alesia Argueta EO # 0.1 103/ul Normal 0.0-0.7 [facility] Comment on above: Performed By: #### B SECURITY SOLUTIONS ARCHITECT, LIPA, HSTROPN, CMP #### [facility] [place] [facility] [address] [place] [address] Dr. Alesia Argueta Eosinophils/100 WBC (Bld) 1.2 % Normal 0.9-7.0 [facility] Comment on above: Performed By: #### B SECURITY SOLUTIONS ARCHITECT, LIPA, HSTROPN, CMP #### [facility] [address] [place] [address] Dr. Alesia Argueta Erythrocyte distribution width (RBC) [Ratio] 12.9 % Normal 11.0-15.0 [facility] Comment on above: Performed By: #### B SECURITY SOLUTIONS ARCHITECT, LIPA, HSTROPN, CMP #### [facility] [address] [place] [address] Dr. Alesia Argueta Hematocrit (Bld) [Volume fraction] 48.9 % Normal 42.0-54.0 [facility] Comment on above: Performed By: #### B SECURITY SOLUTIONS ARCHITECT, LIPA, HSTROPN, CMP #### [facility] [address] [place] [address] Dr. Alesia Argueta Hemoglobin (Bld) [Mass/Vol] 17.0 g/dL Normal 14.0-18.0 [facility] Comment on above: Performed By: #### B SECURITY SOLUTIONS ARCHITECT, LIPA, HSTROPN, CMP #### [facility] [place] [facility] [address] [place] [address] Dr. Alesia Argueta IG # 0.02 10e3/ul Normal 0.00-0.03 [facility] Comment on above: Performed By: #### B SECURITY SOLUTIONS ARCHITECT, LIPA, HSTROPN, CMP #### [facility] [place] [facility] [address] [place] [address] Dr. Alesia Argueta IG % 0.2 % Normal 0.0-0.5 [facility] Comment on above: Performed By: #### B SECURITY SOLUTIONS ARCHITECT, LIPA, HSTROPN, CMP #### [facility] [address] [place] [address] Dr. Alesia Argueta LYMPH # 2.0 103/ul Normal 1.2-3.8 [facility] [place] [facility] Comment on above: Performed By: #### B SECURITY SOLUTIONS ARCHITECT, LIPA, HSTROPN, CMP #### [facility] [place] [facility] [address] [place] [address] Dr. Alesia Argueta Lymphocytes/100 WBC (Bld) 22.0 % Normal 20.5-60.0 [facility] Comment on above: Performed By: #### B SECURITY SOLUTIONS ARCHITECT, LIPA, HSTROPN, CMP #### [facility] [place] [facility] [address] [place] [address] Dr. Alesia Argueta MANUAL DIFF REQ NO Normal [facility] [place] [facility] Comment on above: Performed By: #### B SECURITY SOLUTIONS ARCHITECT, LIPA, HSTROPN, CMP #### [facility] [place] [facility] [address] [place] [address] Dr. Alesia Argueta MCH (RBC) [Entitic mass] 31.8 pg Normal 25.9-34.0 [facility] Comment on above: Performed By: #### B SECURITY SOLUTIONS ARCHITECT, LIPA, HSTROPN, CMP #### [facility] [place] [facility] [address] [place] [address] Dr. Alesia Argueta MCHC (RBC) [Mass/Vol] 34.8 g/dL Normal 29.9-35.2 [facility] [place] [facility] Comment on above: Performed By: #### B SECURITY SOLUTIONS ARCHITECT, LIPA, HSTROPN, CMP #### [facility] [place] [facility] [address] [place] [address] Dr. Alesia Argueta MCV (RBC) [Entitic vol] 91.6 fL Normal 80.0-94.0 [facility] [place] [facility] Comment on above: Performed By: #### B SECURITY SOLUTIONS ARCHITECT, LIPA, HSTROPN, CMP #### [facility] [place] [facility] [address] [place] [address] Dr. Alesia Argueta MONO # 0.5 103/ul Normal 0.3-0.8 [facility] [place] [facility] Comment on above: Performed By: #### B SECURITY SOLUTIONS ARCHITECT, LIPA, HSTROPN, CMP #### [facility] [place] [facility] [address] [place] [address] Dr. Alesia Argueta Monocytes/100 WBC (Bld) 5.9 % Normal 1.7-12.0 [facility] [place] [facility] Comment on above: Performed By: #### B SECURITY SOLUTIONS ARCHITECT, LIPA, HSTROPN, CMP #### [facility] [place] [facility] [address] [place] [address] Dr. Alesia Argueta NEUT # 6.3 103/ul Normal 1.4-6.5 [facility] Comment on above: Performed By: #### B SECURITY SOLUTIONS ARCHITECT, LIPA, HSTROPN, CMP #### [facility] [place] [facility] [address] [place] [address] Dr. Alesia Argueta Neutrophils/100 WBC (Bld) 70.4 % Normal 43.0-75.0 [facility] Comment on above: Performed By: #### B SECURITY SOLUTIONS ARCHITECT, LIPA, HSTROPN, CMP #### [facility] [address] [place] [address] Dr. Alesia Argueta Platelet mean volume (Bld) [Entitic vol] 10.0 fL Normal 9.5-13.5 [facility] [place] [facility] Comment on above: Performed By: #### B SECURITY SOLUTIONS ARCHITECT, LIPA, HSTROPN, CMP #### [facility] [place] [facility] [address] [place], [place] [address] Dr. Alesia Argueta PLT 268 103/ul Normal 150-450 [facility] [place] [facility] Comment on above: Performed By: #### B SECURITY SOLUTIONS ARCHITECT, LIPA, HSTROPN, CMP #### [facility] [place] [facility] [address] [place] [address] [address] Alesia Argeuta RBC 5.34 106/ul Normal 4.70-6.10 [facility] [place] [facility] Comment on above: Performed By: #### B SECURITY SOLUTIONS ARCHITECT, LIPA, HSTROPN, CMP #### [facility] [place] [facility] [address] [place], [place] [address] Dr. Alesia Argueta WBC 9.0 103/ul Normal 4.0-11.0 [facility] Comment on above: Performed By: #### B SECURITY SOLUTIONS ARCHITECT, LIPA, HSTROPN, CMP #### [facility] [address] [place] [address] [address] Alesia Argueta CTA CHEST WO W [...] PASCUAL TRISTAN Date: 2022-03-06 14:38 Normal [facility] Covid-19 PCR (CVDTBH)on 02-24 SARS-CoV-2 (COVID-19) RNA RICKI+probe Ql (Unsp spec) Not detected Normal NOT DETECTED [facility] [place] [facility] Comment on above: Result Comment: [...] for this test is supported by the Collateral Analyst of Health and Human Service's declaration that [...] used). Performed By: #### C VDTBH #### [facility] [address] [place] [address] Dr. Alesia Argueta D-DIMERon 03-06-2022 D-DIMER 0.69 mg/L FEU Critically high <=0.59 [facility] Comment on above: Performed By: #### D DIM #### [facility] [address] [place] [address] Dr. Alesia Argueta D-DIMER COMMENTS SEE BELOW Normal [facility] [place] [facility] Comment on above: Result Comment: [...] hospitalization. Performed By: #### D DIM #### [facility] [address] [place] [address] Dr. Alesia Argueta DRUG SCREEN RAPID (URINE)on 03-06-2022 AMP Negative Normal NEGATIVE [facility] Comment on above: Performed By: #### E RUR, DRUGRPD #### [facility] [address] [place] [address] Dr. Alesia Argueta BAR Negative Normal NEGATIVE [facility] Comment on above: Performed By: #### E RUR, DRUGRPD #### [facility] [address] [place] [address] Dr. Alesia Argueta BUP Negative Normal NEGATIVE [facility] Comment on above: Performed By: #### E RUR, DRUGRPD #### [facility] [place] [facility] [address] [place] [address] Dr. Alesia Argueta BZO Negative Normal NEGATIVE [facility] Comment on above: Performed By: #### E RUR, DRUGRPD #### [facility] [address] [place] [address] Dr. Alesia Argueta LILIANA Negative Normal NEGATIVE [facility] Comment on above: Performed By: #### E RUR, DRUGRPD #### [facility] [place] [facility] [address] [place] [address] Dr. Alesia Argueta CUT-OFFS SEE BELOW Normal [facility] [place] [facility] Comment on above: Result Comment: [...] Performed By: #### E RUR, DRUGRPD #### [facility] [place] [facility] [address] [place] [address] Dr. Alesia Argueta DRUG CUT HEADER DRUG CLASS TEST SYST EM CUT-OFF CONCENTRATIONS ARE FOLLOWS: Normal [facility] [place] [facility] Comment on above: Performed By: #### E RUR, DRUGRPD #### [facility] [place] [facility] [address] [place] [address] Dr. Alesia Argueta mAMP Negative Normal NEGATIVE [facility] Comment on above: Performed By: #### E RUR, DRUGRPD #### [facility] [place] [facility] [address] [place] [address] Dr. Alesia Argueta MTD Negative Normal NEGATIVE [facility] [place] [facility] Comment on above: Performed By: #### E RUR, DRUGRPD #### [facility] [place] [facility] [address] [place] [address] Dr. Alesia Argueta OPI Negative Normal NEGATIVE [facility] Comment on above: Performed By: #### E RUR, DRUGRPD #### [facility] [place] [facility] [address] [place] [address] Dr. Alesia Argueta OXY Negative Normal NEGATIVE [facility] Comment on above: Performed By: #### E RUR, DRUGRPD #### [facility] [place] [facility] [address] [place] [address] Dr. Alesia Argueta PCP Negative Normal NEGATIVE [facility] Comment on above: Performed By: #### E RUR, DRUGRPD #### [facility] [address] [place] [address] Dr. Alesia Argueta PPX Negative Normal NEGATIVE [facility] Comment on above: Performed By: #### E RUR, DRUGRPD #### [facility] [place] [facility] [address] [place] [address] Dr. Alesia Argueta TCA Negative Normal NEGATIVE [facility] Comment on above: Performed By: #### E RUR, DRUGRPD #### [facility] [place] [facility] [address] [place] [address] Dr. Alesia Argueta THC Negative Normal NEGATIVE [facility] Comment on above: Performed By: #### E RUR, DRUGRPD #### [facility] [address] [place] [address] Dr. Alesia Argueta ER URINE PROFILEon 2 Bilirubin Ql (U) Negative Normal NEGATIVE [facility] Comment on above: Performed By: #### E RUR, DRUGRPD #### [facility] [address] [place] [address] Dr. Alesia Argueta Clarity (U) CLEAR Normal CLEAR [facility] Comment on above: Performed By: #### E RUR, DRUGRPD #### [facility] [address] [place] [address] Dr. Alesia Argueta Color (U) LT. YELLOW Normal YELLOW [facility] Comment on above: Performed By: #### E RUR, DRUGRPD #### [facility] [address] [place] [address] Dr. Alesia Argueta ERUAHD A micrscopic examina tion will be performed if indicated. Normal [facility] Comment on above: Performed By: #### E RUR, DRUGRPD #### [facility] [address] [place] [address] Dr. Alesia Argueta Glucose Ql (U) Negative Normal NEGATIVE [facility] Comment on above: Performed By: #### E RUR, DRUGRPD #### [facility] [address] [place] [address] Dr. Alesia Argueta Hemoglobin Ql (U) Negative Normal NEGATIVE [facility] Comment on above: Performed By: #### E RUR, DRUGRPD #### [facility] [address] [place] [address] Dr. Alesia Argueta Ketones Ql (U) Negative Normal NEGATIVE [facility] Comment on above: Performed By: #### E RUR, DRUGRPD #### [facility] [address] [place] [address] Dr. Alesia Argueta LEUKOCYTES Negative Normal NEGATIVE [facility] Comment on above: Performed By: #### E RUR, DRUGRPD #### [facility] [address] [place] [address] Dr. Alesia Argueta Nitrite Ql (U) Negative Normal NEGATIVE [facility] Comment on above: Performed By: #### E RUR, DRUGRPD #### [facility] [address] [place] [address] Dr. Alesia Argueta pH (U) 7.0 [pH] Normal 5-9 [facility] Comment on above: Performed By: #### Prudence MCDONALD DRUGRPD #### [facility] [place] [facility] [address] [place] [address] Dr. Alesia Argueta SPEC GRAVITY 1.010 Normal 1.005-<=1. 025 [facility] Comment on above: Performed By: #### Prudence MCDONALD DRUGRPD #### [facility] [address] [place] [address] Dr. Alesia Argueta UA PROTEIN Negative Normal NEGATIVE/ TRACE [facility] Comment on above: Performed By: #### Prudence MCDONALD DRUGRPD #### [facility] [place] [facility] [address] [place] [address] Dr. Alesia Argueta UR MICRO IND NOT INDICATED Normal [facility] Comment on above: Performed By: #### Prudence MCDONALD DRUGRPD #### [facility] [address] [place] [address] Dr. Alesia Argueta Urobilinogen Qn (U) 0.2 {Cole'U}/dL Normal 0.2 - 1. 0 [facility] Comment on above: Performed By: #### Prudence MCDONALD DRUGRPD #### [facility] [address] [place] [address] Dr. Alesia Argueta ETHANOL (BLD ALC)on 03-06-20 22 ALC NOTE NOTE: 80 mg/dl is th e legal limit for a blood alcohol level Normal [facility] Comment on above: Performed By: #### E TH #### [facility] [address] [place] [address] Dr. Alesia Argueta Ethanol [Mass/Vol] mg/dL Normal [facility] Comment on above: Performed By: #### E TH #### [facility] [address] [place] [address] Dr. Alesia Argueta LIPASEon 03-06-2022 Lipase [Catalytic activity/Vol] 210.0 U/L Normal 73.0-393.0 [facility] Comment on above: Performed By: #### B SECURITY SOLUTIONS ARCHITECT, LIPA, HSTROPN, CMP #### [facility] [address] [place] [address] Dr. Alesia Argueta PROF 14(COMP METB)on 022 Albumin [Mass/Vol] 3.6 g/dL Normal 3.4-5.0 [facility] Comment on above: Performed By: #### B SECURITY SOLUTIONS ARCHITECT, LIPA, HSTROPN, CMP #### [facility] [address] [place] [address] Dr. Alesia Argueta Albumin/Globulin [Mass ratio] 0.8 {ratio} Normal [facility] Comment on above: Performed By: #### B SECURITY SOLUTIONS ARCHITECT, LIPA, HSTROPN, CMP #### [facility] [address] [place] [address] Dr. Alesia Argueta ALP [Catalytic activity/Vol] 87 U/L Normal 46-116 [facility] Comment on above: Performed By: #### B SECURITY SOLUTIONS ARCHITECT, LIPA, HSTROPN, CMP #### [facility] [address] [place] [address] Dr. Alesia Argueta ALT [Catalytic activity/Vol] 19 U/L Normal 16-63 [facility] Comment on above: Performed By: #### B SECURITY SOLUTIONS ARCHITECT, LIPA, HSTROPN, CMP #### [facility] [address] [place] [address] Dr. Alesia Argueta Anion gap [Moles/Vol] 8.6 mmol/L Normal [facility] Comment on above: Performed By: #### B SECURITY SOLUTIONS ARCHITECT, LIPA, HSTROPN, CMP #### [facility] [address] [place] [address] Dr. Alesia Argueta AST [Catalytic activity/Vol] 19 U/L Normal 15-37 [facility] Comment on above: Performed By: #### B SECURITY SOLUTIONS ARCHITECT, LIPA, HSTROPN, CMP #### [facility] [address] [place] [address] Dr. Alesia Argueta Bilirubin [Mass/Vol] 0.8 mg/dL Normal 0.2-1.0 [facility] Comment on above: Performed By: #### B SECURITY SOLUTIONS ARCHITECT, LIPA, HSTROPN, CMP #### [facility] [address] [place] [address] Dr. Alesia Argueta Calcium [Mass/Vol] 9.0 mg/dL Normal 8.5-10.1 [facility] Comment on above: Performed By: #### B SECURITY SOLUTIONS ARCHITECT, LIPA, HSTROPN, CMP #### [facility] [address] [place] [address] Dr. Alesia Argueta Chloride [Moles/Vol] 100 mmol/L Normal 98-107 [facility] Comment on above: Performed By: #### B SECURITY SOLUTIONS ARCHITECT, LIPA, HSTROPN, CMP #### [facility] [address] [place] [address] Dr. Alesia Argueta CO2 [Moles/Vol] 29.9 mmol/L Normal 21.0-32.0 [facility] Comment on above: Performed By: #### B SECURITY SOLUTIONS ARCHITECT, LIPA, HSTROPN, CMP #### [facility] [address] [place] [address] Dr. Alesia Argueta Creatinine [Mass/Vol] 1.00 mg/dL Normal 0.70-1.30 [facility] Comment on above: Performed By: #### B SECURITY SOLUTIONS ARCHITECT, LIPA, HSTROPN, CMP #### [facility] [address] [place] [address] Dr. Alesia Argueta EGFR-AF P[place] >60 Normal >=60 [facility] Comment on above: Performed By: #### B SECURITY SOLUTIONS ARCHITECT, LIPA, HSTROPN, CMP #### [facility] [address] [place] [address] Dr. Alesia Argueta EGFR-NON AF [place] >60 Normal >=60 [facility] Comment on above: Performed By: #### B SECURITY SOLUTIONS ARCHITECT, LIPA, HSTROPN, CMP #### [facility] [address] [place] [address] Dr. Alesia Argueta Globulin (S) [Mass/Vol] 4.3 g/dL Normal [facility] Comment on above: Performed By: #### B SECURITY SOLUTIONS ARCHITECT, LIPA, HSTROPN, CMP #### [facility] [address] [place] [address] Dr. Alesia Argueta Glucose [Mass/Vol] 116 mg/dL Critically high 74-106 T [facility] Comment on above: Performed By: #### B SECURITY SOLUTIONS ARCHITECT, LIPA, HSTROPN, CMP #### [facility] [address] [place] [address] Dr. Alesia Argueta Potassium [Moles/Vol] 3.5 mmol/L Normal 3.5-5.1 [facility] Comment on above: Performed By: #### B SECURITY SOLUTIONS ARCHITECT, LIPA, HSTROPN, CMP #### [facility] [address] [place] [address] Dr. Alesia Argueta Protein [Mass/Vol] 7.9 g/dL Normal 6.4-8.2 [facility] Comment on above: Performed By: #### B SECURITY SOLUTIONS ARCHITECT, LIPA, HSTROPN, CMP #### [facility] [address] [place] [address] Dr. Alesia Argueta Sodium [Moles/Vol] 135 mmol/L Critically low 136-145 Th [facility] Comment on above: Performed By: #### B SECURITY SOLUTIONS ARCHITECT, LIPA, HSTROPN, CMP #### [facility] [address] [place] [address] Dr. Alesia Argueta Urea nitrogen [Mass/Vol] 9.0 mg/dL Normal 7.0-18.0 [facility] Comment on above: Performed By: #### B SECURITY SOLUTIONS ARCHITECT, LIPA, HSTROPN, CMP #### [facility] [place] [facility] [address] [place] [address] Dr. Alesia Argueta Urea nitrogen/Creatinine [Mass ratio] 9.0 mg/mg Normal [facility] Comment on above: Performed By: #### B SECURITY SOLUTIONS ARCHITECT, LIPA, HSTROPN, CMP #### [facility] [address] [place] [address] Dr. Alesia Argueta SALICYLATEon 03-06-2022 SALICYLATE <2.8 Normal <=19.9 [facility] Comment on above: Performed By: #### B SECURITY SOLUTIONS ARCHITECT, LIPA, HSTROPN, CMP #### [facility] [address] [place] [address] Dr. Alesia Argueta TROPONIN, HIGH SENSITIVITYon 03-06-2022 HSTROP 8.4 pg/mL Normal 4.0-76.1 [facility] Comment on above: Result Comment: CUT- OFF POINTS HAVE BEEN ESTABLISHED BASED ON THE FOURTH UNIVERSAL DEFINITIONS OF MYOCARDIAL INFARCTION. THE UPPER REFERENCE LIMIT (URL) OF TROPONIN, DEFINED THE 99TH PERCENTILE OF cTnI DISTRIBUTION IN A REFERENCE POPULATION, HAS BEEN CONFIRMED THE DECISION THRESHOLD FOR [place] DIAGNOSIS. Performed By: #### B SECURITY SOLUTIONS ARCHITECT, LIPA, HSTROPN, CMP #### [facility] [address] [address] [address] Alesia Argueta ECG 12 lead ECGon 03-02-2022 ECG 12 [place] [address] Electrocardiograph Report Signed Patient: Fartun Elliott JR MR#: [id number] : 1970 Acct:[id number] Age/Sex: 52 / M ADM Date: 03/02/22 Loc: ER Room: Type: [facility] ER Attending Dr: Ordering Provider: [...] Signed By Marce Roblero DO 000 Normal [facility] XR chest 2V*on 03-02-2022 XR chest 2V* [place] [id number] XRay Report Signed Patient: Fartun Elliott JR MR#: [id number] : 1970 Acct:[id number] Age/Sex: 52 / M ADM Date: 03/02/22 [...] Mony Rolon M.D.03/02/2022 12:50 PM Dictation Location: [place] [address] Transcribed By: [facility] 03/02/22 1250 Dictated By: Mony Rolon MD 03/02/22 1242 Signed By: 03/02/[address] [facility] CT ABD/PELV W CONon 11-26-19 CT [...] ISABELLE LEÓN Date: 2021-11-25 00:10 Normal [facility] AMYLASEon 11-24-2021 Amylase [Catalytic activity/Vol] 38 U/L Normal 25-115 [facility] Comment on above: Performed By: #### B SECURITY SOLUTIONS ARCHITECT, LIPA, HSTROPN, CMP #### [facility] [address] [place] [address] Dr. Alesia Argueta CARDIAC SHEA ADMITon 022 CK [Catalytic activity/Vol] 141 U/L Normal 39-308 [facility] Comment on above: Performed By: #### B SECURITY SOLUTIONS ARCHITECT, LIPA, HSTROPN, CMP #### [facility] [address] [place] [address] Dr. Alesia Argueta CK.MB [Mass/Vol] 0.50 ng/mL Normal <=3.60 [facility] Comment on above: Performed By: #### B SECURITY SOLUTIONS ARCHITECT, LIPA, HSTROPN, CMP #### [facility] [address] [place] [address] Dr. Alesia Argueta HSTROP 6.4 pg/mL Normal 4.0-76.1 [facility] Comment on above: Result Comment: CUT- OFF POINTS HAVE BEEN ESTABLISHED BASED ON THE FOURTH UNIVERSAL DEFINITIONS OF MYOCARDIAL INFARCTION. THE UPPER REFERENCE LIMIT (URL) OF TROPONIN, DEFINED THE 99TH PERCENTILE OF cTnI DISTRIBUTION IN A REFERENCE POPULATION, HAS BEEN CONFIRMED THE DECISION THRESHOLD FOR [place] DIAGNOSIS. Performed By: #### B SECURITY SOLUTIONS ARCHITECT, LIPA, HSTROPN, CMP #### [facility] [address] [place] [address] Dr. Alesia Argueta HAWK 56 ng/mL Normal 16-96 [facility] Comment on above: Performed By: #### B SECURITY SOLUTIONS ARCHITECT, LIPA, HSTROPN, CMP #### [facility] [address] [place] [address] Dr. Alesia Argueta CBC W MANUAL DIFFon 11-25-19 22 ATYPICAL LYMPH # Normal [facility] Comment on above: Performed By: #### C BCMAN #### [facility] [address] [place] [address] Dr. Alesia Argueta ATYPICAL LYMPH % Normal [facility] Comment on above: Performed By: #### C BCMAN #### [facility] [address] [place] [address] Dr. Alesia Argueta BAND # Normal 0.0-0.3 [facility] Comment on above: Performed By: #### C BCMAN #### [facility] [address] [place] [address] Dr. Alesia Argueta BAND % Normal 0-5 [facility] Comment on above: Performed By: #### C BCMAN #### [facility] [address] [place] [address] Dr. Alesia Argueta BASOM # 0.00 103/ul Normal 0.00-0.10 [facility] Comment on above: Performed By: #### C BCMAN #### [facility] [address] [place] [address] Dr. Alesia Argueta BASOM % 0.0 % Critically low 0.2-2.0 [facility] Comment on above: Performed By: #### C BCRANJITH #### [facility] [address] [place] [address] Dr. Alesia Argueta BLAST # Normal [facility] Comment on above: Performed By: #### C BCMAN #### [facility] [address] [place] [address] Dr. Alesia Argueta BLAST % Normal [facility] Comment on above: Performed By: #### C BCRANJITH #### [facility] [address] [place] [address] Dr. Alesia Argueta CORRECTED WBC Normal 4.0-11.0 [facility] Comment on above: Performed By: #### C BCMAN #### [facility] [address] [place] [address] Dr. Alesia Argueta EOS # 0.13 103/ul Normal 0.00-0.70 [facility] Comment on above: Performed By: #### C BCMAN #### [facility] [address] [place] [address] Dr. Alesia Argueta EOS% 1.0 % Normal 0.9-7.0 [facility] Comment on above: Performed By: #### C KT #### [facility] [address] [address] [address] Alesia Argueta HCT 52.7 % Normal 42.0-54.0 [facility] Comment on above: Performed By: #### C KT #### [facility] [address] [address] [address] Alesia Argueta HGB 18.0 g/dl Normal 14.0-18.0 [facility] Comment on above: Performed By: #### C KT #### [facility] [address] [address] [address] Alesia Argueta LYMPHM # 0.38 103/ul Critically low 1.20-3.80 [facility] Comment on above: Performed By: #### C KT #### [facility] [address] [place] [address] Dr. Alesia Argueta LYMPHM% 3.0 % Critically low 20.5-60.0 [facility] Comment on above: Performed By: #### C KT #### [facility] [address] [place] [address] Dr. Alesia Argueta MCH 31.5 pg Normal 25.9-34.0 [facility] Comment on above: Performed By: #### C KT #### [facility] [address] [place] [address] Dr. Alesia Argueta MCHC 34.2 g/dl Normal 29.9-35.2 [facility] Comment on above: Performed By: #### C KT #### [facility] [address] [place] [address] Dr. Alesia Argueta MCV 92.1 fL Normal 80.0-94.0 [facility] Comment on above: Performed By: #### C BCRANJITH #### [facility] [address] [place] [address] Dr. Alesia Argueta METAMYELOCYTE # Normal [facility] Comment on above: Performed By: #### C KT #### [facility] [address] [place] [address] Dr. Alesia Argueta METAMYELOCYTE % Normal [facility] Comment on above: Performed By: #### C BCMAN #### [facility] [address] [address] [address] Alesia Argueta MONOM# 0.38 103/ul Normal 0.30-0.80 [facility] Comment on above: Performed By: #### C BCMAN #### [facility] [address] [address] [address] Alesia Argueta MONOM% 3.0 % Normal 1.7-12.0 [facility] Comment on above: Performed By: #### C BCMAN #### [facility] [address] [address] [address] Alesia Argueta MPV 9.1 fL Critically low 9.5-13.5 [facility] Comment on above: Performed By: #### C BCMAN #### [facility] [address] [place] [address] Dr. Alesia Argueta MYELOCYTE # Normal [facility] Comment on above: Performed By: #### C BCRANJITH #### [facility] [address] [place] [address] Dr. Alesia Argueta MYELOCYTE % Normal [facility] Comment on above: Performed By: #### C BCMAN #### [facility] [address] [place] [address] Dr. Alesia Argueta NRBC Normal [facility] Comment on above: Performed By: #### C BCRANJITH #### [facility] [address] [place] [address] Dr. Alesia Argueta PLT 290 103/ul Normal 150-450 [facility] Comment on above: Performed By: #### C BCMAN #### [facility] [address] [address] [address] Alesia Argueta RBC 5.72 106/ul Normal 4.70-6.10 [facility] Comment on above: Performed By: #### C BCMAN #### [facility] [address] [address] [address] Alesia Argueta RDW 14.5 % Normal 11.0-15.0 [facility] Comment on above: Performed By: #### C KT #### [facility] [address] [address] [address] Alesia Argueta SEG # 11.72 103/ul Critically high 1.40-6.50 [facility] Comment on above: Performed By: #### C KT #### [facility] [address] [place] [address] Dr. Alesia Argueta SEG % 93.0 % Critically high 43.0-75.0 [facility] Comment on above: Performed By: #### C KT #### [facility] [address] [place] [address] Dr. Alesia Argueta WBC 12.6 103/ul Critically high 4.0-11.0 [facility] Comment on above: Performed By: #### C KT #### [facility] [address] [place] [address] Dr. Alesia Argueta LIPASEon 11-24-2021 Lipase [Catalytic activity/Vol] 160.0 U/L Normal 73.0-393.0 [facility] Comment on above: Performed By: #### B SECURITY SOLUTIONS ARCHITECT, LIPA, HSTROPN, CMP #### [facility] [address] [place] [address] Dr. Alesia Argueta PROF 14(COMP METB)on 022 Albumin [Mass/Vol] 3.3 g/dL Critically low 3.4-5.0 [facility] Comment on above: Performed By: #### B SECURITY SOLUTIONS ARCHITECT, LIPA, HSTROPN, CMP #### [facility] [address] [place] [address] Dr. Alesia Argueta Albumin/Globulin [Mass ratio] 0.8 {ratio} Normal [facility] Comment on above: Performed By: #### B SECURITY SOLUTIONS ARCHITECT, LIPA, HSTROPN, CMP #### [facility] [address] [place] [address] Dr. Alesia Argueta ALP [Catalytic activity/Vol] 85 U/L Normal 46-116 [facility] Comment on above: Performed By: #### B SECURITY SOLUTIONS ARCHITECT, LIPA, HSTROPN, CMP #### [facility] [address] [place] [address] Dr. Alesia Argueta ALT [Catalytic activity/Vol] 24 U/L Normal 16-63 [facility] Comment on above: Performed By: #### B SECURITY SOLUTIONS ARCHITECT, LIPA, HSTROPN, CMP #### [facility] [address] [place] [address] Dr. Alesia Argueta Anion gap [Moles/Vol] 13.8 mmol/L Normal [facility] Comment on above: Performed By: #### B SECURITY SOLUTIONS ARCHITECT, LIPA, HSTROPN, CMP #### [facility] [address] [place] [address] Dr. Alesia Argueta AST [Catalytic activity/Vol] 29 U/L Normal 15-37 [facility] Comment on above: Performed By: #### B SECURITY SOLUTIONS ARCHITECT, LIPA, HSTROPN, CMP #### [facility] [address] [place] [address] Dr. Alesia Argueta Bilirubin [Mass/Vol] 0.9 mg/dL Normal 0.2-1.0 [facility] Comment on above: Performed By: #### B SECURITY SOLUTIONS ARCHITECT, LIPA, HSTROPN, CMP #### [facility] [address] [place] [address] Dr. Alesia Argueta Calcium [Mass/Vol] 8.6 mg/dL Normal 8.5-10.1 [facility] Comment on above: Performed By: #### B SECURITY SOLUTIONS ARCHITECT, LIPA, HSTROPN, CMP #### [facility] [address] [place] [address] Dr. Alesia Argueta Chloride [Moles/Vol] 103 mmol/L Normal 98-107 [facility] Comment on above: Performed By: #### B SECURITY SOLUTIONS ARCHITECT, LIPA, HSTROPN, CMP #### [facility] [address] [place] [address] Dr. Alesia Argueta CO2 [Moles/Vol] 28.1 mmol/L Normal 21.0-32.0 [facility] Comment on above: Performed By: #### B SECURITY SOLUTIONS ARCHITECT, LIPA, HSTROPN, CMP #### [facility] [address] [place] [address] Dr. Alesia Argueta Creatinine [Mass/Vol] 0.96 mg/dL Normal 0.70-1.30 [facility] Comment on above: Performed By: #### B SECURITY SOLUTIONS ARCHITECT, LIPA, HSTROPN, CMP #### [facility] [address] [place] [address] Dr. Alesia Argueta EGFR-AF [place] >60 Normal >=60 [facility] Comment on above: Performed By: #### B SECURITY SOLUTIONS ARCHITECT, LIPA, HSTROPN, CMP #### [facility] [address] [place] [address] Dr. Alesia Argueta EGFR-NON AF [place] >60 Normal >=60 [facility] Comment on above: Performed By: #### B SECURITY SOLUTIONS ARCHITECT, LIPA, HSTROPN, CMP #### [facility] [address] [place] [address] Dr. Alesia Argueta Globulin (S) [Mass/Vol] 4.1 g/dL Normal [facility] Comment on above: Performed By: #### B SECURITY SOLUTIONS ARCHITECT, LIPA, HSTROPN, CMP #### [facility] [address] [place] [address] Dr. Alesia Argueta Glucose [Mass/Vol] 115 mg/dL Critically high 74-106 T [facility] Comment on above: Performed By: #### B SECURITY SOLUTIONS ARCHITECT, LIPA, HSTROPN, CMP #### [facility] [address] [place] [address] Dr. Alesia Argueta Potassium [Moles/Vol] 3.9 mmol/L Normal 3.5-5.1 [facility] Comment on above: Performed By: #### B SECURITY SOLUTIONS ARCHITECT, LIPA, HSTROPN, CMP #### [facility] [address] [place] [address] Dr. Alesia Argueta Protein [Mass/Vol] 7.4 g/dL Normal 6.4-8.2 [facility] Comment on above: Performed By: #### B SECURITY SOLUTIONS ARCHITECT, LIPA, HSTROPN, CMP #### [facility] [address] [place] [address] Dr. Alesia Argueta Sodium [Moles/Vol] 141 mmol/L Normal 136-145 [facility] Comment on above: Performed By: #### B SECURITY SOLUTIONS ARCHITECT, AMMY MARQUEZTROPN, CMP #### [facility] [address] [place] [address] Dr. Alesia Argueta Urea nitrogen [Mass/Vol] 11.0 mg/dL Normal 7.0-18.0 [facility] Comment on above: Performed By: #### B SECURITY SOLUTIONS ARCHITECT, LIPA HSTROPN, CMP #### [facility] [address] [address] [address] Alesia Argueta Urea nitrogen/Creatinine [Mass ratio] 11.5 mg/mg Normal [facility] Comment on above: Performed By: #### B SECURITY SOLUTIONS ARCHITECT, DEWEYA HSTROPN, CMP #### [facility] [address] [place] [address] Dr. Alesia Argueta Bacteria Wnd Culton 11-19-19 22 Bacteria identified Cx Nom (Wound) ORGANISM ID: 1 One colony Corynebacterium species No further workup GRAM STAIN: Moderate Gram positive cocci Few Gram negative bacilli Few Polymorphonuclear leukocytes Abnormal [facility] Comment on above: Performed By: #### 6 [id number] #### [facility] CLIA [id number] [address] [place] [address] [place] CONSULTon 11-18-2021 CONSULT HNO ID: [id number] Author: Chin Benedict MD Service: Urology Author [...] testes. Chin Benedict MD Urology PGY 3 [id number] Normal [facility] ED NOTEon 11-18-2021 ED NOTE HNO ID: [id number] Author: Daja Sabillon RN Service: Emergency Medicine Author Type: Registered Nurse Type: ED Notes Filed: 11/18/2021 4:09 AM Note Text: Holding off on labwork d/t pt having same labs drawn earlier today, MD Hyde notified of results Normal [facility] ED PROV NOTEon 11-18-2021 ED PROV NOTE HNO ID: [id number] Author: Sharath Samayoa MD Service: Emergency Medicine [...] abscess. Per chart review, patient seen at [facility] where he underwent an ultrasound that showed evidence of a scrotal abscess yesterday. Labs including CBC and BMP obtained at outside hospital notable for leukocytosis with white blood cell count of 14, otherwise unremarkable. In the ED today, vitals were within normal limits. Ultrasound here showed a 4.8 cm left sc (more content not included)... Normal [facility] US DOPPLER COMPLETEon 2021 US DOPPLER COMPLETE * * *Final Report* * * DATE OF EXAM: Nov 18 2021 3:39AM [facility] 1033 - US DOPPLER COMPLETE / PROCEDURE [...] arterial and venous flow within both testes. Brush Or Broom Cutter: PSCB Transcribe Date/Time: Nov 18 2021 3:40A Dictated by : DARLING JOSE, DO This examination was interpreted and the report reviewed and electronically signed by: VICKIE ISRAEL MD on Nov 18 2021 4:04AM EST [id number] Normal [facility] US SCROTUM AND CONTENTSon US SCROTUM AND CONTENTS * * *Final Report* * * DATE OF EXAM: Nov 18 2021 3:39AM [facility]63 - US SCROTUM AND CONTENTS / [...] arterial and venous flow within both testes. Brush Or Broom Cutter: RAS Transcribe Date/Time: Nov 18 2021 3:40A Dictated by : DARLING JOSE DO This examination was interpreted and the report reviewed and electronically signed by: VICKIE ISRAEL MD on Nov 18 2021 4:04AM EST [id number] Normal [facility] CBC AUTO DIFFon 11-17-2021 BASO # 0.0 103/ul Normal 0.0-0.1 [facility] Comment on above: Performed By: #### B SECURITY SOLUTIONS ARCHITECT, LIPA, HSTROPN, CMP #### [facility] [address] [place] [address] Dr. Alesia Argueta Basophils/100 WBC (Bld) 0.3 % Normal 0.2-2.0 [facility] Comment on above: Performed By: #### B SECURITY SOLUTIONS ARCHITECT, LIPA, HSTROPN, CMP #### [facility] [address] [place] [address] Dr. Alesia Argueta EO # 0.1 103/ul Normal 0.0-0.7 [facility] Comment on above: Performed By: #### B SECURITY SOLUTIONS ARCHITECT, LIPA, HSTROPN, CMP #### [facility] [address] [address] [address] Alesia Argueta Eosinophils/100 WBC (Bld) 1.0 % Normal 0.9-7.0 [facility] Comment on above: Performed By: #### B SECURITY SOLUTIONS ARCHITECT, LIPA, HSTROPN, CMP #### [facility] [address] [place] [address] Dr. Alesia Argueta Erythrocyte distribution width (RBC) [Ratio] 13.3 % Normal 11.0-15.0 [facility] Comment on above: Performed By: #### B SECURITY SOLUTIONS ARCHITECT, LIPA, HSTROPN, CMP #### [facility] [address] [place] [address] Dr. Alesia Argueta Hematocrit (Bld) [Volume fraction] 48.4 % Normal 42.0-54.0 [facility] Comment on above: Performed By: #### B SECURITY SOLUTIONS ARCHITECT, LIPA, HSTROPN, CMP #### [facility] [address] [place] [address] Dr. Alesia Argueta Hemoglobin (Bld) [Mass/Vol] 16.8 g/dL Normal 14.0-18.0 [facility] Comment on above: Performed By: #### B SECURITY SOLUTIONS ARCHITECT, LIPA, HSTROPN, CMP #### [facility] [address] [place] [address] Dr. Alesia Argueta IG # 0.04 10e3/ul Critically high 0.00-0.03 [facility] Comment on above: Performed By: #### B SECURITY SOLUTIONS ARCHITECT, LIPA, HSTROPN, CMP #### [facility] [address] [place] [address] Dr. Alesia Argueta IG % 0.3 % Normal 0.0-0.5 [facility] Comment on above: Performed By: #### B SECURITY SOLUTIONS ARCHITECT, LIPA, HSTROPN, CMP #### [facility] [address] [place] [address] Dr. Alesia Argueta LYMPH # 2.5 103/ul Normal 1.2-3.8 [facility] Comment on above: Performed By: #### B SECURITY SOLUTIONS ARCHITECT, LIPA, HSTROPN, CMP #### [facility] [address] [place] [address] Dr. Alesia Argueta Lymphocytes/100 WBC (Bld) 17.7 % Critically low 20.5-60.0 [facility] Comment on above: Performed By: #### B SECURITY SOLUTIONS ARCHITECT, LIPA, HSTROPN, CMP #### [facility] [address] [place] [address] Dr. Alesia Argueta MANUAL DIFF REQ NO Normal [facility] Comment on above: Performed By: #### B SECURITY SOLUTIONS ARCHITECT, LIPA, HSTROPN, CMP #### [facility] [address] [place] [address] Dr. Aelsia Argueta MCH (RBC) [Entitic mass] 31.2 pg Normal 25.9-34.0 [facility] Comment on above: Performed By: #### B SECURITY SOLUTIONS ARCHITECT, LIPA, HSTROPN, CMP #### [facility] [address] [place] [address] Dr. Alesia Argueta MCHC (RBC) [Mass/Vol] 34.7 g/dL Normal 29.9-35.2 [facility] Comment on above: Performed By: #### B SECURITY SOLUTIONS ARCHITECT, LIPA, HSTROPN, CMP #### [facility] [address] [place] [address] Dr. Alesia Argueta MCV (RBC) [Entitic vol] 90.0 fL Normal 80.0-94.0 [facility] Comment on above: Performed By: #### B SECURITY SOLUTIONS ARCHITECT, LIPA, HSTROPN, CMP #### [facility] [address] [place] [address] Dr. Alesia Argueta MONO # 0.9 103/ul Critically high 0.3-0.8 [facility] Comment on above: Performed By: #### B SECURITY SOLUTIONS ARCHITECT, LIPA, HSTROPN, CMP #### [facility] [address] [place] [address] Dr. Alesia Argueta Monocytes/100 WBC (Bld) 6.5 % Normal 1.7-12.0 [facility] Comment on above: Performed By: #### B SECURITY SOLUTIONS ARCHITECT, LIPA, HSTROPN, CMP #### [facility] [address] [place] [address] Dr. Alesia Argueta NEUT # 10.7 103/ul Critically high 1.4-6.5 [facility] Comment on above: Performed By: #### B SECURITY SOLUTIONS ARCHITECT, LIPA, HSTROPN, CMP #### [facility] [address] [place] [address] Dr. Alesia Argueta Neutrophils/100 WBC (Bld) 74.2 % Normal 43.0-75.0 [facility] Comment on above: Performed By: #### B SECURITY SOLUTIONS ARCHITECT, LIPA, HSTROPN, CMP #### [facility] [address] [address] [address] Alesia Argueta Platelet mean volume (Bld) [Entitic vol] 10.0 fL Normal 9.5-13.5 [facility] Comment on above: Performed By: #### B SECURITY SOLUTIONS ARCHITECT, LIPA, HSTROPN, CMP #### [facility] [address] [place] [address] Dr. Alesia Argueta PLT 261 103/ul Normal 150-450 [facility] Comment on above: Performed By: #### B SECURITY SOLUTIONS ARCHITECT, LIPA, HSTROPN, CMP #### [facility] [address] [place] [address] Dr. Alesia Argueta RBC 5.38 106/ul Normal 4.70-6.10 [facility] Comment on above: Performed By: #### B SECURITY SOLUTIONS ARCHITECT, LIPA, HSTROPN, CMP #### [facility] [address] [place] [address] Dr. Alesia Argueta WBC 14.4 103/ul Critically high 4.0-11.0 [facility] Comment on above: Performed By: #### B SECURITY SOLUTIONS ARCHITECT, LIPA, HSTROPN, CMP #### [facility] [address] [place] [address] ABD/PELV W CONon [...] PASCUAL TRISTAN Date: 2021-11-17 18:14 Normal [facility] CULTURE BLOODon 11-17-2021 Microscopic examination of blood, culture Culture Observations: NO GROWTH AT 5 DAYS. Normal [facility] Comment on above: Performed By: #### B SECURITY SOLUTIONS ARCHITECT, LIPA, HSTROPN, CMP #### [facility] [address] [address] [address] Alesia Argueta Microscopic examination of blood, culture Culture Observations: NO GROWTH AT 5 DAYS. Normal [facility] Comment on above: Performed By: #### B SECURITY SOLUTIONS ARCHITECT, LIPA, HSTROPN, CMP #### [facility] [address] [address] [address] Alesia Argueta Covid-19 PCR ([facility])on 10-25 SARS-CoV-2 (COVID-19) RNA RICKI+probe Ql (Unsp spec) Not detected Normal NOT DETECTED [facility] Comment on above: Result Comment: [...] for this test is supported by the [place] of [employer] and Human Service's declaration that [...] longer be used). Performed By: #### B SECURITY SOLUTIONS ARCHITECT, LIPA, HSTROPN, CMP #### [facility] [address] [place] [address] Dr. Alesia Argueta LACTATE/LACTIC ACIDon 2021 Lactate [Moles/Vol] 1.0 mmol/L Normal 0.4-1.9 [facility] Comment on above: Performed By: #### B SECURITY SOLUTIONS ARCHITECT, LIPA, HSTROPN, CMP #### [facility] [address] [place] [address] Dr. Alesia Argueta PROF 14(COMP METB)on 022 Albumin [Mass/Vol] 3.4 g/dL Normal 3.4-5.0 [facility] Comment on above: Performed By: #### B SECURITY SOLUTIONS ARCHITECT, LIPA, HSTROPN, CMP #### [facility] [address] [place] [address] Dr. Alesia Argueta Albumin/Globulin [Mass ratio] 0.7 {ratio} Normal [facility] Comment on above: Performed By: #### B SECURITY SOLUTIONS ARCHITECT, LIPA, HSTROPN, CMP #### [facility] [address] [place] [address] Dr. Alesia Argueta ALP [Catalytic activity/Vol] 86 U/L Normal 46-116 [facility] Comment on above: Performed By: #### B SECURITY SOLUTIONS ARCHITECT, LIPA, HSTROPN, CMP #### [facility] [address] [place] [address] Dr. Alesia Argueta ALT [Catalytic activity/Vol] 17 U/L Normal 16-63 [facility] Comment on above: Performed By: #### B SECURITY SOLUTIONS ARCHITECT, LIPA, HSTROPN, CMP #### [facility] [address] [place] [address] Dr. Alesia Argueta Anion gap [Moles/Vol] 10.1 mmol/L Normal [facility] Comment on above: Performed By: #### B SECURITY SOLUTIONS ARCHITECT, LIPA, HSTROPN, CMP #### [facility] [address] [place] [address] Dr. Alesia Argueta AST [Catalytic activity/Vol] 18 U/L Normal 15-37 [facility] Comment on above: Performed By: #### B SECURITY SOLUTIONS ARCHITECT, LIPA, HSTROPN, CMP #### [facility] [address] [place] [address] Dr. Alesia Argueta Bilirubin [Mass/Vol] 1.3 mg/dL Critically high 0.2-1.0 [facility] Comment on above: Performed By: #### B SECURITY SOLUTIONS ARCHITECT, LIPA, HSTROPN, CMP #### [facility] [address] [place] [address] Dr. Alesia Argueta Calcium [Mass/Vol] 9.2 mg/dL Normal 8.5-10.1 [facility] Comment on above: Performed By: #### B SECURITY SOLUTIONS ARCHITECT, LIPA, HSTROPN, CMP #### [facility] [address] [place] [address] Dr. Alesia Argueta Chloride [Moles/Vol] 99 mmol/L Normal 98-107 [facility] Comment on above: Performed By: #### B SECURITY SOLUTIONS ARCHITECT, LIPA, HSTROPN, CMP #### [facility] [address] [place] [address] Dr. Alesia Argueta CO2 [Moles/Vol] 29.0 mmol/L Normal 21.0-32.0 [facility] Comment on above: Performed By: #### B SECURITY SOLUTIONS ARCHITECT, LIPA, HSTROPN, CMP #### [facility] [address] [place] [address] Dr. Alesia Argueta Creatinine [Mass/Vol] 1.07 mg/dL Normal 0.70-1.30 [facility] Comment on above: Performed By: #### B SECURITY SOLUTIONS ARCHITECT, LIPA, HSTROPN, CMP #### [facility] [address] [address] [address] Alesia Argueta EGFR-AF [place] >60 Normal >=60 [facility] Comment on above: Performed By: #### B SECURITY SOLUTIONS ARCHITECT, LIPA, HSTROPN, CMP #### [facility] [address] [address] [address] Alesia Argueta EGFR-NON AF [place] >60 Normal >=60 [facility] Comment on above: Performed By: #### B SECURITY SOLUTIONS ARCHITECT, LIPA, HSTROPN, CMP #### [facility] [address] [place] [address] Dr. Alesia Argueta Globulin (S) [Mass/Vol] 4.8 g/dL Normal [facility] Comment on above: Performed By: #### B SECURITY SOLUTIONS ARCHITECT, LIPA, HSTROPN, CMP #### [facility] [address] [address] [address] Alesia Argueta Glucose [Mass/Vol] 99 mg/dL Normal 74-106 [facility] Comment on above: Performed By: #### B SECURITY SOLUTIONS ARCHITECT, LIPA, HSTROPN, CMP #### [facility] [address] [place] [address] Dr. Alesia Argueta Potassium [Moles/Vol] 3.1 mmol/L Critically low 3.5-5.1 [facility] Comment on above: Performed By: #### B SECURITY SOLUTIONS ARCHITECT, LIPA, HSTROPN, CMP #### [facility] [address] [place] [address] Dr. Alesia Argueta Protein [Mass/Vol] 8.2 g/dL Normal 6.4-8.2 [facility] Comment on above: Performed By: #### B SECURITY SOLUTIONS ARCHITECT, LIPA, HSTROPN, CMP #### [facility] [address] [place] [address] Dr. Alesia Argueta Sodium [Moles/Vol] 135 mmol/L Critically low 136-145 [facility] Comment on above: Performed By: #### B SECURITY SOLUTIONS ARCHITECT, LIPA, HSTROPN, CMP #### [facility] [address] [address] [address] Alesia Argueta Urea nitrogen [Mass/Vol] 7.0 mg/dL Normal 7.0-18.0 [facility] Comment on above: Performed By: #### B SECURITY SOLUTIONS ARCHITECT, LIPA, HSTROPN, CMP #### [facility] [address] [address] [address] Alesia Argueta Urea nitrogen/Creatinine [Mass ratio] 6.5 mg/mg Normal [facility] Comment on above: Performed By: #### B SECURITY SOLUTIONS ARCHITECT, LIPA, HSTROPN, CMP #### [facility] [address] [address] [address] Alesia Argueta US SCROTUM W VASCULAR [...] by: PASCUAL TRISTAN Date: 2021-11-17 17:45 Normal [facility] Coding Summaryon 07-07-2017 Coding Summary CODING DATE: 018 [facility] STATUS: PAYOR: Self Pay ADMIT [...] Candi Pineda Date Saved: 07/07/2017 02:42 pm [facility] Coding Summary CODING DATE: 018 [facility] STATUS: Home PAYOR: Self Pay [...] Candi Pineda Date Saved: 07/07/2017 02:39 pm [facility] .Auto Diff 1on 07-06-2017 Auto Baso % 0.2 % Normal 0.2-2.0 [facility] Comment on above: Performed By: #### 7 [id number], [id number], [id number] ####[facility] (DEFAULT)[address] [place] [address] Auto Meriwether % 7 % Normal 1-12 [facility] Comment on above: Performed By: #### 7 [id number], [id number], [id number] ####[facility] (DEFAULT)[address] [place] [address] Auto Neut % 55 % Normal 44-88 [facility] Comment on above: Performed By: #### 7 [id number], [id number], [id number] ####[facility] (DEFAULT)[address] [place] [address] Baso Abs# 0.0 x10 Normal 0.0-0.2 [facility] Comment on above: Performed By: #### 7 286605, [id number], [id number] ####[facility] (DEFAULT)[address] [place] [address] Eos Abs# 0.2 x10 Normal 0.0-0.4 [facility] Comment on above: Performed By: #### 7 862650, [id number], [id number] ####[facility] (DEFAULT)[address] [place] [address] Eosinophils/100 leukocytes 2.3 % Normal 0.9-4.0 [facility] Comment on above: Performed By: #### 7 740424, [id number], [id number] ####[facility] (DEFAULT)[address] [place] [address] Lymphocytes 3.0 x10 High 1.3-2.9 [facility] Comment on above: Performed By: #### 7 610805, [id number], [id number] ####[facility] (DEFAULT)[address] [place] [address] Lymphocytes/100 leukocytes 36 % Normal 14-48 [facility] Comment on above: Performed By: #### 7 086118, [id number], [id number] ####[facility] (DEFAULT)[address] [place] [address] Meriwether Abs# 0.6 x10 Normal 0.0-0.8 [facility] Comment on above: Performed By: #### 7 305372, [id number], [id number] ####[facility] (DEFAULT)[address] [place] [address] Neut Abs# 4.6 x10 Normal 1.5-9.2 [facility] Comment on above: Performed By: #### 7 991699, [id number], [id number] ####[facility] (DEFAULT)[address] [place] [address] CBC w/ Auto Diffon 8 Erythrocyte distribution width Auto Ratio (RBC) 13.3 % Normal 11.5-15.0 [facility] Comment on above: Performed By: #### 7 226782, [id number], [id number] ####[facility] (DEFAULT)[address] [place] [address] Erythrocytes (RBC) 5.36 x10 High 3.70-5.30 [facility] Comment on above: Performed By: #### 7 563323, [id number], [id number] ####[facility] (DEFAULT)[address] [place] [address] Hematocrit (HCT) 48.9 % Normal 34.8-51.9 [facility] Comment on above: Performed By: #### 7 061185, [id number], [id number] ####[facility] (DEFAULT)[address] [place] [address] Hemoglobin mass conc (Bld) 16.9 g/dL Normal 11.8-17.7 [facility] Comment on above: Performed By: #### 7 957586, [id number], [id number] ####[facility] (DEFAULT)[address] [place] [address] Man Diff? Auto Normal [facility] Comment on above: Performed By: #### 7 317985, [id number], [id number] ####[facility] (DEFAULT)[address] [place] [address] MCH 32 pg Normal 24-34 [facility] Comment on above: Performed By: #### 7 625503, [id number], [id number] ####[facility] (DEFAULT)[address] [place] [address] MCHC mass conc (RBC) 35 g/dL Normal 26-37 [facility] Comment on above: Performed By: #### 7 432954, [id number], [id number] ####[facility] (DEFAULT)[address] [place] [address] MCV 91 fL Normal 81-100 [facility] Comment on above: Performed By: #### 7 376958, [id number], [id number] ####[facility] (DEFAULT)[address] [place] [address] Platelet mean volume (PMV) 9.7 fL Normal 6.3-10.2 [facility] Comment on above: Performed By: #### 7 358393, [id number], [id number] ####[facility] (DEFAULT)[address] [place] [address] Platelets 248 x10 Normal 138-427 [facility] Comment on above: Performed By: #### 7 054330, [id number], [id number] ####[facility] (DEFAULT)[address] [place] [address] WBC (Leukocytes) 8.4 x10 Invalid Interpretation Code [facility] Comment on above: Performed By: #### 7 349516, [id number], [id number] ####[facility] (DEFAULT)[address] [place] [address] CMP Standardon 07-06-2017 eGFR (non-black) mL/min/{1.73_m2} Invalid Interpretation Code [facility] Comment on above: Performed By: #### 7 496572, [id number], [id number] ####[facility] (DEFAULT)[address] [place] [address] Result Comment: Agricultural Science Professor sierra Kidney disease could be indicated at eGFRs of less than 60 ml/min/1.73m2. Kidney Failure is indicated at less than 15 ml/min/1.73m2 Albumin 4.0 g/dL Normal 3.5-5.0 [facility] Comment on above: Performed By: #### 7 095312, 38712503, [id number] ####[facility] (DEFAULT)[address] [place] [address] Albumin/Globulin Ratio 1.1 {ratio} Low 1.4-2.6 [facility] Comment on above: Performed By: #### 7 306056, 69376554, [id number] ####[facility] (DEFAULT)[address] [place] [address] Alk Phos 68 IU/L Normal 32-91 [facility] Comment on above: Performed By: #### 7 894471, 78832084, [id number] ####[facility] (DEFAULT)[address] [place] [address] ALT/SGPT 34.0 IU/L Normal 17.0-63.0 [facility] Comment on above: Performed By: #### 7 436103, [id number], [id number] ####[facility] (DEFAULT)[address] [place] [address] Anion gap 10.0 mmol/L Normal 5.0-19.0 [facility] Comment on above: Performed By: #### 7 664962, 57003031, [id number] ####[facility] (DEFAULT)[address] [place] [address] AST/SGOT 24 IU/L Normal 15-41 [facility] Comment on above: Performed By: #### 7 520146, 78283223, [id number] ####[facility] (DEFAULT)[address] [place] [address] Bili Total 0.8 mg/dL Normal 0.3-1.2 [facility] Comment on above: Performed By: #### 7 377591, 18607067, [id number] ####[facility] (DEFAULT)[address] [place] [address] BUN/Creatinine Ratio 13.0 mg/mg Normal 4.6-16.2 [facility] Comment on above: Performed By: #### 7 708024, 64953907, [id number] ####[facility] (DEFAULT)[address] [place] [address] Calcium 9.3 mg/dL Normal 8.9-10.3 [facility] Comment on above: Performed By: #### 7 530027, 87808838, [id number] ####[facility] (DEFAULT)[address] [place] [address] Chloride 101 mmol/L Normal 101-111 [facility] Comment on above: Performed By: #### 7 184802, 29667823, [id number] ####[facility] (DEFAULT)[address] [place] [address] CO2 29 mmol/L Normal 21-32 [facility] Comment on above: Performed By: #### 7 523730, 96844323, [id number] ####[facility] (DEFAULT)[address] [place] [address] Creatinine 0.97 mg/dL Normal 0.90-1.30 [facility] Comment on above: Performed By: #### 7 283126, 67859103, [id number] ####[facility] (DEFAULT)[address] [place] [address] Globulin 3.8 g/dL Normal 1.5-4.3 [facility] Comment on above: Performed By: #### 7 286969, 18476731, [id number] ####[facility] (DEFAULT)[address] [place] [address] Glucose mass conc 90.0 mg/dL Normal 74.0-118.0 [facility] Comment on above: Performed By: #### 7 357292, 27320593, [id number] ####[facility] (DEFAULT)[address] [place] [address] Osmolality 272 mOsm/L Invalid Interpretation Code [facility] Comment on above: Performed By: #### 7 662711, [id number], [id number] ####[facility] (DEFAULT)[address] [place] [address] Potassium molar conc 4.2 mmol/L Normal 3.6-5.1 [facility] Comment on above: Performed By: #### 7 157475, 06386919, [id number] ####[facility] (DEFAULT)[address] [place] [address] Protein 7.8 g/dL Normal 6.5-8.1 [facility] Comment on above: Performed By: #### 7 713686, 37934506, [id number] ####[facility] (DEFAULT)[address] [place] [address] Sodium 136.0 mmol/L Normal 136.0-144. 0 [facility] Comment on above: Performed By: #### 7 139020, [id number], [id number] ####[facility] (DEFAULT)[address] [place] [address] Urea nitrogen 13 mg/dL Normal 12-19 [facility] Comment on above: Performed By: #### 7 891752, 99938203, [id number] ####[facility] (DEFAULT)[address] [place] [address] CT Spine Lumbar w/o Contrast on 07-06-2017 [...] WOULD BE LESS LIKELY.FOLLOW-UP NEEDED.STEPHANIE Bowen #: [id number]: 07/06/2017T: 07/06/2017 Final Dictated by: Chidi Ray MD SDictated DT/TM: 07/06/17 12:38Signed (Electronic Signature): Chidi Ray MD 07/06/17 2:12 pmTechnologist: NATASHA ALEXANDRA [facility] ED Clinical Summaryon 2017 ED Clinical Summary [facility] - Emergency [address] [place], [place] [id number] ed Clinical SummaryPERSON INFORMATIONName: FARTUN ELLIOTT Jr Age: 47 Years Sex: MALEDOB: [birth year] MRN: Acct#:Visit Reason: Back pain; LOW BACK PAIN Arrival:07/06/17 09:54:00 Discharge: 07/06/17 12:20:00LOS: 000 02:26 Check In: 07/06/17 09:54:00 Checkout:07/06/17 12:20:00Address:[address] [address]TVK: Provider, NonePROVIDER INFORMATIONProvider Role Assigned UnassignedChris Carrizales ED PA 07/06/17 09:55:34Eden Gonzalez POLICE PATROL OFFICER Nurse 07/06/17 10:06:17VITALS INFORMATIONVital Sign Triage LatestTemperature TympanicTemperature Temporal ArteryPulse Rate 73 bpm 73 bpmO2 Sat 97 % 97 %Respiratory Rate 18 br/min 18 br/minBlood Pressure 148 mmHg/97 mmHg 148 mmHg/97 mmHgMEDICAL INFORMATIONMedications Given:Medication Dose Routeketorolac 30 mg IMAllergy Information:No Known Medication AllergiesPHYSICIAN DOCUMENTATIONDISCHARGE INFORMATION:Discharge Disposition: HomeDischarge Location: HomePATIENT EDUCATION INFORMATIONInstructions: Spinal Stenosis; Herniated Disk; Back Pain, AdultFollow-Up:With: Address: When:Steve Martínez [address] [facility], [address] [place], [phone] Business (2) Within 3 to 5 daysWith: Address: When:[address], [address] [place], [place] [address] Business (1) Within 3 to 5 daysComments:Diagnosis [...] constipation while taking pain medication. May take sjhy-lzu-uupwxnv ibuprofen or Tylenol to supplement, may use [...] spine without radiculopathy; Lumbar spinal stenosisComment: Normal [facility] ED Note - Otheron 07-06-2017 ED Note - Other [id number]#1.00OTGTIFF [facility] ED Note - Physicianon 2017 ED Note [...] PO, Once.Results review: Lab results : Lab Zrsqfkjrm01/13/18 10:27 EDT Sodium Level 136.0 mmol/L Potassium [...] % Auto Lymph % 36 % Auto Meriwether % 7 % Auto Eos % 2.3 % Auto Baso % 0.2 % Neut Abs# 4.6 x103/mcL Lymph Abs# 3.0 x103/mcL HI Meriwether Abs# 0.6 x103/mcL Eos Abs# 0.2 x103/mcL [...] 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 May take rhrc-bhk-xtkjoti ibuprofen or Tylenol to supplement, may use [...] Carrizales[Verified on: 07/06/2017 13:20 EDT] Chris Carrizales [facility] ED Patient Education Noteon 07-06-2017 ED Patient [...] Reviewed: 07/21/2013Elsevier Interactive Patient Education ? 2017 [employer].Herniated DiskA herniated disk, also called a ruptured [...] need surgery.Follow these instructions at home:Medicines? Take rkwu-hhv-tqpnmbz and prescription medicines only as told by [...] your urine clear or pale yellow.? Take medy-kqj-tbvvaza or prescription medicines.? Eat foods that are [...] Reviewed: 12/07/2016Karel Interactive Patient Education ? 2017 [employer].Back Pain, AdultBack pain is very common in [...] stressful on your back to sit or grain operations manager one place for long periods of time. Do not sit, drive, or grain operations manager one place for more than 30 minutes [...] as directed by your health care provider. Ymsz-ljv-gnfybnq medicines to reduce pain and inflammation are [...] Reviewed: 08/14/2014Karel Interactive Patient Education ? 2017 [employer] Normal [facility] ED Patient Summaryon 018 ED Patient Summary [facility] - Emergency [address] [place] [address] pATIENT DISCHARGE INSTRUCTIONSPatient InformationName: FARTUN ELLIOTT Jr Age: 47 YearsDate of : [birth year]MRN: [id number] For Visit: Back pain; LOW BACK PAINArrival Time: 07/06/17 09:54:00Phone: Primary Care Physician: Provider, NoneAttending Physician: Zoran Salazar MDComment:Visit Diagnosis:Diagnoses This Visit Acute lumbar back pain (M54.5) Acute thoracic back pain (M54.6) Back pain ([id number]) Herniation of intervertebral disc of lumbar spine [...] sign any legal documentsWith: Address: When:Steve Martínez [address] [place] [address], [address] [place], [phone] Business (2) Within 3 to 5 daysWith: Address: When:BRUNO [address], [facility] [address] [place], [place] [phone] Business (1) Within 3 to 5 daysComments:Diagnosis [...] constipation while taking pain medication. May take yryu-luk-xwqsdmx ibuprofen or Tylenol to supplement, may use [...] and treatment you received today in the [facility] Emergency Department were for an urgent problem and are not intended as complete care. It is important for you to follow up with a doctor, nurse practitioner, or physician?s office manager executive assistant for ongoing care. If your symptoms [...] number so we can reach you if necessary.[facility] Emergency Department has provided you with a complete list of medications post discharge. Please inform your public affairs officer/provider of your visit and for further instruction on these medications. Any specific questions regarding your chronic medications and dosages should be discussed with your primary care physician(s) and/or pharmacist. New MedicationsPrinted Prescriptionsacetaminophen-hy drocodone ([place] 5 mg-325 mg oral tablet) 1 tab(s) [...] Reviewed: 07/21/2013Nathanevier Interactive Patient Education ? 2017 [employer].Herniated DiskA herniated disk, also called a ruptured [...] need surgery.Follow these instructions at home:Medicines? Take grbq-ekr-urysitc and prescription medicines only as told by [...] your urine clear or pale yellow.? Take hzpc-iez-dybtcjw or prescription medicines.? Eat foods that are [...] Reviewed: 12/07/2016Karel Interactive Patient Education ? 2017 [employer]Back Pain, AdultBack pain is very common [...] stressful on your back to sit or grain operations manager one place for long periods of time. Do not sit, drive, or grain operations manager one place for more than 30 minutes [...] as directed by your health care provider. Tsxj-drc-nqkmupl medicines to reduce pain and inflammation are [...] Reviewed: 08/14/2014Nathanevtrever Interactive Patient Education ? 2017 [employer]. Viruses or BacteriaWhat?s got you sick?Antibiotics only [...] Antibiotics Michelle.S. Department of Health and Human ServicesUniversity Hospitals Geauga Medical Centerers for Disease Control and Prevention December 2013 [facility] Rad - Other Radiology Report on 07-06-2017 Rad - Other Radiology Report [id number]#[id number] [facility] XR Chest 2 Viewson 8 XR Chest 2 Views CHEST TWO VIEWSCLINI MARYLU DATA: Difficulty breathing, chest pain, chronic smoking history.PA and lateral views of the chest were obtained. Heart and mediastinalcontours are unremarkable in appearance. No acute infiltrate orconsolidations are seen. Bony structures are grossly intact.IMPRESSION: NO ACUTE PROCESS SEEN IN THE CHEST.STEPHANIE Bowen #: [id number]: 07/06/2017T: 07/06/2017 Final Dictated by: Chidi Ray MD SDictated DT/TM: 07/06/17 12:42Signed (Electronic Signature): Chidi Ray MD 07/06/17 2:12 pmTechnologist: NATASHA ALEXANDRA [facility] Vital Signs Date Time Vital Sign Value Performing Clinician Faci lity 03-09-2022 14:41-0500 Body height 182.88 cm DO Sandro Mckeon Work Phone: [facility] 03-09-2022 09:00-0500 Body weight 105.6 kg DO Sandro Mckeon Work Phone: [facility] 03-09-2022 07:30-0500 Body temperature 97.8 [degF] DO Sandro Mckeon Work Phone: [facility] 03-09-2022 07:30-0500 Diastolic blood pressure 101 mm[Hg] DO Sandro Mckeon Work Phone: [facility] 03-09-2022 07:30-0500 Heart rate 51 /min DO Sandro Vaschak Work Phone: [facility] 03-09-2022 07:30-0500 Respiratory rate 18 /min DO Sandro Vaschak Work Phone: [facility] 03-09-2022 07:30-0500 SaO2% (BldA) [Mass fraction] 97 % DO Sandro Vaschak Work Phone: [facility] 03-09-2022 07:30-0500 Systolic blood pressure 143 mm[Hg] DO Sandro Vaschak Work Phone: [facility] 03-02-2022 12:16-0500 Heart rate 81 /min DO Sandro Vaschak Work Phone: [facility] 03-02-2022 12:13-0500 Body height 182.88 cm DO Sandro Vaschak Work Phone: [facility] 03-02-2022 12:13-0500 Body temperature 97.7 [degF] DO Sandro Vaschak Work Phone: [facility] 03-02-2022 12:13-0500 Body weight 107 kg DO Sandro Vaschak Work Phone: [facility] 03-02-2022 12:13-0500 Diastolic blood pressure 102 mm[Hg] DO Sandro Vaschak Work Phone: [facility] 03-02-2022 12:13-0500 Respiratory rate 20 /min DO Sandro Vaschak Work Phone: [facility] 03-02-2022 12:13-0500 SaO2% (BldA) [Mass fraction] 97 % DO Sandro Vaschak Work Phone: [facility] 03-02-2022 12:13-0500 Systolic blood pressure 157 mm[Hg] DO Sandro Vaschak Work Phone: [facility] Encounters Encounter Date Encounter Type Care Provider Facility Start: 05-21-2022 End: 05-21-[address] BRUNO BOCANEGRA Facility:[facility] Start: 03-06-2022 End: 03-09-2022 Evaluation and management of inpatient Bruno Bocanegra Facility:[facility] Start: 03-06-2022 End: 03-09-2022 Evaluation and management of inpatient DO Sandro Mckeon Work Phone: [facility] Start: 03-06-2022 End: 03-06-[address] PASCUAL TRISTAN Facility:[facility] Start: 03-02-2022 End: 03-02-2022 Emergency department patient visit Marce Monique Elliott Facility:[facility] Start: 03-02-2022 End: 03-02-2022 Emergency department patient visit DO Sandro Mckeon Work Phone: [facility] Start: 11-28-2021 ambulatory Juan R Briseno MD Work Phone: Urology Start: 11-24-2021 End: 11-25-2021 ambulatory JOSE J HOOVER Facility:[facility] Start: 11-18-2021 End: 11-18-2021 Emergency department patient visit CORINNE OGDEN Facility:[facility] Start: 11-17-2021 End: 11-17-[address] KAREN HOOD Facility:[facility] Start: 07-26-2021 End: 07-26-2021 ambulatory LITZY POST Facility:[facility] Start: 07-07-2017 End: 07-07-2017 Ambulatory None Provider Facility:[facility] Start: 07-06-2017 End: 07-07-2017 Emergency department patient visit None Provider Facility:[facility] Procedures Date Procedure Procedure Detail Performing Clinician Start: 03-02-2022 Plain chest X-ray DO Ange Mckeon Work Phone: Plan of Treatment Date Care Activity Detail Author Start: 03-09-2022 [facility] Start: 03-08-2022 Referral to clinical manager renewable energy [facility] Start: 03-06-2022 Hospital admission [facility] Start: 03-02-2022 Blood chemistry [facility] Start: 03-02-2022 Brain natriuretic peptide measurement [facility] Start: 03-02-2022 [facility] Start: 12-25-2021 Influenza vaccination INFLUENZA (#1) [facility] Start: 02-03-2020 SHINGRIX VACCINE (1 of 2) SHINGRIX VACCINE (1 of 2) [facility] Start: 2015 COLOGUARD (FIT-DNA) COLOGUARD (FIT-DNA) [facility] Start: 2015 Colonoscopy COLONOSCOPY [facility] Start: 2015 COLORECTAL CANCER SCREENING COLORECTAL CANCER SCREENING [facility] Start: [address] COLONOGRAPHY [facility] Start: 2015 DIABETES SCREEN DIABETES SCREEN [facility] Start: 2015 FECAL OCCULT BLOOD FECAL OCCULT BLOOD [facility] Start: 2015 SIGMOIDOSCOPY SIGMOIDOSCOPY [facility] Start: 2005 LIPID SCREEN LIPID SCREEN [facility] Start: 1989 Urine microalbumin profile DTAP,TDAP,TD (1 - Tdap) [facility] Start: 02-03-1988 HEPATITIS C SCREENING HEPATITIS C SCREENING [facility] Start: 02-03-1988 HIV SCREENING HIV SCREENING [facility] Start: 1982 Adult depression screening assessment DEPRESSION SCREENING [facility] Start: 1970 COVID-19 VACCINE (#1) COVID-19 VACCINE (#1) [facility] Patient Education Depression, Ad ult (DC) High Blood Pressure (DC) [facility] DC Instructions [facility] Work Phone: Patient referral [facility] Work Phone: Payers Date Payer Category Payer Unknown [id number] 1970 Unknown [id number] 2.16.84 [id number] 1970 Unknown [id number] 2.16.84 [id number] 1970 Unknown [id number] 2.16.84 [id number] 1970 Unknown [id number] 2.16.84 [id number] 1970 Unknown [id number] 2.16.84 [id number] 1959 Self-pay 1959 Unknown [id number] Unknown [id number] 2.16.8 [id number] Unknown [id number] 2.16.8 [id number] Social History Date Type Detail Facility Tobacco smoking status [facility] Tobacco smoking consumption unknown [facility] Start: 1970 Sex Assigned At Not on file [facility] Start: 11-07-2021 End: 11-18-2021 Exposure to SARS-CoV-2 (event) Not sure [facility] Start: 03-02-2022 End: 03-08-2022 Tobacco smoking status VAIS Smoker (finding) [facility] Start: 1970 Sex Assigned At Male F [facility] Goals Date Patient Goal Desired Activity /State Functional Status Date Assessment Result Facility 03-09-2022 Functional status Patient at [facility] Work Phone: Mental Status Date Assessment Result Facility 03-09-2022 Cognitive function Cognitive Sta tus Patient at Baseline [facility] Work Phone: Discharge summary 03-09-2022 Note Date & Type Note Facility 03-09-2022 Discharge summary Note Date/Time March 09, 2022 11:50am [facility] [address] [place] [address] Discharge Summary Signed Patient: Fartun Elliott JR MR# : [id number] : 1970 Acct:[id number] Age/Sex: 52 / M Adm Date: 2 Loc: 1S Room: [address] [place] [address]: Amrit Orozco MD Copies to: [...] Depression, Adult (DC), High Blood Pressure (DC), [facility] DC Instructions Stand Alone Forms: Work/School [...] transdermal DAILY Qty: 30 0RF Follow Up: [facility] Hotline [Outside] [facility] [Outside] - 03/10/22 8:00 am ( technology program manager: Wednesday03/10/22 a case worker will call you between 8am-12pm. Intake: Wednesday03/17/22 [...] <Electronically signed by Amrit Orozco MD> 03/09/22 1526 [facility] Work Phone: History and physical note 03-08-2022 Note Date & Type Note Facility 03-08-2022 History and physical note Note Date/Time March 07, 2022 10:18am [facility] [address] [place] [address] Psychiatry H&P Signed Patient: Fartun Elliott JR MR# : [id number] : 1970 Acct:[id number] Age/Sex: 52 / M Adm Date: 2 Loc: Room: 6I1139-7 Type: ADM IN Attending Dr: Amrit Orozco MD Copies to: MD Bruno Crawley AnmooreDO Jayleen, LAPEL BASTER~ Date of Service: 03/07/2022 HPI History of [...] <Electronically signed by Amrit Orozco MD> 03/08/22 7919 [facility] Work Phone: Progress note 03-08-2022 Note Date & Type Note Facility 03-08-2022 Progress note Note Date/Time March 08, 2022 11:23am [facility] [address] [place] [address] Psychiatry Progress Note Signed Patient: Fartun Elliott JR MR# : [id number] : 1970 Acct:[id number] Age/Sex: 52 / M Adm Date: 2 Loc: Room: [address] [place] [address] Type : ADM IN Attending Dr: Amrit [...] signed by Amrit Orozco MD> 03/08/22 1929 [facility] Work Phone: Clinical Note 11-28-2021 Note Date & Type Note Facility 11-28-2021 Note Patient Outreach (UR OLMN) FARTUN ELLIOTT JR ([id number]) 1970 M Date Time Provider Department 11/28/21 JUAN R BRISENO During your visit today, we recorded the following information about you: Allergies As of Date: 11/28/2021 (No Known Allergies) Date Reviewed: 11/17/2021 Reviewed by: Rocio Sotelo RN - Fully Assessed Visit Diagnosis:Screening for genitourinary condition [Z13.89] Problem List As Of Date: 11/28/2021 (None) Encounter Status:Closed by [place], [employer] on 12/01/21 [facility] Progress note 11-28-2021 Note Date & Type Note Facility 11-28-2021 Note HNO ID: [id number] Author: Juan R Briseno MD Service: ? Author Type: Fellow Type: Progress Notes Filed: 04/21/2022 9:41 AM Note Text: [facility] PATIENT INFO: Fartun [...] note is incomplete and was administratively closed. [facility] Procedure note 11-18-2021 Note Date & Type Note Facility 11-18-2021 Note HNO ID: [id number] Author: Madeline Joyner MD Service: Urology Author Type: Physician Type: Procedures Filed: 11/18/2021 6:32 PM Note Text: BEDSIDE PROCEDURE NOTE INCISION AND DRAINAGE Date/Start Time: 11/18/2021 5:03 AM Performed by: Chin Benedict MD Authorized by: Madeline Joyner MD This procedure has been performed in part by a resident/fellow under attending's direction Informed Consent Consent Obtained: Written Stephenson Protocol A moment to CARE was completed. [...] DATE: November 18, 2021 TIME: 8:03 AM [facility] STAFF PHYSICIAN NOTE OF PERSONAL INVOLVEMENT IN [...] Associate Staff - Urology November 18, 2021 [facility] Evaluation note Note Date & Type Note Facility Evaluation note Diagnosis Screening for genitourinary condition Screening for other and unspecified genitourinary condition documented in this encounter [facility] Evaluation note Note Date & Type Note Facility Evaluation note No assessment information availa ble [facility] Work Phone: Evaluation note Note Date & Type Note Facility Evaluation note Diagnosis Onset Date Anxiety and depression acute Hypertension acute Vitamin D deficiency acute [facility] Work Phone: Hospital Discharge instructions Note Date & Type Note Facility Hospital Discharge instructions Additional Instructions Regular diet No activity restrictions [facility] Work Phone: Summary Purpose Family History [...] section and content) DATE CREATED AUTHOR 10/15/2017 [facility] DATE CREATED AUTHOR AUTHOR'S ORGANIZ ATION 04/21/2022 [facility] DATE CREATED AUTHOR AUTHOR'S ORGANIZ ATION 05/25/2022 [facility] DATE CREATED AUTHOR AUTHOR'S ORGANIZ ATION 01/12/2023 [facility] Source Comments (unrecognize d section and content) In the event this informatio n is protected by the Federal Confidentiality of Alcohol and Drug Abuse Patient Records regulations: The Federal rules restrict any use of the information to criminally investigate or prosecute any alcohol or drug abuse patient.[facility] Care Teams (unrecognized sec tion and content) [...] Johnson MD Other Provider Active Roselyn Christy LAPEL BASTER Other Provider Active Shikha Ramirez , DO [...] MD Other Provider Active Marce Young , [employer] ARCHITECT-C Other Provider Active Timothy Monreal MD Other Provider Active Devyn Arreola MD Other Provider Active Jyothi Dowling MD Other Provider Active Lacho Taveras MD Other Provider Active Saige Desir , DO Other Provider Active Bipin Nava MD Other Provider Active Nagi Schmitz , DO Other Provider Active Hema Gastelum , DO Other Provider Active Tricia Yan LAPEL BASTER Other Provider Active Gonzalo Vanessa , DO Other Provider Active Jarett Jurado MD Other Provider Active Leatha Duarte APRN Other Provider Active Tita Dumont RN Other Provider Active Team Status: Active Member Role Status Dates Bruno Anmoore , DO Primary Care Provider Active Goals [...] BE BASED ON THE PRIMARY CLINICAL RECORDS. [facility]. provides no warranty or guarantee of the accuracy or completeness of information in this document.
--- NOTE | 2024-01-21 09:00 | CM.NOTE ---
Rounds made with Dr. Condon, discussed with pt discharge to home on oral antibiotics. Also discussed with pt about alcohol rehab or outpatient counseling. Pt not interested at this time, pt states I'm done with drinking. Dr. Condon discussed with pt risk of stopping abruptly and withdraw, pt verbalizes he has not had withdraw in the past when stopping. Pt denies any discharge needs at this time.
[2024-01-21] MEDS: PANTOPRAZOLE SODIUM 40 MG VIAL IV (09:59)
--- NOTE | 2024-01-21 10:22 | P.DS_ITS ---
DS: Providers Provider Date of admission: 01/20/24 15:20 Primary care physician: NATALI BOCANEGRA Admitting clinician: Shaikh Roseanna Attending physician on admission: Shaikh Roseanna Attending physician on discharge: Shaikh Roseanna Discharging clinician: Shaikh Roseanna Anticipated date of discharge: 01/21/24 DS: Diagnosis Discharge Diagnosis (1) Hematemesis with nausea: (2) Abdominal pain: Qualifiers: Abdominal location: left lower quadrant Qualified Code(s): R10.32 - Left lower quadrant pain (3) Leukocytosis: Qualifiers: Leukocytosis type: leukemoid reaction Qualified Code(s): D72.823 - Leukemoid reaction (4) Colitis: (5) Alcohol abuse: (6) Obesity: Qualifiers: Obesity type: due to excess calories Obesity classification: adult cla ss 1 (BMI 30 - 34.9) Serious obesity comorbidity presence: without serious comorbidity Body mass index: BMI 31.0-31.9 Qualified Code(s): E66.09 - Other obesity due to excess calories; Z68.31 - Body mass index [BMI] 31.0-31.9, adult DS: Summary Hospital Course Hospital Course: 53-year-old male with no past medical history presented to ER with nausea, vomiting and left-sided abdominal pain for 1 day. He noticed bright red blood with vomit. Workup in ED revealed acute colitis versus pancreatitis on CT scan. Given that he has normal lipase and his pain was left-sided and not epigastric, it seems more likely that the underlying etiology of his presenting illness is acute colitis. Patient was treated with IV fluids, IV Levaquin and p.o. Flagyl. He clinically improved during the course of admission with improvement in leukocytosis, nausea, pain. His hemoglobin remained stable. He is tolerating oral diet. He is medically stable for discharge on oral Levaquin and Flagyl. Patient was educated on alcohol abuse and recommended to slowly cut down drinking so that he does not experience alcohol withdrawal. He will benefit from outpatient evaluation by GI for possible upper GI endoscopy Status at Discharge Functional status at discharge: independent ambulation Overall status at discharge: patient is back to baseline Time Spent with Patient Time attestation: Total time spent providing and/or coordinating discharge services: Time spent: greater than 30 minutes Exam Constitutional Vital Signs, click to edit/add: Last Vital Signs Temp 98.2 F 01/21/24 08:26 Pulse 73 01/21/24 08:26 Resp 16 01/21/24 08:26 BP 142/81 H 01/21/24 08:26 Pulse Ox 94 L 01/21/24 08:26 O2 Del Method Room Air 01/21/24 08:26 Documenting provider has reviewed patient's vital signs: yes Common normals: no apparent distress and oriented x3 General appearance: cooperative Respiratory Common normals: normal respiratory effort and clear to auscultation bilaterally Effort & inspection: able to speak in complete sentences Auscultation: clear to auscultation bilaterally Cardio Common normals: regular rate, S1 normal heart sound and S2 normal heart sound Rate: regular rate Heart sounds: S1 normal and S2 normal GI Common normals: Normal to inspection, nondistended, normoactive bowel sounds present, soft to palpation and no hepatosplenomegaly Palpation: soft and no hepatosplenomegaly Extremity Common normals: no clubbing, cyanosis or edema Neuro Common normals: oriented x3, moves all extremities and no focal motor deficits Psych Common normals: mental status grossly normal, denies hallucinations, denies homicidal ideation and denies suicidal ideation DS: Data Data Completed and Pending Labs on day of discharge: Labs from last 24 hours 01/21/24 01/20/24 01/20/24 05:40 19:47 15:56 WBC 10.3 RBC 4.66 L Hgb 15.4 16.5 Hct 44.7 46.2 MCV 95.9 H MCH 33.0 MCHC 34.5 RDW 13.2 Plt Count 154 MPV 10.3 Neut % (Auto) 68.6 Lymph % (Auto) 22.1 [place] % (Auto) 7.4 Eos % (Auto) 1.2 Baso % (Auto) 0.4 Neut # (Auto) 7.1 H Lymph # (Auto) 2.3 [place] # (Auto) 0.8 Eos # (Auto) 0.1 Baso # (Auto) 0.0 Abs Immat Gran (auto) 0.03 Imm/Tot Granulo (auto) 0.3 PT INR APTT Sodium 133 L Potassium 3.4 L Chloride 96 L Carbon Dioxide 23.4 Anion Gap 17.0 BUN 7.0 Creatinine 1.02 Est GFR ( Amer) >60 Est GFR (Non-Af Amer) >60 BUN/Creatinine Ratio 6.9 Glucose 110 H Calcium 8.1 L Total Bilirubin 2.8 H Direct Bilirubin AST 56 H ALT 53 Alkaline Phosphatase 94 Total Protein 6.6 Albumin 2.5 L Globulin 4.1 Albumin/Globulin Ratio 0.6 Amylase Lipase 51.0 Influenza Type A Ag Negative Influenza Type B Ag Negative SARS-CoV-2 Ag (CV2AG) Negative 01/20/24 11:41 WBC 15.8 H RBC 5.11 Hgb 17.2 Hct 47.4 MCV 92.8 MCH 33.7 MCHC 36.3 H RDW 13.1 Plt Count 187 MPV 9.9 Neut % (Auto) 76.3 H Lymph % (Auto) 16.8 L [place] % (Auto) 5.8 Eos % (Auto) 0.3 L Baso % (Auto) 0.4 Neut # (Auto) 12.1 H Lymph # (Auto) 2.7 [place] # (Auto) 0.9 H Eos # (Auto) 0.0 Baso # (Auto) 0.1 Abs Immat Gran (auto) 0.06 H Imm/Tot Granulo (auto) 0.4 PT 12.7 H INR 1.22 APTT 28.8 Sodium 131 L Potassium 3.7 Chloride 96 L Carbon Dioxide 25.9 Anion Gap 12.8 BUN 12.0 Creatinine 1.01 Est GFR ( Amer) >60 Est GFR (Non-Af Amer) >60 BUN/Creatinine Ratio 11.9 Glucose 136 H Calcium 8.3 L Total Bilirubin 1.6 H Direct Bilirubin 0.4 H AST 71 H ALT 87 H Alkaline Phosphatase 106 Total Protein 7.8 Albumin 2.9 L Globulin 4.9 Albumin/Globulin Ratio 0.6 Amylase 40 Lipase 90.0 H Influenza Type A Ag Influenza Type B Ag SARS-CoV-2 Ag (CV2AG) Discharge Plan Discharge Disposition: Home, Self-Care Condition: Fair Discharge Medications: New levofloxacin 750 mg tablet 750 mg PO DAILY 7 Days Qty: 7 0RF metronidazole 500 mg tablet 500 mg PO Q8H 7 Days Qty: 21 0RF ondansetron 4 mg tablet,disintegrating 4 mg PO Q8H PRN (Reason: nausea and vomiting) 4 Days Qty: 10 0RF omeprazole 40 mg capsule,delayed release(DR/EC) 40 mg PO DAILY Qty: 30 0RF No Action No Known Home Medications Activity: increase activity as tolerated Diet: advance to your usual diet Print Language: Hong Konger Forms: Portal Instructions Follow Up Appointments: List of providers accepting new pts given to pt. Please call to follow up in 1 week. Outpatient f/u with Dr Sol for EGD.
--- NOTE | 2024-01-25 15:53 | CM.DCFOLLOWU ---
phone number is disconnected 01/25/24
== END 2024-01-21 12:03 | disposition home or self-care (01) ==
LOC: ER 14:04 → MS 01-21 07:05
PROVIDERS: Admitting Provider Internal Medicine; Emergency Provider Emergency Medicine; PCP Family Medicine; Visit Provider Internal Medicine
DX: K52.9 Noninfective gastroenteritis and colitis, unspecified (principal); K92.0 Hematemesis; R10.32 Left lower quadrant pain; F10.10 Alcohol abuse, uncomplicated; E66.9 Obesity, unspecified; Z68.31 Body mass index [BMI] 31.0-31.9, adult; F17.200 Nicotine dependence, unspecified, uncomplicated; D72.829 Elevated white blood cell count, unspecified; Z20.822 Contact with and (suspected) exposure to COVID-19
CPT/HCPCS: 36415; 74177; 80048; 80053; 80076; 82150; 83690; 85014; 85018; 85025; 85610; 85730; 87804; 87811; 94761; 96361; 96365; 96366; 96367; 96375; 96376; 99285; G0378; J0744; J1836; J2270; J2405; Q9967

== ENCOUNTER 2024-10-24 19:24 | Emergency (ER) | payer SELFPAY ==
--- OUTSIDE RECORDS SUMMARY | 2022-01-14 05:49 | XMS_ITS | Continuity of Care Document ---
Author Organization [facility] Address [address] [place] [address] Phone Care Team Providers Care Drip Molder Name Role Phone Rocio Newton Unavailable Unavailable Allergies, Adverse Reactions, Alerts Substance Reaction Status Criticality No Known Allergies Active No Inform ation Medications Medication Instructions Dosage Effective Dates (start - stop) Status Comments Vivitrol 380 mg intramuscular suspension,extended release inject 4 milliliter by intramuscular route every 4 weeks 380 MG - No Longer Active Procedures Procedure Date Acute Detox Director Call ASSAY OF BREATH ETHANOL COVID-19 Antigen Test DRUG TEST PRSMV DIR OPT OBS Acute Detox Director Call Acute Detox Director Call Acute Detox Director Call Acute Detox Director Call Acute Detox Director Call Acute Detox Director Call Advance Directives Directive Yes / No Effective Date File Name No Information Encounters Encounter Description Practice Location Reason(s) For Visit Diagnoses Date Provider Providers Copied on Encounter [facility], [address] [place] [address], [id number] , tel:+ [phone] [facility] Detox substance abuse (chief complaint) No Information 2 Aman Chan. [address] [place] [address], [id number] , [place]. tel:[phone] [facility], [address] [place] [address], [id number] , tel:+ [phone] [facility] Detox Alcohol dependence with withdrawal, uncomplicatedTobacco use disorder, moderate Sep-2 1-202 2 Klidas Rocio. [address], [place], [id number] , [place]. tel: [phone] [facility], [address], [place], [id number] , [place] tel: [phone] [facility] Detox substance abuse (chief complaint) Alcohol dependence with withdrawal, uncomplicatedTobacco use disorder, moderate Sep-2 0-202 2 Klidas Rocio. [address], [place], [id number] , [place]. tel: [phone] [facility], [address], [place], [id number] , [place] tel: [phone] [facility] Detox Alcohol dependence with withdrawal, uncomplicatedEncounte r For Screening For Covid-19 Sep-2 0-202 2 Klidas Rocio. [address], [place], [id number] , [place]. tel: [phone] [facility], [address], [place], [id number] , [place] tel: [phone] [facility] Detox Alcohol dependence with withdrawal, uncomplicatedDepressi on, unspecified 2 Klidas Rocio. [address], [place], [id number] , [place]. tel: [phone] [facility], [address], [place], [id number] , [place] tel: [phone] [facility] Detox Alcohol dependence with withdrawal, uncomplicatedDepressi on, unspecified 2 Klidas Rocio. [address], [place], [id number] , [place]. tel: [phone] [facility], [address] [place] [address], [id number] , [place] tel: [phone] [facility] Detox Alcohol dependence with withdrawal, uncomplicatedDepressi on, unspecified 2 Agustin Clarke. [address] [place], [address], [place]. tel: [phone] [facility], [address] [place] [address], [id number] , [place] tel: [phone] [facility] Detox Alcohol dependence with withdrawal, uncomplicatedDepressi on, unspecified 2 Agustin Clarke. [address] [place], [address], . tel: [phone] [facility], [address] [place] [address], [id number] , [place] tel: [phone] [facility] Detox substance abuse (chief complaint) Depression, unspecifiedAlcohol dependence with withdrawal, uncomplicated 2 Agustin Clarke. [address] [place], [address], [place]. tel: [phone] [facility], [address] [place] [address], [id number] , [place] tel: [phone] [facility] Detox Alcohol dependence with withdrawal, uncomplicated 2 Agustin Clarke. [address] [place], [address], [place]. tel: [phone] Family History Family Member Type Diagnosis Age At Onset No Information Payers Payer name Insurance type Covered democrat ID Authoriza tijose alberto(s) No Information Social History Type Description Quantity Date Captured Comments Alcohol Use Details Unknown Caffeine Use Details Unknown Tobacco Use Status No Information Smoking Status No Information Sex Male Sexual Orientation Don't Know Gender Identity Male Chief Complaint And Reason For Visit From encounter dated '01/14/2022 09:49'. substance abuse (chief complaint). Description: The symptoms are reported as being mild. The symptoms occur constantly. He states the symptoms are acute and have improved. Follow up day 2ROS: ?Const(-), Pt denies cravings, C/V(-), Resp(-), G/I(-), G/U(-),?Neuro(-), S/M(-).?Psych(+) anxiety. Denies S/I H/I A/H V/H All other systems reviewed and are negative P/E: General: Fair hygiene, NAD, HEENT:NC/AT, Neuro: CN grossly intact with no focal deficits noted, Eyes: anicteric non-injected pupils at 4 mm PERRLA, Lungs: CTA, no wheezing or cough appreciated, Heart: RRR no RMG, Skin: Even Facial tones, dry intact. ABD: Non- distended, no apparent guarding, Extremities with no edema or varicosities, digits unremarkable, Skeletal with full ROM, gait intact, Transfer smooth.V/S:SAFLabs/records reviewed- CBC,CMP,TSH,HIV,RPR, VIT D - Drawn-Pending Psych: Positive affect, Mood Euthymic, eye contact intermittent, Behavior Cooperative, Dress appropriate forage and weather, spontaneous to humor, Though Content concrete, Speech clear with normal Rate Counseling: All FDA approved MAT options reviewed with risks benefits and alternatives discussedand provided in writing. The risk of relapse following detoxification without entry into medicationassist. Education about overdose and narcan availability provided.A/P AUD-severe1) Continue Valium Protocol as written2) Follow daily while on protocol3) Encourage post detox AoD treatment- 12 step programming, home4) Reviewed MAT options, Vivitrol ordered Nicotine use disorder1) Conduct Motivational Interview2) Urgeed Cessation3) Offered Nicotine Replacement Therapy, NRT ordered Reason For Referral Reason For Referral No Information Plan Of Treatment Date Type Action Status Goal Tdap. Due on due Goal PRAPARE ASSESSMENT. Due on S due Goal Lipid panel. Due on 022 due Goal Zoster vaccine (1st). Due on due Goal Depression screening. Due on due Goal FOBT. Due on due Goal Influenza vaccine. Due on Se due Goal Colonoscopy. Due on due Goal Zoster vaccine (1st). Due on due Goal PRAPARE ASSESSMENT. Due on S ep due Goal FOBT. Due on due Goal Lipid panel. Due on due Goal Depression screening. Due on due Goal Colonoscopy. Due on due Goal Influenza vaccine. Due on Se p due Goal Tdap. Due on due Goal Tdap. Due on due Goal Lipid panel. Due on due Goal PRAPARE ASSESSMENT. Due on S ep due Goal FOBT. Due on due Goal Depression screening. Due on due Goal Colonoscopy. Due on due Goal Zoster vaccine (). Due on due Goal Influenza vaccine. Due on Se p due Goal Influenza vaccine. Due on Se p due Goal Zoster vaccine (). Due on due Goal Colonoscopy. Due on due Goal Depression screening. Due on due Goal FOBT. Due on due Goal PRAPARE ASSESSMENT. Due on S ep due Goal Lipid panel. Due on due Goal Tdap. Due on due History Of Present Illness Encounter Date Complaint History Of Prese nt Illness substance abuse The symptoms are reported as being mild. The symptoms occur constantly. He states the symptoms are acute and have improved. Follow up day 2ROS: Const(-), Pt denies cravings, C/V(-), Resp(-), G/I(-), G/U(-), N euro(-), S/M(-). P sych(+) anxiety. Denies S/I H/I A/H V/H All other systems reviewed and are negative P /E: General: Fair hygiene, NAD, HEENT:NC/AT, Neuro: CN grossly intact with no focal deficits noted, Eyes: anicteric non-injected pupils at 4 mm PERRLA, Lungs: CTA, no wheezing or cough appreciated, Heart: RRR no RMG, Skin: Even Facial tones, dry intact. ABD: Non-distended, no apparent guarding, Extremities with no edema or varicosities, digits unremarkable, Skeletal with full ROM, gait intact, Transfer smooth.V/S:SAFLabs/records reviewed- CBC,CMP,TSH,HIV,RPR, VIT D - Drawn-Pending Psych: Positive affect, Mood Euthymic, eye contact intermittent, Behavior Cooperative, Dress appropriate for age and weather, spontaneous to humor, Though Content concrete, Speech clear with normal Rate C ounseling: All FDA approved MAT options reviewed with risks benefits and alternatives discussed and provided in writing. The risk of relapse following detoxification without entry into medication assist. Education about overdose and narcan availability provided.A/P AUD-severe1) Continue Valium Protocol as written2) Follow daily while on protocol3) Encourage post detox AoD treatment- 12 step programming, home4) Reviewed MAT options, Vivitrol ordered Nicotine use disorder1) Conduct Motivational Interview2) Urgeed Cessation3) Offered Nicotine Replacement Therapy, NRT ordered substance abuse The symptoms are reported as being moderate. The symptoms occur constantly. He states the symptoms are acute and are of new onset. AoD Assessment reviewed. Patient is a 51 year old male who reports for detox from alcohol. He reports drinking 1/5th of liquor daily. Last drink was 01/12/11 at 9 pm. He denies any seizure hisotry. No medical or psych history reported. substance abuse The symptoms are reported as being severe. The symptoms occur constantly. He states the symptoms are acute and are of new onset. AoD Assessment reviewed. Client reports drinking Liqour daily and in a binge like manner drinking 1/5th daily with IZABELA 09/04/21 in the early am. Functional Status Date Functional Assessmen t No Information Instructions Date Instruction Additional Infor jeny Encourage PO fluids - Related to Alcohol dependence with withdrawal, uncomplicated Assessments Type Assessment Date No Information Patient Care Teams Name Effective Dates (start - stop) Status Members No Information
[2024-10-24 19:27] VITALS: BP 153/98; PULSE 84; TEMP 36.7; O2SAT 97; BMI 72.7
--- OUTSIDE RECORDS SUMMARY | 2024-10-24 19:30 | XMS_ITS | Clinical Summary ---
Author Organization [facility] Address [address] [place] [address] Care Team Providers Care Jockey Room Custodian Name Role Phone Unavailable Primary Care Provider Unavailabl e Social History Tobacco Use Types Packs/Day Years Used Date Smoking Tobacco: Never Assessed Sex and Gender Information Value Date Recorded Sex Assigned at Not on file Legal Sex Male 9:46 PM EDT Gender Identity Not on file Sexual Orientation Not on file Plan of Treatment Not on file
--- OUTSIDE RECORDS SUMMARY | 2024-10-24 19:30 | XMS_ITS | Clinical Summary ---
Author Organization [facility] Address [address] [place] [address] Care Team Providers Care Negative Checker Name Role Phone Bruno Hamm MD Primary Care Provider [phone] Social History Tobacco Use Types Packs/Day Years Used Date Smoking Tobacco: Never Assessed Sex and Gender Information Value Date Recorded Sex Assigned at Not on file Legal Sex Male 7:06 PM EDT Gender Identity Not on file Sexual Orientation Not on file Plan of Treatment Not on file Insurance [employer] Care Teams Negative Checker Relationship Specialty Start Date End Date Bruno Hamm MD [address] [place] [address] PCP - General Family Medicine 02/24/24
--- NOTE | 2024-10-24 19:37 | XR_ITS ---
The [address] [address] Patient Name: FARTUN BLOOM MRN: [id number] date: 1970 Sex: M Assigned Patient Location: ED.MAIN Current Patient Location: ED.MAIN Accession/Order Number: [id number] Exam Date: 10/24/2024 20:07 Report Date: 10/24/2024 20:10 At the request of: ALBERTO KRAMER MD Procedure: XR foot LT min 3V 3 views right knee plain film COMPARISON: None HISTORY: Right knee pain. Injury 3 weeks ago. Left foot pain. Stepped on nail. ACUTE FINDINGS: No acute findings DEGENERATIVE CHANGE: Moderate medial degeneration SOFT TISSUE FINDINGS: Unremarkable JOINT EFFUSION: Moderate POSTOP CHANGES: None BONE MINERALIZATION: Adequate XR/XR foot LT min 3V IMPRESSION: Moderate degeneration with moderate joint effusion. 3 views left foot No subcutaneous air. No radiodense foreign body. No acute bony findings. IMPRESSION: No radiodense foreign body. Impression dictated by: Alberto Engle M.D. 10/24/2024 8:10 PM Dictation Location: [place] [address] Electronically authenticated by: [id number] Y Date: 10/24/2024 20:10
--- NOTE | 2024-10-24 19:37 | XR_ITS ---
The [address] [address] Patient Name: FARTUN BLOOM MRN: [id number] date: 1970 Sex: M Assigned Patient Location: ED.MAIN Current Patient Location: ED.MAIN Accession/Order Number: [id number] Exam Date: 10/24/2024 20:07 Report Date: 10/24/2024 20:10 At the request of: ALBERTO KRAMER MD Procedure: XR foot LT min 3V 3 views right knee plain film COMPARISON: None HISTORY: Right knee pain. Injury 3 weeks ago. Left foot pain. Stepped on nail. ACUTE FINDINGS: No acute findings DEGENERATIVE CHANGE: Moderate medial degeneration SOFT TISSUE FINDINGS: Unremarkable JOINT EFFUSION: Moderate POSTOP CHANGES: None BONE MINERALIZATION: Adequate XR/XR knee RT 3V IMPRESSION: Moderate degeneration with moderate joint effusion. 3 views left foot No subcutaneous air. No radiodense foreign body. No acute bony findings. IMPRESSION: No radiodense foreign body. Impression dictated by: Alberto Engle M.D. 10/24/2024 8:10 PM Dictation Location: [place] [address] Electronically authenticated by: [id number] Y Date: 10/24/2024 20:10
--- NOTE | 2024-10-24 19:39 | ED.LOWEXI1 ---
HPI HPI - Extremity Injury (Lower) General Chief Complaint: Extremity Injury, Lower Stated Complaint: LOWER EXTREMITY INJURY Time Seen by Provider: 10/24/24 19:29 Source: patient Mode of arrival: walk-in Limitations: no limitations History of Present Illness HPI Narrative: This 54-year-old male presents for evaluation of several complaints; he stepped on a nail earlier today while wearing sneakers. He has a puncture wound on the lateral aspect of the left foot. He does not know the date of his last tetanus shot. He has pain with ambulation. There is no active bleeding. He states the nail went in approximately 1-1/2 inches. He also has right knee pain. He states that several weeks ago he felt a pop in the right knee and since that time he has been having severe pain in the knee. He also has swelling in the knee. He states it hurts to walk and he has pain radiating down into his calf. He feels that his calf is swollen compared to his right calf. He does admit to tobacco use. Related Data Home Medications ?Medication ?Instructions ?Recorded ?Confirmed No Known Home Medications 12/02/23 12/02/23 Previous Rx's ?Medication ?Instructions ?Recorded levofloxacin 750 mg tablet 750 mg PO DAILY 7 days #7 tabs 01/21/24 metronidazole 500 mg tablet 500 mg PO Q8H 7 days #21 tabs 01/21/24 omeprazole 40 mg capsule,delayed 40 mg PO DAILY #30 caps 01/21/24 release ondansetron 4 mg disintegrating 4 mg PO Q8H PRN nausea and 01/21/24 tablet vomiting 4 days #10 tabs Allergies Allergy/AdvReac Type Severity Reaction Status Date / Time No Known Drug Allergies Allergy Verified 10/24/24 19:30 Opioid HPI Opioid Management Most Recent Pain and Opioid Data: Last Pain Scale 10 10/24/24, 20:07 Last ED Pain Assessment 10/24/24, 20:07 Last MAR Pain Assessment 10/24/24, 19:52 Last ORT Total Score 6 01/20/24, 15:31 Last ORT Risk Category Moderate Risk 01/20/24, 15:31 Review of Systems ROS Status of ROS 10 or more systems reviewed and unremarkable except as noted in history and below [facility] Medical History (Updated 10/24/24 @ 20:41 by Rocio Adrian MD) Alcohol abuse ?F10.10 - Alcohol abuse, uncomplicated (ICD-10) Colitis ?K52.9 - Noninfective gastroenteritis and colitis, unspecified (ICD-10) Cyst, dermoid, leg ?D36.7 - Benign neoplasm of other specified sites (ICD-10) Obesity ?E66.9 - Obesity, unspecified (ICD-10) Family History (Updated 01/20/24 @ 15:55 by Tomasa Marvin LPN) Father Family history of hypertension Social History (Updated 01/21/24 @ 10:17 by Shaikh Roseanna MD) Within the past year, how often did you have a drink containing alcohol: 4 or more times a week Within the past year, how many standard drinks containing alcohol did you have on a typical day: 5 or 6 Within the past year, how often did you have six or more drinks on one occasion: monthly Total score: 6 Score interpretation: A score of 4 or more indicates drinking is likely to affect patient's safety. Smoking status: Current every day smoker Second hand tobacco smoke exposure: No Non-prescribed substance use: denies use Known occupational exposures/hazards: No Highest level of school completed/degree received: high school graduate Are you now , , , , never or living with a partner: living with partner In a typical week, how many times do you talk on the telephone with family, friends, or neighbors: 3 or more times per week How often do you get together with friends or relatives: 3 or more times per week How often do you attend jehovah's witness or anabaptist services: never Do you belong to any clubs or organizations such as jehovah's witness groups unions, fraternal or athletic groups, or school groups: no Total score: 2 Score interpretation: A score of greater than or equal to 2 indicates the lowest level of social isolation. Little interest or pleasure in doing things: not at all Feeling down, depressed, or hopeless: not at all Feel stressed/tense/nervous/anxious/difficulty sleeping: not at all Due to disability, difficulty making decisions: No Do you think of yourself as: straight/heterosexual Gender Identity: male Exam Narrative Exam Narrative: Vital signs and Nursing Notes reviewed: Patient is afebrile with a normal pulse, blood pressure is elevated 153/98, she is not hypoxic with pulse ox of 97% on room air General: Awake, alert, oriented, uncomfortable appearing adult male, GCS 15, no respiratory distress HEENT: Normocephalic atraumatic, mucous membranes are moist and pink, eyes are clear, normal conjunctiva, vision is grossly intact Chest: Bilateral expiratory wheezing noted without rhonchi or rales, no accessory muscle use, patient is speaking in complete sentences and pulse ox is normal at 97% on room air CVS: Regular rate and rhythm S1-S2, no murmurs rubs or gallops, pulses are brisk and equal bilaterally Extremities: There is diffuse swelling tenderness and effusion at the proximal aspect of the right knee. Patient can bend the knee to approximately 25 degrees. Calf sizes are equal without palpable cords redness or appreciable swelling. There is pain with any movement of the left foot radiating into the left knee making a Homans test difficult. There is a small puncture wound at the plantar aspect of the left foot around the base of the fifth metatarsal. No active bleeding noted. Skin: Normal in appearance without rash,pallor, petechiae or purpura Neuro: No focal deficits Constitutional Vital Signs, click to edit/add: Last Vital Signs Temp 98.1 F 10/24/24 19:27 Pulse 84 10/24/24 19:27 Resp 18 10/24/24 19:27 BP 153/98 H 10/24/24 19:27 Pulse Ox 97 10/24/24 19:27 O2 Del Method Room Air 10/24/24 19:27 Course Vital Signs Vital signs: Vital Signs Temperature 98.1 F 10/24/24 19:27 Pulse Rate 84 10/24/24 19:27 Respiratory Rate 18 10/24/24 19:27 Blood Pressure 153/98 H 10/24/24 19:27 Pulse Oximetry 97 10/24/24 19:27 Oxygen Delivery Method Room Air 10/24/24 19:27 Temperature 98.1 F 10/24/24 19:27 Pulse Rate 84 10/24/24 19:27 Respiratory Rate 18 10/24/24 19:27 Blood Pressure 153/98 H 10/24/24 19:27 Pulse Oximetry 97 10/24/24 19:27 Oxygen Delivery Method Room Air 10/24/24 19:27 MDM - Extremity Injury (Lower) MDM Narrative Medical decision making narrative: This 54-year-old male, nondiabetic with a history of tobacco use presents for evaluation of a puncture wound to the plantar aspect of the left foot. He has a small puncture wound on the plantar aspect of the left foot around the base of the fifth metatarsal. He also has pain and swelling of the right knee with a palpable effusion. He states that he felt a pop in his right knee approximately 3 weeks ago and has been having pain with ambulation since that time. He feels that his right calf is also swollen. His feet are warm and sensate with normal pulses. He does have an effusion and decreased range of motion. X-ray of the left foot and right knee was ordered as well as a D-dimer. The left foot was soaked in warm Hibiclens water. Tetanus was updated. He was given a dose of Augmentin, Zofran and Percocet in the emergency department. X-ray of the right knee shows moderate medial degeneration with a moderate joint effusion adequate bone mineralization with no other acute findings. X-rays of the left foot shows no radiodense foreign body, no acute bony findings and no subcutaneous air. D-dimer is normal at 0.47. patient was reevaluated. He is resting much more comfortably after the pain medication. He will be discharged home with a prescription for prednisone to use for the next 5 days, Percocet and Augmentin. I also encouraged him to soak his foot in warm Epsom salt water and return to the emergency department for redness, swelling, strips of his leg fevers chills or any other concerns. He will be referred to outpatient orthopedics for the knee injury. Discharge Plan Discharge Chief Complaint: Extremity Injury, Lower Clinical Impression: Acute internal derangement of knee, Effusion of knee joint right, Puncture wound of foot, left Patient Disposition: Home, Self-Care Time of Disposition Decision: 20:40 Condition: Good Prescriptions / Home Meds: No Action No Known Home Medications levofloxacin 750 mg tablet 750 mg PO DAILY 7 Days Qty: 7 0RF metronidazole 500 mg tablet 500 mg PO Q8H 7 Days Qty: 21 0RF ondansetron 4 mg tablet,disintegrating 4 mg PO Q8H PRN (Reason: nausea and vomiting) 4 Days Qty: 10 0RF omeprazole 40 mg capsule,delayed release(DR/EC) 40 mg PO DAILY Qty: 30 0RF Print Language: Kazakh Instructions: Puncture Wound (ED), Swollen Knee Joint (ED) Referrals: NATALI BOCANEGRA [Primary Care Provider, Family Practice] - 1 week Discharge Date/Time: 10/24/24 21:08
[2024-10-24] MEDS: AMOXICILLIN/POT CLAV 875-125 MG TABLET 1 TAB PO (19:52)
[2024-10-24] MEDS: OXYCODONE HCL/ACETAMINOPHEN 5MG/325MG 1 TAB PO (19:52)
[2024-10-24] MEDS: ADACEL DIPH,PERTUSS(ACELL),TET VAC/PF 0.5 ML ADULT SYRINGE IM (19:53)
[2024-10-24] MEDS: ONDANSETRON 4 MG RAPDIS TABLET SL (19:53)
[2024-10-24] MEDS: OXYCODONE HCL/ACETAMINOPHEN 5MG/325MG PO (21:05)
== END 2024-10-24 21:08 | disposition home or self-care (01) ==
PROVIDERS: Emergency Provider Emergency Medicine; PCP Family Medicine
DX: S91.332A Puncture wound without foreign body, left foot, initial encounter (principal); W45.0XXA Nail entering through skin, initial encounter; M23.91 Unspecified internal derangement of right knee; M25.461 Effusion, right knee; F17.200 Nicotine dependence, unspecified, uncomplicated; Z23 Encounter for immunization
CPT/HCPCS: 36415; 73562; 73630; 85378; 90471; 90715; 99284; Q0162